=== PATIENT | male | born 1950 | race Caucasian/White ===

== ENCOUNTER 2022-04-20 10:52 | Emergency (ER) | payer MEDICARE, SELFPAY ==
[2022-04-20 11:10] VITALS: BP 113/70; PULSE 82; RESP 22; TEMP 36.2; O2SAT 95; BMI 43.3
--- NOTE | 2022-04-20 11:27 | ED_ITS ---
HPI - General Adult General Chief complaint: Difficulty Swallowing Stated complaint: unable to swallow water/food Time Seen by Provider: 04/20/22 11:09 History of Present Illness HPI narrative: This 71-year-old male comes in reporting inability to swallow. He states that he has been having some difficulty with swallowing certain things recently. He does have a remote history of a dilation of his esophagus. [facility] He states that he took his pills this morning without any difficulty. After that he had some eggs and other breakfast food that he feels is lodged in the lower esophagus now. He tried to swallow water with some force but was unable to do so. He does have some burping and spitting now as nothing seems to be going past his esophagus. Related Data Allergies Allergy/AdvReac Type Severity Reaction Status Date / Time lisinopril Allergy Verified 04/20/22 11:09 metformin Allergy Verified 04/20/22 11:09 Review of Systems Narrative: Constitutional: No fevers, no weight gain or loss. Eyes: No discharge. No vision changes. HENT: No congestion, no sore throat, no ear pain. Cardiovascular: No chest pain, no palpitations. Respiratory: No shortness of breath, no wheezes, no cough. Gastrointestinal: No abdominal pain, no diarrhea. Unable to swallow due to food bolus. Genitourinary: No dysuria, no hematuria. Musculoskeletal: Normal range of motion. Skin: No rashes, no pruritis. Neurological: No dizziness, weakness, sensory change, speech change. Endo/Heme/Allergies: No bruising or bleeding. No polydipsia. Pysch: no suicidality, no anxiety, no insomnia. All other systems reviewed and are negative. [facility] Social History Smoking Status: Former smoker What tobacco products do you use: cigarettes Do you use any of these nicotine containing products: None Second hand tobacco smoke exposure: No How often do you have a drink containing alcohol: never How often do you have six or more drinks on one occasion: Never AUDIT-C Alcohol total score: 0 Non-prescribed substance use: denies use service: Yes Exam Narrative: Exam Narrative: Constitutional: Well-developed, well-nourished. HEENT: Normocephalic, atraumatic. Neck: Normal range of motion. Nontender. Supple. Heart: Regular. No murmurs. Normal rate. Intact distal pulses. Lungs: Clear to auscultation. No chest discomfort. No wheezes, rhonchi, or rales. Abdomen: Normal bowel sounds. Nontender. No rebound tenderness. Genitalia: Deferred. Back: No midline tenderness. Normal range of motion. Extremities: Normal range of motion. No injury. Skin: Intact. No rash. Warm. No erythema or pallor. Neurologic: No altered sensation. No weakness. Alert and oriented. Psychiatric: No suicidality. No anxiety or depression. No insomnia. Nursing notes and vitals signs are reviewed. Const: Vital Signs, click to edit/add: Vital Signs - 24 hr 04/20/22 11:10 Temperature 97.2 F L Pulse Rate [Pulse Oximeter] 82 Respiratory Rate 22 Blood Pressure [Le ft Forearm] 113/70 Pulse Oximetry 95 Course Vital Signs Vital signs: Initial Vital Signs Temperature 97.2 F L 04/20/22 11:10 Temperature Source Temporal Artery Scan 04/20/22 11:10 Pulse Rate 82 04/20/22 11:10 Pulse Rhythm 04/20/22 11:10 Respiratory Rate 22 04/20/22 11:10 Blood Pressure 113/70 04/20/22 11:10 Blood Pressure Mean 84 04/20/22 11:10 Blood Pressure Position Supine 04/20/22 11:10 Pulse Oximetry 95 04/20/22 11:10 Oxygen Delivery Method 04/20/22 11:10 Vital Signs Temperature 97.2 F L 04/20/22 11:10 Pulse Rate 82 04/20/22 11:10 Respiratory Rate 22 04/20/22 11:10 Blood Pressure 113/70 04/20/22 11:10 Pulse Oximetry 95 04/20/22 11:10 Temperature 97.2 F L 04/20/22 11:10 Pulse Rate 82 04/20/22 11:10 Respiratory Rate 22 04/20/22 11:10 Blood Pressure 113/70 04/20/22 11:10 Pulse Oximetry 95 04/20/22 11:10 Medical Decision Making MDM Narrative Medical decision making narrative: This patient has a history of food bolus in the esophagus and comes in with similar symptoms today. An IV was established and he received a mg of glucagon. After allowing this to work he did give a value aunt effort to try to swallow water but was unsuccessful. I did speak with the surgeon on-call, Dr. Velarde, who stated that Dr. Ross would be able to do an endoscopy today. I spoke also with her and these arrangements will occur before long. Discharge Plan Discharge Clinical Impression: Esophagus, foreign body Patient Disposition: Xfer Other Discharge Location: [facility] Condition: Unchanged
[2022-04-20] MEDS: GLUCAGON,HUMAN RECOMBINANT 1 MG/ML VIAL IV (12:12)
--- NOTE | 2022-04-20 13:40 | ED.NURSE ---
Patient to surgery center to see Dr. Ross about endoscopy. Patient left ambulatory and stable.
--- NOTE | 2022-04-20 14:18 | W.ANESCHARGE ---
Anesthesia Charges Start Date/Time Anesthesia Start Date: 04/20/22 Anesthesia Start Time: 13:50 Stop Date/Time Anesthesia Stop Date: 04/20/22 Anesthesia Stop Time: 14:10 Summary Emergency: Yes Extremes of Age: Over 70-CPT 10241
--- NOTE | 2022-04-20 14:36 | W.ANESCHARGE ---
Anesthesia Charges Start Date/Time Anesthesia Start Date: 04/20/22 Anesthesia Start Time: 13:50 Stop Date/Time Anesthesia Stop Date: 04/20/22 Anesthesia Stop Time: 14:10 Summary Emergency: Yes Extremes of Age: Over 70-CPT 76698
[2022-04-20 14:46] LABS: Glucose, Point-of-Care* 190 mg/dl (60-115)
== END 2022-04-20 13:59 | disposition other institution (70) ==
LOC: ED 13:35 → SS 13:44 → ED 05-13 10:27
PROVIDERS: Surgery; Emergency Provider Emergency Medicine Emergency Medical Services; PCP Internal Medicine
DX: T18.128A Food in esophagus causing other injury, initial encounter (principal)
CPT/HCPCS: 43235; 731; 82947; 99100; 99140; 99283; 99284; J1610; J2704; J3490

== ENCOUNTER 2023-11-13 20:09 | Emergency (ER) | payer MEDICARE, OTHER, SELFPAY ==
[2023-11-13 20:21] VITALS: BP 151/92; PULSE 93; RESP 20; TEMP 36.6; O2SAT 96; BMI 38.0
--- NOTE | 2023-11-13 20:32 | ED.HEATRA ---
HPI - Head Injury General Chief complaint: Head Injury/Pain Stated complaint: Chasing a bat,fell, hit back of head Time Seen by Provider: 11/13/23 20:25 History of Present Illness HPI Narrative: This 72-year-old male comes in with a head injury. He was chasing a bat and eventually did catch and dispose of the bat. In this process he fell and hit the back of his head. He did not have loss of consciousness. He has a large hematoma in this area with an overlying abrasion. There is no fluctuance in the hematoma. The patient does not describe any headache. He does take a aspirin daily. He was able to get up and ambulate normally and has no other complaints. Related Data Allergies Allergy/AdvReac Type Severity Reaction Status Date / Time lisinopril Allergy Verified 04/20/22 11:09 metformin Allergy Verified 04/20/22 11:09 Review of Systems Status of ROS: Reports: 10 or more systems reviewed and unremarkable except as noted in History and below Narrative: Constitutional: No fevers, no weight gain or loss. Eyes: No discharge. No vision changes. HENT: No congestion, no sore throat, no ear pain. Cardiovascular: No chest pain, no palpitations. Respiratory: No shortness of breath, no wheezes, no cough. Gastrointestinal: No abdominal pain, no vomiting, no diarrhea. Genitourinary: No dysuria, no hematuria. Musculoskeletal: Normal range of motion. Skin: No rashes, no pruritis. Neurological: No dizziness, weakness, sensory change, speech change. Endo/Heme/Allergies: No bruising or bleeding. No polydipsia. Pysch: no suicidality, no anxiety, no insomnia. All other systems reviewed and are negative. PFSH PFSH Social History Smoking Status: Former smoker What tobacco products do you use: cigarettes Smoking quit date/years: >15 years ago Do you use any of these nicotine containing products: None Second hand tobacco smoke exposure: No How often do you have a drink containing alcohol: never How often do you have six or more drinks on one occasion: Never AUDIT-C Alcohol total score: 0 Non-prescribed substance use: denies use service: Yes Exam Narrative: Exam Narrative: Constitutional: Well-developed, well-nourished, no acute distress. HEENT: Hematoma on the right occipital region with overlying abrasion. The hematoma is approximately 6 cm in diameter. Neck: Normal range of motion. Nontender. Supple. Heart: Regular. No murmurs. Normal rate. Intact distal pulses. Lungs: Clear to auscultation. No chest discomfort. No wheezes, rhonchi, or rales. Abdomen: Normal bowel sounds. Nontender. No rebound tenderness. Genitalia: Deferred. Back: No midline tenderness. Normal range of motion. Extremities: Normal range of motion. No injury. Skin: Intact. No rash. Warm. No erythema or pallor. Neurologic: No altered sensation. No weakness. Alert and oriented. Psychiatric: No suicidality. No anxiety or depression. No insomnia. Nursing notes and vitals signs are reviewed. Const: Vital Signs, click to edit/add: Vital Signs - 24 hr 11/13/23 20:21 Temperature 97.9 F Pulse Rate [Pulse Oximeter] 93 Respiratory Rate 20 Blood Pressure [Ri ght Upper Arm] 151/92 H Pulse Oximetry 96 Oxygen Delivery Me thod Room Air Course Vital Signs Vital signs: Initial Vital Signs Temperature 97.9 F 11/13/23 20:21 Temperature Source Temporal Artery Scan 11/13/23 20:21 Pulse Rate 93 11/13/23 20:21 Respiratory Rate 20 11/13/23 20:21 Blood Pressure 151/92 H 11/13/23 20:21 Blood Pressure Mean 111 H 11/13/23 20:21 Blood Pressure Position Sitting 11/13/23 20:21 Pulse Oximetry 96 11/13/23 20:21 Oxygen Delivery Method Room Air 11/13/23 20:21 Vital Signs Temperature 97.9 F 11/13/23 20:21 Pulse Rate 93 11/13/23 20:21 Respiratory Rate 20 11/13/23 20:21 Blood Pressure 151/92 H 11/13/23 20:21 Pulse Oximetry 96 11/13/23 20:21 Oxygen Delivery Method Room Air 11/13/23 20:21 Temperature 97.9 F 11/13/23 20:21 Pulse Rate 93 11/13/23 20:21 Respiratory Rate 20 11/13/23 20:21 Blood Pressure 151/92 H 11/13/23 20:21 Pulse Oximetry 96 11/13/23 20:21 Oxygen Delivery Method Room Air 11/13/23 20:21 MDM - Head Injury MDM Narrative Medical decision making narrative: This patient has not had injury in the occipital portion of his head. He has a sizable hematoma without fluctuance or laceration. The patient does take an aspirin daily. He is not reporting headache and has no neurological deficits. CT imaging of his head is obtained and returns with no acute findings intracranially by my review. He does have a large hematoma. Radiology report is pending. This patient is okay to be discharged home. He is instructed use Tylenol as needed and directed. Discharge Plan Discharge Clinical Impression: Closed head injury Additional Instructions: Use [id number] medicines as needed and directed. Activity as tolerated. Follow up with MD return if worsening. Follow Up/Referrals: Suleman Castellano MD [Primary Care Provider] - Stand Alone Forms: [place] Info Instructions
--- NOTE | 2023-11-13 20:34 | CRLHL7_ITS ---
For Patients: As a result of the Cures Act, medical imaging exams and procedure reports are released immediately into your electronic medical record. You may view this report before your referring provider. If you have questions, please contact your health care provider. INDICATION: Head injury TECHNIQUE: CT head without contrast. COMPARISON: None. FINDINGS: Brain: No acute hemorrhage. No acute transcortical infarct. No significant mass effect or midline shift. Focal left frontal gliosis. Severe chronic microvascular ischemic disease. Mild global parenchymal volume loss. Ventricles: Unremarkable. Sinuses: Unremarkable. Mastoid air cells: Unremarkable. Orbits: Unremarkable. Calvarium and soft tissues: Right parietal scalp hematoma, no underlying fracture appreciated. IMPRESSION: Right parietal scalp hematoma, no other acute abnormality appreciated. Please note that all CT scans at this facility use dose modulation, iterative reconstruction, and/or weight-based dosing when appropriate to reduce radiation dose to as low as reasonably achievable. Dictated by Elie Lee MD @ 11/13/2023 9:40:12 PM (Electronically Signed)
--- OUTSIDE RECORDS SUMMARY | 2023-11-13 21:32 | XMS_ITS | Encounter Summary ---
Author Name [facility] Organization Department of [facility] Address [address] [place] [address] Support Name Relationship Address Phone NANCY FORRESTER Emergency Contact Unknown Insurance Providers: All historical and current Section Date Range: From patient's date of to the date document was created. This section includes the names of all active insurance providers for the patient. Insurance Provider Type of Coverage Plan Name Start of Policy Coverage End of Policy Coverage Group Number Member ID Insurance Provider's Telephone Number Policy Brantley's Name Patient's Relationship to Policy Brantley [employer] [place] [facility] MEDICARE ADVANTAGE [facility] (WNR) Oct 11, 2019 [id number] OLGA,FLYNN GARAY PATIENT [employer] [place] MEDICARE ADVANTAGE [facility] (WNR) Oct 11, 2016 RIVAAB [id number] OLGA,FLYNN GARAY PATIENT [employer] (WNR) MEDICARE ADVANTAGE [facility] (WNR) Oct 11, 2019 [id number] FLYNN GOULD PATIENT Selected Encounter This section includes the information on record at [place] for the Encounter. Date/Time Encounter Type Encounter Description Reason Provider Source Jan 13, 2023 03:30 PM OFFICE O/P EST MOD 30-39 MIN RENAL/NEPHROL(EXCE PT DIALYSIS) ICD-10-CM E11.22 Type 2 diabetes mellitus w diabetic chronic kidney disease MITCHELL GOMEZ Encounter Template Text not used by [place] Assessments - Encounter Diagnoses This section includes the primary and secondary diagnoses documented for the Encounter. Date/Time Primary/Secondary Diagnosis Diagnosis Name Provider Source Jan 14, 2023 11:31 AM PRIMARY Type 2 diabetes mellitus w diabetic chronic kidney disease MITCHELL GOMEZ [facility] Jan 14, 2023 11:31 AM SECONDARY Anemia in chronic kidney disease MITCHELL GOMEZ [facility] Jan 14, 2023 11:31 AM SECONDARY Chronic kidney disease, stage 4 (severe) MITCHELL GOMEZ [facility] Jan 14, 2023 11:31 AM SECONDARY Essential (primary) hypertension MITCHELL GOMEZ [facility] Jan 14, 2023 11:31 AM SECONDARY Gout, unspecified MITCHELL GOMEZ [facility] Jan 14, 2023 11:31 AM SECONDARY Hypertensive chronic kidney disease w stg 1-4/unsp chr kdny MITCHELL GOMEZ [facility] Jan 14, 2023 11:31 AM SECONDARY Secondary hyperparathyroidism of renal origin MITCHELL GOMEZ [facility] Jan 14, 2023 11:31 AM SECONDARY Type 2 diabetes mellitus with unspecified complications MITCHELL GOMEZ [facility] Plan of Treatment: Future Appointments (+ 6 months) and Future Tests (+/- 45 days) The Plan of Treatment section includes future care activities for the patient from all [place] treatmentcilities. This section includes future appointments and future orders which are active, pending or scheduled. Future Appointments This section includes appointments that were scheduled to occur 6 months from the date of the Encounter, up to a maximum of 20 appointments. The data comes from all [place] treatment facilities. Appointment Date/Time Appointment Type Appointme nt Facility Name Mar 18, 2023 09:30 AM AMBULATORY - MEDICINE [facility] Jun 29, 2023 09:00 AM AMBULATORY - NONE [facility] Jul 06, 2023 01:30 PM AMBULATORY - MEDICINE [facility] Jul 14, 2023 08:30 AM AMBULATORY - MEDICINE [facility]ID[facility] Encounter Notes: All associated encounter notes This section contains the clinical notes associated to the Encounter. Date/Time Encounter Note(s) Provider Source Jan 13, 2023 04:45 PM NEPHROLOGY ATTENDI WILL NOTE: LOCAL TITLE: RENAL CLINIC NOTE STANDARD TITLE: NEPHROLOGY ATTENDING NOTE DATE OF NOTE: JAN 13, 2023@16:45 ENTRY DATE: JAN 13, 2023@16:45:16 AUTHOR: MITCHELL GOMEZ EXP COSIGNER: URGENCY: STATUS: COMPLETED RENAL CLINIC NOTE Has ADDENDA Assessment/plan: Mr. Shaggy Gould is a 72 year old male seen in renal clinic for management of chronic kidney disease. 1. CKD 4, eGFR 23 with most recent labs Comment: Etiology of CKD is likely compound in nature with long-standing hypertension, long-standing DM (with + proteinuria/+ neuropathy), and renovascular disease (small vessel ischemic disease identified on head CT) contributing. Evaluation included renal US (normal kidney size, diffuse parenchymal thinning in both kidneys consistent with changes of chronic kidney disease), UA (no active sediment, + dipstick proteinuria), albumin/creatinine ratio 4748 mg/gcreat (on ARB for ~ 2 weeks), SPEP negative). No uremic symptoms. Acceptable electrolytes. Oral hydration is adequate. Controlling DM2/HTN to slow CKD progression was discussed. Interested in CKD education, inquires if this can be done from [facility]. Plan: Continue current management. 2. Hypertension Comment: Reports home readings are <130s systolic. Clinic reading is at goal. Plan: Continue current management. 3. DM2 Comment: Managed by PCP. Checking BG occasionally, denies hypoglycemia. On SGLT2i, on ARB. Plan: Continued management per PCP. 4. Bone/mineral/secondary hyperparathyroidism of renal origin Comment: Calcium & phos are acceptable, not on calcium supplements or phos binders. Pt has secondary hyperparathyroidism of renal origin not on calcitriol. Plan: Monitor. 5. Anemia Comment: ACKD per peripheral smear. Hgb is stable & at baseline not on JUNA. Iron replete, not on supplement. Plan: Monitor. JUAN is not indicated until hgb < 9 g/dL. 6. Gout Comment: Denies flare. Uric acid level at goal. Plan: Continue allopurinol. RTC 6 months [facility] with labs 1 week prior, sooner if needed --> co-signing MEERA Oneill & ABIMBOLA ePacock to please assist with scheduling CKD education {}{}{}{}{}{}{}{}{}{}{}{}{}{}{}{ }{}{}{}{}{}{}{}{}{}{}{}{}{}{}{} {}{}{}{}{}{}{} Nurse's Notes Reviewed. Chief Complaint: follow-up CKD HPI: Mr. Gould was seen by [facility] visit. He gives verbal permission for visit by video, identify confirmed with name/full date of . Pt states he's feeling well & he has no complaints. No new health problems, no hospitalizations since our last visit. CKD - appetite is good. No nausea, vomiting, metallic taste in the mouth. Energy level is good. Does not nap during the day. No pruritis. HTN - checking BP weekly, reports readings are consistently 130s systolic DM2 - checking BG occasionally, no hypoglycemia gout - no flare Past medical history/Active Problems: Active Problems: Active problems - Computerized Problem List is the source for the followin. Diabetes mellitus 2. Essential hypertension - dx late - says pharmacologic stress test ok in late 3. Hyperlipidemia 4. Gout 5. Obesity 6. Proteinuria - with prior testing per pt report 7. Peripheral sensory neuropathy due to type 2 diabetes mellitus 8. Acquired hallux rigidus 9. Flat foot 10. Edema 11. Deformity of toe 12. Chronic kidney disease stage 3 13. Ingrowing nail of toe of left foot 14. Anaemia in chronic kidney disease 15. Chronic kidney disease stage 3B 16. Secondary hyperparathyroidism of renal origin Review of Systems: Feels well, no weight loss, good appetite. No Chest Pain. No Shortness of breath. No abdominal pain, N/V, or change in bowel habits. No diarrhea or constipation. No urinary hesitancy or frequency. Active Outpatient Medications (excluding Supplies): Outpatient Medications Status 1) ALLOPURINOL 100MG TAB TAKE ONE TABLET BY MOUTH EVERY ACTIVE DAY FOR GOUT PREVENTION 2) AMLODIPINE BESYLATE 10MG TAB TAKE ONE-HALF TABLET BY ACTIVE (S) MOUTH EVERY DAY FOR BLOOD PRESSURE 3) EMPAGLIFLOZIN 25MG TAB TAKE ONE-HALF TABLET BY MOUTH ACTIVE EVERY DAY 4) GLIPIZIDE 5MG TAB TAKE ONE TABLET BY MOUTH EVERY DAY ACTIVE (S) 5) LOSARTAN 25MG TAB TAKE ONE TABLET BY MOUTH EVERY DAY ACTIVE FOR KIDNEY PROTECTION 6) METOPROLOL TARTRATE 50MG TAB TAKE ONE-HALF TABLET BY ACTIVE MOUTH TWICE A DAY FOR HEART RHYTHM 7) OMEPRAZOLE 20MG EC CAP TAKE ONE CAPSULE BY MOUTH ACTIVE TWICE A DAY ON AN EMPTY STOMACH, AT LEAST 30 MINUTES PRIOR TO A MEAL 8) SIMVASTATIN 20MG TAB TAKE ONE-HALF TABLET BY MOUTH AT ACTIVE BEDTIME FOR CHOLESTEROL Non-VA Medications Status 1) Non-VA ACETAMINOPHEN 500MG TAB 1000MG MOUTH DAILY ACTIVE 2) Non-VA ASPIRIN 325MG TAB 325MG MOUTH EVERY DAY ACTIVE 3) Non-VA CHOLECALCIFEROL TAB MOUTH ACTIVE 4) Non-VA MARINE LIPID (FISH OIL) CAP,ORAL MOUTH ACTIVE 5) Non-VA MULTIVITAMIN CAP/TAB 1 TABLET MOUTH EVERY DAY ACTIVE 13 Total Medications Meds reviewed with pt, no changes Physical Exam: VS: Temp: 98 F [36.7 C] (04/10/2022 08:14) BP: 124/85 (01/13/2023 15:26) Pulse:100 (01/13/2023 15:26) Resp: 16 (01/13/2023 15:26) Weight: 275.7 lb [125.06 kg] (01/13/2023 15:26) Pain: 0 (04/10/2022 08:14) O2 Sat: 97% (01/13/2023 15:26) BMI: 42.0 General NAD WDWN Patient Education of Treatment Plan: Patient indicates readiness to learn, verbalizes understanding, agreement and satisfaction with the treatment plan. Denies further questions. /gregorio/ MITCHELL GOMEZ Nurse Practitioner Signed: 01/14/2023 11:32 Receipt Acknowledged By: 01/14/2023 14:27 /jony WEBB MSA 01/14/2023 12:28 /gregorio/ CATRACHITO PEACOCK RN REGISTERED NURSE 01/14/2023 ADDENDUM STATUS: COMPLETED Healthcare Recruiter called patient and left generic VM regarding CKD Edu. Contact info left. Healthcare Recruiter will await call back or f/u in 1 week. /jony WEBB MSA Signed: 01/14/2023 14:29 01/25/2023 ADDENDUM STATUS: COMPLETED Healthcare Recruiter called patient to offer February 10 CKD Education Class. Patient is not able to attend. Healthcare Recruiter will [facility] back in February for following month. /gregorio/ NAKITA ONEILL ADVANCED MSA Signed: 01/25/2023 09:37 MITCHELL GOMEZ [facility]
--- OUTSIDE RECORDS SUMMARY | 2023-11-13 21:32 | XMS_ITS | Encounter Summary ---
Author Name Department of [facility] Organization Department of [facility] Address [address] [place] [address] Support Name Relationship Address Phone NANCY FORRESTER [...] [employer] MEDICARE ADVANTAGE [facility] (WNR) Oct 11, 2019 [id number] [phone] FLYNN ESPINOZA PATIENT [employer] [place] MEDICARE ADVANTAGE [facility] (WNR) Oct 11, 2016 [id number] [id number] [facility] [phone] FLYNN ESPINOZA PATIENT [employer] (WNR) MEDICARE ADVANTAGE [facility] (WNR) Oct 11, 2019 [id number] FLYNN ESPINOZA PATIENT Selected Encounter This section includes the information on record at [place] for the Encounter. Date/Time Encounter Type Encounter Description Reason Pro vider Source Feb 03, 2023 12:00 AM Outpatient Encounter EVENT (HISTORICAL) I[facility] Encounter Template Text not used by [place] Plan of Treatment: Future Appointments (+ 6 months) and Future Tests (+/- 45 days) The Plan of Treatment section includes future care activities for the patient from all [place] treatmentfacilities. This section includes future appointments and future orders which are active, pending or scheduled. Future Appointments This section includes appointments that were scheduled to occur 6 months from the date of the Encounter, up to a maximum of 20 appointments. The data comes from all [place] treatment facilities. Appointment Date/Time Appointment Type Appointme nt Facility Name Mar 18, 2023 09:30 AM AMBULATORY - MEDICINE [facility] Jun 29, 2023 09:00 AM AMBULATORY - NONE [facility] Jul 06, 2023 01:30 PM AMBULATORY - MEDICINE [facility] Jul 14, 2023 08:30 AM AMBULATORY - MEDICINE [facility]
--- OUTSIDE RECORDS SUMMARY | 2023-11-13 21:32 | XMS_ITS | Encounter Summary ---
Author Name Department of [facility] Organization Department of [facility] Address [address] [place] [address] Support Name Relationship Address Phone NANCY FORRESTER [...] [facility] [place] [facility] [place] ADVANTAGE [facility] (WNR) Oct 11, 2019 [id number] [phone] FLYNN ESPINOZA PATIENT [facility] [place] [facility] ([place]IC[place] ADVANTAGE [facility] (WNR) Oct 11, 2016 RIVAAB [id number] FLYNN ESPINOZA PATIENT [facility] (WNR) MEDICARE ADVANTAGE [facility] (WNR) Oct 11, 2019 [id number] [phone] FLYNN ESPINOZA PATIENT Selected Encounter This section includes the information on record at MD for the Encounter. Date/Time Encounter Type Encounter Description Reason Provider Source Mar 17, 2023 11:41 AM Outpatient Encounter GENERAL INTERNAL MEDICINE JAYRO BOLTON Encounter Template Text not used by MD Plan of Treatment: Future Appointments (+ 6 months) and Future Tests (+/- 45 days) The Plan of Treatment section includes future care activities for the patient from all MD treatmentfacilities. This section includes future appointments and future orders which are active, pending or scheduled. Future Appointments This section includes appointments that were scheduled to occur 6 months from the date of the Encounter, up to a maximum of 20 appointments. The data comes from all MD treatment facilities. Appointment Date/Time Appointment Type Appointme nt Facility Name Mar 18, 2023 09:30 AM [facility] Jun 29, 2023 09:00 AM [facility]ORY - NONE [facility] Jul 06, 2023 01:30 PM [facility] Jul 14, 2023 08:30 AM AMBULATORY - MEDICINE [facility] Lab Results: +/- 30 days of the encounter This section includes the Chemistry and Hematology Lab Results on record with MD for the patient. Radiology Reports and Pathology Reports are provided separately, in subsequent sections. Lab Results This section contains the Chemistry/Hematology Results that were resulted 30 days before or 30 daysafter the date of the Encounter. Date/Time Source Result Type Result - Unit Interpretation Reference Range Comment Mar 18, 2023 10:11 AM [facility] HEMOGLOBIN A1C Specimen Type: BLOOD Comment: Values obtained from A1C measurements can vary. For typical A1C assays, a reported value of 7.0 could actually be between 6.7 and 7.3 if measured by a reference method. A reported value of 9.0 could actually be between 8.7 and 9.3. Ref: http://www.ngs p.org/CAPdata. asp Ordering Provider: LANE GARCIA Report Released Date/Time: Mar 18, 2023 09:59 AM Reporting Lab: [facility] [id number] Performing Lab: [facility] [id number] HEMOGLOBIN A1C 5.3 4.0-6.0 Mar 18, 2023 10:11 AM [facility] TSH W/REFLEX TO FREE T4 Specimen Type: PLASMA No comment entered. Ordering Provider: LANE GARCIA Report Released Date/Time: Mar 18, 2023 09:59 AM Reporting Lab: [facility] [id number] Performing Lab: [facility] [id number] TSH 1.31 0.35-4.94 Mar 18, 2023 10:11 AM [facility] COMPREHENSIVE METABOLIC PANEL+MG Specimen Type: PLASMA Comment: Values obtained from A1C measurements can vary. For typical A1C assays, a reported value of 7.0 could actually be between 6.7 and 7.3 if measured by a reference method. A reported value of 9.0 could actually be between 8.7 and 9.3. Ref: http://www.ngs p.org/CAPdata. asp Ordering Provider: LANE GARCIA Report Released Date/Time: Mar 18, 2023 09:59 AM Reporting Lab: [facility] [id number] Performing Lab: [facility] [id number] CREATININE 2.4 H 0.7-1.2 UREA NITROGEN 34 H 8-26 GLUCOSE 160 H 70-100 SODIUM 140 136-145 POTASSIUM 4.3 3.5-5.1 CHLORIDE 105 98-107 CO2 26 22-29 CALCIUM 9.3 8.4-10.2 PROTEIN,TOTAL 6.9 6.0-8.3 ALBUMIN 4.0 3.5-5.2 BILIRUBIN, TOTAL 0.6 0.2-1.2 MAGNESIUM 1.8 1.6-2.6 ANION GAP 9 5-15 ALKALINE PHOSPHATASE 98 40-150 ALT/SGPT 11 See_Comment AST/SGOT 15 See_Comment .CREAT EGFR(CKD-EPI) 28 L See_Comment Mar 18, 2023 10:11 AM [facility] CBC & DIFF Specimen Type: BLOOD Comment: Automated Differential Performed Ordering Provider: LANE GARCIA Report Released Date/Time: Mar 18, 2023 09:59 AM Reporting Lab: [facility] [id number] Performing Lab: [facility] [id number] WBC 9.64 4.0-11.0 RBC 3.91 L 4.6-6.2 HGB 13.2 L 13.5-17.9 HCT 39.7 L 41-54 MCV 101.5 H 80-100 MCH 33.8 H 27-33 MCHC 33.2 32.0-37.5 PLT 314 150-400 MPV 9.5 7.4-10.4 NEUT 74.2 LYMPHS 14.9 MONO 7.0 EOSINO 2.8 BASO 0.6 RDW 12.8 11.5-14.5 ABS LYMPH 1.44 1.0-4.0 ABS MONO 0.67 0.1-1.0 ABS NEUT 7.15 2.0-7.7 ABS EOS 0.27 0-0.5 ABS BASO 0.06 0-0.2 IG(META,MYELO,P RO) 0.5 ABS IMMATURE GRAN 0.05 0-0.1 Encounter Notes: All associated encounter notes This section contains the clinical notes associated to the Encounter. Date/Time Encounter Note(s) Provider Source Mar 17, 2023 11:41 AM NURSING IMMUNIZATI ON NOTE: LOCAL TITLE: VAAES NSG COVID-19 VACCINE ADMINISTRATION STANDARD TITLE: NURSING IMMUNIZATION NOTE DATE OF NOTE: MAR 17, 2023@11:41 ENTRY DATE: MAR 17, 2023@11:42 AUTHOR: JAYRO BOLTON EXP COSIGNER: URGENCY: STATUS: COMPLETED Patient received a prior dose of the Pfizer Bivalent booster. Documented: COVID-19 ([place]), MRNA, LNP-S, BIVALENT, PF, 30 MCG/0.3 ML DOSE Historical Date Administered: Aug 05, 2022 Series: Series 5 Outside Location: [facility] [address] [place] [address] Information Source: FROM OTHER REGISTRY /es/ JAYRO BOLTON LPN Signed: 03/17/2023 11:42 JAYRO BOLTON [facility]
--- OUTSIDE RECORDS SUMMARY | 2023-11-13 21:32 | XMS_ITS | Encounter Summary ---
Author Name [facility] of [facility] Organization Department of [facility] Address [address] [place] [address] Support Name Relationship Address Phone NANCY FORRESTER [...] [facility] [place] [facility] (WNR) Oct 11, 2019 [id number] [phone] FLYNN ESPINOZA PATIENT [facility] [place] [facility] [place]IC[place] ADVANTAGE [facility] (WNR) Oct 11, 2016 RIVAAB [id number] FLYNN ESPINOZA PATIENT [facility] (WNR) MEDICARE ADVANTAGE [facility] (WNR) Oct 11, 2019 [id number] [phone] FLYNN ESPINOZA PATIENT Selected Encounter This section includes the information on record at [place] for the Encounter. Date/Time Encounter Type Encounter Description Reason Pro vider Source Jan 28, 2023 12:22 PM Outpatient Encounter RENAL/NEPHROL(EXCEPT DIALYSIS) IHE Encounter Template Text not used by [place] Plan of Treatment: Future Appointments (+ 6 months) and Future Tests (+/- 45 days) The Plan of Treatment section includes future care activities for the patient from all [place] treatmentfacilities. This section includes future appointments and future orders which are active, pending or scheduled. Future Appointments This section includes appointments that were scheduled to occur 6 months from the date of the Encounter, up to a maximum of 20 appointments. The data comes from all [place] treatment facilities. Appointment Date/Time Appointment Type Appointme nt Facility Name Mar 18, 2023 09:30 AM [facility]ORY - [facility]ICINE [facility] Jun 29, 2023 09:00 AM AMB[facility]ATORY - NONE [facility] Jul 06, 2023 01:30 PM AMBULATORY - MEDICINE [facility] Jul 14, 2023 08:30 AM [facility] Encounter Notes: All associated encounter notes This section contains the clinical notes associated to the Encounter. Date/Time Encounter Note(s) Provider Source Jan 28, 2023 12:22 PM REPORT OF CONTACT: LOCAL TITLE: APPOINTMENT SCHEDULING NOTE STANDARD TITLE: REPORT OF CONTACT DATE OF NOTE: JAN 28, 2023@12:22 ENTRY DATE: JAN 28, 2023@12:22:51 AUTHOR: DONNA GAGE EXP COSIGNER: URGENCY: STATUS: COMPLETED Attempted to schedule Return to clinic (RTC) Contact attempt made to 1st attempt Telephone 2nd attempt Letter Left message on voice mail to call back to this number [phone] If calls back, schedule appt for: Activity: 01/13/2023 15:54 New Order entered by MITCHELL GOMEZ (NURSE PRACTITIO) Order Text: Return to [facility]IEF [facility] on or around ( Jul 12, 2023 ) for a total of 1 appointment(s) Prerequisites: Labs (NON-FASTING) labs 1 week prior Nature of Order: ELECTRONICALLY ENTERED /es/ DONNA GAGE, RN REGISTERED NURSE Signed: 01/28/2023 12:23 DONNA GAGE [facility]
--- OUTSIDE RECORDS SUMMARY | 2023-11-13 21:32 | XMS_ITS | Encounter Summary ---
Author Name Department of [facility] Organization [facility] of [facility] Address [address] [place] [address] Support Name Relationship Address Phone NANCY FORRESTER Emergency Contact Unknown [phone] Insurance Providers: All historical and current Section [...] [facility] [place] ADVANTAGE [facility] (WNR) Oct 11, 2019 [id number] OLGA,FLYNN GARAY PATIENT [facility] [place] [facility] [place] MEDIC[place] ADVANTAGE [facility] (WNR) Oct 11, 2016 RIVAAB [id number] [phone] OLGA,FLYNN GARAY PATIENT [facility] (WNR) MEDICARE ADVANTAGE [facility] (WNR) Oct 11, 2019 [id number] [phone] FLYNN ESPINOZA PATIENT Selected Encounter This section includes the information on record at MD for the Encounter. Date/Time Encounter Type Encounter Description Reason Provider Source Jan 13, 2023 03:25 PM TELEHEALTH FACILITY FEE RENAL/NEPHROL(EXCE PT DIALYSIS) ICD-10-CM E11.22 Type 2 diabetes mellitus w diabetic chronic kidney disease MITCHELL GOMEZ Encounter Template Text not used by [facility] Assessments - Encounter Diagnoses This section includes the primary and secondary diagnoses documented for the Encounter. Date/Time Primary/Secondary Diagnosis Diagnosis Name Provider Source Jan 15, 2023 09:08 AM PRIMARY Type 2 diabetes mellitus w diabetic chronic kidney disease REMY STEPHENS [facility] Jan 15, 2023 09:08 AM SECONDARY Hypertensive chronic kidney disease w stg 1-4/unsp chr REMY Marte [facility] Jan 15, 2023 09:08 AM SECONDARY Type 2 diabetes mellitus with unspecified complications REM[facility] STEPHENS [facility] Plan of Treatment: Future Appointments (+ 6 [...] 09:30 AM AMBULATORY - MEDICINE [facility] Jun 29, 2023 09:00 AM AMBULATORY - NONE [facility] Jul 06, 2023 01:30 PM [facility] Jul 14, 2023 08:30 AM AM[facility]ULATORY - MEDICINE [facility] Vital Signs: All taken on the encounter date This section contains inpatient and outpatient Vital Signs collected on the date of the Encounter. Date/Time Temperature Pulse Blood Pressure Respiratory Rate SP02 Pain Height Weight Body Mass Index Source Jan 13, 2023 03:26 PM 100 /min 124/85 mm[Hg] 16 /min 97 % 275.7 lb [address] [facility] Social History: Smoking Status (Most current) and Tobacco Use (All prior to encounter date) This section includes the most current, and the historical, smoking and tobacco- related health factors from the MD facility where the Encounter took place. Current Smoking Status This section includes the most current smoking, or tobacco-related health factor, from the MD facility where the Encounter took place. Date/Time Current Smoking Status Comment Facil ity Mar 16, 2022 02:00 PM VA-TOBACCO FORMER USER [facility] Tobacco Use History This section includes a history of the smoking, or tobacco-related health factors, that were collected on or before the date of the Encounter. The data comes from the MD facility where the Encounter took place. Date/Time Smoking Status/Tobacco Use Comment F acility Mar 16, 2022 02:00 PM VA-TOBACCO QUIT 15 YRS OR MORE [facility] February 23, 2019 11:14 AM VA-TOBACCO FORMER USER [facility] February 23, 2019 11:14 AM VA-TOBACCO QUIT 15 YRS OR MORE [facility] February 24, 2018 11:40 AM VA-TOBACCO FORMER USER [facility] February 24, 2018 11:40 AM VA-TOBACCO QUIT 15 YRS OR MORE [facility] February 24, 2018 10:44 AM FORMER TOBACCO USER [facility]Y [facility] February 22, 2017 02:44 PM FORMER TOBACCO USER 7Y [facility] Jan 13, 2016 04:54 AM FORMER TOBACCO USER [facility] Mar 21, 2014 10:14 AM FORMER TOBACCO USER [facility]
--- OUTSIDE RECORDS SUMMARY | 2023-11-13 21:32 | XMS_ITS | Continuity of Care Document ---
Author Name [facility] Organization [facility] Care Team Providers Care Supervisor Molding Name Role Phone [facility] Unavailable Unavailable Problems Combined list of problems from Department of Defense and [facility] Affairs facilities. It does not include entries that were removed or entered in error. Problem Status Onset Date Problem Type Date of Resolution Comments Source Diabetes mellitus Active 983 Condition [facility] Acquired hallux rigidus Active Condition [facility] Anaemia in chronic kidney disease Active Condition [facility] Chronic kidney disease stage 4 Active Condition [facility] Deformity of toe Active Condition [facility] Edema Active Condition [facility] Essential hypertension Active Condition Mar 21, 2014 Entered By: JENELLE JAMES Comment: dx late 2013 Entered By: JENELLE JAMES Comment: says pharmacologic stress test ok in late [facility] Flat foot Active Condition [facility] Gout Active Condition [facility] Hyperlipidemia Active Condition [facility] Ingrowing nail of toe of left foot Active Condition [facility] Obesity Active Condition [facility] Peripheral sensory neuropathy due to type 2 diabetes mellitus Active Condition [facility] Proteinuria Active Condition Mar 21, 2014 Entered By: JENELLE JAMES Comment: with prior testing per pt report [facility] Secondary hyperparathyroidism of renal origin Active Condition [facility] Transient global amnesia Inactive Condition 03/21/2014 Mar 21, 2014 Entered By: JENELLE JAMES Comment: [facility] Diagnosis: ICD-10-CM F54 Psych & behavrl 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 Active Diagnosis [facility] Diagnosis: ICD-10-CM N18.4 Chronic kidney disease, stage 4 (severe) Active Diagnosis [facility] Diagnosis: ICD-10-CM 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 Medication Details Route Status Patient Instructions Prescription Expires Prescription Number Last Dispense Date Ordering Provider Order Date Source ACETAMINOPH EN 500MG TAB TAKE TWO TABLETS BY MOUTH DAILY ORALLY ACTIVE JACOB,TOBIAS I L 2013 [facility] ALLOPURINOL 100MG TAB TAKE ONE TABLET BY MOUTH EVERY DAY FOR GOUT PREVENTI ON ORALLY ACTIVE 03/18/2024 [id number] 4 MARTHA GARCIA 2022 [facility] ALLOPURINOL 100MG TAB TAKE ONE TABLET BY MOUTH EVERY DAY FOR GOUT PREVENTI ON ORALLY DISCONT INUED 03/17/2023 [id number] 3 MARTHA GARCIA 2021 [facility] AMLODIPINE BESYLATE 10MG TAB TAKE ONE-HALF TABLET BY MOUTH EVERY DAY FOR BLOOD PRESSURE ORALLY ACTIVE 03/18/2024 [id number] 3 MARTHA GARCIA 2022 [facility] AMLODIPINE BESYLATE 10MG TAB TAKE ONE-HALF TABLET BY MOUTH EVERY DAY FOR BLOOD PRESSURE ORALLY DISCONT INUED 03/17/2023 [id number] 3 MARTHA GARCIA 2021 [facility] ASPIRIN 325MG TAB TAKE ONE TABLET BY MOUTH EVERY DAY ORALLY ACTIVE JACOB,TOBIAS I L 2013 [facility] CHOLECALCIF ANTOINETTE TAB TAKE BY MOUTH ORALLY ACTIVE JACOB,TOBIAS I L 2013 [facility] CYANOCOBALA MIN 100MCG TAB TAKE TWO TABLETS BY MOUTH EVERY DAY ORALLY DISCONT INUED 12/30/2022 [id number] 3 MARTHA GARCIA 2022 [facility] CYANOCOBALA MIN 100MCG TAB TAKE TWO TABLETS BY MOUTH EVERY DAY ORALLY DISCONT INUED 10/19/2022 [id number] 2 MARTHA GARCIA 2021 [facility] CYANOCOBALA MIN 100MCG TAB TAKE TWO TABLETS BY MOUTH EVERY DAY ORALLY DISCONT INUED 10/14/2022 [id number] 2 MARTHA GARCIA 2021 [facility] CYANOCOBALA MIN 100MCG TAB TAKE TWO TABLETS BY MOUTH EVERY DAY ORALLY 06/16/2023 [id number] 3 MARTHA GARCIA 2022 [facility] EMPAGLIFLOZ IN 25MG TAB TAKE ONE-HALF TABLET BY MOUTH EVERY DAY ORALLY ACTIVE 02/23/2024 [id number] 3 PB GOMEZ 2022 [facility] EMPAGLIFLOZ IN 25MG TAB TAKE ONE-HALF TABLET BY MOUTH EVERY DAY ORALLY DISCONT INUED 03/19/2023 [id number] PB GOMEZ 2021 [facility] GLIPIZIDE 5MG TAB TAKE ONE-HALF TABLET BY MOUTH EVERY DAY FOR DIABETES 30 MINUTES BEFORE MEAL ORALLY ACTIVE 07/07/2024 [id number] 3 PB GOMEZ 2022 [facility] GLIPIZIDE 5MG TAB TAKE ONE TABLET BY MOUTH EVERY DAY ORALLY DISCONT INUED (EDIT) 11/12/2023 [id number] 3 MARTHA GARCIA 2022 [facility] LOSARTAN 25MG TAB TAKE ONE TABLET BY MOUTH EVERY DAY FOR KIDNEY PROTECTI ON ORALLY ACTIVE 03/18/2024 [id number] 3 MARTHA GARCIA 2022 [facility] LOSARTAN 25MG TAB TAKE ONE TABLET BY MOUTH EVERY DAY FOR KIDNEY PROTECTI ON ORALLY DISCONT INUED 12/28/2023 [id number] 3 PB GOMEZ 2022 [facility] LOSARTAN 25MG TAB TAKE ONE TABLET BY MOUTH EVERY DAY FOR KIDNEY PROTECTI ON ORALLY DISCONT INUED 09/18/2022 [id number] 2 PB GOMEZ 2020 [facility] MARINE LIPID (FISH OIL) CAP,ORAL TAKE BY MOUTH ORALLY ACTIVE JACOB,TOBIAS I L 2013 [facility] MELATONIN CAP/TAB TAKE BY MOUTH AT BEDTIME ORALLY ACTIVE WARREN GARCIAMIRA Carey 2022 [facility] METOPROLOL TARTRATE 50MG TAB TAKE ONE-HALF TABLET BY MOUTH TWICE A DAY FOR HEART RHYTHM ORALLY ACTIVE 03/18/2024 [id number] 3 WARREN GARCIAECCHARU Carey 2022 [facility] METOPROLOL TARTRATE 50MG TAB TAKE ONE-HALF TABLET BY MOUTH TWICE A DAY FOR HEART RHYTHM ORALLY DISCONT INUED 03/17/2023 [id number] 3 MARTHA GARCIA 2021 [facility] MULTIVITAMI NS CAP/TAB TAKE ONE TABLET BY MOUTH EVERY DAY ORALLY ACTIVE JACOB,TOBIAS I L 2013 [facility] OMEPRAZOLE 20MG CAP,EC TAKE ONE CAPSULE BY MOUTH TWICE A DAY ON AN EMPTY STOMACH, AT LEAST 30 MINUTES PRIOR TO A MEAL ORALLY ACTIVE 06/08/2024 [id number] 3 [place] H 2022 [facility] OMEPRAZOLE 20MG CAP,EC TAKE ONE CAPSULE BY MOUTH TWICE A DAY ON AN EMPTY STOMACH, AT LEAST 30 MINUTES PRIOR TO A MEAL ORALLY DISCONT INUED 04/11/2023 [id number] 3 [place]LEY DEL VALLEA H 2021 [facility] SIMVASTATIN 20MG TAB TAKE ONE-HALF TABLET BY MOUTH AT BEDTIME FOR CHOLESTE ROL ORALLY ACTIVE 03/18/2024 [id number] 3 MARTHA GARCIA 2022 [facility] SIMVASTATIN 20MG TAB TAKE ONE-HALF TABLET BY MOUTH AT BEDTIME FOR CHOLESTE ROL ORALLY DISCONT INUED 03/17/2023 [id number] 3 MARTHA GARCIA 2021 [facility] Allergies, Adverse Reactions, Alerts Combined list of allergies from Department of Defense and Veterans Affairs facilities. It does not include entries that were removed or entered in error. Substance Category Reaction Severity Reaction type Status Date Reported Comments Source LISINOPRIL Propensity to adverse reactions to drug (finding) Low blood pressure active 4 [facility] Immunizations Combined list of available immunizations from the Department of Defense and Veterans Affairs facilities. Immunization Series Date Given Administered By Site Reaction Lot Number CVX Code Drug Cable Lacer Status Comments Source INFLUENZA, HIGH-DOSE, QUADRIVALENT 2022 CODEY FRANK E RIGHT DELTO ID [id number] 197 complet ed [facility] INFLUENZA VACCINE, QUADRIVALENT, ADJUVANTED 2021 STARR DAS RIGHT DELTO ID [id number] 205 complet ed [facility] COVID-19 ([employer]soft), MRNA, LNP-S, BIVALENT, PF, 30 MCG/0.3 ML DOSE 5 2021 300 complet ed [facility] ZOSTER RECOMBINANT 2 2021 187 complet ed [facility] ZOSTER RECOMBINANT 1 2021 187 complet ed [facility] COVID-19 ([employer]), MRNA, LNP-S, PF, 30 MCG/0.3 ML DOSE, YEIMI-SUCROSE (AGES 12+ YEARS) 4 2021 217 complet ed PFR; [id number]; 2 [facility] COVID-19 (PFIZER), MRNA, LNP-S, PF, 30 MCG/0.3 ML DOSE 3 2020 208 complet ed PFR; [id number]; 2 [facility] INFLUENZA, INJECTABLE, QUADRIVALENT, PRESERVATIVE FREE 2020 150 complet ed [facility] COVID-19 (PFIZER), MRNA, LNP-S, PF, 30 MCG/0.3 ML DOSE 2 2020 208 complet ed [facility] COVID-19 (PFIZER), MRNA, LNP-S, PF, 30 MCG/0.3 ML DOSE 1 2020 208 complet ed [facility] INFLUENZA, INJECTABLE, QUADRIVALENT, PRESERVATIVE FREE 2019 150 complet ed [facility] INFLUENZA, SEASONAL, INJECTABLE, PRESERVATIVE FREE 2019 140 complet ed [facility] PNEUMOCOCCAL POLYSACCHARID E PPV23 2018 33 complet ed [employer] Lot # [id number], Exp Date [id number] [facility] INFLUENZA, INJECTABLE, QUADRIVALENT, PRESERVATIVE FREE 2017 150 complet ed Partner: [facility]. Administe red by: [facility] Clinician (NPI=Not Provided) . Partner 7 Lot#: [id number] Mfr: Elvira Sorto [facility] ZOSTER LIVE 2016 121 complet ed [facility] INFLUENZA, HIGH DOSE SEASONAL 2016 135 complet ed [facility] INFLUENZA, HIGH DOSE SEASONAL 2016 135 complet ed [facility] TDAP 2015 115 complet ed [facility] INFLUENZA, HIGH DOSE SEASONAL 2015 135 complet ed [facility] INFLUENZA, HIGH DOSE SEASONAL 2015 135 complet ed [facility] PNEUMOCOCCAL CONJUGATE PCV 13 2015 133 complet ed [employer] Lot#[id number] 4 Exp 02/24 [facility] INFLUENZA, HIGH DOSE SEASONAL 2014 135 complet ed [facility] PNEUMOCOCCAL POLYSACCHARID E PPV23 2013 33 complet ed 2-3 years ago [facility] PNEUMOCOCCAL, UNSPECIFIED FORMULATION 2013 109 complet ed [facility] INFLUENZA, UNSPECIFIED FORMULATION 2012 88 complet ed [facility] INFLUENZA, SEASONAL, INJECTABLE 2011 141 complet ed [facility] INFLUENZA, SEASONAL, INJECTABLE 2009 141 complet ed [facility] NOVEL INFLUENZA-H1N 1-09, ALL FORMULATIONS 2009 128 complet ed [facility] TDAP 2007 115 complet ed [facility] PNEUMOCOCCAL POLYSACCHARID E PPV23 2005 33 complet ed [facility] INFLUENZA, SEASONAL, INJECTABLE 2004 141 complet ed [facility] Results Combined list of recent chemistry, hematology and other laboratory results from Department of Defense and Veterans Affairs, ranging from 15 months to all on record, depending upon the facility. Order Name Results Value Reference Range Date Interpretation Specimen Comments Source ELECTROLY TYLER/ANION GAP SODIUM [MOLES/VOLU ME] IN SERUM OR PLASMA 140 136 - 145 06/29 Specimen Type: PLASMA No comment entered. Ordering Provider: MITCHELL GOMEZ Report Released Date/Time: Jan 13, 2023 03:55 PM Reporting Lab: [facility] [address] Performing Lab: [facility] [address] [place] [facility] ELECTROLY TYLER/ANION GAP POTASSIUM [MOLES/VOLU ME] IN SERUM OR PLASMA 4.8 3.5 - 5.1 06/29 Specimen Type: PLASMA No comment entered. Ordering Provider: MITCHELL GOMEZ Report Released Date/Time: Jan 13, 2023 03:55 PM Reporting Lab: [facility] [address] Performing Lab: [facility] [address] [place] [facility] ELECTROLY TYLER/ANION GAP CHLORIDE [MOLES/VOLU ME] IN SERUM OR PLASMA 108 98 - 107 06/29 H Specimen Type: PLASMA No comment entered. Ordering Provider: MITCHELL GOMEZ Report Released Date/Time: Jan 13, 2023 03:55 PM Reporting Lab: [facility] [address] Performing Lab: [facility] [address] [place] [facility] ELECTROLY TYLER/ANION GAP CARBON DIOXIDE, TOTAL [MOLES/VOLU ME] IN SERUM OR PLASMA 22 22 - 29 06/29 Specimen Type: PLASMA No comment entered. Ordering Provider: MITCHELL GOMEZ Report Released Date/Time: Jan 13, 2023 03:55 PM Reporting Lab: [facility] [address] Performing Lab: [facility] [address] [place] [facility] ELECTROLY TYLER/ANION GAP ANION GAP IN SERUM OR PLASMA 10 5 - 15 06/29 Specimen Type: PLASMA No comment entered. Ordering Provider: MITCHELL GOMEZ Report Released Date/Time: Jan 13, 2023 03:55 PM Reporting Lab: [facility] [address] Performing Lab: [facility] [address] [place] [facility] CALCIUM CALCIUM [MASS/VOLUM E] IN SERUM OR PLASMA 9.1 8.4 - 10.2 06/29 Specimen Type: PLASMA No comment entered. Ordering Provider: MITCHELL GOMEZ Report Released Date/Time: Jan 13, 2023 03:55 PM Reporting Lab: [facility] [address] Performing Lab: [facility] [address] [place] [facility] UREA NITROGEN UREA NITROGEN [MASS/VOLUM E] IN SERUM OR PLASMA 33 8 - 26 06/29 H Specimen Type: PLASMA No comment entered. Ordering Provider: MITCHELL GOMEZ Report Released Date/Time: Jan 13, 2023 03:55 PM Reporting Lab: [facility] [address] Performing Lab: [facility] [address] [place] [facility] CREATININ E(INCLUDE S EGFR) CREATININE [MASS/VOLUM E] IN SERUM OR PLASMA 2.5 0.7 - 1.2 06/29 H Specimen Type: PLASMA No comment entered. Ordering Provider: MITCHELL GOMEZ Report Released Date/Time: Jan 13, 2023 03:55 PM Reporting Lab: [facility] [address] Performing Lab: [facility] [address] [place] [facility] CREATININ E(INCLUDE S EGFR) GLOMERULAR FILTRATION RATE/1.73 SQ M.PREDICTED [VOLUME RATE/AREA] IN SERUM, PLASMA OR BLOOD BY CREATININE- BASED FORMULA (CKD-EPI 2020) 27 60 06/29 L Specimen Type: PLASMA No comment entered. Ordering Provider: MITCHELL GOMEZ Report Released Date/Time: Jan 13, 2023 03:55 PM Reporting Lab: [facility] [address] Performing Lab: [facility] [address] [place] [facility] ALBUMIN ALBUMIN [MASS/VOLUM E] IN SERUM OR PLASMA 3.8 3.5 - 5.2 06/29 Specimen Type: PLASMA No comment entered. Ordering Provider: MITCHELL GOMEZ Report Released Date/Time: Jan 13, 2023 03:55 PM Reporting Lab: [facility] [address] Performing Lab: [facility] [address] [place] [facility] PHOSPHORU S PHOSPHATE [MASS/VOLUM E] IN SERUM OR PLASMA 3.6 2.3 - 4.7 06/29 Specimen Type: PLASMA No comment entered. Ordering Provider: MITCHELL GOMEZ Report Released Date/Time: Jan 13, 2023 03:55 PM Reporting Lab: [facility] [address] Performing Lab: [facility] [address] [place] [facility] PTH-N-TAC T PARATHYRIN. INTACT [MASS/VOLUM E] IN SERUM OR PLASMA 89.2 8.7 - 77.1 06/29 H Specimen Type: PLASMA No comment entered. Ordering Provider: MITCHELL GOMEZ Report Released Date/Time: Jan 13, 2023 03:55 PM Reporting Lab: [facility] [address] Performing Lab: [facility] [address] [facility] GLUCOSE GLUCOSE [MASS/VOLUM E] IN SERUM OR PLASMA 95 70 - 100 06/29 Specimen Type: PLASMA No comment entered. Ordering Provider: MITCHELL GOMEZ Report Released Date/Time: Jan 13, 2023 03:55 PM Reporting Lab: [facility] [address] Performing Lab: [facility] [address] [facility] HEMOGLOBI N A1C HEMOGLOBIN A1C/HEMOGLO BIN.TOTAL IN BLOOD 5.3 4.0 - 6.0 06/29 Specimen Type: BLOOD Comment: Values obtained from A1C measurement s can vary. For typical A1C assays, a reported value of 7.0 could actually be between 6.7 and 7.3 if measured by a reference method. A reported value of 9.0 could actually be between 8.7 and 9.3. Ref: http://www. ngsp.org/[place] Pdata.asp Ordering Provider: MITCHELL GOMEZ Report Released Date/Time: Jan 13, 2023 03:55 PM Reporting Lab: [facility] [address] Performing Lab: [facility] [address] [facility] CBC LEUKOCYTES [#/VOLUME] IN BLOOD BY AUTOMATED COUNT 8.29 4.0 - 11.0 06/29 Specimen Type: BLOOD No comment entered. Ordering Provider: MITCHELL GOMEZ Report Released Date/Time: Jan 13, 2023 03:55 PM Reporting Lab: [facility] [address] Performing Lab: [facility] [address] [place] [facility] CBC ERYTHROCYTE S [#/VOLUME] IN BLOOD BY AUTOMATED COUNT 3.87 4.6 - 6.2 06/29 L Specimen Type: BLOOD No comment entered. Ordering Provider: MITCHELL GOMEZ Report Released Date/Time: Jan 13, 2023 03:55 PM Reporting Lab: [facility] [address] Performing Lab: [facility] [address] [place] [facility] CBC HEMOGLOBIN [MASS/VOLUM E] IN BLOOD 12.9 13.5 - 17.9 06/29 L Specimen Type: BLOOD No comment entered. Ordering Provider: MITCHELL GOMEZ Report Released Date/Time: Jan 13, 2023 03:55 PM Reporting Lab: [facility] [address] Performing Lab: [facility] [address] [place] [facility] CBC HEMATOCRIT [VOLUME FRACTION] OF BLOOD BY AUTOMATED COUNT 39.4 41 - 54 06/29 L Specimen Type: BLOOD No comment entered. Ordering Provider: MITCHELL GOMEZ Report Released Date/Time: Jan 13, 2023 03:55 PM Reporting Lab: [facility] [address] Performing Lab: [facility] [address] [place] [facility] CBC MCV [ENTITIC VOLUME] BY AUTOMATED COUNT 101.8 80 - 100 06/29 H Specimen Type: BLOOD No comment entered. Ordering Provider: MITCHELL GOMEZ Report Released Date/Time: Jan 13, 2023 03:55 PM Reporting Lab: [facility] [address] Performing Lab: [facility] [address] [place] [facility] CBC MCH [ENTITIC MASS] BY AUTOMATED COUNT 33.3 27 - 33 06/29 H Specimen Type: BLOOD No comment entered. Ordering Provider: MITCHELL GOMEZ Report Released Date/Time: Jan 13, 2023 03:55 PM Reporting Lab: [facility] [address] Performing Lab: [facility] [address] [facility] CBC MCHC [MASS/VOLUM E] BY AUTOMATED COUNT 32.7 32.0 - 37.5 06/29 Specimen Type: BLOOD No comment entered. Ordering Provider: MITCHELL GOMEZ Report Released Date/Time: Jan 13, 2023 03:55 PM Reporting Lab: [facility] [address] Performing Lab: [facility] [address] [facility] CBC PLATELETS [#/VOLUME] IN BLOOD BY AUTOMATED COUNT 302 150 - 400 06/29 Specimen Type: BLOOD No comment entered. Ordering Provider: MITCHELL GOMEZ Report Released Date/Time: Jan 13, 2023 03:55 PM Reporting Lab: [facility] [address] Performing Lab: [facility] [address] [facility] CBC PLATELET MEAN VOLUME [ENTITIC VOLUME] IN BLOOD BY AUTOMATED COUNT 9.6 7.4 - 10.4 06/29 Specimen Type: BLOOD No comment entered. Ordering Provider: MITCHELL GOMEZ Report Released Date/Time: Jan 13, 2023 03:55 PM Reporting Lab: [facility] [address] Performing Lab: [facility] [address] [facility] CBC ERYTHROCYTE DISTRIBUTIO N WIDTH [RATIO] BY AUTOMATED COUNT 12.8 11.5 - 14.5 06/29 Specimen Type: BLOOD No comment entered. Ordering Provider: MITCHELL GOMEZ Report Released Date/Time: Jan 13, 2023 03:55 PM Reporting Lab: [facility] [address] Performing Lab: [facility] [address] [facility] Vital Signs Combined list of inpatient and outpatient Vital Signs from Department of Defense and Veterans Affairs, ranging from 12 months to all on record, depending upon the facility. Vital Sign Value Date Comments Source SYSTOLIC BLOOD PRESSURE 120 07/06/2023 13:19:03 [facility] DIASTOLIC BLOOD PRESSURE 77 07/06/2023 13:19:03 [facility] PULSE OXIMETRY 98% 07/06/2023 13:19:03 [facility] TEMPERATURE 97 07/06/2023 13:19:03 [facility] PULSE 95 07/06/2023 13:19:03 [facility] RESPIRATION 18 07/06/2023 13:19:03 [facility] PULSE OXIMETRY 96% 03/18/2023 09:41:22 [facility] WEIGHT 272.4 03/18/2023 09:41:22 [facility] BMI 42kg/m2 03/18/2023 09:41:22 [facility] PAIN 0 03/18/2023 09:41:22 [facility] HEIGHT 68 03/18/2023 09:41:22 [facility] TEMPERATURE 97.3 03/18/2023 09:41:22 [facility] PULSE 83 03/18/2023 09:41:22 [facility] RESPIRATION 16 03/18/2023 09:41:22 [facility] SYSTOLIC BLOOD PRESSURE 124 01/13/2023 15:26:53 [facility] DIASTOLIC BLOOD PRESSURE 85 01/13/2023 15:26:53 [facility] PULSE OXIMETRY 97% 01/13/2023 15:26:53 [facility] WEIGHT 275.7 01/13/2023 15:26:53 [facility] BMI 42kg/m2 01/13/2023 15:26:53 [facility] PULSE 100 01/13/2023 15:26:53 [facility] RESPIRATION 16 01/13/2023 15:26:53 [facility] Encounters Combined list of: 1) Encounters from Department of Veterans Affairs facilities going back up to thelast 18 months. 2) Encounters from the Department of Defense facilities going back up to 280 months. Location Location Details Encounter Type Encounter Number Reason For Visit Attending Provider ADM Date DC Date Status Disposition Source [facility] [place] [id number] Diagnos is: ICD-10- CM Z23 Encount er for immuniz ation<b r/> GEBREKIRST OS,CODEY E 06/17 [facility] [place] [facility] Outpatient Encounter [id number] 06/18 [place] [facility] [place] [facility] Out[place] Encounter [id number] 06/22 [place] [facility] [place] [facility] Outpatient Encounter [id number] 07/16 [place] [facility] [place] [facility] Outpatient Encounter [id number] 08/05 [place] [facility] [place] [facility] Out[place] Encounter [id number] 09/14 [place] [facility] [place] [facility] Outpatient Encounter [id number] 09/17 [place] [facility] [place] [place] [id number] Diagnos is: ICD-10- CM Z23 Encount er for immuniz ation<b r/> POPLIN,BO INE D 09/30 [facility] [place] [facility] Outpatient Encounter [id number] 10/01 [place] [facility] [place] [facility] Outpatient Encounter [id number] 11/04 [place] [facility] F[facility] [id number] Diagnos is: ICD-10- CM E11.22 Type 2 diabete s mellitu s w diabeti c chronic kidney disease
MITCHELL GOMEZ 01/13 [facility] [place] [facility] OFFICE O/P EST MOD 30-39 MIN [id number] Diagnos is: ICD-10- CM E11.22 Type 2 diabete s mellitu s w diabeti c chronic kidney disease
MITCHELL GOMEZ 04/05 /2023 [place] [facility] [place] [facility] Out[place] Encounter [id number] 01/28 [place] [facility] [place] [facility] Outpatient Encounter [id number] 02/03 [place] [facility] [place] [facility] Outpatient Encounter [id number] JAYRO BOLTON 03/17 [facility] OFFICE O/P EST MOD 30-39 MIN [id number] Diagnos is: ICD-10- CM Z00.8 Encount er for other general examina tion
Esme GARCIA L 03/18 [facility] Outpatient Encounter [id number] 03/18 [facility] IMMUNIZATI [place] ADMIN [id number] Diagnos is: ICD-10- CM Z23 Encount er for immuniz ation<b r/> GEBREKIRST OS,CODEY E 06/29 [facility] OFFICE O/P EST MOD 30-39 MIN [id number] Diagnos is: ICD-10- CM E11.22 Type 2 diabete s mellitu s w diabeti c chronic kidney disease
MITCHELL GOMEZ 07/06 [facility] [id number] Diagnos is: ICD-10- CM N18.4 Chronic kidney disease , stage 4 (severe )
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 Social History Type Response Date Comment Sour e Tobacco smoking status MAIS NC-TOBACCO FORMER USER 03/18/2023 [facility] History of tobacco use NC-TOBACCO QUIT 1 5 YRS OR MORE 03/18/2023 [facility] History of tobacco use NC-TOBACCO FORMER USER 03/16/2022 [facility] History of tobacco use NC-TOBACCO QUIT 1 5 YRS OR MORE 02/23/2019 [facility] History of tobacco use NC-TOBACCO FORMER USER 02/24/2018 [facility] History of tobacco use FORMER TOBACCO US ER 7Y OR GREATER 02/24/2018 [facility] History of tobacco use FORMER TOBACCO US ER 7Y OR GREATER 02/22/2017 [facility] History of tobacco use FORMER TOBACCO US ER 7Y OR GREATER 01/13/2016 [facility] History of tobacco use FORMER TOBACCO US ER 7Y OR GREATER 03/21/2014 [facility] Plan of Care List of future care activities from Department of Veterans Affairs facilities. Additional future care activities may be listed in the Assessment and Plan section. Date/Time Care Activity Care Activity Detail Facili ty 12/23/2023 AMBULATORY - NONE [facility]ORY - NONE [facility]
--- OUTSIDE RECORDS SUMMARY | 2023-11-13 21:33 | XMS_ITS | Encounter Summary ---
Author Name Department of [facility] Organization Department of [facility] Address [address] [place] [address] Support Name Relationship Address Phone NANCY FORRESTER [...] [facility] [place] [facility] ([place]) [facility]VANTAGE [facility] (R) Oct 11, 2019 [id number] FLYNN ESPINOZA PATIENT [facility] [place] [facility] ([place] [facility]IC[facility]ANTAGE [facility] (WNR) Oct 11, 2016 [id number] [phone] FLYNN ESPINOZA PATIENT [facility] (WNR) MEDICARE ADVANTAGE [facility] (WNR) Oct 11, 2019 [id number] FLYNN ESPINOZA PATIENT Selected Encounter This section includes the [place] at [place] for the Encounter. Date/Time Encounter Type Encounter Description Reason Provider Source Jun 29, 2023 08:43 AM IMMUNIZATION ADMIN PRIMARY CARE/MEDICINE ICD-10-CM Z23 Encounter for immunization MONIKA, CODEY E IHE Encounter Template Text not used by [facility] Assessments - Encounter Diagnoses This section includes the primary and secondary diagnoses documented for the Encounter. Date/Time Primary/Secondary Diagnosis Diagnosis Name Provider Source Jun 29, 2023 08:44 AM PRIMARY Encounter for immunization [facility] Plan of Treatment: Future Appointments (+ 6 months) and Future Tests (+/- 45 days) The Plan of Treatment section includes future care activities for the [place] from all [place] treatmentfacilities. This section includes future appointments and future orders which are active, pending or scheduled. Future Appointments This section includes appointments that were scheduled to occur 6 months from the date of the Encounter, up to a maximum of 20 appointments. The data comes from all [place] treatment facilities. Appointment Date/Time Appointment Type Appointme nt Facility Name Jul 06, 2023 01:30 PM [facility]ORY - MEDICINE [facility] Jul 14, 2023 08:30 AM AMBULATORY - MEDICINE GIOVANIWindy CIERARIVKA [facility] Dec 23, 2023 09:30 AM AMBULATORY - NONE [facility] Lab Results: +/- 30 days of the encounter This section includes the Chemistry and Hematology Lab Results on record with [place] for the patient. Radiology Reports and Pathology Reports are provided separately, in subsequent sections. Lab Results This section contains the Chemistry/Hematology Results that were resulted 30 days before or 30 daysafter the date of the Encounter. Date/Time Source Result Type Result - Unit Interpretation Reference Range Comment Jun 29, 2023 08:24 AM [facility] ELECTROLYTES/ANION GAP Specimen Type: PLASMA No comment entered. Ordering Provider: MITCHELL GOMEZ Report Released Date/Time: Jan 13, 2023 03:55 PM Reporting Lab: [facility] [id number] Performing Lab: [facility] [phone] SODIUM 140 136-145 POTASSIUM 4.8 3.5-5.1 CHLORIDE 108 H 98-107 CO2 22 22-29 ANION GAP 10 5-15 Jun 29, 2023 08:24 AM [facility] UREA NITROGEN Specimen Type: PLASMA No comment entered. Ordering Provider: MITCHELL GOMEZ Report Released Date/Time: Jan 13, 2023 03:55 PM Reporting Lab: [facility] [address] Performing Lab: [facility] [address] UREA NITROGEN 33 H 8-26 Jun 29, 2023 08:24 AM [facility] CALCIUM Specimen Type: PLASMA No comment entered. Ordering Provider: MITCHELL GOMEZ Report Released Date/Time: Jan 13, 2023 03:55 PM Reporting Lab: [facility] [address] Performing Lab: [facility] [address] CALCIUM 9.1 8.4-10.2 Jun 29, 2023 08:24 AM [facility] CREATININE(INCLUDES EGFR) Specimen Type: PLASMA No comment entered. Ordering Provider: MITCHELL GOMEZ Report Released Date/Time: Jan 13, 2023 03:55 PM Reporting Lab: [facility] [address] Performing Lab: [facility] [address] CREATININE 2.5 H 0.7-1.2 .CREAT EGFR(CKD-EPI) 27 L >60 Jun 29, 2023 08:24 AM [facility] PHOSPHORUS Specimen Type: PLASMA No comment entered. Ordering Provider: MITCHELL GOMEZ Report Released Date/Time: Jan 13, 2023 03:55 PM Reporting Lab: [facility] [address] Performing Lab: [facility] [address] PHOSPHORUS 3.6 2.3-4.7 Jun 29, 2023 08:24 AM [facility] ALBUMIN Specimen Type: PLASMA No comment entered. Ordering Provider: MITCHELL GOMEZ Report Released Date/Time: Jan 13, 2023 03:55 PM Reporting Lab: [facility] [address] Performing Lab: [facility] [address] ALBUMIN 3.8 3.5-5.2 Jun 29, 2023 08:24 AM [facility] GLUCOSE Specimen Type: PLASMA No comment entered. Ordering Provider: MITCHELL GOMEZ Report Released Date/Time: Jan 13, 2023 03:55 PM Reporting Lab: [facility] [address] Performing Lab: [facility] [address] GLUCOSE 95 70-100 Jun 29, 2023 08:24 AM [facility] PTH-N-TACT Specimen Type: PLASMA No comment entered. Ordering Provider: MITCHELL GOMEZ Report Released Date/Time: Jan 13, 2023 03:55 PM Reporting Lab: [facility] [address] Performing Lab: [facility] [address] PTH-N-TACT 89.2 H 8.7-77.1 Jun 29, 2023 08:24 AM [facility] CBC Specimen Type: BLOOD No comment entered. Ordering Provider: MITCHELL GOMEZ Report Released Date/Time: Jan 13, 2023 03:55 PM Reporting Lab: [facility] [address] Performing Lab: [facility] [address] WBC 8.29 4.0-11.0 RBC 3.87 L 4.6-6.2 HGB 12.9 L 13.5-17.9 HCT 39.4 L 41-54 MCV 101.8 H 80-100 MCH 33.3 H 27-33 MCHC 32.7 32.0-37.5 PLT 302 150-400 MPV 9.6 7.4-10.4 RDW 12.8 11.5-14.5 Jun 29, 2023 08:24 AM [facility] HEMOGLOBIN A1C Specimen Type: BLOOD Comment: Values obtained from A1C measurements can vary. For typical A1C assays, a reported value of 7.0 could actually be between 6.7 and 7.3 if measured by a reference method. A reported value of 9.0 could actually be between 8.7 and 9.3. Ref: http://www.ngs p.org/CAPdata. asp Ordering Provider: MITCHELL GOMEZ Report Released Date/Time: Jan 13, 2023 03:55 PM Reporting Lab: [facility] [address] Performing Lab: [facility] [address] HEMOGLOBIN A1C 5.3 4.0-6.0 Jun 29, 2023 08:24 AM [facility] IRON GROUP Specimen Type: SERUM No comment entered. Ordering Provider: MITCHELL GOMEZ Report Released Date/Time: Jan 13, 2023 03:55 PM Reporting Lab: [facility] [address] Performing Lab: [facility] [address] IRON 90 65-175 TIBC,CALCULAT ED 300 250-425 FERRITIN 55.6 21.8-274.7 IRON SATURATION 30 20-50 TRANSFERRIN 240 163-382 Immunizations: All administered on the encounter date This section contains immunizations associated to the Encounter. Immunization Series Date Issued Reaction Comments INFLUENZA, HIGH-DOSE, QUADRIVALENT Jun 29, 2023 Social History: Smoking Status (Most current) and Tobacco Use (All prior to encounter date) This section includes the most current, and the historical, smoking and tobacco- related health factors from the [place] facility where the [place] took place. Current Smoking Status This section includes the most current smoking, or tobacco-related health factor, from the [place] facility where the Encounter took place. Date/Time Current Smoking Status Comment Facil ity Mar 18, 2023 09:30 AM VA-TOBACCO QUIT 15 YRS OR MORE [facility] Tobacco Use History This section includes a history of the smoking, or tobacco-related health factors, that were collected on or before the date of the Encounter. The data comes from the [place] facility where the Encounter took place. Date/Time Smoking Status/Tobacco Use Comment F acility Mar 18, 2023 09:30 AM VA-TOBACCO QUIT 15 YRS OR MORE [facility] Mar 16, 2022 02:00 PM VA-TOBACCO FORMER USER [facility] Mar 16, 2022 02:00 PM VA-TOBACCO QUIT 15 YRS OR MORE [facility] February 23, 2019 11:14 AM VA-TOBACCO FORMER USER [facility] February 23, 2019 11:14 AM VA-TOBACCO QUIT 15 YRS OR MORE [facility] February 24, 2018 11:40 AM VA-TOBACCO FORMER USER [facility] February 24, 2018 11:40 AM VA-TOBACCO QUIT 15 YRS OR MORE [facility] February 24, 2018 10:44 AM FORMER TOBACCO USER 7Y OR GREATE R [facility] February 22, 2017 02:44 PM FORMER TOBACCO USER 7Y OR GREATE R [facility] Jan 13, 2016 04:54 AM FORMER TOBACCO USER 7Y OR GREATE R [facility] Mar 21, 2014 10:14 AM FORMER TOBACCO USER 7Y OR GREATE R [facility] Encounter Notes: All associated encounter notes This section contains the clinical notes associated to the Encounter. Date/Time Encounter Note(s) Provider Source Jun 29, 2023 08:43 AM IMMUNIZATION NOTE: LOCAL TITLE: INFLUENZA VACCINATION STANDARD TITLE: IMMUNIZATION NOTE DATE OF NOTE: JUN 29, 2023@08:43 ENTRY DATE: JUN 29, 2023@08:43:42 AUTHOR: CODEY FRANK EXP COSIGNER: URGENCY: STATUS: COMPLETED The patient was given the influenza VIS which lists the benefits and side effects of the vaccine and which reviews the risks of not receiving the flu vaccine. The VIS was reviewed with the patient and they were given an opportunity to ask questions. The patient was provided education on how to decrease the risk of influenza infection including social distancing and use of good hand hygiene. The patient denied any prior severe reaction to the flu vaccine or its components. The patient gave verbal consent to receive the vaccine. 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
--- OUTSIDE RECORDS SUMMARY | 2023-11-13 21:33 | XMS_ITS | Encounter Summary ---
Author Name Department of [facility] Organization Department of [facility] Address [address] [place] [address] Support Name Relationship Address Phone NANCY FORRESTER [...] [facility] [place] [facility] ([place] MEDICARE ADVANTAGE [facility] (WNR) Oct 11, 2019 [id number] OLGA,FLYNN GARAY PATIENT [facility] [place] [facility] ([place] MEDIC[place] ADVANTAGE [facility] (WNR) Oct 11, 2016 [id number] [phone] OLGA,FLYNN GARAY PATIENT [facility] (WNR) MEDICARE ADVANTAGE [facility] (WNR) Oct 11, 2019 [id number] FLYNN ESPINOZA PATIENT Selected Encounter This section includes the information on record at [place] for the Encounter. Date/Time Encounter Type Encounter Description Reason Provider Source Jul 14, 2023 08:30 AM PT EDUCATION NOC GROUP RENAL/NEPHROL(EXCE PT DIALYSIS) ICD-10-CM N18.4 Chronic kidney disease, stage 4 (severe) CATRACHITO PEACOCK Encounter Template Text not used by [place] Assessments - Encounter Diagnoses This section includes the primary and secondary diagnoses documented for the Encounter. Date/Time Primary/Secondary Diagnosis Diagnosis Name Provider Source Jul 14, 2023 12:36 PM PRIMARY Chronic kidney disease, stage 4 (severe) CATRACHITO PEACOCK [facility] Plan of Treatment: Future Appointments (+ 6 months) and Future Tests (+/- 45 days) The Plan of Treatment section includes future care activities for the [facility] This section includes future appointments and future orders which are active, pending or scheduled. Future Appointments This section includes appointments that were scheduled to occur 6 months from the date of the Encounter, up to a maximum of 20 appointments. The data comes from all [place] treatment facilities. Appointment Date/Time Appointment Type Appointme nt Facility Name Dec 23, 2023 09:30 AM AMBULATORY - NONE [facility] Jan 06, 2024 03:00 PM AMBULATORY - MEDICINE [facility] Lab Results: +/- 30 days of the encounter This section includes the Chemistry and Hematology Lab Results on record with [place] for the patient. Radiology Reports and Pathology Reports are provided separately, in subsequent sections. Lab Results This section contains the Chemistry/Hematology Results that were resulted 30 days before or 30 daysafter the date of the Encounter. Date/Time Source Result Type Result - Unit Interpretation Reference Range Comment Jun 29, 2023 08:24 AM [facility] UREA NITROGEN Specimen Type: PLASMA No comment entered. Ordering Provider: MITCHELL GOMEZ Report Released Date/Time: Jan 13, 2023 03:55 PM Reporting Lab: [facility] [id number] Performing Lab: [facility] [id number] UREA NITROGEN 33 H 8-26 Jun 29, 2023 08:24 AM [facility] ELECTROLYTES/ANION GAP Specimen Type: PLASMA No comment entered. Ordering Provider: MITCHELL GOMEZ Report Released Date/Time: Jan 13, 2023 03:55 PM Reporting Lab: [facility] [id number] Performing Lab: [facility] [address] SODIUM 140 136-145 POTASSIUM 4.8 3.5-5.1 CHLORIDE 108 H 98-107 CO2 22 22-29 ANION GAP 10 5-15 Jun 29, 2023 08:24 AM [facility] CALCIUM Specimen Type: PLASMA No comment entered. Ordering Provider: MITCHELL GOMEZ Report Released Date/Time: Jan 13, 2023 03:55 PM Reporting Lab: [facility] [address] Performing Lab: [facility] [address] CALCIUM 9.1 8.4-10.2 Jun 29, 2023 08:24 AM [facility] CREATININE(INCLUDES EGFR) Specimen Type: PLASMA No comment entered. Ordering Provider: MITCHELL GOMEZ Report Released Date/Time: Jan 13, 2023 03:55 PM Reporting Lab: [facility] [id number] Performing Lab: [facility] [phone] CREATININE 2.5 H 0.7-1.2 .CREAT EGFR(CKD-EPI) 27 L >60 Jun 29, 2023 08:24 AM [facility] ALBUMIN Specimen Type: PLASMA No comment entered. Ordering Provider: MITCHELL GOMEZ Report Released Date/Time: Jan 13, 2023 03:55 PM Reporting Lab: [facility] [phone] Performing Lab: [facility] [address] ALBUMIN 3.8 3.5-5.2 Jun 29, 2023 08:24 AM [facility] PTH-N-TACT Specimen Type: PLASMA No comment entered. Ordering Provider: MITCHELL GOMEZ Report Released Date/Time: Jan 13, 2023 03:55 PM Reporting Lab: [facility] [id number] Performing Lab: [facility] [address] PTH-N-TACT 89.2 H 8.7-77.1 Jun 29, 2023 08:24 AM [facility] PHOSPHORUS Specimen Type: PLASMA No comment entered. Ordering Provider: MITCHELL GOMEZ Report Released Date/Time: Jan 13, 2023 03:55 PM Reporting Lab: [facility] [id number] Performing Lab: [facility] [address] PHOSPHORUS 3.6 2.3-4.7 Jun 29, 2023 08:24 AM [facility] GLUCOSE Specimen Type: PLASMA No comment entered. Ordering Provider: MITCHELL GOMEZ Report Released Date/Time: Jan 13, 2023 03:55 PM Reporting Lab: [facility] [phone] Performing Lab: [facility] [address] GLUCOSE 95 70-100 Jun 29, 2023 08:24 AM [facility] CBC Specimen Type: BLOOD No comment entered. Ordering Provider: MITCHELL GOMEZ Report Released Date/Time: Jan 13, 2023 03:55 PM Reporting Lab: [facility] [address] Performing Lab: [facility] [address] WBC 8.29 4.0-11.0 RBC 3.87 L 4.6-6.2 HGB 12.9 L 13.5-17.9 HCT 39.4 L 41-54 MCV 101.8 H 80-100 MCH 33.3 H 27-33 MCHC 32.7 32.0-37.5 PLT 302 150-400 MPV 9.6 7.4-10.4 RDW 12.8 11.5-14.5 Jun 29, 2023 08:24 AM [facility] HEMOGLOBIN A1C Specimen Type: BLOOD Comment: [...] Jan 13, 2023 03:55 PM Reporting Lab: [facility] [address] Performing Lab: [facility] [address] HEMOGLOBIN A1C 5.3 4.0-6.0 Jun 29, 2023 08:24 AM [facility] IRON GROUP Specimen Type: SERUM No comment entered. Ordering Provider: MITCHELL GOMEZ Report Released Date/Time: Jan 13, 2023 03:55 PM Reporting Lab: [facility] [address] Performing Lab: [facility] [address] IRON 90 65-175 TIBC,CALCULAT ED 300 250-425 FERRITIN 55.6 21.8-274.7 IRON SATURATION 30 20-50 TRANSFERRIN 240 163-382 Encounter Notes: All associated encounter notes This section contains the clinical notes associated to the Encounter. Date/Time Encounter Note(s) Provider Source Jul 14, 2023 02:47 PM REPORT OF CONTACT: LOCAL TITLE: PATIENT CONTACT NOTE STANDARD TITLE: REPORT OF CONTACT DATE OF NOTE: JUL 14, 2023@14:47 ENTRY DATE: JUL 14, 2023@14:47:26 AUTHOR: MELANIE SPAIN EXP COSIGNER: GEOFF ARCEO URGENCY: STATUS: COMPLETED PATIENT CONTACT NOTE Has ADDENDA Patient contact Name of [place]: KOTA ESPINOZA Name/Relationship of Contact if other than [place]: Date & Time of Contact: Jul@14:47 Type of Contact: Telephone Reason for Contact: Self-referral for health psychology services when at Chronic Kidney Disease Education class, per note from Catrachito Peacock RN dialysis home bioinformatics programmer called to discuss services. Left voicemail with name and office number and asked for call back. /jony Spain, PhD Staff Health Psychologist Signed: 07/14/2023 14:49 /jony ARCEO, Staff Neuropsychologist Cosigned: 07/14/2023 16:22 07/14/2023 ADDENDUM STATUS: COMPLETED This provider agrees with the above and was available for consultation. This providers also meets regularly with Dr. Spain for supervision. /jony ARCEO PhD Staff Neuropsychologist Signed: 07/14/2023 16:22 MELANIE SPAIN [facility] Jul 14, 2023 12:54 PM ADDENDUM: LOCAL TITLE: Addendum STANDARD TITLE: ADDENDUM DATE OF NOTE: JUL 14, 2023@12:54:57 ENTRY DATE: JUL 14, 2023@12:54:58 AUTHOR: CATRACHITO PEACOCK EXP COSIGNER: URGENCY: STATUS: COMPLETED Per CKD Self- Assessment completed prior to education class, he would like to connect with a mental health provider. scored a 2 on the ASHLEY-2 and 1 on the PHQ-2 questionnaire. Will notify Melanie Spain, PhD to contact . /jony PEACOCK RN REGISTERED NURSE Signed: 07/14/2023 12:56 Receipt Acknowledged By: 07/14/2023 14:45 /jony Spain PhD Staff Health Psychologist --- Original Document --- 07/14/23 DIALYSIS HOME PROGRAM: Renal Group Education Group Education: Class Information CLASS TIME/SIZE: On site class 2 hours of education time spent with participant(s) at this visit. 7 participants were seen at this group visit. ------ READINESS TO LEARN: Participants were attentive, indicated readiness to learn and attended Renal Group Education Class. IDENTIFIED LEARNING NEEDS: Self Management for Chronic Kidney Disease (CKD) TEACHING STRATEGY: Class/Group Written Materials: Resources for People who have Chronic Kidney Disease Living well with Chronic Kidney Disease Treatment Options for Kidney Failure Dialysis Treatment Options: Pros and Cons Brochure Basic Patient Requirements for Home Dialysis Support Plan of Your Choice Participant Evaluation [facility] Up a Kidney- Friendly Meal Grocery List Suggestions for CKD Eating Right for Kidney Health Nutrition Label Quick Guide Sodium Tips for People with CKD Protein Tips for People with CKD Potassium Tips for People with CKD Phosphorus Tips for People with CKD CLASS CONTENT/PATICIPANTS LEARNING OBJECTIVES: Participants will gain understanding of: a. Identify aspects of kidney disease progression and the implications of disease management b. Identify nutritional concerns; including diet, exercise, nutrients, and lipid management as it pertains to kidney disease c. Identify the options for renal replacement therapy d. Identify financial resources and options as it pertains to kidney disease e. Identify ways to cope with the stress and lifestyle changes related to kidney disease f. Develop personal strategies to address psychosocial issues and concerns g. Developing personal strategies to promote health and behavior changes, including Support Plan of Care Social Work addressed the following topics: - Adjustment to living with a chronic illness including behavioral and lifestyle changes while living with kidney disease - Role of renal SW including resources, Advance Directive, and coordination of dialysis - Discussed payer options for dialysis including [facility], Medicare, Medicaid/Medical Assistance, and private insurance - Maintaining [place] Primary Care Provider PATIENT/FAMILY RESPONSE Participants took part in: 1. Class discussion; participants response indicated comprehension of critical information about the topic of CKD self management 2. Goal Setting/Action Plan process 3. Developing a CKD Plan FOLLOW UP INSTRUCTIONS FOR PARTICIPANTS 1. Instructed to re-evaluate plan of care monthly 2. Encouraged to follow up and share plan with nephrology provider 3. Encouraged to participate in follow up appointment with Dietitian TIME ATTENDED FOR: Overview, Disease Management 45 minutes, Dietitian Education 30 minutes, Social Work Education 15 minutes, Junction Maker Education 15 minutes Class Instructors: Catrachito Peacock RN, Alycia Fields RD, ADDIE Shaw, Other: Melanie Spain, PhD Participant will be called within 2 weeks of attending CKD education class to review support plan of care and questions. Individual Patient Data BARRIERS/SPECIAL NEEDS: No learning needs identified PREFERRED STYLE OF LEARNING watch a recorded program, listen to an audio presentation, attend a small class EFFORT TO CONTROL THEIR CHRONIC KIDNEY DISEASE: Average effort PARTICIPANT(S) Patient PATIENT DATA Stage of Chronic Kidney Disease (CKD): Stage 4 Cause of CKD: DM and HTN Most recent weight: 272 lb [123.38 kg] (07/06/2023 13:19) Most recent blood pressure: 120/77 (07/06/2023 13:19) Most recent EGFR: Collection DT Specimen Test Name Result Units Ref Range 06/29/2023 08:24 PLASMA .CREAT EGFR(CKD-E 27 L Ref: >=60 Most recent creatinine: SLT - Lab Tests Selected Collection DT Specimen Test Name Result Units Ref Range 06/29/2023 08:24 PLASMA CREATININE 2.5 H mg/dL 0.7 - 1.2 Most recent Potassium: POTASSIUM 4.8 (06/29/23) Most current comprehensive metabolic panel were reviewed with the patient in class. Education assessment completed prior to class: Yes Pretest Score: 3/11 Pretest Knowledge Deficits: Chronic Kidney Disease (CKD), Nutrition, Medications Wellbeing Questionnaire Scores: ASHLEY-2 Score: 2 PHQ-2 Score: 1 [place] would like to be contacted by a behavioral Health Provider, will notify Kalina Patel MD. PATIENT/FAMILY RESPONSE (OUTCOME) Verbalizes critical information about the topic FOLLOW-UP RECOMMENDED: Refer back to nephrology provider and reinforce learning Schedule patient for follow up with renal dietitian per [place] request Comments: Home dialysis program will monitor veterans kidney function and will reach out if kidneys decline to discuss home peritoneal dialysis. Chronic Kidney Disease Management Goals/Plan The CKD Self Management Support Plan was developed following self- management education, by the and educator. Resource options identified: Make appointment with dietitian Make appointment with Home Dialysis Program: for PD evaluation Read through handouts in folder from CKD class /es/ CATRACHITO PEACOCK RN REGISTERED NURSE Signed: 07/14/2023 12:40 Receipt Acknowledged By: 07/14/2023 13:53 /gregorio/ JAYRO SALAZAR, BIODIESEL PROCESS CONTROL TECHNICIAN, [facility] PRIMARY CARE HOT STICK WORKER CATRACHITO PEACOCK [facility] Jul 14, 2023 12:35 PM DIALYSIS NOTE: LOCAL TITLE: DIALYSIS HOME PROGRAM STANDARD TITLE: DIALYSIS NOTE DATE OF NOTE: JUL 14, 2023@12:35 ENTRY DATE: JUL 14, 2023@12:35:29 AUTHOR: CATRACHITO PEACOCK EXP COSIGNER: URGENCY: STATUS: COMPLETED DIALYSIS HOME PROGRAM Has ADDENDA Renal Group Education Group Education: Class Information CLASS TIME/SIZE: On site class 2 hours of education time spent with participant(s) at this visit. 7 participants were seen at this group visit. ------ READINESS TO LEARN: Participants were attentive, indicated readiness to learn and attended Renal Group Education Class. IDENTIFIED LEARNING NEEDS: Self Management for Chronic Kidney Disease (CKD) TEACHING STRATEGY: Class/Group Written Materials: Resources for People who have Chronic Kidney Disease Living well with Chronic Kidney Disease Treatment Options for Kidney Failure Dialysis Treatment Options: Pros and Cons Brochure Basic Patient Requirements for Home Dialysis Support Plan of Your Choice Participant Evaluation [facility] Up a Kidney- Friendly Meal Grocery List Suggestions for CKD Eating Right for Kidney Health Nutrition Label Quick Guide Sodium Tips for People with CKD Protein Tips for People with CKD Potassium Tips for People with CKD Phosphorus Tips for People with CKD CLASS CONTENT/PATICIPANTS LEARNING OBJECTIVES: Participants will gain understanding of: a. Identify aspects of kidney disease progression and the implications of disease management b. Identify nutritional concerns; including diet, exercise, nutrients, and lipid management as it pertains to kidney disease c. Identify the options for renal replacement therapy d. Identify financial resources and options as it pertains to kidney disease e. Identify ways to cope with the stress and lifestyle changes related to kidney disease f. Develop personal strategies to address psychosocial issues and concerns g. Developing personal strategies to promote health and behavior changes, including Support Plan of Care Social Work addressed the following topics: - Adjustment to living with a chronic illness including behavioral and lifestyle changes while living with kidney disease - Role of renal SW including resources, Advance Directive, and coordination of dialysis - Discussed payer options for dialysis including [facility], Medicare, Medicaid/Medical Assistance, and private insurance - Maintaining [place] Primary Care Provider PATIENT/FAMILY RESPONSE Participants took part in: 1. Class discussion; participants response indicated comprehension of critical information about the topic of CKD self management 2. Goal Setting/Action Plan process 3. Developing a CKD Plan FOLLOW UP INSTRUCTIONS FOR PARTICIPANTS 1. Instructed to re-evaluate plan of care monthly 2. Encouraged to follow up and share plan with nephrology provider 3. Encouraged to participate in follow up appointment with Dietitian TIME ATTENDED FOR: Overview, Disease Management 45 minutes, Dietitian Education 30 minutes, Social Work Education 15 minutes, Junction Maker Education 15 minutes Class Instructors: Catrachito Peacock RN, Alycia Fields RD, ADDIE Shaw, Other: Melanie Spain, PhD Participant will be called within 2 weeks of attending CKD education class to review support plan of care and questions. Individual Patient Data BARRIERS/SPECIAL NEEDS: No learning needs identified PREFERRED STYLE OF LEARNING watch a recorded program, listen to an audio presentation, attend a small class EFFORT TO CONTROL THEIR CHRONIC KIDNEY DISEASE: Average effort PARTICIPANT(S) Patient PATIENT DATA Stage of Chronic Kidney Disease (CKD): Stage 4 Cause of CKD: DM and HTN Most recent weight: 272 lb [123.38 kg] (07/06/2023 13:19) Most recent blood pressure: 120/77 (07/06/2023 13:19) Most recent EGFR: Collection DT Specimen Test Name Result Units Ref Range 06/29/2023 08:24 PLASMA .CREAT EGFR(CKD-E 27 L Ref: >=60 Most recent creatinine: SLT - Lab Tests Selected Collection DT Specimen Test Name Result Units Ref Range 06/29/2023 08:24 PLASMA CREATININE 2.5 H mg/dL 0.7 - 1.2 Most recent Potassium: POTASSIUM 4.8 (06/29/23) Most current comprehensive metabolic panel were reviewed with the patient in class. Education assessment completed prior to class: Yes Pretest Score: 3/11 Pretest Knowledge Deficits: Chronic Kidney Disease (CKD), Nutrition, Medications Wellbeing Questionnaire Scores: ASHLEY-2 Score: 2 PHQ-2 Score: 1 [place] would like to be contacted by a behavioral Health Provider, will notify Kalina Patel MD. PATIENT/FAMILY RESPONSE (OUTCOME) Verbalizes critical information about the topic FOLLOW-UP RECOMMENDED: Refer back to nephrology provider and reinforce learning Schedule patient for follow up with renal dietitian per [place] request Comments: Home dialysis program will monitor veterans kidney function and will reach out if kidneys decline to discuss home peritoneal dialysis. Chronic Kidney Disease Management Goals/Plan The CKD Self Management Support Plan was developed following self- management education, by the and educator. Resource options identified: Make appointment with dietitian Make appointment with Home Dialysis Program: for PD evaluation Read through handouts in folder from CKD class /gregorio/ CATRACHITO PEACOCK RN REGISTERED NURSE Signed: 07/14/2023 12:40 Receipt Acknowledged By: 07/14/2023 13:53 /gregorio/ JUAN MERAZ, [facility] PRIMARY CARE HOT STICK WORKER 07/14/2023 ADDENDUM STATUS: COMPLETED Per CKD Self- Assessment completed prior to education class, he would like to connect with a mental health provider. [place] scored a 2 on the ASHLEY-2 and 1 on the PHQ-2 questionnaire. Will notify Melanie Spain, PhD to contact . /jony PEACOCK RN REGISTERED NURSE Signed: 07/14/2023 12:56 Receipt Acknowledged By: 07/14/2023 14:45 /gregorio/ Melanie Spain, PhD Staff Health Psychologist 08/03/2023 ADDENDUM STATUS: COMPLETED Dietary Service Aide called to discuss CKD Education class that was attended on 07/14, but no contact was made. Dietary Service Aide left HIPPA compliant message for with direct call back number. /jony PEACOCK RN REGISTERED NURSE Signed: 08/03/2023 13:37 CATRACHITO PEACOCK [facility] Jul 14, 2023 09:59 AM NUTRITION EDUCATIO N NOTE: LOCAL TITLE: EDUCATION NUTRITION STANDARD TITLE: NUTRITION EDUCATION NOTE DATE OF NOTE: JUL 14, 2023@09:59 ENTRY DATE: JUL 14, 2023@09:59:54 AUTHOR: POLYAKOV,ALYCIA G EXP COSIGNER: URGENCY: STATUS: COMPLETED Time spent: 45 min Initial class in person BARRIERS/SPECIAL NEEDS: No Barriers Identified EDUCATIONAL SCREENING BARRIERS/SPECIAL NEEDS: No Barriers Identified PREFERRED STYLE OF LEARNING: No preference stated. READINESS TO LEARN Unable to assess due to class IDENTIFIED LEARNING NEEDS/TOPIC: Disease/Condition (specify): CKD Medication Diet/Nutrition (Nutrition management with CKD) PARTICIPANTS: Patient TEACHING STRATEGY: Class/Group Audio/Visual Written/print materials (renal nutrition and diet) OBJECTIVES/CONTENT: 1. Identify nutritional concerns, including diet (Na, K, protein, calories, fats, fluids, Ca/phos), exercise, nutrients and lipid management as it pertains to kidney disease. 2. Discussed alternative therapy; healthy plate for CKD, meal planning 3. Food label reading, cooking, shopping 4. Fluids and renal failure PATIENT/FAMILY RESPONSE (OUTCOME): Unable to assess due to class size, had opportunities to ask questions FOLLOW-UP RECOMMENDED: follow up with [facility] in person, [facility] or over the phone /gregorio/ Alycia Fields RD,LD,MS,HAZARDOUS SUBSTANCES ENGINEER Registered/Licensed Dietitian,Renal nutr.spec Signed: 07/14/2023 10:00 ALYCIA FIELDS [facility]
--- OUTSIDE RECORDS SUMMARY | 2023-11-13 21:33 | XMS_ITS | Encounter Summary ---
Author Name Department of [facility] Organization Department of [facility] Address [address] [place] [address] Support Name Relationship Address Phone NANCY FORRESTER [...] [facility] [place] [facility] ([place]NR[place] MEDICARE ADVANTAGE [facility] (WNR) Oct 11, 2019 [id number] OLGA,FLYNN GARAY PATIENT [facility] [place] [facility] ([place]NR[place] MEDICARE ADVANTAGE [facility] (WNR) Oct 11, 2016 [id number] OLGA,FLYNN GARAY PATIENT [facility] (WNR) MEDICARE ADVANTAGE [facility] (WNR) Oct 11, 2019 [id number] FLYNN ESPINOZA PATIENT Selected Encounter This section includes the information on record at [place] for the Encounter. Date/Time Encounter Type Encounter Description Reason Provider Source Mar 18, 2023 09:30 AM OFFICE O/P EST MOD 30-39 MIN PRIMARY CARE/MEDICINE ICD-10-CM Z00.8 Encounter for other general examination [facility] Encounter Template Text not used by [place] Assessments - Encounter Diagnoses This section includes the primary and secondary diagnoses documented for the Encounter. Date/Time Primary/Secondary Diagnosis Diagnosis Name Provider Source Mar 18, 2023 10:08 AM PRIMARY Encounter for other general examination [facility] Mar 18, 2023 10:08 AM SECONDARY Chronic kidney disease, stage 3b [facility] [place] [facility] Mar 18, 2023 10:08 AM SECONDARY Essential (primary) hypertension [place] [place] [facility] Mar 18, 2023 10:08 AM SECONDARY Gout, unspecified [place] [place] [facility] Mar 18, 2023 10:08 AM SECONDARY Morbid (severe) obesity due to excess calories [place] [place] [facility] Mar 18, 2023 10:08 AM SECONDARY Pure hypercholesterolemi a, unspecified [place] [place] [facility] Mar 18, 2023 10:08 AM SECONDARY Type 2 diabetes mellitus with unspecified complications [facility] [place] [facility] Plan of Treatment: Future Appointments (+ 6 months) and Future Tests (+/- 45 days) The Plan of Treatment section includes future care activities for the patient from all [place] treatmentfacilities. This section includes future appointments and future orders which are active, pending or scheduled. Future Appointments This section includes appointments that were scheduled to occur 6 months from the date of the Encounter, up to a maximum of 20 appointments. The data comes from all [place] treatment facilities. Appointment Date/Time Appointment Type Appointme nt Facility Name Jun 29, 2023 09:00 AM AMBULATORY - NONE [place] [facility] Jul 06, 2023 01:30 PM AMBULATORY - MEDICINE [place] [facility] Jul 14, 2023 08:30 AM AMBULATORY - MEDICINE [facility] Lab Results: +/- 30 days of the encounter This section includes the Chemistry and Hematology Lab Results on record with [place] for the patient. Radiology Reports and Pathology Reports are provided separately, in subsequent sections. Lab Results This section contains the Chemistry/Hematology Results that were resulted 30 days before or 30 daysafter the date of the Encounter. Date/Time Source Result Type Result - Unit Interpretation Reference Range Comment Mar 18, 2023 10:11 AM [place] [facility] HEMOGLOBIN A1C Specimen Type: BLOOD Comment: [...] Mar 18, 2023 09:59 AM Reporting Lab: [facility] [id number] Performing Lab: [facility] [id number] HEMOGLOBIN A1C 5.3 4.0-6.0 Mar 18, 2023 10:11 AM [facility] TSH W/REFLEX TO FREE T4 Specimen Type: PLASMA No comment entered. Ordering Provider: LANE GARCIA Report Released Date/Time: Mar 18, 2023 09:59 AM Reporting Lab: [facility] [id number] Performing Lab: [facility] [id number] TSH 1.31 0.35-4.94 Mar 18, 2023 10:11 AM [place] [employer] COMPREHENSIVE METABOLIC PANEL+MG Specimen Type: PLASMA Comment: [...] Mar 18, 2023 09:59 AM Reporting Lab: [facility] [id number] Performing Lab: [facility] [id number] CREATININE 2.4 H 0.7-1.2 UREA NITROGEN 34 [...] L See_Comment Mar 18, 2023 10:11 AM [place] [facility] CBC & DIFF Specimen Type: BLOOD Comment: Automated Differential Performed Ordering Provider: LANE G[facility] Report Released Date/Time: Mar 18, 2023 09:59 AM Reporting Lab: [facility] [id number] Performing Lab: [facility] [id number] WBC 9.64 4.0-11.0 RBC 3.91 L 4.6-6.2 [...] RO) 0.5 ABS IMMATURE GRAN 0.05 0-0.1 Vital Signs: All taken on the encounter date This section contains inpatient and outpatient Vital Signs collected on the date of the Encounter. Date/Time Temperature Pulse Blood Pressure Respiratory Rate SP02 Pain Height Weight Body Mass Index Source Mar 18, 2023 09:42 AM 130/80 mm[Hg] [facility] Mar 18, 2023 09:41 AM 97.3 F 83 /min 16 /min 96 % 0 68 in 272.4 lb 42 [facility] Social History: Smoking Status (Most current) and Tobacco Use (All prior to encounter date) This section includes the most current, and the historical, smoking and tobacco- related health factors from the [place] facility where the Encounter took place. Current Smoking Status This section includes the most current smoking, or tobacco-related health factor, from the [place] facility where the Encounter took place. Date/Time Current Smoking Status Comment Betty orona Mar 18, 2023 09:30 AM VA-TOBACCO FORMER USER [facility] Tobacco Use History This section includes a history of the smoking, or tobacco-related health factors, that were collected on or before the date of the Encounter. The data comes from the [place] facility where the Encounter took place. Date/Time Smoking Status/Tobacco Use Comment F acility Mar 18, 2023 09:30 AM VA-TOBACCO QUIT 15 YRS OR MORE [facility] Mar 16, 2022 02:00 PM VA-TOBACCO FORMER USER [facility] Mar 16, 2022 02:00 PM VA-TOBACCO QUIT 15 YRS OR MORE [facility] February 23, 2019 11:14 AM VA-TOBACCO FORMER USER [facility] February 23, 2019 11:14 AM VA-TOBACCO QUIT 15 YRS OR MORE [facility] February 24, 2018 11:40 AM VA-TOBACCO FORMER USER [facility] February 24, 2018 11:40 AM VA-TOBACCO QUIT 15 YRS OR MORE [facility] February 24, 2018 10:44 AM FORMER TOBACCO USER 7Y OR GREATE R [facility] February 22, 2017 02:44 PM FORMER TOBACCO USER 7Y OR GREATE R [facility] Jan 13, 2016 04:54 AM FORMER TOBACCO USER 7Y OR GREATE R [facility] Mar 21, 2014 10:14 AM FORMER TOBACCO USER 7Y OR GREATE R [facility] Encounter Notes: All associated encounter notes This section contains the clinical notes associated to the Encounter. Date/Time Encounter Note(s) Provider Source Mar 19, 2023 09:13 AM LETTERS: LOCAL TITLE: FOLLOW UP RESULTS LETTER STANDARD TITLE: LETTERS DATE OF NOTE: MAR 19, 2023@09:13 ENTRY DATE: MAR 19, 2023@09:14:12 AUTHOR: MARTHA GARCIA COSIGNER: URGENCY: STATUS: COMPLETED [facility] [address] [place] [address] Mar KOTAJULIÁN ESPINOZA [address] [facility] [id number] Dear : I am writing to inform you of the results of testing that you had done recently at the [facility]. - Complete Blood Count (red/white blood cell counts and platelets) White count: WBC 9.64 (03/18/23) (normal is 4.0-11.0) Hemoglobin: HGB 13.2 L (03/18/23) (normal Male is 13.5-17.9; Female is 11.5-16) Hematocrit: HCT 39.7 L (03/18/23) (normal Male is 41-54; Female is 34.5-48) Platelets: PLT 314 (03/18/23) (normal is 150-400) - Electrolytes including sodium and potassium SODIUM 140 (03/18/23) (normal is 136-145) POTASSIUM 4.3 (03/18/23) (normal is 3.5-5.1) - Calcium CALCIUM 9.3 (03/18/23) (normal is 8.5-10.1) - Kidney function CREATININE 2.4 H (03/18/23)(normal Male = less than 1.2; normal Female = less than 1.0)) UREA NITROGEN 34 H (03/18/23) (normal Male is 8-26; normal Female is 10-20) - Blood Sugar GLUCOSE 160 H (03/18/23) (normal is 70 - 100 if fasting) - Liver function Tests AST/SGOT 15 (03/18/23) (normal 15-37) ALT/SGPT 11 (03/18/23) (normal 13-61) ALK PHOSPHATASE 98 (03/18/23) (normal 45-117) BILIRUBIN, TOTAL 0.6 (03/18/23) (normal 0.2-1.0) - Hemoglobin A1C (normal 4.0-6.0) Collection DT Spec HGBA1C POCA1C 03/18/2023 10:11 BLOOD 5.3 09/30/2022 09:33 BLOOD 5.5 03/16/2022 15:04 BLOOD 6.1 H - Thyroid Function: TSH 1.31 (03/18/23) (normal 0.3-5.0) Additional Comments: Your creatinine has come down but has a ways to go. Keep o drinking those fluids. Everything else looks ok. If you have any further questions or problems, please contact our nursing staff or provider at the following number: [phone]. Sincerely, MARTHA GARCIA PHYSICIAN MARTHA GARCIA [facility] Mar 18, 2023 10:08 AM MEDICATION MGT NOT E: LOCAL TITLE: MEDICATION RECONCILIATION NOTE STANDARD TITLE: MEDICATION MGT NOTE DATE OF NOTE: MAR 18, 2023@10:08 ENTRY DATE: MAR 18, 2023@10:09 AUTHOR: RADHA,MARTHA L EXP COSIGNER: URGENCY: STATUS: COMPLETED MEDICATION RECONCILIATION Active Outpatient Medications (excluding Supplies): Outpatient Medications Status 1) ALLOPURINOL 100MG TAB TAKE ONE TABLET BY MOUTH EVERY PENDING DAY FOR GOUT PREVENTION 2) AMLODIPINE BESYLATE 10MG TAB TAKE ONE-HALF TABLET BY PENDING MOUTH EVERY DAY FOR BLOOD PRESSURE 3) CYANOCOBALAMIN 100MCG TAB TAKE TWO TABLETS BY MOUTH PENDING EVERY DAY 4) EMPAGLIFLOZIN 25MG TAB TAKE ONE-HALF TABLET BY MOUTH ACTIVE (S) EVERY DAY 5) GLIPIZIDE 5MG TAB TAKE ONE TABLET BY MOUTH EVERY DAY ACTIVE (S) 6) LOSARTAN 25MG TAB TAKE ONE TABLET BY MOUTH EVERY DAY ACTIVE FOR KIDNEY PROTECTION 7) LOSARTAN 25MG TAB TAKE ONE TABLET BY MOUTH EVERY DAY PENDING FOR KIDNEY PROTECTION 8) METOPROLOL TARTRATE 50MG TAB TAKE ONE-HALF TABLET BY PENDING MOUTH TWICE A DAY FOR HEART RHYTHM 9) OMEPRAZOLE 20MG EC CAP TAKE ONE CAPSULE BY MOUTH ACTIVE TWICE A DAY ON AN EMPTY STOMACH, AT LEAST 30 MINUTES PRIOR TO A MEAL 10) SIMVASTATIN 20MG TAB TAKE ONE-HALF TABLET BY MOUTH AT PENDING BEDTIME FOR CHOLESTEROL Non-VA Medications Status 1) Non-VA ACETAMINOPHEN 500MG TAB 1000MG MOUTH DAILY ACTIVE 2) Non-VA ASPIRIN 325MG TAB 325MG MOUTH EVERY DAY ACTIVE 3) Non-VA CHOLECALCIFEROL TAB MOUTH ACTIVE 4) Non-VA MARINE LIPID (FISH OIL) CAP,ORAL MOUTH ACTIVE 5) Non-VA MELATONIN CAP/TAB MOUTH ACTIVE 6) Non-VA MULTIVITAMIN CAP/TAB 1 TABLET MOUTH EVERY DAY ACTIVE 16 Total Medications Medications listed above are accurate and should continue as ordered. /gregorio/ MARTHA GARCIA PHYSICIAN Signed: 03/18/2023 10:09 [facility] Mar 18, 2023 09:56 AM H & P NOTE: LOCAL TITLE: [facility] ANNUAL VISIT STANDARD TITLE: H & P NOTE DATE OF NOTE: MAR 18, 2023@09:56 ENTRY DATE: MAR 18, 2023@09:56:17 AUTHOR: MARTHA GARCIA EXP COSIGNER: URGENCY: STATUS: COMPLETED Annual visit Non [facility] Providers: none Chief complaint: Patient is here for a routine annual visit. HPI: Patietn si dogn well. No new cocnerns. Assessment/Plan: 1. routien lbas today 2. ophtho due given number to schedule 3. dentist sees rgularly 4. Auudio no issues 5. Medicaitosn reviewed , updated, renewed Labs and medications reviewed with patient. Discussed plan of care, patient verbalized understanding and agrees with plan. FU in 1 year for annual exam, sooner with any concerns. Clinical Reminders: Assess Statin Use - Lipids (CVD/DM): The patient is already on a statin. The patient is on a statin from a source outside this [place]. Medication list updated. Past Medical History: Computerized Problem List is the source for the followin. Diabetes mellitus ACTIVE 2. Essential hypertension ACTIVE dx late says pharmacologic stress test ok in late 3. Hyperlipidemia ACTIVE 4. Gout ACTIVE 5. Obesity ACTIVE 6. Proteinuria ACTIVE with prior testing per pt report 7. 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 Acquired hallux rigidus ACTIVE 9. Flat foot ACTIVE 10. Edema ACTIVE 11. Deformity of toe ACTIVE 12. Chronic kidney disease stage 3 ACTIVE 13. Ingrowing nail of toe of left foot ACTIVE 14. Anaemia in chronic kidney disease ACTIVE 15. Chronic kidney disease stage 3B ACTIVE 16. Secondary hyperparathyroidism of renal origin ACTIVE 17. Transient global amnesia INACTIVE PSH: SURGERIES - s/p bilat knee replacement, s/p catrac bilat Social History: Alcohol: none Tobacco: none Marital Status:NEVER , lives alone Occupation: retired Family History: mom 46 cancer dad 85 4 brothers 2 1 sister living BRANCH OF SERVICE: [employer] RATED DISABILITIES - NONE FOUND SERVICE CONNECTED % - NONE FOUND ROS: CONS: negative for fever HEENT: negative CV: neg for acute chest pain, palpitation, RESPIRATORY: neg for acute dyspnea, cough, wheeze GI: neg for n/v, diarrhea, constipation : neg for dysuria, hematuria, MSK:neg for new difficulty with joint discomfort, myalgias, weakness. NEURO: neg for new motor or sensory complains SKIN: neg for new rash, lesion Physical Exam: Vitals: Blood Pressure: 130/80 (03/18/2023 09:42) Pulse: 83 (03/18/2023 09:41) Pulse Oximetry: 96% (03/18/2023 09:41) Resp: 16 (03/18/2023 09:41) Temp: 97.3 F [36.3 C] (03/18/2023 09:41) Height: 68 in [172.7 cm] (03/18/2023 09:41) Weight: 272.4 lb [123.56 kg] (03/18/2023 09:41) BMI:41.5 GENERAL:well developed, well nourished pt in nad, obese. EYES:PERRLA,EOMI, conjuntiva clear, no discharge. EARS:canals clear, TMs intact NOSE:Nostrils patent, no discharge, THROAT:No enlarged tonsils, no inflammation, no exudate or ulcers. NECK: supple, no obvious thyromegaly HEART:Regular rate and rhythm , no obvious murmurs/rubs RESPIRATORY: Lungs clear to auscultation b/l, no rales or wheezes. ABDOMEN:soft, nontender, nondistended, no organomegaly, normal bs. MSK:normal gait, moves all extremities, no joints swelling, rom normal. NEURO:alert and oriented, cranial nerves II-XII intact, speech clear, strength equal b/l, normal gait and movement, PSYCH: normal affect, well groomed SKIN:warm adn dry, normal color, no rash or suspicious lesions EXT: no cyanosis, no edema lower ext b/l Allergies: LISINOPRIL (Mar 21, 2014) SLT - Lab Tests Selected No data available for: REGIONAL ALLERGY PROFILE Vaccinations: IM - Immunizations Immunization Series Date Facility Reaction Info COVID-19 ([place]), MRNA, LNP-S, B* 5 08/05/2022 [facility]* COVID-19 (PFIZ[place]), MRNA, LNP-S, P* 3 09/13/2021 [facility] <C> 2 01/07/2021 [facility]* 1 12/17/2020 [facility] COVID-19 ([place]), MRNA, LNP-S, P* 4 03/16/2022 [facility] <C> INFLUENZA VACCINE, QUADRIVALENT,* 09/30/2022 [facility] INFLUENZA, HIGH DOSE SEASONAL 07/18/2017 [facility]* 07/20/2016 [facility] Site [facility]UENZA, INJECTABLE, QUADRIVALE* 09/10/2021 [facility]* 09/03/2020 [facility] 08/02/2018 [facility] * <C> INFLUENZA, SEASONAL, INJECTABLE,* 02/21/2020 [place] [facility] INFLUENZA, UNSPECIFIED FORMULATIO* [facility] PNEUMOCOCCAL CONJUGATE PCV 13 01/13/2016 [place] [facility]* <C> PNEUMOCOCCAL POLYSACCHARIDE PPV23 02/23/2019 [place]* <C> No Site <C> PNEUMOCOCCAL, UNSPECIFIED FORMULA* No Site [facility] 08/19/2016 [facility]* ZOSTER RECOMBINANT 2 06/17/2022 [place] [facility]* 1 04/08/2022 [place] [facility] <C> See the Detailed Immunizations Health Summary Component[DIM] for Comments Labs: pending /gregorio/ MARTHA GARCIA PHYSICIAN Signed: 03/18/2023 10:08 MARTHA GARCIA [facility] Mar 18, 2023 09:43 AM PRIMARY CARE NURSI WILL NOTE: LOCAL TITLE: [facility] NURSING PROGRESS NOTE STANDARD TITLE: PRIMARY CARE NURSING NOTE DATE OF NOTE: MAR 18, 2023@09:43 ENTRY DATE: MAR 18, 2023@09:43:20 AUTHOR: DAGOBERTO LOVING EXP COSIGNER: URGENCY: STATUS: COMPLETED TYPE OF VISIT: Appointment Check In Type of appointment: In-person appointment REASON FOR VISIT: ALLERGIES: LISINOPRIL (Mar 21, 2014) VITAL SIGNS: Blood Pressure: 130/80 (03/18/2023 09:42) Pulse: 83 (03/18/2023 09:41) Respiration: 16 (03/18/2023 09:41) Temperature: 97.3 F [36.3 C] (03/18/2023 09:41) Weight: 272.4 lb [123.56 kg] (03/18/2023 09:41) Height: 68 in [172.7 cm] (03/18/2023 09:41) BMI: 41.5 O2 Sat: 96% (03/18/2023:41) Pain: 0 (03/18/2023:) PAIN SCREEN: Patient is not having significant pain that they wish to discuss with their provider today. MEDICATION Active Outpatient Medications (including Supplies): EMPAGLIFLOZIN 25MG TAB TAKE ONE-HALF TABLET BY MOUTH EVERY ACTIVE (S) DAY GLIPIZIDE 5MG TAB TAKE ONE TABLET BY MOUTH EVERY DAY ACTIVE (S) LOSARTAN 25MG TAB TAKE ONE TABLET BY MOUTH EVERY DAY FOR ACTIVE KIDNEY PROTECTION OMEPRAZOLE 20MG EC CAP TAKE ONE CAPSULE BY MOUTH TWICE A ACTIVE DAY ON AN EMPTY STOMACH, AT LEAST 30 MINUTES PRIOR TO A MEAL Non-VA ACETAMINOPHEN 500MG TAB 1000MG MOUTH DAILY ACTIVE Non-VA ASPIRIN 325MG TAB 325MG MOUTH EVERY DAY ACTIVE Non-VA CHOLECALCIFEROL TAB MOUTH ACTIVE Non-VA MARINE LIPID (FISH OIL) CAP,ORAL MOUTH ACTIVE Non-VA MULTIVITAMIN CAP/TAB 1 TABLET MOUTH EVERY DAY ACTIVE Over the Counter/Herbal Medications: The patient states that they take some outside medications and/or herbals. Toxic Exposure Screening: The [place]/caregiver was asked if they believe the [place] experienced any toxic exposure(s), such as Airborne Hazards and Open Burn [place], [place] War related exposures, Agent Sublette, Radiation, contaminated water at [place] or other such exposures, while serving in the Armed LMN-1. [place] has no concerns about toxic exposure(s) while serving in the Armed LMN-1. The [place]/caregiver was informed that we will continue to ask this screening question every 5 years. They can contact their provider/healthcare team if they have concerns about exposures and would like to be screened sooner. Printed information was offered and provided if desired. Depression Screening: Perform PHQ-2 A PHQ-2 screen was performed. The score was 0 which is a negative screen for depression. Over the past two weeks, how often have you been bothered by the following problems? 1. Little interest or pleasure in doing things Not at all 2. Feeling down, depressed, or hopeless Not at all Suicide Screen: C-SSRS Screening [place] Suicide Severity Rating Scale (C-SSRS) screener 1. Over the past month, have you wished you were or wished you could go to sleep and not wake up? No 2. Over the past month, have you had any actual thoughts of killing yourself? No 3. Over the past month, have you been thinking about how you might do this? Response not required due to responses to other questions. 4. Over the past month, have you had these thoughts and had some intention of acting on them? Response not required due to responses to other questions. 5. Over the past month, have you started to work out or worked out the details of how to kill yourself? Response not required due to responses to other questions. 6. If yes, at any time in the past month did you intend to carry out this plan? Response not required due to responses to other questions. 7. In your lifetime, have you ever done anything, started to do anything, or prepared to do anything to end your life (for example, collected pills, obtained a gun, gave away valuables, went to the roof but didn't jump)? No 8. If YES, was this within the past 3 months? Response not required due to responses to other questions. Alcohol Use Screen (AUDIT-C): Alcohol Screen: SCREEN FOR ALCOHOL (AUDIT-C) An alcohol screening test (AUDIT-C) was negative (score=0). 1. How often did you have a drink containing alcohol in the past year? Never 2. How many drinks containing alcohol did you have on a typical day when you were drinking in the past year? Response not required due to responses to other questions. 3. How often did you have six or more drinks on one occasion in the past year? Response not required due to responses to other questions. Tobacco Use Screening: The patient is a former tobacco user. The patient quit fifteen or more years ago. 37yrs ADV DIR Notification and Screening: ADVANCE DIRECTIVE NOTIFICATION: Patient was given written notification of the following rights: 1. Accept or refuse any medical treatment. 2. Complete a durable power of corporate associate attorney for health care. 3. Complete a living will. ADVANCE DIRECTIVE SCREENING: Does patient have an Advance Directive? The patient has an Advance Directive. Does the patient wish to make any changes or revoke their current Advance Directive? Yes, the patient has an Advance Directive, but it is not in the medical record. was asked to obtain a copy for their medical record. Diabetic Foot Exam - Complete: A complete foot exam was completed at this visit with the following findings: Visual Inspection: Normal scant edema to BLE, thickend G toe nail Pedal pulses: Dorsalis pedis and/or posterior tibial pulses abnormal/absent diminished to R foot -SENSORY EXAM: Normal/Intact to monofilament The following risk level was identified for this patient: RISK SCORE: --LEVEL 1 - (LOW RISK) No Level 3 red flag history Normal sensory exam Normal pedal pulse exam or normal vascular study Either foot deformity or minor foot infection present or both FOOT CARE EDUCATION: -Examine feet daily -Bathe feet daily -Use clean non-restrictive socks -Ulcers lead to gangrene and amputation -Do not walk barefoot and wear properly fitted shoes -Seek medical attention immediately for new foot injuries or ulcers Nursing Annual Screening: Fall History Screen During the past 12 months, have you had any falls? Patient does not report any falls in the past 12 months. MEDICATIONS: Patient is on one of the following medication classes: Antihypertensives, Antidepressants, Antipsychotics, Diuretics, or Controlled substance medication used for pain. FALL RISK ADVICE: Fall Risk Advice provided. Handout entitled Fall Prevention At Home reviewed and given to patient and/or significant other. Script Talk Screen Are you able to read your prescription bottles with your glasses, magnifiers or other aids? Yes or patient not taking any prescriptions. Skin Screen Patient reports any current pressure ulcers, a history of pressure ulcers, or a wound from a medical staff director or Patient is bed-confined or a wheelchair-user or Patient requires assistance to transfer/change position No, Skin Screen is Negative Home Abuse/Violence Screen Is your home free of abuse and violence? Yes MOVE! Program Screen Body Mass Index (BMI)= 41.5 [place]: Collection DT Specimen Test Name Result Units Ref Range 09/30/2022 09:33 BLOOD !! HEMOGLOBIN A1C 5.5 % 4.0 - 6.0 !! Indicates COMMENTS AVAILABLE...Refer to Interim Lab Report. [place] Hgb A1C: No data available [place] Hgb A1C: No data available Point of Care Hgb A1C: POC HGB A1C____ Outpatient Nutrition Screen Body Mass Index (BMI)= 41.5 [place]: Collection DT Specimen Test Name Result Units Ref Range 09/30/2022 09:33 BLOOD !! HEMOGLOBIN A1C 5.5 % 4.0 - 6.0 !! Indicates COMMENTS AVAILABLE...Refer to Interim Lab Report. [place] Hgb A1C: No data available [place] Hgb A1C: No data available Point of Care Hgb A1C: POC HGB A1C____ Is patient's BMI less than 18.5? No Does patient have swallowing, coughing, or chewing problems affecting oral intake? No Has patient experienced unplanned weight loss or gain greater than 10 pounds over the last 2 months? No Is patient's Hgb A1C (Glycosylated Hemoglobin) greater than 9.5? Information not available Is patient receiving Total Parenteral Nutrition (TPN) or Tube Feedings? No Patient Health Education Screen BARRIERS/SPECIAL NEEDS: Visual limitations PREFERRED STYLE OF LEARNING: Watching something Listening Reading Client Assistive Service (HEATHER) Screen Does the patient require assistance with outpatient visit? Kenna /gregorio/ SAMRE[facility] LPN [facility] Signed: 03/18/2023 09:56 DAGOBERTO LOVING [facility]
--- OUTSIDE RECORDS SUMMARY | 2023-11-13 21:33 | XMS_ITS | Encounter Summary ---
Author Name [facility] of [facility] Organization Department of [facility] Address [address] [place] [address] Support Name Relationship Address Phone NANCY FORRESTER [...] [facility] [place] [facility] ([place]NR[place] MEDICARE ADVANTAGE [facility] (WNR) Oct 11, 2019 [id number] [phone] FLYNN ESPINOZA PATIENT [facility] [place] [facility] ([place] MEDICARE ADVANTAGE [facility] (WNR) Oct 11, 2016 [id number] FLYNN ESPINOZA PATIENT [facility] (WNR) MEDICARE ADVANTAGE [facility] (WNR) Oct 11, 2019 [id number] [phone] FLYNN ESPINOZA PATIENT Selected Encounter This section includes the information on record at [place] for the Encounter. Date/Time Encounter Type Encounter Description Reason Pro vider Source Mar 18, 2023 09:50 AM Outpatient Encounter TELEPHONE PRIMARY CARE [facility] Encounter Template Text not used by [place] Plan of Treatment: Future Appointments (+ 6 months) and Future Tests (+/- 45 days) The Plan of Treatment section includes future care activities for the patient from all [place] treatmentfacilities. This section includes future appointments and future orders which are active, pending or scheduled. Future Appointments This section includes appointments that were scheduled to occur 6 months from the date of the Encounter, up to a maximum of 20 appointments. The data comes from all [place] treatment facilities. Appointment Date/Time Appointment Type Appointme nt Facility Name Jun 29, 2023 09:00 AM AMBULATORY - NONE [facility] Jul 06, 2023 01:30 PM AMBULATORY - MEDICINE [facility] Jul 14, 2023 08:30 AM [facility] MEDICINE [facility] Lab Results: +/- 30 days of the encounter This section includes the Chemistry and Hematology Lab Results on record with [facility] for the patient. Radiology Reports and Pathology Reports are provided separately, in subsequent sections. Lab Results This section contains the Chemistry/Hematology Results that were resulted 30 days before or 30 daysafter the date of the Encounter. Date/Time Source Result Type Result - Unit Interpretation Reference Range Comment Mar 18, 2023 10:11 AM [facility] HEMOGLOBIN A1C Specimen Type: BLOOD Comment: Values [...] Mar 18, 2023 09:59 AM Reporting Lab: [facility] [id number] Performing Lab: [facility] [id number] HEMOGLOBIN A1C 5.3 4.0-6.0 Mar 18, 2023 10:11 AM [facility] TSH W/REFLEX TO FREE T4 Specimen Type: PLASMA No comment entered. Ordering Provider: LANE GARCIA Report Released Date/Time: Mar 18, 2023 09:59 AM Reporting Lab: [facility] [id number] Performing Lab: [facility] [id number] TSH 1.31 0.35-4.94 Mar 18, 2023 10:11 AM [facility] COMPREHENSIVE METABOLIC PANEL+MG Specimen Type: PLASMA [...] Mar 18, 2023 09:59 AM Reporting Lab: [facility] [id number] Performing Lab: [facility] [id number] CREATININE 2.4 H 0.7-1.2 UREA NITROGEN 34 [...] Mar 18, 2023 09:59 AM Reporting Lab: [facility] [id number] Performing Lab: [facility] [id number] WBC 9.64 4.0-11.0 RBC 3.91 L 4.6-6.2 [...] Encounter. Date/Time Encounter Note(s) Provider Source Mar 18, 2023 09:50 AM SOCIAL WORK NOTE: LOCAL TITLE: SOCIAL WORK PROGRESS NOTE STANDARD TITLE: SOCIAL WORK NOTE DATE OF NOTE: MAR 18, 2023@09:50 ENTRY DATE: MAR 18, 2023@10:58:03 AUTHOR: GARRICK GUERRERO EXP COSIGNER: URGENCY: STATUS: COMPLETED CPRS/JLV reviewed due to Alanson's recent PCP appointment and CAN score. Mailed letter, AD form and return envelope. Also mailed form to request/update NOK. PCSW remains available. /gregorio/ LEXIS FINLEY Hand Bander Signed: 03/18/2023 11:07 GARRICK GUERRERO
--- OUTSIDE RECORDS SUMMARY | 2023-11-13 21:33 | XMS_ITS | Encounter Summary ---
Author Name Department of [facility] Organization Department of [facility] Address [address] [place] [address] Support Name Relationship Address Phone NANCY FORRESTER Emergency Contact Unknown [phone] Insurance Providers: All historical and current Section [...] [facility] [place] [facility] [place] MEDIC[place] ADVANTAGE [facility] (WNR) Oct 11, 2019 [id number] OLGA,FLYNN GARAY PATIENT [facility] [place] [facility] ([place] MEDICARE ADVANTAGE [facility] (WNR) Oct 11, 2016 [id number] OLGA,FLYNN GARAY PATIENT [facility] (WNR) MEDICARE ADVANTAGE [facility] (WNR) Oct 11, 2019 [id number] FLYNN GOULD PATIENT Selected Encounter This section includes the information on record at [place] for the Encounter. Date/Time Encounter Type Encounter Description Reason Provider Source Jul 06, 2023 01:30 PM OFFICE O/P EST MOD 30-39 MIN RENAL/NEPHROL(EXCE PT DIALYSIS) ICD-10-CM E11.22 Type 2 diabetes mellitus w diabetic chronic kidney disease ARIADNE GOMEZ Encounter Template Text not used by [facility] Assessments - Encounter Diagnoses This section includes the primary and secondary diagnoses documented for the Encounter. Date/Time Primary/Secondary Diagnosis Diagnosis Name Provider Source Jul 06, 2023 01:49 PM PRIMARY Type 2 diabetes mellitus w diabetic chronic kidney disease [facility] Jul 06, 2023 01:49 PM SECONDARY Anemia in chronic kidney disease ARIADNE GOMEZ [facility] Jul 06, 2023 01:49 PM SECONDARY Chronic kidney disease, stage 4 (severe) ARIADNE GOMEZ [facility] Jul 06, 2023 01:49 PM SECONDARY Essential (primary) hypertension ARIADNE GOMEZ [facility] Jul 06, 2023 01:49 PM SECONDARY Gout, unspecified ARIADNE GOMEZ [facility] Jul 06, 2023 01:49 PM SECONDARY Hypertensive chronic kidney disease w stg 1-4/unsp chr kdny ARIADNE GOMEZ [facility] Jul 06, 2023 01:49 PM SECONDARY Secondary hyperparathyroidism of renal origin [facility] Plan of Treatment: Future Appointments (+ 6 months) and Future Tests (+/- 45 days) The Plan of Treatment section includes future care activities for the patient from all [place] treatmentfacilities. This section includes future appointments and future orders which are active, pending or scheduled. Future Appointments This section includes appointments that were scheduled to occur 6 months from the date of the Encounter, up to a maximum of 20 appointments. The data comes from all [place] treatment facilities. Appointment Date/Time Appointment Type Appointme nt Facility Name Jul 14, 2023 08:30 AM AMBULATORY - MEDICINE [facility] Dec 23, 2023 09:30 AM AMBULATORY - NONE [facility] Lab Results: +/- 30 days of the encounter This section includes the Chemistry and Hematology Lab Results on record with [place] for the patient. Radiology Reports and Pathology Reports are provided separately, in subsequent sections. Lab Results This section contains the Chemistry/Hematology Results that were resulted 30 days before or 30 daysafter the date of the Encounter. Date/Time Source Result Type Result - Unit Interpretation Reference Range Comment Jun 29, 2023 08:24 AM [facility] UREA NITROGEN Specimen Type: PLASMA No comment entered. Ordering Provider: ARIADNE GOMEZ Report Released Date/Time: Jan 13, 2023 03:55 PM Reporting Lab: [facility] [id number] Performing Lab: [facility] [id number] UREA NITROGEN 33 H 8-26 Jun 29, 2023 08:24 AM [facility] ELECTROLYTES/ANION GAP Specimen Type: PLASMA No comment entered. Ordering Provider: ARIADNE GOMEZ Report Released Date/Time: Jan 13, 2023 03:55 PM Reporting Lab: [facility] [id number] Performing Lab: [facility] [address] SODIUM 140 136-145 POTASSIUM 4.8 3.5-5.1 CHLORIDE 108 H 98-107 CO2 22 22-29 ANION GAP 10 5-15 Jun 29, 2023 08:24 AM [facility] PHOSPHORUS Specimen Type: PLASMA No comment entered. Ordering Provider: ARIADNE GOMEZ Report Released Date/Time: Jan 13, 2023 03:55 PM Reporting Lab: [facility] [id number] Performing Lab: [place] [phone] PHOSPHORUS 3.6 2.3-4.7 Jun 29, 2023 08:24 AM [facility] CREATININE(INCLUDES EGFR) Specimen Type: PLASMA No comment entered. Ordering Provider: ARIADNE GOMEZ Report Released Date/Time: Jan 13, 2023 03:55 PM Reporting Lab: [facility] [phone] Performing Lab: [facility] [address] CREATININE 2.5 H 0.7-1.2 .CREAT EGFR(CKD-EPI) 27 L >60 Jun 29, 2023 08:24 AM [facility] ALBUMIN Specimen Type: PLASMA No comment entered. Ordering Provider: ARIADNE GOMEZ Report Released Date/Time: Jan 13, 2023 03:55 PM Reporting Lab: [facility] [id number] Performing Lab: [facility] [id number] ALBUMIN 3.8 3.5-5.2 Jun 29, 2023 08:24 AM [facility] CALCIUM Specimen Type: PLASMA No comment entered. Ordering Provider: ARIADNE GOMEZ Report Released Date/Time: Jan 13, 2023 03:55 PM Reporting Lab: [facility] [phone] Performing Lab: [facility] [address] CALCIUM 9.1 8.4-10.2 Jun 29, 2023 08:24 AM [facility] PTH-N-TACT Specimen Type: PLASMA No comment entered. Ordering Provider: ARIADNE GOMEZ Report Released Date/Time: Jan 13, 2023 03:55 PM Reporting Lab: [facility] [id number] Performing Lab: [facility] [address] PTH-N-TACT 89.2 H 8.7-77.1 Jun 29, 2023 08:24 AM [facility] GLUCOSE Specimen Type: PLASMA No comment entered. Ordering Provider: ARIADNE GOMEZ Report Released Date/Time: Jan 13, 2023 03:55 PM Reporting Lab: [facility] [phone] Performing Lab: [facility] [phone] GLUCOSE 95 70-100 Jun 29, 2023 08:24 AM [facility] CBC Specimen Type: BLOOD No comment entered. Ordering Provider: ARIADNE GOMEZ Report Released Date/Time: Jan 13, 2023 03:55 PM Reporting Lab: [facility] [phone] Performing Lab: [facility] [address] WBC 8.29 4.0-11.0 RBC 3.87 L 4.6-6.2 HGB 12.9 L 13.5-17.9 HCT 39.4 L 41-54 MCV 101.8 H 80-100 MCH 33.3 H 27-33 MCHC 32.7 32.0-37.5 PLT 302 150-400 MPV 9.6 7.4-10.4 RDW 12.8 11.5-14.5 Jun 29, 2023 08:24 AM [facility] HEMOGLOBIN A1C Specimen Type: BLOOD Comment: Values obtained from A1C measurements can vary. For typical A1C assays, a reported value of 7.0 could actually be between 6.7 and 7.3 if measured by a reference method. A reported value of 9.0 could actually be between 8.7 and 9.3. Ref: http://www.ngs p.org/CAPdata. asp Ordering Provider: ARIADNE GOMEZ Report Released Date/Time: Jan 13, 2023 03:55 PM Reporting Lab: [facility] [phone] Performing Lab: [facility] [phone] HEMOGLOBIN A1C 5.3 4.0-6.0 Jun 29, 2023 08:24 AM [facility] IRON GROUP Specimen Type: SERUM No comment entered. Ordering Provider: ARIADNE GOMEZ Report Released Date/Time: Jan 13, 2023 03:55 PM Reporting Lab: [facility] [phone] Performing Lab: [facility] [phone] IRON 90 65-175 TIBC,CALCULAT ED 300 250-425 FERRITIN 55.6 21.8-274.7 IRON SATURATION 30 20-50 TRANSFERRIN 240 163-382 Vital Signs: All taken on the encounter date This section contains inpatient and outpatient Vital Signs collected on the date of the Encounter. Date/Time Temperature Pulse Blood Pressure Respiratory Rate SP02 Pain Height Weight Body Mass Index Source Jul 06, 2023 01:19 PM 272 lb 41 [facility] Jul 06, 2023 01:19 PM 97 F 95 /min 120/77 mm[Hg] 18 /min 98 % [facility] Social History: Smoking Status (Most current) and Tobacco Use (All prior to encounter date) This section includes the most current, and the historical, smoking and tobacco- related health factors from the [place] facility where the Encounter took place. Current Smoking Status This section includes the most current smoking, or tobacco-related health factor, from the [place] facility where the Encounter took place. Date/Time Current Smoking Status Comment Facil ity Mar 18, 2023 09:30 AM VA-TOBACCO FORMER USER [facility] Tobacco Use History This section includes a history of the smoking, or tobacco-related health factors, that were collected on or before the date of the Encounter. The data comes from the [place] facility where the Encounter took place. Date/Time Smoking Status/Tobacco Use Comment F acility Mar 18, 2023 09:30 AM VA-TOBACCO QUIT 15 YRS OR MORE [facility] Mar 16, 2022 02:00 PM VA-TOBACCO FORMER USER [facility] Mar 16, 2022 02:00 PM VA-TOBACCO QUIT 15 YRS OR MORE [facility] February 23, 2019 11:14 AM VA-TOBACCO FORMER USER [facility] February 23, 2019 11:14 AM VA-TOBACCO QUIT 15 YRS OR MORE [facility] February 24, 2018 11:40 AM VA-TOBACCO FORMER USER [facility] February 24, 2018 11:40 AM VA-TOBACCO QUIT 15 YRS OR MORE [facility] February 24, 2018 10:44 AM FORMER TOBACCO USER 7Y OR GREATE R [facility] February 22, 2017 02:44 PM FORMER TOBACCO USER 7Y OR GREATE R [facility] Jan 13, 2016 04:54 AM FORMER TOBACCO USER 7Y OR GREATE R [facility] Mar 21, 2014 10:14 AM FORMER TOBACCO USER 7Y OR GREATE R [facility] Encounter Notes: All associated encounter notes This section contains the clinical notes associated to the Encounter. Date/Time Encounter Note(s) Provider Source Jul 07, 2023 08:43 AM ADDENDUM: LOCAL TITLE: Addendum STANDARD TITLE: ADDENDUM DATE OF NOTE: JUL 07, 2023@08:43:24 ENTRY DATE: JUL 07, 2023@08:43:25 AUTHOR: ARIADNE GOMEZ COSIGNER: URGENCY: STATUS: COMPLETED Dr. Rodriguez - yes we will inform pt of glipizide dose decrease. /gregorio/ ARIADNE GOMEZ Nurse Practitioner Signed: 07/07/2023 08:43 Receipt Acknowledged By: 07/07/2023 09:03 /es/ MRATHA RODRIGUEZ PHYSICIAN --- Original Document --- 07/06/23 RENAL CLINIC NOTE: Assessment/plan: Mr. Shaggy Gould is a 72 year old male seen in renal clinic for management of chronic kidney disease. 1. CKD 4, eGFR 27 with most recent labs Comment: Etiology of [...] ARB for ~ 2 weeks), SPEP negative). Renal function is stable & at baseline for pt. Uremic symptoms are absent. Electrolytes are acceptable. Oral hydration is maximized. We reviewed the importance of controlling HTN/DM2 to slow CKD progression. CKD education was discussed at last visit but he wasn't scheduled, agreeable to attending in [place]. Plan: Continue current management. CKD education. 2. Hypertension Comment: Checking home BP intermittently, reports home BP readings are similar to clinic BP reading. Plan: Continue current management. 3. DM2 Comment: Managed by PCP. No hypoglycemia. On SGLT2i, on ARB. Hgb A1C 5.3% with most recent labs. Plan: Continued management per PCP. Inquire with PCP re: reducing glipizide. 4. Bone/mineral/secondary hyperparathyroidism of renal origin Comment: Calcium & phos are acceptable, not on calcium supplements or phos binders. Pt has secondary hyperparathyroidism of renal origin not on calcitriol - PTH 89 pg/dL, at goal - this is not treated until it's > 450 pg/dL. Plan: Monitor. 5. Anemia Comment: ACKD per peripheral smear. Hgb is stable & at baseline, pt is not on JUAN. Iron replete, not on supplement. On B12 supplement, no recent level. Plan: Monitor. JUAN is not indicated until hgb < 9 g/dL. Check B12 with next visit. 6. Gout Comment: Denies flare. Uric acid level has been at goal. Plan: Continue allopurinol. Check uric acid level with next visit. RTC 6 months [facility] with labs 1-2 weeks prior, sooner if needed --> co-signing MEERA Oneill & ABIMBOLA Fox to please assist with scheduling CKD education {}{}{}{}{}{}{}{}{}{}{}{}{}{}{}{ }{}{}{}{}{}{}{}{}{}{}{}{}{}{}{} {}{}{}{}{}{}{} Nurse's Notes Reviewed. Chief Complaint: follow-up CKD HPI: Pt states he's feeling well & offers no complaints. No interval hospitalizations since our last visit, no new health concerns. CKD - appetite is stable. Denies nausea, vomiting, metallic taste in the mouth. Baseline energy level. No daytime somnolence. Denies excessive pruritis. Drinking at least 2 liters of water daily. We reviewed attending CKD education, he's agreeable & willing to go to [facility] for the class. DM2 - checks BG monthly, no hypoglycemia HTN - checks home BP intermittently, reports that readings are similar to clinic check-in reading gout - no flare Past medical history/Active [...] Chest Pain. No Shortness of breath. No orthopnea, PND, or peripheral edema. No abdominal pain, N/V, or change in bowel habits. No diarrhea or constipation. No urinary hesitancy or frequency. MEDS: Medications: Active Outpatient Medications (including Supplies): Active Outpatient Medications Status 1) ALLOPURINOL 100MG TAB TAKE ONE TABLET BY MOUTH EVERY ACTIVE DAY FOR GOUT PREVENTION 2) AMLODIPINE BESYLATE 10MG TAB TAKE ONE-HALF TABLET BY ACTIVE MOUTH EVERY DAY FOR BLOOD PRESSURE 3) EMPAGLIFLOZIN 25MG TAB TAKE ONE-HALF TABLET BY MOUTH ACTIVE EVERY DAY 4) GLIPIZIDE 5MG TAB TAKE ONE TABLET BY MOUTH EVERY DAY ACTIVE 5) LOSARTAN 25MG TAB TAKE ONE TABLET BY MOUTH EVERY DAY ACTIVE FOR KIDNEY PROTECTION 6) METOPROLOL TARTRATE 50MG TAB TAKE ONE-HALF TABLET BY ACTIVE MOUTH TWICE A DAY FOR HEART RHYTHM 7) OMEPRAZOLE 20MG EC CAP TAKE ONE CAPSULE BY MOUTH ACTIVE (S) TWICE A DAY ON AN EMPTY STOMACH, AT LEAST 30 MINUTES PRIOR TO A MEAL 8) SIMVASTATIN 20MG TAB TAKE ONE-HALF TABLET BY MOUTH AT ACTIVE BEDTIME FOR CHOLESTEROL Active Non-VA Medications Status 1) Non-VA ACETAMINOPHEN 500MG TAB 1000MG MOUTH DAILY ACTIVE 2) Non-VA ASPIRIN 325MG TAB 325MG MOUTH EVERY DAY ACTIVE 3) Non-VA CHOLECALCIFEROL TAB MOUTH ACTIVE 4) Non-VA MARINE LIPID (FISH OIL) CAP,ORAL MOUTH ACTIVE 5) Non-VA MELATONIN CAP/TAB MOUTH ACTIVE 6) Non-VA MULTIVITAMIN CAP/TAB 1 TABLET MOUTH EVERY DAY ACTIVE 14 Total Medications Meds were reviewed Physical Exam: VS: Temp: 97 F [36.1 C] (07/06/2023 13:19) BP: 120/77 (07/06/2023 13:19) Pulse:95 (07/06/2023 13:19) Resp: 18 (07/06/2023 13:19) Weight: 272 lb [123.38 kg] (07/06/2023 13:19) Pain: 0 (03/18/2023 09:41) O2 Sat: 98% (07/06/2023 13:19) BMI: 41.4 General NAD WDWN Cardiac: irreg irreg Chest/Lungs: Bilaterally clear Abdominal: Bowel Sounds Present Extremities: No edema. Lab Data: Report Released Date/Time: Jun 29, 2023@19:34 Provider: ARIADNE GOMEZ Specimen: BLOOD. [facility] [id number] Specimen Collection Date: Jun 29, 2023@08:24 Test name Result units Ref. range Site Code HEMOGLOBIN A1C 5.3 % 4.0 - 6.0 [618] Eval: Patients with abnormally high levels of HbF or other rare Hb variants Eval: could have inaccurate A1c results due to method specific analytical Eval: interference. Comment: Values obtained from A1C measurements can vary. For typical A1C assays, a reported value of 7.0 could actually be between 6.7 and 7.3 if measured by a reference method. A reported value of 9.0 could actually be between 8.7 and 9.3. Ref: http://www.[facility]. [facility]p.org/CAPdata.asp Reporting Lab: [facility] [CLIA# [id number]] [place] [address] Report Released Date/Time: Jun 29, 2023@19:47 Provider: ARIADNE GOMEZ Specimen: SERUM. [facility] [id number] Specimen Collection Date: Jun 29, 2023@08:24 Test name Result units Ref. range Site Code IRON 90 ug/dL 65 - 175 [618] TRANSFERRIN 240 mg/dL 163 - 382 [618] TIBC,CALCULATED 300 ug/dL 250 - 425 [618] IRON SATURATION 30 % 20 - 50 [618] FERRITIN 55.6 ng/mL 21.8 - 274.7 [618] Eval: Individual ferritin plasma concentration values may be approximately 10% Eval: higher than serum values. Reporting Lab: [facility] [CLIA# [id number]] [place] [address] Report Released Date/Time: Jun 29, 2023@19:43 Provider: ARIADNE GOMEZ Specimen: PLASMA. [facility] [id number] Specimen Collection Date: Jun 29, 2023@08:24 Test name Result units Ref. range Site Code PTH-N-TACT 89.2 H pg/mL 8.7 - 77.1 [618] Reporting Lab: [facility] [CLIA# [id number]] [place] [address] Report Released Date/Time: Jun 29, 2023@19:14 Provider: ARIADNE GOMEZ Specimen: BLOOD. [id number] Specimen Collection Date: Jun 29, 2023@08:24 Test name Result units Ref. range Site Code WBC 8.29 K/cmm 4.0 - 11.0 [618] RBC 3.87 L M/cmm 4.6 - 6.2 [618] HGB 12.9 L g/dL 13.5 - 17.9 [618] HCT 39.4 L % 41 - 54 [618] MCV 101.8 H fL 80 - 100 [618] MCH 33.3 H pg 27 - 33 [618] MCHC 32.7 g/dL 32.0 - 37.5 [618] RDW 12.8 % 11.5 - 14.5 [618] PLT 302 K/cmm 150 - 400 [618] MPV 9.6 fL 7.4 - 10.4 [618] Reporting Lab: [facility] [CLIA# [id number]] [place] [address] Report Released Date/Time: Jun 29, 2023@19:47 Provider: ARIADNE GOMEZ Specimen: PLASMA. [facility] [id number] Specimen Collection Date: Jun 29, 2023@08:24 Test name Result units Ref. range Site Code .CREAT EGFR(CKD-EPI) 27 L Ref: >=60 [618] Eval: The eGFR generally decreases with age and in the general population, an Eval: eGFR >60mL/min/1.73 m2 in the absence of increased urine albumin excretion Eval: or structural abnormalities does not represent CKD. Eval: Eval: CKD is diagnosed based on abnormalities of kidney structure or function, Eval: present for >3 months, with implications for health and disease. CKD is Eval: classified and staged based on cause, eGFR, and albuminuria (quantified as Eval: urine albumin to creatinine ratio). Eval: Eval: Below are the eGFR cut off values for CKD stages: Eval: Eval: eGFR (mL/min/1.73 1.73 m2) CKD stage Interpretation Eval: >=90 G1 Normal Eval: 60-89 G2 Mild decrease Eval: 45-59 G3A Mild to moderate decrease Eval: 30-44 G3B Moderate to severe decrease Eval: 15-29 G4 Severe decrease Eval: <15 G5 Kidney failure SODIUM 140 mmol/L 136 - 145 [618] POTASSIUM 4.8 mmol/L 3.5 - 5.1 [618] Eval: Serum potassium results are generally 5% higher than plasma. CHLORIDE 108 H mmol/L 98 - 107 [618] CO2 22 mmol/L 22 - 29 [618] Eval: To calculate Anion Gap use (Na)-[(Cl)+CO2] ANION GAP 10 mmol/L 5 - 15 [618] GLUCOSE 95 mg/dL 70 - 100 [618] Eval: Reference Range is based on fasting specimen. Eval: Patients taking Sulfasalazine may see a negative bias on Glucose Eval: levels. UREA NITROGEN 33 H mg/dL 8 - 26 [618] CREATININE 2.5 H mg/dL 0.7 - 1.2 [618] ALBUMIN 3.8 g/dL 3.5 - 5.2 [618] CALCIUM 9.1 mg/dL 8.4 - 10.2 [618] PHOSPHORUS 3.6 mg/dL 2.3 - 4.7 [618] Patient was informed of all the above labs during this visit. Patient Education of Treatment Plan: Patient indicates readiness to learn, verbalizes understanding, agreement and satisfaction with the treatment plan. Denies further questions. /gregorio/ ARIADNE GOMEZ Nurse Practitioner Signed: 07/06/2023 13:50 Receipt Acknowledged By: 07/06/2023 16:21 /es/ NAKITA ONEILL ADVANCED MSA 07/07/2023 06:24 /es/ CATRACHITO FOX, RN REGISTERED NURSE 07/07/2023 ADDENDUM STATUS: COMPLETED Dr. Rodriguez - pt's hgb A1C 5.3% with labs for renal clinic visit. Hgb A1C has been 5.3 to 5.5% over the past year. DM2 presently managed with glipzide 5mg daily & empagliflozin 12.5mg daily. Could we reduce glipizide to 2.5mg daily? /jony GOMEZ Nurse Practitioner Signed: 07/07/2023 07:52 Receipt Acknowledged By: 07/07/2023 08:40 /gregorio/ MARTHA RODRIGUEZ PHYSICIAN 07/07/2023 ADDENDUM STATUS: COMPLETED I think that is reasonable given his good a1c's. Will you convey mesage to patieint. /jony RODRIGUEZ PHYSICIAN Signed: 07/07/2023 08:41 Receipt Acknowledged By: 07/07/2023 08:43 /gregorio/ ARIADNE GOMEZ Nurse Practitioner 07/07/2023 ADDENDUM STATUS: COMPLETED ABIMBOLA Ross - please contact pt & instruct him to reduce glipizide to 2.5mg daily. /jony GOMEZ Nurse Practitioner Signed: 07/07/2023 08:42 Receipt Acknowledged By: * AWAITING SIGNATURE * FAHAD ROSS 07/07/2023 ADDENDUM STATUS: UNSIGNED You may not VIEW this UNSIGNED Addendum. ARIADNE GOMEZ [facility] Jul 07, 2023 08:42 AM ADDENDUM: LOCAL TITLE: Addendum STANDARD TITLE: ADDENDUM DATE OF NOTE: JUL 07, 2023@08:42:31 ENTRY DATE: JUL 07, 2023@08:42:32 AUTHOR: ARIADNE GOMEZ EXP COSIGNER: URGENCY: STATUS: COMPLETED RN Deondre - please contact pt & instruct him to reduce glipizide to 2.5mg daily. /es/ ARIADNE GOMEZ Nurse Practitioner Signed: 07/07/2023 08:42 Receipt Acknowledged By: 07/07/2023 09:18 /es/ RAFAEL PENA RN STAFF NURSE for FAHAD ROSS --- Original Document --- 07/06/23 RENAL CLINIC NOTE: Assessment/plan: Mr. Shaggy Gould is a 72 year old male seen in renal clinic for management of chronic kidney disease. 1. CKD 4, eGFR 27 with most recent labs Comment: Etiology of [...] ARB for ~ 2 weeks), SPEP negative). Renal function is stable & at baseline for pt. Uremic symptoms are absent. Electrolytes are acceptable. Oral hydration is maximized. We reviewed the importance of controlling HTN/DM2 to slow CKD progression. CKD education was discussed at last visit but he wasn't scheduled, agreeable to attending in [place]. Plan: Continue current management. CKD education. 2. Hypertension Comment: Checking home BP intermittently, reports home BP readings are similar to clinic BP reading. Plan: Continue current management. 3. DM2 Comment: Managed by PCP. No hypoglycemia. On SGLT2i, on ARB. Hgb A1C 5.3% with most recent labs. Plan: Continued management per PCP. Inquire with PCP re: reducing glipizide. 4. Bone/mineral/secondary hyperparathyroidism of renal origin Comment: Calcium & phos are acceptable, not on calcium supplements or phos binders. Pt has secondary hyperparathyroidism of renal origin not on calcitriol - PTH 89 pg/dL, at goal - this is not treated until it's > 450 pg/dL. Plan: Monitor. 5. Anemia Comment: ACKD per peripheral smear. Hgb is stable & at baseline, pt is not on JUAN. Iron replete, not on supplement. On B12 supplement, no recent level. Plan: Monitor. JUAN is not indicated until hgb < 9 g/dL. Check B12 with next visit. 6. Gout Comment: Denies flare. Uric acid level has been at goal. Plan: Continue allopurinol. Check uric acid level with next visit. RTC 6 months [facility] with labs 1-2 weeks prior, sooner if needed --> co-signing MEERA Oneill & ABIMBOLA Fox to please assist with scheduling CKD education {}{}{}{}{}{}{}{}{}{}{}{}{}{}{}{ }{}{}{}{}{}{}{}{}{}{}{}{}{}{}{} {}{}{}{}{}{}{} Nurse's Notes Reviewed. Chief Complaint: follow-up CKD HPI: Pt states he's feeling well & offers no complaints. No interval hospitalizations since our last visit, no new health concerns. CKD - appetite is stable. Denies nausea, vomiting, metallic taste in the mouth. Baseline energy level. No daytime somnolence. Denies excessive pruritis. Drinking at least 2 liters of water daily. We reviewed attending CKD education, he's agreeable & willing to go to [facility] for the class. DM2 - checks BG monthly, no hypoglycemia HTN - checks home BP intermittently, reports that readings are similar to clinic check-in reading gout - no flare Past medical history/Active [...] Chest Pain. No Shortness of breath. No orthopnea, PND, or peripheral edema. No abdominal pain, N/V, or change in bowel habits. No diarrhea or constipation. No urinary hesitancy or frequency. MEDS: Medications: Active Outpatient Medications (including Supplies): Active Outpatient Medications Status 1) ALLOPURINOL 100MG TAB TAKE ONE TABLET BY MOUTH EVERY ACTIVE DAY FOR GOUT PREVENTION 2) AMLODIPINE BESYLATE 10MG TAB TAKE ONE-HALF TABLET BY ACTIVE MOUTH EVERY DAY FOR BLOOD PRESSURE 3) EMPAGLIFLOZIN 25MG TAB TAKE ONE-HALF TABLET BY MOUTH ACTIVE EVERY DAY 4) GLIPIZIDE 5MG TAB TAKE ONE TABLET BY MOUTH EVERY DAY ACTIVE 5) LOSARTAN 25MG TAB TAKE ONE TABLET BY MOUTH EVERY DAY ACTIVE FOR KIDNEY PROTECTION 6) METOPROLOL TARTRATE 50MG TAB TAKE ONE-HALF TABLET BY ACTIVE MOUTH TWICE A DAY FOR HEART RHYTHM 7) OMEPRAZOLE 20MG EC CAP TAKE ONE CAPSULE BY MOUTH ACTIVE (S) TWICE A DAY ON AN EMPTY STOMACH, AT LEAST 30 MINUTES PRIOR TO A MEAL 8) SIMVASTATIN 20MG TAB TAKE ONE-HALF TABLET BY MOUTH AT ACTIVE BEDTIME FOR CHOLESTEROL Active Non-VA Medications Status 1) Non-VA ACETAMINOPHEN 500MG TAB 1000MG MOUTH DAILY ACTIVE 2) Non-VA ASPIRIN 325MG TAB 325MG MOUTH EVERY DAY ACTIVE 3) Non-VA CHOLECALCIFEROL TAB MOUTH ACTIVE 4) Non-VA MARINE LIPID (FISH OIL) CAP,ORAL MOUTH ACTIVE 5) Non-VA MELATONIN CAP/TAB MOUTH ACTIVE 6) Non-VA MULTIVITAMIN CAP/TAB 1 TABLET MOUTH EVERY DAY ACTIVE 14 Total Medications Meds were reviewed Physical Exam: VS: Temp: 97 F [36.1 C] (07/06/2023 13:19) BP: 120/77 (07/06/2023 13:19) Pulse:95 (07/06/2023 13:19) Resp: 18 (07/06/2023 13:19) Weight: 272 lb [123.38 kg] (07/06/2023 13:19) Pain: 0 (03/18/2023 09:41) O2 Sat: 98% (07/06/2023 13:19) BMI: 41.4 General NAD WDWN Cardiac: irreg irreg Chest/Lungs: Bilaterally clear Abdominal: Bowel Sounds Present Extremities: No edema. Lab Data: Report Released Date/Time: Jun 29, 2023@19:34 Provider: ARIADNE GOMEZ Specimen: BLOOD. [facility] [id number] Specimen Collection Date: Jun 29, 2023@08:24 Test name Result units Ref. range Site Code HEMOGLOBIN A1C 5.3 % 4.0 - 6.0 [618] Eval: Patients with abnormally high levels of HbF or other rare Hb variants Eval: could have inaccurate A1c results due to method specific analytical Eval: interference. Comment: Values obtained from A1C measurements can vary. For typical A1C assays, a reported value of 7.0 could actually be between 6.7 and 7.3 if measured by a reference method. A reported value of 9.0 could actually be between 8.7 and 9.3. Ref: http://www.ngsp.org/CAPdata.asp Reporting Lab: [facility] [CLIA# [id number]] [place] [address] Report Released Date/Time: Jun 29, 2023@19:47 Provider: ARIADNE GOMEZ Specimen: SERUM. [facility] [id number] Specimen Collection Date: Jun 29, 2023@08:24 Test name Result units Ref. range Site Code IRON 90 ug/dL 65 - 175 [618] TRANSFERRIN 240 mg/dL 163 - 382 [618] TIBC,CALCULATED 300 ug/dL 250 - 425 [618] IRON SATURATION 30 % 20 - 50 [618] FERRITIN 55.6 ng/mL 21.8 - 274.7 [618] Eval: Individual ferritin plasma concentration values may be approximately 10% Eval: higher than serum values. Reporting Lab: [facility] [CLIA# [id number]] [place] [id number] Report Released Date/Time: Jun 29, 2023@19:43 Provider: ARIADNE GOMEZ Specimen: PLASMA. [facility] [id number] Specimen Collection Date: Jun 29, 2023@08:24 Test name Result units Ref. range Site Code PTH-N-TACT 89.2 H pg/mL 8.7 - 77.1 [618] Reporting Lab: [facility] [CLIA# [id number]] [place] [address] Report Released Date/Time: Jun 29, 2023@19:14 Provider: ARIADNE GOMEZ Specimen: BLOOD. [id number] Specimen Collection Date: Jun 29, 2023@08:24 Test name Result units Ref. range Site Code WBC 8.29 K/cmm 4.0 - 11.0 [618] RBC 3.87 L M/cmm 4.6 - 6.2 [618] HGB 12.9 L g/dL 13.5 - 17.9 [618] HCT 39.4 L % 41 - 54 [618] MCV 101.8 H fL 80 - 100 [618] MCH 33.3 H pg 27 - 33 [618] MCHC 32.7 g/dL 32.0 - 37.5 [618] RDW 12.8 % 11.5 - 14.5 [618] PLT 302 K/cmm 150 - 400 [618] MPV 9.6 fL 7.4 - 10.4 [618] Reporting Lab: [facility] [CLIA# [id number]] [place] [address] Report Released Date/Time: Jun 29, 2023@19:47 Provider: ARIADNE GOMEZ Specimen: PLASMA. [facility] [id number] Specimen Collection Date: Jun 29, 2023@08:24 Test name Result units Ref. range Site Code .CREAT EGFR(CKD-EPI) 27 L Ref: >=60 [618] Eval: The eGFR generally decreases with age and in the general population, an Eval: eGFR >60mL/min/1.73 m2 in the absence of increased urine albumin excretion Eval: or structural abnormalities does not represent CKD. Eval: Eval: CKD is diagnosed based on abnormalities of kidney structure or function, Eval: present for >3 months, with implications for health and disease. CKD is Eval: classified and staged based on cause, eGFR, and albuminuria (quantified as Eval: urine albumin to creatinine ratio). Eval: Eval: Below are the eGFR cut off values for CKD stages: Eval: Eval: eGFR (mL/min/1.73 1.73 m2) CKD stage Interpretation Eval: >=90 G1 Normal Eval: 60-89 G2 Mild decrease Eval: 45-59 G3A Mild to moderate decrease Eval: 30-44 G3B Moderate to severe decrease Eval: 15-29 G4 Severe decrease Eval: <15 G5 Kidney failure SODIUM 140 mmol/L 136 - 145 [618] POTASSIUM 4.8 mmol/L 3.5 - 5.1 [618] Eval: Serum potassium results are generally 5% higher than plasma. CHLORIDE 108 H mmol/L 98 - 107 [618] CO2 22 mmol/L 22 - 29 [618] Eval: To calculate Anion Gap use (Na)-[(Cl)+CO2] ANION GAP 10 mmol/L 5 - 15 [618] GLUCOSE 95 mg/dL 70 - 100 [618] Eval: Reference Range is based on fasting specimen. Eval: Patients taking Sulfasalazine may see a negative bias on Glucose Eval: levels. UREA NITROGEN 33 H mg/dL 8 - 26 [618] CREATININE 2.5 H mg/dL 0.7 - 1.2 [618] ALBUMIN 3.8 g/dL 3.5 - 5.2 [618] CALCIUM 9.1 mg/dL 8.4 - 10.2 [618] PHOSPHORUS 3.6 mg/dL 2.3 - 4.7 [618] Patient was informed of all the above labs during this visit. Patient Education of Treatment Plan: Patient indicates readiness to learn, verbalizes understanding, agreement and satisfaction with the treatment plan. Denies further questions. /gregorio/ ARIADNE GOMEZ Nurse Practitioner Signed: 07/06/2023 13:50 Receipt Acknowledged By: 07/06/2023 16:21 /gregorio/ NAKITA ONEILL [facility] 07/07/2023 06:24 /gregorio/ CATRACHITO FOX, RN REGISTERED NURSE 07/07/2023 ADDENDUM STATUS: COMPLETED Dr. Rodriguez - pt's hgb A1C 5.3% with labs for renal clinic visit. Hgb A1C has been 5.3 to 5.5% over the past year. DM2 presently managed with glipzide 5mg daily & empagliflozin 12.5mg daily. Could we reduce glipizide to 2.5mg daily? /jony GOMEZ Nurse Practitioner Signed: 07/07/2023 07:52 Receipt Acknowledged By: 07/07/2023 08:40 /gregorio/ MARTHA RODRIGUEZ PHYSICIAN 07/07/2023 ADDENDUM STATUS: COMPLETED I think that is reasonable given his good a1c's. Will you convey mesage to patieint. /jony RODRIGUEZ PHYSICIAN Signed: 07/07/2023 08:41 Receipt Acknowledged By: 07/07/2023 08:43 /jony GOMEZ Nurse Practitioner 07/07/2023 ADDENDUM STATUS: COMPLETED Dr. Rodriguez - yes we will inform pt of glipizide dose decrease. /jony GOMEZ Nurse Practitioner Signed: 07/07/2023 08:43 Receipt Acknowledged By: 07/07/2023 09:03 /jony RODRIGUEZ PHYSICIAN 07/07/2023 ADDENDUM STATUS: COMPLETED Spoke to patient regarding CKD Class. Patient is agreeable to come to 07/14/2023. Insurance Associate will schedule and mail out letter. /gregorio/ NAKITA ONEILL [facility] Signed: 07/07/2023 09:08 07/07/2023 ADDENDUM STATUS: COMPLETED Called pt and instructed on recommendation from Renal provider Ariadne Gomez to decrease glipizide to 2.5mg daily. He has glipizide 5mg tablets and instructed to take 1/2 tablet daily. He voices understanding. He would like a new tablet splitter. Order placed and flagged to provider for signature. /gregorio/ RAFAEL PENA RN STAFF NURSE Signed: 07/07/2023 09:17 ARIADNE GOMEZ [facility] Jul 07, 2023 08:40 AM ADDENDUM: LOCAL TITLE: Addendum STANDARD TITLE: ADDENDUM DATE OF NOTE: JUL 07, 2023@08:40:50 ENTRY DATE: JUL 07, 2023@08:40:52 AUTHOR: MARTHA RODRIGUEZ EXP COSIGNER: URGENCY: STATUS: COMPLETED I think that is reasonable given his good a1c's. Will you convey mesage to patieint. /gregorio/ MARTHA RODRIGUEZ PHYSICIAN Signed: 07/07/2023 08:41 Receipt Acknowledged By: 07/07/2023 08:43 /es/ ARIADNE GOMEZ Nurse Practitioner --- Original Document --- 07/06/23 RENAL CLINIC NOTE: Assessment/plan: Mr. Shaggy Gould is a 72 year old male seen in renal clinic for management of chronic kidney disease. 1. CKD 4, eGFR 27 with most recent labs Comment: Etiology of [...] ARB for ~ 2 weeks), SPEP negative). Renal function is stable & at baseline for pt. Uremic symptoms are absent. Electrolytes are acceptable. Oral hydration is maximized. We reviewed the importance of controlling HTN/DM2 to slow CKD progression. CKD education was discussed at last visit but he wasn't scheduled, agreeable to attending in [place]. Plan: Continue current management. CKD education. 2. Hypertension Comment: Checking home BP intermittently, reports home BP readings are similar to clinic BP reading. Plan: Continue current management. 3. DM2 Comment: Managed by PCP. No hypoglycemia. On SGLT2i, on ARB. Hgb A1C 5.3% with most recent labs. Plan: Continued management per PCP. Inquire with PCP re: reducing glipizide. 4. Bone/mineral/secondary hyperparathyroidism of renal origin Comment: Calcium & phos are acceptable, not on calcium supplements or phos binders. Pt has secondary hyperparathyroidism of renal origin not on calcitriol - PTH 89 pg/dL, at goal - this is not treated until it's > 450 pg/dL. Plan: Monitor. 5. Anemia Comment: ACKD per peripheral smear. Hgb is stable & at baseline, pt is not on JUAN. Iron replete, not on supplement. On B12 supplement, no recent level. Plan: Monitor. JUAN is not indicated until hgb < 9 g/dL. Check B12 with next visit. 6. Gout Comment: Denies flare. Uric acid level has been at goal. Plan: Continue allopurinol. Check uric acid level with next visit. RTC 6 months [facility] with labs 1-2 weeks prior, sooner if needed --> co-signing MEEAR Oneill & ABIMBOLA Fox to please assist with scheduling CKD education {}{}{}{}{}{}{}{}{}{}{}{}{}{}{}{ }{}{}{}{}{}{}{}{}{}{}{}{}{}{}{} {}{}{}{}{}{}{} Nurse's Notes Reviewed. Chief Complaint: follow-up CKD HPI: Pt states he's feeling well & offers no complaints. No interval hospitalizations since our last visit, no new health concerns. CKD - appetite is stable. Denies nausea, vomiting, metallic taste in the mouth. Baseline energy level. No daytime somnolence. Denies excessive pruritis. Drinking at least 2 liters of water daily. We reviewed attending CKD education, he's agreeable & willing to go to [facility] for the class. DM2 - checks BG monthly, no hypoglycemia HTN - checks home BP intermittently, reports that readings are similar to clinic check-in reading gout - no flare Past medical history/Active [...] Chest Pain. No Shortness of breath. No orthopnea, PND, or peripheral edema. No abdominal pain, N/V, or change in bowel habits. No diarrhea or constipation. No urinary hesitancy or frequency. MEDS: Medications: Active Outpatient Medications (including Supplies): Active Outpatient Medications Status 1) ALLOPURINOL 100MG TAB TAKE ONE TABLET BY MOUTH EVERY ACTIVE DAY FOR GOUT PREVENTION 2) AMLODIPINE BESYLATE 10MG TAB TAKE ONE-HALF TABLET BY ACTIVE MOUTH EVERY DAY FOR BLOOD PRESSURE 3) EMPAGLIFLOZIN 25MG TAB TAKE ONE-HALF TABLET BY MOUTH ACTIVE EVERY DAY 4) GLIPIZIDE 5MG TAB TAKE ONE TABLET BY MOUTH EVERY DAY ACTIVE 5) LOSARTAN 25MG TAB TAKE ONE TABLET BY MOUTH EVERY DAY ACTIVE FOR KIDNEY PROTECTION 6) METOPROLOL TARTRATE 50MG TAB TAKE ONE-HALF TABLET BY ACTIVE MOUTH TWICE A DAY FOR HEART RHYTHM 7) OMEPRAZOLE 20MG EC CAP TAKE ONE CAPSULE BY MOUTH ACTIVE (S) TWICE A DAY ON AN EMPTY STOMACH, AT LEAST 30 MINUTES PRIOR TO A MEAL 8) SIMVASTATIN 20MG TAB TAKE ONE-HALF TABLET BY MOUTH AT ACTIVE BEDTIME FOR CHOLESTEROL Active Non-VA Medications Status 1) Non-VA ACETAMINOPHEN 500MG TAB 1000MG MOUTH DAILY ACTIVE 2) Non-VA ASPIRIN 325MG TAB 325MG MOUTH EVERY DAY ACTIVE 3) Non-VA CHOLECALCIFEROL TAB MOUTH ACTIVE 4) Non-VA MARINE LIPID (FISH OIL) CAP,ORAL MOUTH ACTIVE 5) Non-VA MELATONIN CAP/TAB MOUTH ACTIVE 6) Non-VA MULTIVITAMIN CAP/TAB 1 TABLET MOUTH EVERY DAY ACTIVE 14 Total Medications Meds were reviewed Physical Exam: VS: Temp: 97 F [36.1 C] (07/06/2023 13:19) BP: 120/77 (07/06/2023 13:19) Pulse:95 (07/06/2023 13:19) Resp: 18 (07/06/2023 13:19) Weight: 272 lb [123.38 kg] (07/06/2023 13:19) Pain: 0 (03/18/2023 09:41) O2 Sat: 98% (07/06/2023 13:19) BMI: 41.4 General NAD WDWN Cardiac: irreg irreg Chest/Lungs: Bilaterally clear Abdominal: Bowel Sounds Present Extremities: No edema. Lab Data: Report Released Date/Time: Jun 29, 2023@19:34 Provider: ARIADNE GOMEZ Specimen: BLOOD. [facility] [id number] Specimen Collection Date: Jun 29, 2023@08:24 Test name Result units Ref. range Site Code HEMOGLOBIN A1C 5.3 % 4.0 - 6.0 [618] Eval: Patients with abnormally high levels of HbF or other rare Hb variants Eval: could have inaccurate A1c results due to method specific analytical Eval: interference. Comment: Values obtained from A1C measurements can vary. For typical A1C assays, a reported value of 7.0 could actually be between 6.7 and 7.3 if measured by a reference method. A reported value of 9.0 could actually be between 8.7 and 9.3. Ref: http://www.ngsp.org/CAPdata.asp Reporting Lab: [facility] [CLIA# [id number]] [place] [address] Report Released Date/Time: Jun 29, 2023@19:47 Provider: ARIADNE GOMEZ Specimen: SERUM. [facility] [id number] Specimen Collection Date: Jun 29, 2023@08:24 Test name Result units Ref. range Site Code IRON 90 ug/dL 65 - 175 [618] TRANSFERRIN 240 mg/dL 163 - 382 [618] TIBC,CALCULATED 300 ug/dL 250 - 425 [618] IRON SATURATION 30 % 20 - 50 [618] FERRITIN 55.6 ng/mL 21.8 - 274.7 [618] Eval: Individual ferritin plasma concentration values may be approximately 10% Eval: higher than serum values. Reporting Lab: [facility] [CLIA# [id number]] [place] [address] Report Released Date/Time: Jun 29, 2023@19:43 Provider: ARIADNE GOMEZ Specimen: PLASMA. [facility] [id number] Specimen Collection Date: Jun 29, 2023@08:24 Test name Result units Ref. range Site Code PTH-N-TACT 89.2 H pg/mL 8.7 - 77.1 [618] Reporting Lab: [facility] [CLIA# [id number]] [place] [address] Report Released Date/Time: Jun 29, 2023@19:14 Provider: ARIADNE GOMEZ Specimen: BLOOD. [id number] Specimen Collection Date: Jun 29, 2023@08:24 Test name Result units Ref. range Site Code WBC 8.29 K/cmm 4.0 - 11.0 [618] RBC 3.87 L M/cmm 4.6 - 6.2 [618] HGB 12.9 L g/dL 13.5 - 17.9 [618] HCT 39.4 L % 41 - 54 [618] MCV 101.8 H fL 80 - 100 [618] MCH 33.3 H pg 27 - 33 [618] MCHC 32.7 g/dL 32.0 - 37.5 [618] RDW 12.8 % 11.5 - 14.5 [618] PLT 302 K/cmm 150 - 400 [618] MPV 9.6 fL 7.4 - 10.4 [618] Reporting Lab: [facility] [CLIA# [id number]] [place] [address] Report Released Date/Time: Jun 29, 2023@19:47 Provider: ARIADNE GOMEZ Specimen: PLASMA. [facility] [id number] Specimen Collection Date: Jun 29, 2023@08:24 Test name Result units Ref. range Site Code .CREAT EGFR(CKD-EPI) 27 L Ref: >=60 [618] Eval: The eGFR generally decreases with age and in the general population, an Eval: eGFR >60mL/min/1.73 m2 in the absence of increased urine albumin excretion Eval: or structural abnormalities does not represent CKD. Eval: Eval: CKD is diagnosed based on abnormalities of kidney structure or function, Eval: present for >3 months, with implications for health and disease. CKD is Eval: classified and staged based on cause, eGFR, and albuminuria (quantified as Eval: urine albumin to creatinine ratio). Eval: Eval: Below are the eGFR cut off values for CKD stages: Eval: Eval: eGFR (mL/min/1.73 1.73 m2) CKD stage Interpretation Eval: >=90 G1 Normal Eval: 60-89 G2 Mild decrease Eval: 45-59 G3A Mild to moderate decrease Eval: 30-44 G3B Moderate to severe decrease Eval: 15-29 G4 Severe decrease Eval: <15 G5 Kidney failure SODIUM 140 mmol/L 136 - 145 [618] POTASSIUM 4.8 mmol/L 3.5 - 5.1 [618] Eval: Serum potassium results are generally 5% higher than plasma. CHLORIDE 108 H mmol/L 98 - 107 [618] CO2 22 mmol/L 22 - 29 [618] Eval: To calculate Anion Gap use (Na)-[(Cl)+CO2] ANION GAP 10 mmol/L 5 - 15 [618] GLUCOSE 95 mg/dL 70 - 100 [618] Eval: Reference Range is based on fasting specimen. Eval: Patients taking Sulfasalazine may see a negative bias on Glucose Eval: levels. UREA NITROGEN 33 H mg/dL 8 - 26 [618] CREATININE 2.5 H mg/dL 0.7 - 1.2 [618] ALBUMIN 3.8 g/dL 3.5 - 5.2 [618] CALCIUM 9.1 mg/dL 8.4 - 10.2 [618] PHOSPHORUS 3.6 mg/dL 2.3 - 4.7 [618] Patient was informed of all the above labs during this visit. Patient Education of Treatment Plan: Patient indicates readiness to learn, verbalizes understanding, agreement and satisfaction with the treatment plan. Denies further questions. /gregorio/ ARIADNE GOMEZ Nurse Practitioner Signed: 07/06/2023 13:50 Receipt Acknowledged By: 07/06/2023 16:21 /gregorio/ NAKITA ONEILL [facility] 07/07/2023 06:24 /gregorio/ CATRACHITO FOX RN REGISTERED NURSE 07/07/2023 ADDENDUM STATUS: COMPLETED Dr. Rodriguez - se's hgb A1C 5.3% with labs for renal clinic visit. Hgb A1C has been 5.3 to 5.5% over the past year. DM2 presently managed with glipzide 5mg daily & empagliflozin 12.5mg daily. Could we reduce glipizide to 2.5mg daily? /jony GOMEZ Nurse Practitioner Signed: 07/07/2023 07:52 Receipt Acknowledged By: 07/07/2023 08:40 /gregorio/ MARTHA RODRIGUEZ PHYSICIAN 07/07/2023 ADDENDUM STATUS: COMPLETED ABIMBOLA Ross - please contact pt & instruct him to reduce glipizide to 2.5mg daily. /jony GOMEZ Nurse Practitioner Signed: 07/07/2023 08:42 Receipt Acknowledged By: * AWAITING SIGNATURE * FAHAD ROSS 07/07/2023 ADDENDUM STATUS: COMPLETED Dr. Rodriguez - yes we will inform pt of glipizide dose decrease. /jony GOMEZ Nurse Practitioner Signed: 07/07/2023 08:43 Receipt Acknowledged By: * AWAITING SIGNATURE * MARTHA RODRIGUEZ REBECCA L [place] [facility] Jul 07, 2023 07:50 AM ADDENDUM: LOCAL TITLE: Addendum STANDARD TITLE: ADDENDUM DATE OF NOTE: JUL 07, 2023@07:50:52 ENTRY DATE: JUL 07, 2023@07:50:53 AUTHOR: ARIADNE GOMEZ COSIGNER: URGENCY: STATUS: COMPLETED Dr. Michael Garcia pt's hgb A1C 5.3% with labs for renal clinic visit. Hgb A1C has been 5.3 to 5.5% over the past year. DM2 presently managed with glipzide 5mg daily & empagliflozin 12.5mg daily. Could we reduce glipizide to 2.5mg daily? /jony GOMEZ Nurse Practitioner Signed: 07/07/2023 07:52 Receipt Acknowledged By: 07/07/2023 08:40 /gregorio/ MARTHA RODRIGUEZ PHYSICIAN --- Original Document --- 07/06/23 RENAL CLINIC NOTE: Assessment/plan: Mr. Shaggy Gould is a 72 year old male seen in renal clinic for management of chronic kidney disease. 1. CKD 4, eGFR 27 with most recent labs Comment: Etiology of [...] ARB for ~ 2 weeks), SPEP negative). Renal function is stable & at baseline for pt. Uremic symptoms are absent. Electrolytes are acceptable. Oral hydration is maximized. We reviewed the importance of controlling HTN/DM2 to slow CKD progression. CKD education was discussed at last visit but he wasn't scheduled, agreeable to attending in [place]. Plan: Continue current management. CKD education. 2. Hypertension Comment: Checking home BP intermittently, reports home BP readings are similar to clinic BP reading. Plan: Continue current management. 3. DM2 Comment: Managed by PCP. No hypoglycemia. On SGLT2i, on ARB. Hgb A1C 5.3% with most recent labs. Plan: Continued management per PCP. Inquire with PCP re: reducing glipizide. 4. Bone/mineral/secondary hyperparathyroidism of renal origin Comment: Calcium & phos are acceptable, not on calcium supplements or phos binders. Pt has secondary hyperparathyroidism of renal origin not on calcitriol - PTH 89 pg/dL, at goal - this is not treated until it's > 450 pg/dL. Plan: Monitor. 5. Anemia Comment: ACKD per peripheral smear. Hgb is stable & at baseline, pt is not on JUAN. Iron replete, not on supplement. On B12 supplement, no recent level. Plan: Monitor. JUAN is not indicated until hgb < 9 g/dL. Check B12 with next visit. 6. Gout Comment: Denies flare. Uric acid level has been at goal. Plan: Continue allopurinol. Check uric acid level with next visit. RTC 6 months [facility] with labs 1-2 weeks prior, sooner if needed --> co-signing MEERA Oneill & ABIMBOLA Fox to please assist with scheduling CKD education {}{}{}{}{}{}{}{}{}{}{}{}{}{}{}{ }{}{}{}{}{}{}{}{}{}{}{}{}{}{}{} {}{}{}{}{}{}{} Nurse's Notes Reviewed. Chief Complaint: follow-up CKD HPI: Pt states he's feeling well & offers no complaints. No interval hospitalizations since our last visit, no new health concerns. CKD - appetite is stable. Denies nausea, vomiting, metallic taste in the mouth. Baseline energy level. No daytime somnolence. Denies excessive pruritis. Drinking at least 2 liters of water daily. We reviewed attending CKD education, he's agreeable & willing to go to [facility] for the class. DM2 - checks BG monthly, no hypoglycemia HTN - checks home BP intermittently, reports that readings are similar to clinic check-in reading gout - no flare Past medical history/Active [...] Chest Pain. No Shortness of breath. No orthopnea, PND, or peripheral edema. No abdominal pain, N/V, or change in bowel habits. No diarrhea or constipation. No urinary hesitancy or frequency. MEDS: Medications: Active Outpatient Medications (including Supplies): Active Outpatient Medications Status 1) ALLOPURINOL 100MG TAB TAKE ONE TABLET BY MOUTH EVERY ACTIVE DAY FOR GOUT PREVENTION 2) AMLODIPINE BESYLATE 10MG TAB TAKE ONE-HALF TABLET BY ACTIVE MOUTH EVERY DAY FOR BLOOD PRESSURE 3) EMPAGLIFLOZIN 25MG TAB TAKE ONE-HALF TABLET BY MOUTH ACTIVE EVERY DAY 4) GLIPIZIDE 5MG TAB TAKE ONE TABLET BY MOUTH EVERY DAY ACTIVE 5) LOSARTAN 25MG TAB TAKE ONE TABLET BY MOUTH EVERY DAY ACTIVE FOR KIDNEY PROTECTION 6) METOPROLOL TARTRATE 50MG TAB TAKE ONE-HALF TABLET BY ACTIVE MOUTH TWICE A DAY FOR HEART RHYTHM 7) OMEPRAZOLE 20MG EC CAP TAKE ONE CAPSULE BY MOUTH ACTIVE (S) TWICE A DAY ON AN EMPTY STOMACH, AT LEAST 30 MINUTES PRIOR TO A MEAL 8) SIMVASTATIN 20MG TAB TAKE ONE-HALF TABLET BY MOUTH AT ACTIVE BEDTIME FOR CHOLESTEROL Active Non-VA Medications Status 1) Non-VA ACETAMINOPHEN 500MG TAB 1000MG MOUTH DAILY ACTIVE 2) Non-VA ASPIRIN 325MG TAB 325MG MOUTH EVERY DAY ACTIVE 3) Non-VA CHOLECALCIFEROL TAB MOUTH ACTIVE 4) Non-VA MARINE LIPID (FISH OIL) CAP,ORAL MOUTH ACTIVE 5) Non-VA MELATONIN CAP/TAB MOUTH ACTIVE 6) Non-VA MULTIVITAMIN CAP/TAB 1 TABLET MOUTH EVERY DAY ACTIVE 14 Total Medications Meds were reviewed Physical Exam: VS: Temp: 97 F [36.1 C] (07/06/2023 13:19) BP: 120/77 (07/06/2023 13:19) Pulse:95 (07/06/2023 13:19) Resp: 18 (07/06/2023 13:19) Weight: 272 lb [123.38 kg] (07/06/2023 13:19) Pain: 0 (03/18/2023 09:41) O2 Sat: 98% (07/06/2023 13:19) BMI: 41.4 General NAD WDWN Cardiac: irreg irreg Chest/Lungs: Bilaterally clear Abdominal: Bowel Sounds Present Extremities: No edema. Lab Data: Report Released Date/Time: Jun 29, 2023@19:34 Provider: ARIADNE GOMEZ Specimen: BLOOD. [facility] [id number] Specimen Collection Date: Jun 29, 2023@08:24 Test name Result units Ref. range Site Code HEMOGLOBIN A1C 5.3 % 4.0 - 6.0 [618] Eval: Patients with abnormally high levels of HbF or other rare Hb variants Eval: could have inaccurate A1c results due to method specific analytical Eval: interference. Comment: Values obtained from A1C measurements can vary. For typical A1C assays, a reported value of 7.0 could actually be between 6.7 and 7.3 if measured by a reference method. A reported value of 9.0 could actually be between 8.7 and 9.3. Ref: http://www.ngsp.org/CAPdata.asp Reporting Lab: [facility] [CLIA# [id number]] [place] [address] Report Released Date/Time: Jun 29, 2023@19:47 Provider: ARIADNE GOMEZ Specimen: SERUM. [facility] [id number] Specimen Collection Date: Jun 29, 2023@08:24 Test name Result units Ref. range Site Code IRON 90 ug/dL 65 - 175 [618] TRANSFERRIN 240 mg/dL 163 - 382 [618] TIBC,CALCULATED 300 ug/dL 250 - 425 [618] IRON SATURATION 30 % 20 - 50 [618] FERRITIN 55.6 ng/mL 21.8 - 274.7 [618] Eval: Individual ferritin plasma concentration values may be approximately 10% Eval: higher than serum values. Reporting Lab: [facility] [CLIA# [id number]] [place] [address] Report Released Date/Time: Jun 29, 2023@19:43 Provider: ARIADNE GOMEZ Specimen: PLASMA. [facility] [id number] Specimen Collection Date: Jun 29, 2023@08:24 Test name Result units Ref. range Site Code PTH-N-TACT 89.2 H pg/mL 8.7 - 77.1 [618] Reporting Lab: [facility] [CLIA# [id number]] [place] [address] Report Released Date/Time: Jun 29, 2023@19:14 Provider: ARIADNE GOMEZ Specimen: BLOOD. [id number] Specimen Collection Date: Jun 29, 2023@08:24 Test name Result units Ref. range Site Code WBC 8.29 K/cmm 4.0 - 11.0 [618] RBC 3.87 L M/cmm 4.6 - 6.2 [618] HGB 12.9 L g/dL 13.5 - 17.9 [618] HCT 39.4 L % 41 - 54 [618] MCV 101.8 H fL 80 - 100 [618] MCH 33.3 H pg 27 - 33 [618] MCHC 32.7 g/dL 32.0 - 37.5 [618] RDW 12.8 % 11.5 - 14.5 [618] PLT 302 K/cmm 150 - 400 [618] MPV 9.6 fL 7.4 - 10.4 [618] Reporting Lab: [facility] [CLIA# [id number]] [place] [address] Report Released Date/Time: Jun 29, 2023@19:47 Provider: ARIADNE GOMEZ Specimen: PLASMA. [facility] [id number] Specimen Collection Date: Jun 29, 2023@08:24 Test name Result units Ref. range Site Code .CREAT EGFR(CKD-EPI) 27 L Ref: >=60 [618] Eval: The eGFR generally decreases with age and in the general population, an Eval: eGFR >60mL/min/1.73 m2 in the absence of increased urine albumin excretion Eval: or structural abnormalities does not represent CKD. Eval: Eval: CKD is diagnosed based on abnormalities of kidney structure or function, Eval: present for >3 months, with implications for health and disease. CKD is Eval: classified and staged based on cause, eGFR, and albuminuria (quantified as Eval: urine albumin to creatinine ratio). Eval: Eval: Below are the eGFR cut off values for CKD stages: Eval: Eval: eGFR (mL/min/1.73 1.73 m2) CKD stage Interpretation Eval: >=90 G1 Normal Eval: 60-89 G2 Mild decrease Eval: 45-59 G3A Mild to moderate decrease Eval: 30-44 G3B Moderate to severe decrease Eval: 15-29 G4 Severe decrease Eval: <15 G5 Kidney failure SODIUM 140 mmol/L 136 - 145 [618] POTASSIUM 4.8 mmol/L 3.5 - 5.1 [618] Eval: Serum potassium results are generally 5% higher than plasma. CHLORIDE 108 H mmol/L 98 - 107 [618] CO2 22 mmol/L 22 - 29 [618] Eval: To calculate Anion Gap use (Na)-[(Cl)+CO2] ANION GAP 10 mmol/L 5 - 15 [618] GLUCOSE 95 mg/dL 70 - 100 [618] Eval: Reference Range is based on fasting specimen. Eval: Patients taking Sulfasalazine may see a negative bias on Glucose Eval: levels. UREA NITROGEN 33 H mg/dL 8 - 26 [618] CREATININE 2.5 H mg/dL 0.7 - 1.2 [618] ALBUMIN 3.8 g/dL 3.5 - 5.2 [618] CALCIUM 9.1 mg/dL 8.4 - 10.2 [618] PHOSPHORUS 3.6 mg/dL 2.3 - 4.7 [618] Patient was informed of all the above labs during this visit. Patient Education of Treatment Plan: Patient indicates readiness to learn, verbalizes understanding, agreement and satisfaction with the treatment plan. Denies further questions. /es/ ARIADNE GOMEZ Nurse Practitioner Signed: 07/06/2023 13:50 Receipt Acknowledged By: 07/06/2023 16:21 /es/ NAKITA ONEILL ADVANCED MSA 07/07/2023 06:24 /es/ CATRACHITO FOX RN REGISTERED NURSE 07/07/2023 ADDENDUM STATUS: COMPLETED I think that is reasonable given his good a1c's. Will you convey mesage to patieint. /es/ MARTHA RODRIGUEZ PHYSICIAN Signed: 07/07/2023 08:41 ARIADNE GOMEZ [facility] Jul 06, 2023 01:37 PM NEPHROLOGY ATTENDI WILL NOTE: LOCAL TITLE: RENAL CLINIC NOTE STANDARD TITLE: NEPHROLOGY ATTENDING NOTE DATE OF NOTE: JUL 06, 2023@13:37 ENTRY DATE: JUL 06, 2023@13:37:42 AUTHOR: ARIADNE GOMEZ EXP COSIGNER: URGENCY: STATUS: COMPLETED RENAL CLINIC NOTE Has ADDENDA Assessment/plan: Mr. Shaggy Gould is a 72 year old male seen in renal clinic for management of chronic kidney disease. 1. CKD 4, eGFR 27 with most recent labs Comment: Etiology of [...] ARB for ~ 2 weeks), SPEP negative). Renal function is stable & at baseline for pt. Uremic symptoms are absent. Electrolytes are acceptable. Oral hydration is maximized. We reviewed the importance of controlling HTN/DM2 to slow CKD progression. CKD education was discussed at last visit but he wasn't scheduled, agreeable to attending in [place]. Plan: Continue current management. CKD education. 2. Hypertension Comment: Checking home BP intermittently, reports home BP readings are similar to clinic BP reading. Plan: Continue current management. 3. DM2 Comment: Managed by PCP. No hypoglycemia. On SGLT2i, on ARB. Hgb A1C 5.3% with most recent labs. Plan: Continued management per PCP. Inquire with PCP re: reducing glipizide. 4. Bone/mineral/secondary hyperparathyroidism of renal origin Comment: Calcium & phos are acceptable, not on calcium supplements or phos binders. Pt has secondary hyperparathyroidism of renal origin not on calcitriol - PTH 89 pg/dL, at goal - this is not treated until it's > 450 pg/dL. Plan: Monitor. 5. Anemia Comment: ACKD per peripheral smear. Hgb is stable & at baseline, pt is not on JUAN. Iron replete, not on supplement. On B12 supplement, no recent level. Plan: Monitor. JUAN is not indicated until hgb < 9 g/dL. Check B12 with next visit. 6. Gout Comment: Denies flare. Uric acid level has been at goal. Plan: Continue allopurinol. Check uric acid level with next visit. RTC 6 months Leonides PARKER with labs 1-2 weeks prior, sooner if needed --> co-signing MEERA Oneill & RN Siegle to please assist with scheduling CKD education {}{}{}{}{}{}{}{}{}{}{}{}{}{}{}{ }{}{}{}{}{}{}{}{}{}{}{}{}{}{}{} {}{}{}{}{}{}{} Nurse's Notes Reviewed. Chief Complaint: follow-up CKD HPI: Pt states he's feeling well & offers no complaints. No interval hospitalizations since our last visit, no new health concerns. CKD - appetite is stable. Denies nausea, vomiting, metallic taste in the mouth. Baseline energy level. No daytime somnolence. Denies excessive pruritis. Drinking at least 2 liters of water daily. We reviewed attending CKD education, he's agreeable & willing to go to [facility] for the class. DM2 - checks BG monthly, no hypoglycemia HTN - checks home BP intermittently, reports that readings are similar to clinic check-in reading gout - no flare Past medical history/Active [...] Chest Pain. No Shortness of breath. No orthopnea, PND, or peripheral edema. No abdominal pain, N/V, or change in bowel habits. No diarrhea or constipation. No urinary hesitancy or frequency. MEDS: Medications: Active Outpatient Medications (including Supplies): Active Outpatient Medications Status 1) ALLOPURINOL 100MG TAB TAKE ONE TABLET BY MOUTH EVERY ACTIVE DAY FOR GOUT PREVENTION 2) AMLODIPINE BESYLATE 10MG TAB TAKE ONE-HALF TABLET BY ACTIVE MOUTH EVERY DAY FOR BLOOD PRESSURE 3) EMPAGLIFLOZIN 25MG TAB TAKE ONE-HALF TABLET BY MOUTH ACTIVE EVERY DAY 4) GLIPIZIDE 5MG TAB TAKE ONE TABLET BY MOUTH EVERY DAY ACTIVE 5) LOSARTAN 25MG TAB TAKE ONE TABLET BY MOUTH EVERY DAY ACTIVE FOR KIDNEY PROTECTION 6) METOPROLOL TARTRATE 50MG TAB TAKE ONE-HALF TABLET BY ACTIVE MOUTH TWICE A DAY FOR HEART RHYTHM 7) OMEPRAZOLE 20MG EC CAP TAKE ONE CAPSULE BY MOUTH ACTIVE (S) TWICE A DAY ON AN EMPTY STOMACH, AT LEAST 30 MINUTES PRIOR TO A MEAL 8) SIMVASTATIN 20MG TAB TAKE ONE-HALF TABLET BY MOUTH AT ACTIVE BEDTIME FOR CHOLESTEROL Active Non-VA Medications Status 1) Non-VA ACETAMINOPHEN 500MG TAB 1000MG MOUTH DAILY ACTIVE 2) Non-VA ASPIRIN 325MG TAB 325MG MOUTH EVERY DAY ACTIVE 3) Non-VA CHOLECALCIFEROL TAB MOUTH ACTIVE 4) Non-VA MARINE LIPID (FISH OIL) CAP,ORAL MOUTH ACTIVE 5) Non-VA MELATONIN CAP/TAB MOUTH ACTIVE 6) Non-VA MULTIVITAMIN CAP/TAB 1 TABLET MOUTH EVERY DAY ACTIVE 14 Total Medications Meds were reviewed Physical Exam: VS: Temp: 97 F [36.1 C] (07/06/2023 13:19) BP: 120/77 (07/06/2023 13:19) Pulse:95 (07/06/2023 13:19) Resp: 18 (07/06/2023 13:19) Weight: 272 lb [123.38 kg] (07/06/2023 13:19) Pain: 0 (03/18/2023 09:41) O2 Sat: 98% (07/06/2023 13:19) BMI: 41.4 General NAD WDWN Cardiac: irreg irreg Chest/Lungs: Bilaterally clear Abdominal: Bowel Sounds Present Extremities: No edema. Lab Data: Report Released Date/Time: Jun 29, 2023@19:34 Provider: ARIADNE GOMEZ Specimen: BLOOD. [facility] [id number] Specimen Collection Date: Jun 29, 2023@08:24 Test name Result units Ref. range Site Code HEMOGLOBIN A1C 5.3 % 4.0 - 6.0 [618] Eval: Patients with abnormally high levels of HbF or other rare Hb variants Eval: could have inaccurate A1c results due to method specific analytical Eval: interference. Comment: Values obtained from A1C measurements can vary. For typical A1C assays, a reported value of 7.0 could actually be between 6.7 and 7.3 if measured by a reference method. A reported value of 9.0 could actually be between 8.7 and 9.3. Ref: http://www.ngsp.org/CAPdata.asp Reporting Lab: [facility] [CLIA# [id number]] [place] [address] Report Released Date/Time: Jun 29, 2023@19:47 Provider: ARIADNE GOMEZ Specimen: SERUM. [facility] [id number] Specimen Collection Date: Jun 29, 2023@08:24 Test name Result units Ref. range Site Code IRON 90 ug/dL 65 - 175 [618] TRANSFERRIN 240 mg/dL 163 - 382 [618] TIBC,CALCULATED 300 ug/dL 250 - 425 [618] IRON SATURATION 30 % 20 - 50 [618] FERRITIN 55.6 ng/mL 21.8 - 274.7 [618] Eval: Individual ferritin plasma concentration values may be approximately 10% Eval: higher than serum values. Reporting Lab: [facility] [CLIA# [id number]] [place] [address] Report Released Date/Time: Jun 29, 2023@19:43 Provider: ARIADNE GMOEZ Specimen: PLASMA. [facility] [id number] Specimen Collection Date: Jun 29, 2023@08:24 Test name Result units Ref. range Site Code PTH-N-TACT 89.2 H pg/mL 8.7 - 77.1 [618] Reporting Lab: [facility] [CLIA# [id number]] [place] [address] Report Released Date/Time: Jun 29, 2023@19:14 Provider: ARIADNE GOMEZ Specimen: BLOOD. [id number] Specimen Collection Date: Jun 29, 2023@08:24 Test name Result units Ref. range Site Code WBC 8.29 K/cmm 4.0 - 11.0 [618] RBC 3.87 L M/cmm 4.6 - 6.2 [618] HGB 12.9 L g/dL 13.5 - 17.9 [618] HCT 39.4 L % 41 - 54 [618] MCV 101.8 H fL 80 - 100 [618] MCH 33.3 H pg 27 - 33 [618] MCHC 32.7 g/dL 32.0 - 37.5 [618] RDW 12.8 % 11.5 - 14.5 [618] PLT 302 K/cmm 150 - 400 [618] MPV 9.6 fL 7.4 - 10.4 [618] Reporting Lab: [facility] [CLIA# [id number]] [place] [address] Report Released Date/Time: Jun 29, 2023@19:47 Provider: ARIADNE GOMEZ Specimen: PLASMA. [facility] [id number] Specimen Collection Date: Jun 29, 2023@08:24 Test name Result units Ref. range Site Code .CREAT EGFR(CKD-EPI) 27 L Ref: >=60 [618] Eval: The eGFR generally decreases with age and in the general population, an Eval: eGFR >60mL/min/1.73 m2 in the absence of increased urine albumin excretion Eval: or structural abnormalities does not represent CKD. Eval: Eval: CKD is diagnosed based on abnormalities of kidney structure or function, Eval: present for >3 months, with implications for health and disease. CKD is Eval: classified and staged based on cause, eGFR, and albuminuria (quantified as Eval: urine albumin to creatinine ratio). Eval: Eval: Below are the eGFR cut off values for CKD stages: Eval: Eval: eGFR (mL/min/1.73 1.73 m2) CKD stage Interpretation Eval: >=90 G1 Normal Eval: 60-89 G2 Mild decrease Eval: 45-59 G3A Mild to moderate decrease Eval: 30-44 G3B Moderate to severe decrease Eval: 15-29 G4 Severe decrease Eval: <15 G5 Kidney failure SODIUM 140 mmol/L 136 - 145 [618] POTASSIUM 4.8 mmol/L 3.5 - 5.1 [618] Eval: Serum potassium results are generally 5% higher than plasma. CHLORIDE 108 H mmol/L 98 - 107 [618] CO2 22 mmol/L 22 - 29 [618] Eval: To calculate Anion Gap use (Na)-[(Cl)+CO2] ANION GAP 10 mmol/L 5 - 15 [618] GLUCOSE 95 mg/dL 70 - 100 [618] Eval: Reference Range is based on fasting specimen. Eval: Patients taking Sulfasalazine may see a negative bias on Glucose Eval: levels. UREA NITROGEN 33 H mg/dL 8 - 26 [618] CREATININE 2.5 H mg/dL 0.7 - 1.2 [618] ALBUMIN 3.8 g/dL 3.5 - 5.2 [618] CALCIUM 9.1 mg/dL 8.4 - 10.2 [618] PHOSPHORUS 3.6 mg/dL 2.3 - 4.7 [618] Patient was informed of all the above labs during this visit. Patient Education of Treatment Plan: Patient indicates readiness to learn, verbalizes understanding, agreement and satisfaction with the treatment plan. Denies further questions. /gregorio/ ARIADNE GOMEZ Nurse Practitioner Signed: 07/06/2023 13:50 Receipt Acknowledged By: 07/06/2023 16:21 /es/ NAKITA ONEILL ADVANCED MSA 07/07/2023 06:24 /gregorio/ CATRACHITO FOX, RN REGISTERED NURSE 07/07/2023 ADDENDUM STATUS: COMPLETED Dr. Michael Garcia pt's hgb A1C 5.3% with labs for renal clinic visit. Hgb A1C has been 5.3 to 5.5% over the past year. DM2 presently managed with glipzide 5mg daily & empagliflozin 12.5mg daily. Could we reduce glipizide to 2.5mg daily? /jony GOMEZ Nurse Practitioner Signed: 07/07/2023 07:52 Receipt Acknowledged By: 07/07/2023 08:40 /ojny RODRIGUEZ PHYSICIAN 07/07/2023 ADDENDUM STATUS: COMPLETED I think that is reasonable given his good a1c's. Will you convey mesage to patieint. /jony RODRIGUEZ PHYSICIAN Signed: 07/07/2023 08:41 Receipt Acknowledged By: 07/07/2023 08:43 /gregorio/ ARIADNE GOMEZ Nurse Practitioner 07/07/2023 ADDENDUM STATUS: COMPLETED ABIMBOLA Ross - please contact pt & instruct him to reduce glipizide to 2.5mg daily. /gregorio/ ARIADNE GOMEZ Nurse Practitioner Signed: 07/07/2023 08:42 Receipt Acknowledged By: 07/07/2023 09:18 /gregorio/ RAFAEL PENAPATIENT CENTERED CARE SPECIALIST NURSE for FAHAD Maria ROSS 07/07/2023 ADDENDUM STATUS: COMPLETED Dr. Rodriguez - yes we will inform pt of glipizide dose decrease. /gregorio/ ARIADNE GOMEZ Nurse Practitioner Signed: 07/07/2023 08:43 Receipt Acknowledged By: 07/07/2023 09:03 /es/ MARTHA RODRIGUEZ PHYSICIAN 07/07/2023 ADDENDUM STATUS: COMPLETED Spoke to patient regarding CKD Class. Patient is agreeable to come to 07/14/2023. Insurance Associate will schedule and mail out letter. /gregorio/ NAKITA ONEILL ADVANCED MSA Signed: 07/07/2023 09:08 07/07/2023 ADDENDUM STATUS: COMPLETED Called pt and instructed on recommendation from Renal provider Ariadne Gomez to decrease glipizide to 2.5mg daily. He has glipizide 5mg tablets and instructed to take 1/2 tablet daily. He voices understanding. He would like a new tablet splitter. Order placed and flagged to provider for signature. /jony PENA,PATIENT CENTERED CARE SPECIALIST NURSE Signed: 07/07/2023 09:17 ARIADNE GOMEZ OC
--- OUTSIDE RECORDS SUMMARY | 2023-11-13 21:34 | XMS_ITS | Encounter Summary ---
Author Name Department of [facility] Organization Department of [facility] Address [address] [place] [address] Support Name Relationship Address Phone NANCY FORRESTER [...] [facility] [place] [facility] [place] MEDIC[place] ADVANTAGE [facility] (WNR) Oct 11, 2019 [id number] FLYNN ESPINOZA PATIENT [facility] [place] [facility] ([place] MEDICARE ADVANTAGE [facility] (WNR) Oct 11, 2016 [id number] [id number] FLYNN ESPINOZA PATIENT [facility] (WNR) MEDICARE ADVANTAGE [facility] (WNR) Oct 11, 2019 [id number] FLYNN ESPINOZA PATIENT Selected Encounter This section includes the information on record at [place] for the Encounter. Date/Time Encounter Type Encounter Description Reason Pro vider Source Oct 27, 2023 01:53 PM Outpatient Encounter RENAL/NEPHROL(EXCEPT DIALYSIS) IHE Encounter Template Text not used by [place] Plan of Treatment: Future Appointments (+ 6 months) and Future Tests (+/- 45 days) The Plan of Treatment section includes future care activities for the patient from all [place] treatmentfacilities. This section includes future appointments and future orders which are active, pending or scheduled. Future Appointments This section includes appointments that were scheduled to occur 6 months from the date of the Encounter, up to a maximum of 20 appointments. The data comes from all [place] treatment facilities. Appointment Date/Time Appointment Type Appointme nt Facility Name Dec 23, 2023 09:30 AM [facility] Jan 06, 2024 03:00 PM [facility]ATORY - MEDICINE [facility] Encounter Notes: All associated encounter notes This section contains the clinical notes associated to the Encounter. Date/Time Encounter Note(s) Provider Source Oct 27, 2023 01:53 PM REPORT OF CONTACT: LOCAL TITLE: APPOINTMENT SCHEDULING NOTE STANDARD TITLE: REPORT OF CONTACT DATE OF NOTE: OCT 27, 2023@13:53 ENTRY DATE: OCT 27, 2023@13:54:08 AUTHOR: HUMBERTO LEONARD EXP COSIGNER: URGENCY: STATUS: COMPLETED Attempted to schedule Return to clinic (RTC) Contact attempt made to [facility] 1st attempt Telephone 2nd attempt Letter - Sent letter by regular [place] mail to address on file: K[place] ESPINOZA [address] [place], [place] [address] Disposition order request after Oct Left message on voice mail to call back to this number If [facility] calls back, schedule appt for: 07/06/2023 13:32 New Order entered by MITCHELL GOMEZ (NURSE PRACTITIO) Order Text: Return to [facility] on or around ( Jan 02, 2024 ) for a total of 1 appointment(s) labs 1-2 weeks prior to visit NFL [id number] 1-2 weeks prior /gregorio/ HUMBERTO LEONARD AMSA Signed: 10/27/2023 13:55 HUMBERTO LEONARD [facility]
--- OUTSIDE RECORDS SUMMARY | 2023-11-13 21:34 | XMS_ITS | Encounter Summary ---
Author Name Department of [facility] Organization Department of [facility] Address [address] [place] [address] Support Name Relationship Address Phone NANCY FORRESTER Emergency Contact Unknown [phone] Insurance Providers: All historical and current Section [...] [place] ADVANTAGE [facility] (WNR) Oct 11, 2019 [id number] FLYNN ESPINOZA PATIENT [facility] [place] [facility] ([place] MEDICARE ADVANTAGE [facility] (WNR) Oct 11, 2016 [id number] [id number] FLYNN ESPINOZA PATIENT [facility] (WNR) MEDICARE ADVANTAGE [facility] (WNR) Oct 11, 2019 [id number] FLYNN ESPINOZA PATIENT Selected Encounter This section includes the information on record at [place] for the Encounter. Date/Time Encounter Type Encounter Description Reason Pro vider Source Jul 27, 2023 04:28 PM Outpatient Encounter TELEPHONE/ANCILLARY IHE Encounter Template Text not used by [place] Plan of Treatment: Future Appointments (+ 6 months) and Future Tests (+/- 45 days) The Plan of Treatment section includes future care activities for the patient from all [place] treatmentfacilities. This section includes future appointments and future orders which are active, pending or scheduled. Future Appointments This section includes appointments that were scheduled to occur 6 months from the date of the Encounter, up to a maximum of 20 appointments. The data comes from all [place] treatment facilities. Appointment Date/Time Appointment Type Appointme nt Facility Name Dec 23, 2023 09:30 AM [facility] Jan 06, 2024 03:00 PM [facility]ORY - [facility]ICINE [facility] Lab Results: +/- 30 days of the encounter This section includes the Chemistry and Hematology Lab Results on record with [place] for the patient. Radiology Reports and Pathology Reports are provided separately, in subsequent sections. Lab Results This section contains the Chemistry/Hematology Results that were resulted 30 days before or 30 daysafter the date of the Encounter. Date/Time Source Result Type Result - Unit Interpretation Reference Range Comment Jun 29, 2023 08:24 AM [facility] UREA NITROGEN Specimen Type: PLASMA No comment entered. Ordering Provider: MITCHELL GOMEZ Report Released Date/Time: Jan 13, 2023 03:55 PM Reporting Lab: [facility] [id number] Performing Lab: [facility] [address] UREA NITROGEN 33 H 8-26 Jun 29, 2023 08:24 AM [facility] ELECTROLYTES/ANION GAP Specimen Type: PLASMA No comment entered. Ordering Provider: MITCHELL GOMEZ Report Released Date/Time: Jan 13, 2023 03:55 PM Reporting Lab: [facility] [address] Performing Lab: [facility] [address] SODIUM 140 136-145 POTASSIUM 4.8 3.5-5.1 CHLORIDE 108 H 98-107 CO2 22 22-29 ANION GAP 10 5-15 Jun 29, 2023 08:24 AM [facility] PHOSPHORUS Specimen Type: PLASMA No comment entered. Ordering Provider: MITCHELL GOMEZ Report Released Date/Time: Jan 13, 2023 03:55 PM Reporting Lab: [facility] [address] Performing Lab: [facility] [address] PHOSPHORUS 3.6 2.3-4.7 Jun 29, 2023 08:24 AM [facility] CREATININE(INCLUDES EGFR) Specimen Type: PLASMA No comment entered. Ordering Provider: MITCHELL GOMEZ Report Released Date/Time: Jan 13, 2023 03:55 PM Reporting Lab: [facility] [address] Performing Lab: [facility] [address] CREATININE 2.5 H 0.7-1.2 .CREAT EGFR(CKD-EPI) 27 L >60 Jun 29, 2023 08:24 AM [facility] ALBUMIN Specimen Type: PLASMA No comment entered. Ordering Provider: MITCHELL GOMEZ Report Released Date/Time: Jan 13, 2023 03:55 PM Reporting Lab: [facility] [address] Performing Lab: [place] [phone] ALBUMIN 3.8 3.5-5.2 Jun 29, 2023 08:24 AM [facility] CALCIUM Specimen Type: PLASMA No comment entered. Ordering Provider: MITCHELL GOMEZ Report Released Date/Time: Jan 13, 2023 03:55 PM Reporting Lab: [facility] [address] Performing Lab: [place] [id number] CALCIUM 9.1 8.4-10.2 Jun 29, 2023 08:24 AM [facility] GLUCOSE Specimen Type: PLASMA No comment entered. Ordering Provider: MITCHELL GOMEZ Report Released Date/Time: Jan 13, 2023 03:55 PM Reporting Lab: [facility] [address] Performing Lab: [facility] [address] GLUCOSE 95 70-100 Jun 29, 2023 08:24 AM [facility] PTH-N-TACT Specimen Type: PLASMA No comment entered. Ordering Provider: MITCHELL GOMEZ Report Released Date/Time: Jan 13, 2023 03:55 PM Reporting Lab: [facility] [address] Performing Lab: [facility] [address] PTH-N-TACT 89.2 H 8.7-77.1 Jun 29, 2023 08:24 AM [facility] CBC Specimen Type: BLOOD No comment entered. Ordering Provider: MITCHELL GOMEZ Report Released Date/Time: Jan 13, 2023 03:55 PM Reporting Lab: [facility] [address] Performing Lab: [facility] [address] WBC 8.29 4.0-11.0 RBC 3.87 L 4.6-6.2 HGB 12.9 L 13.5-17.9 HCT 39.4 L 41-54 MCV 101.8 H 80-100 MCH 33.3 H 27-33 MCHC 32.7 32.0-37.5 PLT 302 150-400 MPV 9.6 7.4-10.4 RDW 12.8 11.5-14.5 Jun 29, 2023 08:24 AM [facility] HEMOGLOBIN A1C Specimen Type: BLOOD [...] 13, 2023 03:55 PM Reporting Lab: [facility] [address] Performing Lab: [facility] [address] HEMOGLOBIN A1C 5.3 4.0-6.0 Jun 29, 2023 08:24 AM [facility] IRON GROUP Specimen Type: SERUM No comment entered. Ordering Provider: MITCHELL GOMEZ Report Released Date/Time: Jan 13, 2023 03:55 PM Reporting Lab: [facility] [address] Performing Lab: [facility] [address] IRON 90 65-175 TIBC,CALCULAT ED 300 250-425 FERRITIN 55.6 21.8-274.7 IRON SATURATION 30 20-50 TRANSFERRIN 240 163-382 Encounter Notes: All associated encounter notes This section contains the clinical notes associated to the Encounter. Date/Time Encounter Note(s) Provider Source Jul 27, 2023 04:28 PM REPORT OF CONTACT: LOCAL TITLE: APPOINTMENT SCHEDULING NOTE STANDARD TITLE: REPORT OF CONTACT DATE OF NOTE: JUL 27, 2023@16:28 ENTRY DATE: JUL 27, 2023@16:29:18 AUTHOR: JADE GRANADO EXP COSIGNER: URGENCY: STATUS: COMPLETED SUBJECT: RTC order contact attempt C1-First call to [place] (unsuccessful scheduling): Left Voicemail L1-Unable to aircraft electrical systems specialist letter sent by mail to [place]. /gregorio/ JADE GRANADO OTC CLERK Signed: 07/27/2023 16:29 JADE GRANADO [facility]
--- OUTSIDE RECORDS SUMMARY | 2023-11-13 21:34 | XMS_ITS | Encounter Summary ---
Author Name [facility] Organization Department of [facility] Address [address] [place] [address] Support Name Relationship Address Phone NANCY FORRESTER Emergency Contact Unknown [phone] Insurance Providers: All historical and current Section [...] [place]VANTAGE [facility] (WNR) Oct 11, 2019 [id number] [phone] OLGA,FLYNN GARAY PATIENT [place] ([place] MEDIC[place] ADVANTAGE [facility] (WNR) Oct 11, 2016 [id number] [id number] OLGA,FLYNN GARAY PATIENT [facility] MCR (WNR) MEDICARE ADVANTAGE [facility] (WNR) Oct 11, 2019 [id number] FLYNN ESPINOZA PATIENT Selected Encounter This section includes the information on record at [place] for the Encounter. Date/Time Encounter Type Encounter Description Reason Provider Source Jul 14, 2023 03:36 PM [facility] BHV IVNTJ GRP PSYCHOLOGICAL TESTING ICD-10-CM F54 Psych & behavrl factors assoc w disord or dis classd MELANIE Millan Corey Encounter Template Text not used by [place] Assessments - Encounter Diagnoses This section includes the primary and secondary diagnoses documented for the Encounter. Date/Time Primary/Secondary Diagnosis Diagnosis Name Provider Source Jul 14, 2023 03:40 PM PRIMARY Psych & behavrl factors assoc w disord or dis classd MELANIE Millan [facility] Jul 14, 2023 03:40 PM SECONDARY Chronic kidney disease, stage 4 (severe) MELANIE SPAIN [facility] Plan of Treatment: Future Appointments (+ 6 months) and Future Tests (+/- 45 days) The Plan of Treatment section includes future care activities for the patient from all [place] treatmentfaregional medical center. This section includes future appointments and future orders which are active, pending or scheduled. Future Appointments This section includes appointments that were scheduled to occur 6 months from the date of the Encounter, up to a maximum of 20 appointments. The data comes from all [place] treatment facilities. Appointment Date/Time Appointment Type Appointme nt Facility Name Dec 23, 2023 09:30 AM AMBULATORY - NONE [facility] Jan 06, 2024 03:00 PM AMBULATORY - MEDICINE [facility] Lab Results: +/- 30 days of the encounter This section includes the Chemistry and Hematology Lab Results on record with [place] for the patient. Radiology Reports and Pathology Reports are provided separately, in subsequent sections. Lab Results This section contains the Chemistry/Hematology Results that were resulted 30 days before or 30 daysafter the date of the Encounter. Date/Time Source Result Type Result - Unit Interpretation Reference Range Comment Jun 29, 2023 08:24 AM [facility] UREA NITROGEN Specimen Type: PLASMA No comment entered. Ordering Provider: MITCHELL GOMEZ Report Released Date/Time: Jan 13, 2023 03:55 PM Reporting Lab: [facility] [address] Performing Lab: [facility] [address] UREA NITROGEN 33 H 8-26 Jun 29, 2023 08:24 AM [facility] CREATININE(INCLUDES EGFR) Specimen Type: PLASMA No comment entered. Ordering Provider: MITCHELL GOMEZ Report Released Date/Time: Jan 13, 2023 03:55 PM Reporting Lab: [facility] [address] Performing Lab: [facility] [address] CREATININE 2.5 H 0.7-1.2 .CREAT EGFR(CKD-EPI) 27 L >60 Jun 29, 2023 08:24 AM [facility] CALCIUM Specimen Type: PLASMA No comment entered. Ordering Provider: MITCHELL GOMEZ Report Released Date/Time: Jan 13, 2023 03:55 PM Reporting Lab: [facility] [address] Performing Lab: [facility] [address] CALCIUM 9.1 8.4-10.2 Jun 29, 2023 08:24 AM [facility] ELECTROLYTES/ANION GAP Specimen Type: PLASMA No comment entered. Ordering Provider: MITCHELL GOMEZ Report Released Date/Time: Jan 13, 2023 03:55 PM Reporting Lab: [facility] [address] Performing Lab: [facility] [address] SODIUM 140 136-145 POTASSIUM 4.8 3.5-5.1 CHLORIDE 108 H 98-107 CO2 22 22-29 ANION GAP 10 5-15 Jun 29, 2023 08:24 AM [facility] PHOSPHORUS Specimen Type: PLASMA No comment entered. Ordering Provider: MITCHELL GOMEZ Report Released Date/Time: Jan 13, 2023 03:55 PM Reporting Lab: [facility] [address] Performing Lab: [facility] [address] PHOSPHORUS 3.6 2.3-4.7 Jun 29, 2023 08:24 AM [facility] ALBUMIN Specimen Type: PLASMA No comment entered. Ordering Provider: MITCHELL GOMEZ Report Released Date/Time: Jan 13, 2023 03:55 PM Reporting Lab: [facility] [address] Performing Lab: [facility] [address] ALBUMIN 3.8 3.5-5.2 Jun 29, 2023 08:24 AM [facility] PTH-N-TACT Specimen Type: PLASMA No comment entered. Ordering Provider: MITCHELL GOMEZ Report Released Date/Time: Jan 13, 2023 03:55 PM Reporting Lab: [facility] [address] Performing Lab: [facility] [address] PTH-N-TACT 89.2 H 8.7-77.1 Jun 29, 2023 08:24 AM [facility] HEMOGLOBIN A1C Specimen Type: BLOOD Comment: [...] Jan 13, 2023 03:55 PM Reporting Lab: [facility] [address] Performing Lab: [facility] [address] HEMOGLOBIN A1C 5.3 4.0-6.0 Jun 29, 2023 08:24 AM [facility] GLUCOSE Specimen Type: PLASMA No comment entered. Ordering Provider: MITCHELL GOMEZ Report Released Date/Time: Jan 13, 2023 03:55 PM Reporting Lab: [facility] [address] Performing Lab: [facility] [address] GLUCOSE 95 70-100 Jun 29, 2023 08:24 AM [facility] CBC Specimen Type: BLOOD No comment entered. Ordering Provider: MITCHELL GOMEZ Report Released Date/Time: Jan 13, 2023 03:55 PM Reporting Lab: [facility] [address] Performing Lab: [facility] [address] WBC 8.29 4.0-11.0 RBC 3.87 L 4.6-6.2 HGB 12.9 L 13.5-17.9 HCT 39.4 L 41-54 MCV 101.8 H 80-100 MCH 33.3 H 27-33 MCHC 32.7 32.0-37.5 PLT 302 150-400 MPV 9.6 7.4-10.4 RDW 12.8 11.5-14.5 Jun 29, 2023 08:24 AM [facility] IRON GROUP Specimen Type: SERUM No comment entered. Ordering Provider: MITCHELL GOMEZ Report Released Date/Time: Jan 13, 2023 03:55 PM Reporting Lab: [facility] [address] Performing Lab: [facility] [address] IRON 90 65-175 TIBC,CALCULAT ED 300 250-425 FERRITIN 55.6 21.8-274.7 IRON SATURATION 30 20-50 TRANSFERRIN 240 163-382 Encounter Notes: All associated encounter notes This section contains the clinical notes associated to the Encounter. Date/Time Encounter Note(s) Provider Source Jul 20, 2023 01:09 PM ADDENDUM: LOCAL TITLE: Addendum STANDARD TITLE: ADDENDUM DATE OF NOTE: JUL 20, 2023@13:09 ENTRY DATE: JUL 20, 2023@13:09:20 AUTHOR: MELANIE SPAIN COSIGNER: JETT CYR URGENCY: STATUS: COMPLETED Date and time of initial request for mental health services: Jul@12:55 [place] clinician, Catrachito Peacock, made the request by co-signature, voice-mail, or other message regarding a non-urgent request. Initial MH clinical phone screening outreach by the end of the next calendar day. Phone outreach (Contact attempt #1): Jul@15:52 Voicemail with contact information left for Phone outreach (Contact attempt #1): Jul@11:30 Voicemail with contact information left for Letter mailed (Contact attempt #3): Jul 16, 2023 @11:45 Letter with contact information mailed to address on file Phone outreach (Contact attempt #4): Jul 20, 2023@13:09 Voicemail with contact information left for Minimum scheduling effort has been made. Referring provider tagged for their awareness. Thank you for this referral. Provider remains available to treatment team for consultation. Melanie Spain, PhD. [phone] /gregorio/ Melanie Spain, PhD Staff Health Psychologist Signed: 07/20/2023 13:11 /gregorio/ JETT CYR Psychologist Cosigned: 07/20/2023 14:40 Receipt Acknowledged By: 07/20/2023 15:11 /gregorio/ CATRACHITO PEACOCK RN REGISTERED NURSE --- Original Document --- 07/16/23 MH REQUEST FOR CARE: Date and time of initial request for mental health services: Jul@12:55 [place] clinician, Catrachito Peacock, made the request by co-signature, voice-mail, or other message regarding a non-urgent request. Initial MH clinical phone screening outreach by the end of the next calendar day. Phone outreach (Contact attempt #1): Jul@3:52 Voicemail with contact information left for Phone outreach (Contact attempt #1): Jul@11:30 Voicemail with contact information left for Letter mailed ((Contact attempt #3): Jul 16, 2023 @11:45 Letter with contact information mailed to address on file /gregorio/ Melanie Spain PhD Staff Health Psychologist Signed: 07/16/2023 11:36 /gregorio/ JETT CYR Psychologist Cosigned: 07/20/2023 12:53 Receipt Acknowledged By: * AWAITING SIGNATURE * GEOFF ARCEO MARISSA [facility] Jul 16, 2023 11:33 AM MENTAL HEALTH REFE RRAL NOTE: LOCAL TITLE: MH REQUEST FOR CARE STANDARD TITLE: MENTAL HEALTH REFERRAL NOTE DATE OF NOTE: JUL 16, 2023@11:33 ENTRY DATE: JUL 16, 2023@11:33:22 AUTHOR: MELANIE SPAIN COSIGNER: JETT CYR URGENCY: STATUS: COMPLETED MH REQUEST FOR CARE Has ADDENDA Date and time of initial request for mental health services: Jul@12:55 [place] clinician, Catrachito Peacock, made the request by co-signature, voice-mail, or other message regarding a non-urgent request. Initial MH clinical phone screening outreach by the end of the next calendar day. Phone outreach (Contact attempt #1): Jul@3:52 Voicemail with contact information left for Phone outreach (Contact attempt #1): Jul@11:30 Voicemail with contact information left for Letter mailed ((Contact attempt #3): Jul 16, 2023 @11:45 Letter with contact information mailed to address on file /gregorio/ Melanie Spain PhD Staff Health Psychologist Signed: 07/16/2023 11:36 /jony CYR Psychologist Cosigned: 07/20/2023 12:53 Receipt Acknowledged By: 07/21/2023 11:42 /gregorio/ GEOFF ARCEO PhD Staff Neuropsychologist 07/20/2023 ADDENDUM STATUS: COMPLETED Date and time of initial request for mental health services: Jul@12:55 [place] clinician, Catrachito Peacock, made the request by co-signature, voice-mail, or other message regarding a non-urgent request. Initial MH clinical phone screening outreach by the end of the next calendar day. Phone outreach (Contact attempt #1): Jul@15:52 Voicemail with contact information left for Phone outreach (Contact attempt #1): Jul@11:30 Voicemail with contact information left for Letter mailed (Contact attempt #3): Jul 16, 2023 @11:45 Letter with contact information mailed to address on file Phone outreach (Contact attempt #4): Jul 20, 2023@13:09 Voicemail with contact information left for Minimum scheduling effort has been made. Referring provider tagged for their awareness. Thank you for this referral. Provider remains available to treatment team for consultation. Melanie Spain, PhD. [phone] /gregorio/ Melanie Spain, PhD Staff Health Psychologist Signed: 07/20/2023 13:11 /gregorio/ JETT CYR Psychologist Cosigned: 07/20/2023 14:40 Receipt Acknowledged By: 07/20/2023 15:11 /gregorio/ CATRACHITO PEACOCK, RN REGISTERED NURSE MELANIE SPAIN [facility] Jul 14, 2023 03:36 PM MENTAL HEALTH E & M INTERDISCIPLINARY NOTE: LOCAL TITLE: PRIMARY CARE-MH INTEGRATION GROUP NOTE STANDARD TITLE: MENTAL HEALTH E & M INTERDISCIPLINARY NOTE DATE OF NOTE: JUL 14, 2023@15:36 ENTRY DATE: JUL 14, 2023@15:36:43 AUTHOR: MELANIE SPAIN COSIGNER: GEOFF ARCEO URGENCY: STATUS: COMPLETED PRIMARY CARE-MH INTEGRATION GROUP NOTE Has ADDENDA CKD EDUCATION CLASS - Health Psychology Service NAME: KOTA ESPINOZA Date of Visit: 07/14/23 15:36 Henderson attended CKD Education class on 07/14/23 15:36. The was one of 7 Veterans present. CKD education was presented by nursing, dietitian, social work, and psychology. Total length of class: 2 hours; Psychology portion of class 20 minutes. Informed consent: Informed consent was reviewed, including the nature and purpose of the class, use of obtained information, limits of confidentiality, and risks/benefits. Participants were informed sharing personal information is optional and to respect others privacy and not disclose others personal information discussed in class. Henderson was given an opportunity to ask questions, expressed understanding, and verbal consent was obtained. Objectives: 1. Learn about the relationship between CKD, depression, and anxiety. 2. Review ways to take care of mental health and support well-being 3. Recognize signs of depression, the cycle of depression, and how to apply behavioral activation. 4. Recognize signs of anxiety, the cycle of anxiety, and how to apply diaphragmatic breathing. 5. Learn how to access mental health support through the [facility]. Teaching tools: 1. Presentation in small class. 2. Handout on CKD and Mental Health 3. 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 Provided Henderson with Veterans Crisis Line for MH emergency and provider's number for non-emergent MH concerns. Treatment plan and clinically indicated plan of care: has completed CKD Education class. was educated that provider is available if they feel that anxiety or depression is interfering with their quality of life or CKD management. Henderson was made aware of how to contact provider, via phone ([phone]) or by speaking with member of CKD team. Provider remains available to CKD team for consultation. /jony Spain, PhD Staff Health Psychologist Signed: 07/14/2023 15:40 /gregorio/ GEOFF ARCEO, PhD Staff Neuropsychologist Cosigned: 07/14/2023 16:23 07/14/2023 ADDENDUM STATUS: COMPLETED This provider agrees with the above and was available for consultation. This providers also meets regularly with Dr. Spain for supervision. /gregorio/ GEOFF ARCEO, PhD Staff Neuropsychologist Signed: 07/14/2023 16:23 MELANIE SPAIN [facility]
--- OUTSIDE RECORDS SUMMARY | 2023-11-13 21:34 | XMS_ITS | Encounter Summary ---
Author Name [facility] of [facility] Organization [facility] of [facility] Address [address] [place] [address] Support Name Relationship Address Phone NANCY FORRESTER Emergency Contact Unknown [phone] Insurance Providers: All historical and current Section [...] [facility] (WNR) Oct 11, 2019 [id number] [phone] OLGA,FLYNN GARAY PATIENT [place]) MEDICARE ADVANTAGE [facility] (WNR) Oct 11, 2016 [id number] [id number] [phone] OLGA,FYLNN GARAY PATIENT [facility] MCR (WNR) MEDICARE ADVANTAGE [facility] (WNR) Oct 11, 2019 [id number] FLYNN ESPINOZA PATIENT Selected Encounter This section includes the information on record at [place] for the Encounter. Date/Time Encounter Type Encounter Description Reason Pro vider Source Jul 21, 2023 12:00 AM Outpatient Encounter ADMIN PAT ACTIVTIES (MASNONCT) E Encounter Template Text not used by [place] Plan of Treatment: Future Appointments (+ 6 months) and Future Tests (+/- 45 days) The Plan of Treatment section includes future care activities for the patient from all [place] treatmentfacilities. This section includes future appointments and future orders which are active, pending or scheduled. Future Appointments This section includes appointments that were scheduled to occur 6 months from the date of the Encounter, up to a maximum of 20 appointments. The data comes from all [place] treatment facilities. Appointment Date/Time Appointment Type Appointme nt Facility Name Dec 23, 2023 09:30 AM AMBULATORY - NONE [facility] Jan 06, 2024 03:00 PM AMBULATORY - MEDICINE [facility] Lab Results: +/- 30 days of the encounter This section includes the Chemistry and Hematology Lab Results on record with [place] for the patient. Radiology Reports and Pathology Reports are provided separately, in subsequent sections. Lab Results This section contains the Chemistry/Hematology Results that were resulted 30 days before or 30 daysafter the date of the Encounter. Date/Time Source Result Type Result - Unit Interpretation Reference Range Comment Jun 29, 2023 08:24 AM [facility] UREA NITROGEN Specimen Type: PLASMA No comment entered. Ordering Provider: MITCHELL GOMEZ Report Released Date/Time: Jan 13, 2023 03:55 PM Reporting Lab: [facility] [address] Performing Lab: [facility] [address] UREA NITROGEN 33 H 8-26 Jun 29, 2023 08:24 AM [facility] ELECTROLYTES/ANION GAP Specimen Type: PLASMA No comment entered. Ordering Provider: MITCHELL GOMEZ Report Released Date/Time: Jan 13, 2023 03:55 PM Reporting Lab: [facility] [address] Performing Lab: [facility] [address] SODIUM 140 136-145 POTASSIUM 4.8 3.5-5.1 CHLORIDE 108 H 98-107 CO2 22 22-29 ANION GAP 10 5-15 Jun 29, 2023 08:24 AM [facility] CALCIUM Specimen Type: PLASMA No comment entered. Ordering Provider: MITCHELL GOMEZ Report Released Date/Time: Jan 13, 2023 03:55 PM Reporting Lab: [facility] [address] Performing Lab: [facility] [address] CALCIUM 9.1 8.4-10.2 Jun 29, 2023 08:24 AM [facility] CREATININE(INCLUDES EGFR) Specimen Type: PLASMA No comment entered. Ordering Provider: MITCHELL GOMEZ Report Released Date/Time: Jan 13, 2023 03:55 PM Reporting Lab: [facility] [address] Performing Lab: [facility] [address] CREATININE 2.5 H 0.7-1.2 .CREAT EGFR(CKD-EPI) 27 L >60 Jun 29, 2023 08:24 AM [facility] ALBUMIN Specimen Type: PLASMA No comment entered. Ordering Provider: MITCHELL GOMEZ Report Released Date/Time: Jan 13, 2023 03:55 PM Reporting Lab: [facility] [address] Performing Lab: [facility] [address] ALBUMIN 3.8 3.5-5.2 Jun 29, 2023 08:24 AM [facility] PTH-N-TACT Specimen Type: PLASMA No comment entered. Ordering Provider: MITCHELL GOMEZ Report Released Date/Time: Jan 13, 2023 03:55 PM Reporting Lab: [facility] [address] Performing Lab: [facility] [address] PTH-N-TACT 89.2 H 8.7-77.1 Jun 29, 2023 08:24 AM [facility] PHOSPHORUS Specimen Type: PLASMA No comment entered. Ordering Provider: MITCHELL GOMEZ Report Released Date/Time: Jan 13, 2023 03:55 PM Reporting Lab: [facility] [address] Performing Lab: [facility] [address] PHOSPHORUS 3.6 2.3-4.7 Jun 29, 2023 08:24 AM [facility] GLUCOSE Specimen Type: PLASMA No comment entered. Ordering Provider: MITCHELL GOMEZ Report Released Date/Time: Jan 13, 2023 03:55 PM Reporting Lab: [facility] [address] Performing Lab: [facility] [address] GLUCOSE 95 70-100 Jun 29, 2023 08:24 AM [facility] CBC Specimen Type: BLOOD No comment entered. Ordering Provider: MITCHELL GOMEZ Report Released Date/Time: Jan 13, 2023 03:55 PM Reporting Lab: [facility] [address] Performing Lab: [facility] [address] WBC 8.29 4.0-11.0 RBC 3.87 L 4.6-6.2 HGB 12.9 L 13.5-17.9 HCT 39.4 L 41-54 MCV 101.8 H 80-100 MCH 33.3 H 27-33 MCHC 32.7 32.0-37.5 PLT 302 150-400 MPV 9.6 7.4-10.4 RDW 12.8 11.5-14.5 Jun 29, 2023 08:24 AM [facility] HEMOGLOBIN A1C Specimen Type: BLOOD [...] Jan 13, 2023 03:55 PM Reporting Lab: [facility] [address] Performing Lab: [facility] [address] HEMOGLOBIN A1C 5.3 4.0-6.0 Jun 29, 2023 08:24 AM [facility] IRON GROUP Specimen Type: SERUM No comment entered. Ordering Provider: MITCHELL GOMEZ Report Released Date/Time: Jan 13, 2023 03:55 PM Reporting Lab: [facility] [address] Performing Lab: [facility] [address] IRON 90 65-175 TIBC,CALCULAT ED 300 250-425 FERRITIN 55.6 21.8-274.7 IRON SATURATION 30 20-50 TRANSFERRIN 240 163-382 Encounter Notes: All associated encounter notes This section contains the clinical notes associated to the Encounter. Date/Time Encounter Note(s) Provider Source Jul 21, 2023 12:00 AM [facility] NOTE: LOCAL TITLE: OPHTHALMOLOGY [facility] NOTE STANDARD TITLE: [facility] NOTE DATE OF NOTE: JUL 21, 2023 ENTRY DATE: JUL 23, 2023@09:16:26 AUTHOR: FRED STONER EXP COSIGNER: URGENCY: STATUS: COMPLETED [facility] - Scanned Document This note contains attached OPTHALMOLOGY scanned document(s) received from an outside facility. Open [facility] Display to review the document(s). /gregorio/ FRED STONER Rehabilitation Program Manager - HIT Signed: 07/23/2023 09:16 [facility] STONER [facility]
== END 2023-11-13 22:24 | disposition home or self-care (01) ==
PROVIDERS: Emergency Provider Emergency Medicine Emergency Medical Services; PCP Internal Medicine
DX: S00.03XA Contusion of scalp, initial encounter (principal); W01.10XA Fall on same level from slipping, tripping and stumbling with subsequent striking against unspecified object, initial encounter
CPT/HCPCS: 70450; 99284

== ENCOUNTER 2024-07-19 10:03 | Outpatient (CLI) | payer MEDICARE, OTHER, SELFPAY ==
--- OUTSIDE RECORDS SUMMARY | 2024-07-27 01:01 | XMS_ITS | Continuity of Care Document ---
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 It does not include entries that were removed or entered in error. Problem Status Onset Date Problem Type Date of Resolution Comments Source Diabetes mellitus Active 983 Condition [facility] Acquired hallux rigidus Active Condition [facility] Anaemia in chronic kidney disease Active Condition [facility] Chronic kidney disease stage 4 Active Condition [facility] Deformity of toe Active Condition [facility] Edema Active Condition [facility] Essential hypertension Active Condition Mar 21, 2014 Entered By: JENELLE JAMES Comment: dx late 2013 Entered By: JENELLE JAMES Comment: says pharmacologic stress test ok in late [facility] Flat foot Active Condition [facility] Gout Active Condition [facility] Hyperlipidemia Active Condition [facility] Ingrowing nail of toe of left foot Active Condition [facility] Obesity Active Condition [facility] Peripheral sensory neuropathy due to type 2 diabetes mellitus Active Condition [facility] Proteinuria Active Condition Mar 21, 2014 Entered By: JENELLE JAMES Comment: with prior testing per pt report [facility] Secondary hyperparathyroidism of renal origin Active Condition [facility] Transient global amnesia Inactive Condition 03/21/2014 Mar 21, 2014 Entered By: JENELLE JAMES Comment: [facility] Diagnosis: ICD-10-CM E11.8 Type 2 diabetes mellitus with unspecified complications Active Diagnosis [facility] Diagnosis: ICD-10-CM E11.22 Type 2 diabetes mellitus w diabetic chronic kidney disease Active Diagnosis [facility] Diagnosis: ICD-10-CM Z00.8 Encounter for other general examination Active Diagnosis [facility] Diagnosis: ICD-10-CM F54 Psych & behavrl 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 Active Diagnosis [facility] Diagnosis: ICD-10-CM N18.4 Chronic kidney disease, stage 4 (severe) Active Diagnosis [facility] Diagnosis: ICD-10-CM Z23 Encounter for immunization Active Diagnosis [facility] Medications Combined list of outpatient medications [...] FOR GOUT PREVENTI ON ORAL ACTIVE 03/24/2025 [id number] 4 MARTHA GARCIA 2023 90 [facility] ALLOPURINOL 100MG TAB TAKE ONE TABLET BY MOUTH EVERY DAY FOR GOUT PREVENTI ON ORAL DISCONT INUED 03/18/2024 [id number] 4 MARTHA GARCIA 2022 90 [facility] AMLODIPINE BESYLATE 10MG TAB TAKE ONE-HALF TABLET BY MOUTH EVERY DAY FOR BLOOD PRESSURE ORAL ACTIVE 03/24/2025 [id number] 4 MARTHA GARCIA 2023 45 [facility] AMLODIPINE BESYLATE 10MG TAB TAKE ONE-HALF TABLET BY MOUTH EVERY DAY FOR BLOOD PRESSURE ORAL DISCONT INUED 03/18/2024 [id number] 4 MARTHA GARCIA 2022 45 [facility] ASPIRIN 325MG TAB TAKE ONE TABLET BY MOUTH EVERY DAY ORAL ACTIVE TOBIAS JAMES 2013 [facility] EMPAGLIFLOZ IN 25MG TAB TAKE ONE-HALF TABLET BY MOUTH EVERY DAY ORAL ACTIVE 03/24/2025 [id number] 4 MARTHA GARCIA 2023 45 [facility] EMPAGLIFLOZ IN 25MG TAB TAKE ONE-HALF TABLET BY MOUTH EVERY DAY ORAL DISCONT INUED 02/23/2024 [id number] 4 PB GOMEZ 2022 45 [facility] MENDO[facility] GLIPIZIDE 5MG TAB TAKE ONE-HALF TABLET BY MOUTH EVERY DAY FOR DIABETES 30 MINUTES BEFORE MEAL ORAL ACTIVE 03/24/2025 [id number] 4 MARTHA GARCIA 2023 45 [facility] GLIPIZIDE 5MG TAB TAKE ONE-HALF TABLET BY MOUTH EVERY DAY FOR DIABETES 30 MINUTES BEFORE MEAL ORAL DISCONT INUED 07/07/2024 [id number] PB GOMEZ 2022 45 [facility] GLIPIZIDE 5MG TAB TAKE ONE TABLET BY MOUTH EVERY DAY ORAL DISCONT INUED (EDIT) 11/12/2023 [id number] 3 MARTHA GARCIA 2022 90 [facility] LOSARTAN 25MG TAB TAKE ONE TABLET BY MOUTH EVERY DAY FOR KIDNEY PROTECTI ON ORAL ACTIVE 03/24/2025 [id number] 4 MARTHA GARCIA 2023 90 [facility] LOSARTAN 25MG TAB TAKE ONE TABLET BY MOUTH EVERY DAY FOR KIDNEY PROTECTI ON ORAL DISCONT INUED 03/18/2024 [id number] 4 MARTHA GARCIA 2022 90 [facility] MARINE LIPID (FISH OIL) CAP,ORAL TAKE BY MOUTH ORAL ACTIVE JACOB,TOBIAS I L 2013 [facility] MELATONIN CAP/TAB TAKE BY MOUTH AT BEDTIME ORAL ACTIVE MARTHA GARCIA 2022 [facility] METOPROLOL TARTRATE 50MG TAB TAKE ONE-HALF TABLET BY MOUTH TWICE A DAY FOR HEART RHYTHM ORAL ACTIVE 03/24/2025 [id number] 4 MARTHA GARCIA 2023 90 [facility] METOPROLOL TARTRATE 50MG TAB TAKE ONE-HALF TABLET BY MOUTH TWICE A DAY FOR HEART RHYTHM ORAL DISCONT INUED 03/18/2024 [id number] 4 MARTHA GARCIA 2022 90 [facility] MULTIVITAMI NS CAP/TAB TAKE ONE TABLET BY MOUTH EVERY DAY ORAL ACTIVE JACOB,TOBIAS I L 2013 [facility] OMEPRAZOLE 20MG CAP,EC TAKE ONE CAPSULE BY MOUTH TWICE A DAY ON AN EMPTY STOMACH, AT LEAST 30 MINUTES PRIOR TO A MEAL ORAL ACTIVE 03/24/2025 [id number] 4 MARTHA GARCIA L 2023 180 [facility] OMEPRAZOLE 20MG CAP,EC TAKE ONE CAPSULE BY MOUTH TWICE A DAY ON AN EMPTY STOMACH, AT LEAST 30 MINUTES PRIOR TO A MEAL ORAL DISCONT INUED 06/08/2024 [id number] 4 [place]LE 2022 180 [facility] SIMVASTATIN 20MG TAB TAKE ONE-HALF TABLET BY MOUTH AT BEDTIME FOR CHOLESTE ROL ORAL ACTIVE 03/24/2025 [id number] 4 MARTHA GARCIA 2023 45 [facility] SIMVASTATIN 20MG TAB TAKE ONE-HALF TABLET BY MOUTH AT BEDTIME FOR CHOLESTE ROL ORAL DISCONT INUED 03/18/2024 [id number] 4 MARTHA GARCIA 2022 45 [facility] Allergies, Adverse Reactions, Alerts Combined list of allergies from Department of Defense and Veterans Affairs facilities. It does not include entries that were removed or entered in error. Substance Category Reaction Severity Reaction type Status Date Reported Comments Source LISINOPRIL Propensity to adverse reactions to drug (finding) Low blood pressure active 4 [facility] Immunizations Combined list of available immunizations from the Department of Defense and Veterans Affairs facilities. Immunization Series Date Given Administered By Site Reaction Lot Number CVX Code Drug Sql Architect Status Comments Source COVID-19 (MODERNA), MRNA, LNP-S, PF, 50 MCG/0.5 ML (AGES 12+ YEARS) 2023 312 complet ed [facility] INFLUENZA, HIGH-DOSE, TRIVALENT, PF 2023 135 complet ed [facility] RSV, BIVALENT, PROTEIN SUBUNIT RSVPREF, DILUENT RECONSTITUTED , 0.5 ML, PF 2023 DAGOBERTO LOVING RIGHT DELTO ID [id number] 305 complet ed [facility] INFLUENZA, HIGH-DOSE, QUADRIVALENT 2022 CODEY FRANK E RIGHT DELTO ID [id number] A 197 complet ed [facility] INFLUENZA VACCINE, QUADRIVALENT, ADJUVANTED 2021 STARR DAS RIGHT DELTO ID [id number] 205 complet ed [facility] COVID-19 (ip.access), MRNA, LNP-S, BIVALENT, PF, 30 MCG/0.3 ML DOSE 5 2021 300 complet ed [facility] ZOSTER RECOMBINANT 2 2021 187 complet ed [facility] ZOSTER RECOMBINANT 1 2021 187 complet ed [facility] COVID-19 (ip.access), MRNA, LNP-S, PF, 30 MCG/0.3 ML DOSE, YEIMI-SUCROSE (AGES 12+ YEARS) 4 2021 217 complet ed PFR; [id number]; 2 [facility] COVID-19 (ip.access), MRNA, LNP-S, PF, 30 MCG/0.3 ML DOSE 3 2020 208 complet ed PFR; [id number]; 2 [facility] INFLUENZA, INJECTABLE, QUADRIVALENT, PRESERVATIVE FREE 2020 150 complet ed [facility] COVID-19 (ip.access), MRNA, LNP-S, PF, 30 MCG/0.3 ML DOSE 2 2020 208 complet ed [facility] COVID-19 (PFIZER), MRNA, LNP-S, PF, 30 MCG/0.3 ML DOSE 1 2020 208 complet ed [facility] INFLUENZA, INJECTABLE, QUADRIVALENT, PRESERVATIVE FREE 2019 150 complet ed [facility] INFLUENZA, SEASONAL, INJECTABLE, PRESERVATIVE FREE 2019 140 complet ed [facility] PNEUMOCOCCAL POLYSACCHARID E PPV23 2018 33 complet ed [employer] Lot # [id number], Exp Date 25Jan2020 [facility] INFLUENZA, INJECTABLE, QUADRIVALENT, PRESERVATIVE FREE 2017 150 complet ed Partner: [facility]. Administe red [facility] (NPI=Not Provided) . Partner 7 Lot#: [id number] Mfr: Elvira Sorto [facility] ZOSTER LIVE 2016 121 complet ed [facility] INFLUENZA, HIGH DOSE SEASONAL 2016 135 complet ed [facility] INFLUENZA, HIGH DOSE SEASONAL 2016 135 complet ed [facility] TDAP 2015 115 complet ed [facility] INFLUENZA, HIGH DOSE SEASONAL 2015 135 complet ed [facility] INFLUENZA, HIGH DOSE SEASONAL 2015 135 complet ed [facility] PNEUMOCOCCAL CONJUGATE PCV 13 2015 133 complet ed [employer] Lot#[id number] 4 Exp 02/24 [facility] INFLUENZA, HIGH DOSE SEASONAL 2014 135 complet ed [facility] PNEUMOCOCCAL POLYSACCHARID E PPV23 2013 33 complet ed 2-3 years ago [facility] PNEUMOCOCCAL, UNSPECIFIED FORMULATION 2013 109 complet ed [facility] INFLUENZA, UNSPECIFIED FORMULATION 2012 88 complet ed [facility] INFLUENZA, SEASONAL, INJECTABLE 2011 141 complet ed [facility] INFLUENZA, SEASONAL, INJECTABLE 2009 141 complet ed [facility] NOVEL INFLUENZA-H1N 1-09, ALL FORMULATIONS 2009 128 complet ed [facility] TDAP 2007 115 complet ed [facility] PNEUMOCOCCAL POLYSACCHARID E PPV23 2005 33 complet ed [facility] INFLUENZA, SEASONAL, INJECTABLE 2004 141 complet ed [facility] Results Combined list of recent chemistry, [...] Mar 23, 2024 09:08 AM Reporting Lab: [facility] [address] Performing Lab: [facility] [address] [facility] ALBUMIN/C REATININE RATIO URINE MICROALBUMI N/CREATININ E [MASS RATIO] IN URINE 643.3 mg/g{c reat} <29.9 - 29.9 07/06 H Specimen Type: URINE No comment entered. Ordering Provider: DILSHAD GARCIA Report Released Date/Time: Mar 23, 2024 09:08 AM Reporting Lab: [facility] [address] Performing Lab: [facility] [address] [facility] ALBUMIN/C REATININE RATIO URINE MICROALBUMI N [MASS/VOLUM E] IN URINE 754.6 mg/L <29.9 - 29.9 07/06 H Specimen Type: URINE No comment entered. Ordering Provider: DILSHAD GARCIA Report Released Date/Time: Mar 23, 2024 09:08 AM Reporting Lab: [facility] [address] Performing Lab: [facility] [address] [facility] HEMOGLOBI N A1C HEMOGLOBIN A1C/HEMOGLO BIN.TOTAL [...] Jan 06, 2024 03:11 PM Reporting Lab: [facility] [address] Performing Lab: [facility] [address] [facility] UREA NITROGEN UREA NITROGEN [MASS/VOLUM E] IN SERUM OR PLASMA 29 mg/dL 8 - 06/15 H Specimen Type: PLASMA No comment entered. Ordering Provider: MITCHELL GOMEZ Report Released Date/Time: Jan 06, 2024 03:11 PM Reporting Lab: [facility] [address] Performing Lab: [facility] [address] [facility] CREATININ E(INCLUDE S EGFR) CREATININE [MASS/VOLUM E] IN SERUM OR PLASMA 2.2 mg/dL 0.7 - 1.2 06/15 H Specimen Type: PLASMA No comment entered. Ordering Provider: MITCHELL GOMEZ Report Released Date/Time: Jan 06, 2024 03:11 PM Reporting Lab: [facility] [address] Performing Lab: [facility] [address] [facility] CREATININ E(INCLUDE S EGFR) GLOMERULAR FILTRATION RATE/1.73 SQ M.PREDICTED [VOLUME RATE/AREA] IN SERUM, PLASMA OR BLOOD BY CREATININE- BASED FORMULA (CKD-EPI 2020) 31 60 06/15 L Specimen Type: PLASMA No comment entered. Ordering Provider: MITCHELL GOMEZ Report Released Date/Time: Jan 06, 2024 03:11 PM Reporting Lab: [facility] [address] Performing Lab: [facility] [address] [facility] ELECTROLY TYLER/ANION GAP SODIUM [MOLES/VOLU ME] IN SERUM OR PLASMA 141 mmol/L 136 - 145 06/15 Specimen Type: PLASMA No comment entered. Ordering Provider: MITCHELL GOMEZ Report Released Date/Time: Jan 06, 2024 03:11 PM Reporting Lab: [facility] [address] Performing Lab: [facility] [address] [facility] ELECTROLY TYLER/ANION GAP POTASSIUM [MOLES/VOLU ME] IN SERUM OR PLASMA 4.5 mmol/L 3.5 - 5.1 06/15 Specimen Type: PLASMA No comment entered. Ordering Provider: MITCHELL GOMEZ Report Released Date/Time: Jan 06, 2024 03:11 PM Reporting Lab: [facility] [address] Performing Lab: [facility] [address] [facility] ELECTROLY TYLER/ANION GAP CHLORIDE [MOLES/VOLU ME] IN SERUM OR PLASMA 111 mmol/L 98 - 107 06/15 H Specimen Type: PLASMA No comment entered. Ordering Provider: MITCHELL GOMEZ Report Released Date/Time: Jan 06, 2024 03:11 PM Reporting Lab: [facility] [address] Performing Lab: [facility] [address] [facility] ELECTROLY TYLER/ANION GAP CARBON DIOXIDE, TOTAL [MOLES/VOLU ME] IN SERUM OR PLASMA 21 mmol/L 22 - 29 06/15 L Specimen Type: PLASMA No comment entered. Ordering Provider: MITCHELL GOMEZ Report Released Date/Time: Jan 06, 2024 03:11 PM Reporting Lab: [facility] [address] Performing Lab: [facility] [address] [facility] ELECTROLY TYLER/ANION GAP ANION GAP IN SERUM OR PLASMA 9 mmol/L 5 - 15 06/15 Specimen Type: PLASMA No comment entered. Ordering Provider: MITCHELL GOMEZ Report Released Date/Time: Jan 06, 2024 03:11 PM Reporting Lab: [facility] [address] Performing Lab: [facility] [address] [facility] PHOSPHORU S PHOSPHATE [MASS/VOLUM E] IN SERUM OR PLASMA 3.5 mg/dL 2.3 - 4.3 06/15 Specimen Type: PLASMA No comment entered. Ordering Provider: MITCHELL GOMEZ Report Released Date/Time: Jan 06, 2024 03:11 PM Reporting Lab: [facility] [address] Performing Lab: [facility] [address] [facility] CALCIUM CALCIUM [MASS/VOLUM E] IN SERUM OR PLASMA 8.9 mg/dL 8.4 - 10.2 06/15 Specimen Type: PLASMA No comment entered. Ordering Provider: MITCHELL GOMEZ Report Released Date/Time: Jan 06, 2024 03:11 PM Reporting Lab: [facility] [address] Performing Lab: [facility] [address] [facility] ALBUMIN ALBUMIN [MASS/VOLUM E] IN SERUM OR PLASMA 4.0 g/dL 3.5 - 5.2 06/15 Specimen Type: PLASMA No comment entered. Ordering Provider: MITCHELL GOMEZ Report Released Date/Time: Jan 06, 2024 03:11 PM Reporting Lab: [facility] [address] Performing Lab: [facility] [address] [facility] PTH-N-TAC T PARATHYRIN. INTACT [MASS/VOLUM E] IN SERUM OR PLASMA 86.6 pg/mL 8.7 - 77.1 06/15 H Specimen Type: PLASMA No comment entered. Ordering Provider: MITCHELL GOMEZ Report Released Date/Time: Jan 06, 2024 03:11 PM Reporting Lab: [facility] [address] Performing Lab: [facility] [address] [facility] GLUCOSE GLUCOSE [MASS/VOLUM E] IN SERUM OR PLASMA 96 mg/dL 70 - 100 06/15 Specimen Type: PLASMA No comment entered. Ordering Provider: MITCHELL GOMEZ Report Released Date/Time: Jan 06, 2024 03:11 PM Reporting Lab: [facility] [address] Performing Lab: [facility] [address] [facility] Vital Signs Combined list of inpatient and outpatient Vital Signs from Department of Defense and Veterans Affairs, ranging from 12 months to all on record, depending upon the facility. Vital Sign Value Date Comments Source SYSTOLIC BLOOD PRESSURE 130 07/06/2024 10:38:16 [facility] DIASTOLIC BLOOD PRESSURE 80 07/06/2024 10:38:16 [facility] PULSE OXIMETRY 94 07/06/2024 10:38:16 [facility] WEIGHT 275.6 07/06/2024 10:38:16 [facility] BMI 42kg/m2 07/06/2024 10:38:16 [facility] PAIN 0 07/06/2024 10:38:16 [facility] TEMPERATURE 96.9 07/06/2024 10:38:16 [facility] PULSE 89 07/06/2024 10:38:16 [facility] RESPIRATION 16 07/06/2024 10:38:16 [facility] SYSTOLIC BLOOD PRESSURE 129 03/23/2024 08:47:22 [facility] DIASTOLIC BLOOD PRESSURE 86 03/23/2024 08:47:22 [facility] PULSE OXIMETRY 97 03/23/2024 08:47:22 S [...] CBOC SYSTOLIC BLOOD PRESSURE 117 01/06/2024 14:52:08 [facility] DIASTOLIC BLOOD PRESSURE 74 01/06/2024 14:52:08 [facility] PULSE OXIMETRY 96 01/06/2024 14:52:08 S [...] DC Date Status Disposition Source [facility] Outpatient Encounter [id number] 01/28 [facility]ISENARENDR[facility] [place] [facility] Outpatient Encounter [id number] 02/03 [place] [facility] [place] [facility] Outpatient Encounter [id number] CHEKARTHIKJAKY LUNDY 03/17 [place] [facility] OFFICE O/P EST MOD 30-39 MIN [id number] Diagnos is: ICD-10- CM Z00.8 Encount er for other general examina tion
Esme GARCIA EBECCA L 03/18 [facility] [place] [facility] Outpatient Encounter [id number] 03/18 [place] [facility] [place] ADMIN [id number] Diagnos is: ICD-10- CM Z23 Encount er for immuniz ation<b r/> GEBREKIRST OS,CODEY E 06/29 [facility] OFFICE O/P EST MOD 30-39 MIN [id number] Diagnos is: ICD-10- CM E11.22 Type 2 diabete s mellitu s w diabeti c chronic kidney disease
MITCHELL GOMEZ 07/06 [facility] PT EDUCATION NOC GROUP [id number] Diagnos is: ICD-10- CM N18.4 Chronic kidney disease , stage 4 (severe )
HANY PEACOCK RA R 07/14 [place] [facility] [place] [facility] IVNTJ GRP 1ST 30 [id number] Diagnos is: ICD-10- CM F54 Psych & behavrl 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< br/> SP YIN 07/14 [place] [facility] [place] [facility] Outpatient Encounter [id number] 07/21 [place] [facility] [place] [facility] Outpatient Encounter [id number] 07/27 [place] [facility] [place] [facility] Outpatient Encounter [id number] 10/27 [place] [facility] [place] [facility] Outpatient Encounter [id number] Aurelio ROLDAN 11/15 [place] [facility] OFFICE O/P EST MOD 30 MIN [id number] Diagnos is: ICD-10- CM E11.22 Type 2 diabete s mellitu s w diabeti c chronic kidney disease
MITCHELL GOMEZ 01/05 [facility] OFFICE O/P EST MOD 30 MIN [id number] Diagnos is: ICD-10- CM Z00.8 Encount er for other general examina tion
Esme GARCIA 03/23 [facility] [place] [facility] Outpatient Encounter [id number] 06/29 [place] [facility] [place] [facility] Outpatient Encounter [id number] 07/04 [place] [facility] OFFICE O/P EST MOD 30 MIN [id number] Diagnos is: ICD-10- CM E11.22 Type 2 diabete s mellitu s w diabeti c chronic kidney disease
MITCHELL GOMEZ 07/06 [facility] OFF/OP EST MAY X REQ PHY/QHP [id number] Diagnos is: ICD-10- CM E11.8 Type 2 diabete s mellitu s with unspeci fied complic ations< br/> MT CARRILLO 07/06 [facility] [place] [facility] Outpatient Encounter [id number] Aurelio ROLDAN 07/20 [facility] [place] [facility] Outpatient Encounter [id number] 07/25 [facility] MENDO[facility] Social History Combined list of available smoking, tobacco, and other social history from Department of Defense and Veterans Affairs facilities. Social History Type Response Date Comment Sourc e Tobacco smoking status NHIS VA-[facility]BACCO FORMER USER 03/23/2024 [facility] History of tobacco use VA-TOBACCO QUIT 1 5 YRS OR MORE 03/23/2024 [facility] History of tobacco use VA-TOBACCO FORMER USER 03/18/2023 [facility] History of tobacco use VA-TOBACCO FORMER USER 03/16/2022 [facility] History of tobacco use VA-TOBACCO QUIT 1 5 YRS OR MORE 02/23/2019 [facility] History of tobacco use VA-TOBACCO QUIT 1 5 YRS OR MORE 02/24/2018 [facility] History of tobacco use FORMER TOBACCO US ER 7Y OR GREATER 02/24/2018 [facility] History of tobacco use FORMER TOBACCO US ER 7Y OR GREATER 02/22/2017 [facility] History of tobacco use FORMER TOBACCO US ER 7Y OR GREATER 01/13/2016 [facility] History of tobacco use FORMER TOBACCO US ER 7Y OR GREATER 03/21/2014 [facility] Plan of Care List of future care activities from Department of Veterans Affairs facilities. Additional future care activities may be listed in the Assessment and Plan section. Date/Time Care Activity Care Activity Detail Facili ty 07/27/2024 AMBULATORY - NONE [facility] - NONE [facility]
--- OUTSIDE RECORDS SUMMARY | 2024-07-27 01:01 | XMS_ITS | Encounter Summary ---
Author Name [facility] [place] Organization [facility] [place] Address [address] [place] [id number] Care Team Providers Care General Road Foreman Name Role Phone MARTHA GARCIA Primary Care [...] Relationship to Policy [place] [facility] [place] [facility] (WNR) MEDICARE ADVANTAGE [facility] (WNR) Oct 11, 2019 [id number] FLYNN ESPINOZA PATIENT [facility] [place] [facility] ([place]IC[place] ADVANTAGE [facility] (WNR) Oct 11, 2016 [id number] [phone] FLYNN ESPINOZA PATIENT [facility] (WNR) MEDICARE ADVANTAGE [facility] (WNR) Oct 11, 2019 [id number] FLYNN ESPINOZA PATIENT Selected Encounter This section includes the information on record at [place] for the Encounter. Date/Time Encounter Type Encounter Description Reason Provider Source Jul 20, 2024 06:14 PM Outpatient Encounter ADMIN PAT ACTIVTIES (MASNONCT) YUE ROLDAN Encounter Template Text not used by [place] Plan of Treatment: Future Appointments (+ 6 [...] 20 appointments. The data comes from all [place] treatment facilities. Appointment Date/Time Appointment Type Appointme nt Facility Name Jul 27, 2024 08:30 AM AMBULATORY - NONE [facility] Lab Results: +/- 30 days of the encounter This section includes the Chemistry and Hematology Lab Results on record with [facility] for the patient. Radiology Reports and Pathology Reports are provided separately, in subsequent sections. Lab Results This section contains the Chemistry/Hematology Results that were resulted 30 days before or 30 daysafter the date of the Encounter. Date/Time Source Result Type Result - Unit Interpretation Reference Range Comment Jul 06, 2024 09:59 AM [facility] ALBUMIN/CREATININE RATIO URINE Specimen Type: URINE No comment entered. Ordering Provider: BRINA GARCIA Report Released Date/Time: Mar 23, 2024 09:08 AM Reporting Lab: [facility] [id number] Performing Lab: [facility] [id number] CREATININE ,UR RANDOM 117.3 mg/dL 58.0-161.0 ALB/CREAT RATIO,UR 643.3 mg/g{creat} H <29.9 ALBUMIN,UR 754.6 mg/L H <29.9 Encounter Notes: All associated encounter notes This section contains the clinical notes associated to the Encounter. Date/Time Encounter Note(s) Provider Source Jul 25, 2024 08:36 AM ADDENDUM: LOCAL TITLE: Addendum STANDARD TITLE: ADDENDUM DATE OF NOTE: JUL 25, 2024@08:36:15 ENTRY DATE: JUL 25, 2024@08:36:16 AUTHOR: ELFEGO STRONG EXP COSIGNER: URGENCY: STATUS: COMPLETED ED Records uploaded. [place] was seen in a Community ED and transferred to [facility] for admission. Records uploaded to chart. Please review and follow up as appropriate. /gregorio/ MEERA MERCEDES ADVANCED FINANCIAL AUDITOR Signed: 07/25/2024 08:37 Receipt Acknowledged By: 07/25/2024 08:40 /es/ MARTHA GARCIA PHYSICIAN 07/25/2024 10:03 /es/ MARIELLA FRANCORN REGISTERED NURSE 07/25/2024 08:53 /es/ ABIMBOLA RandallN mental health counselor Wigs Salesperson --- Original Document --- 07/19/24 [facility] PRESENTING CARE COORD PLAN NOTE: Emergency Notification Intake Date Presenting to the Facility: Jul Method of Contact: Notified from [employer] worklist Notification ID: [id number] [facility] Referral #: [facility] Name: Hospital: [facility] Address: City: [place] State: [place] Zip Code: Phone : [facility] Facility Point of Contact: Name: Phone: Chief complaint: Fall with Knee injury, Hematoma of Right knee and Contusion of forehead Primary Diagnosis: Disposition Unknown at time of intake note entry /gregorio/ ABDULAZIZ CAMPBELL CAROUSEL OPERATOR Signed: 07/20/2024 18:16 Receipt Acknowledged By: 07/21/2024 07:55 /ABIMBOLA FungN mental health counselor Wigs Salesperson 07/21/2024 ADDENDUM STATUS: COMPLETED Notification acknowledged by RN. Medical and clinical information not reviewed. /ABIMBOLA FungN mental health counselor Wigs Salesperson Signed: 07/21/2024 07:55 07/21/2024 ADDENDUM STATUS: COMPLETED Records requested and will be uploaded via [employer] when received. /gregorio/ FAHAD LARSON .AshokAdvanced Tax Compliance Officer Signed: 07/21/2024 15:03 Receipt Acknowledged By: * AWAITING SIGNATURE * MARIELLA FRANCO DAWNE M [facility] Jul 19, 2024 06:14 PM NONVA NOTE: LOCAL TITLE: [facility] PRESENTING CARE COORD PLAN STANDARD TITLE: NONVA NOTE DATE OF NOTE: JUL 19, 2024@18:14 ENTRY DATE: JUL 20, 2024@18:14:27 AUTHOR: ABDULAZIZ CAMPBELL EXP COSIGNER: URGENCY: STATUS: COMPLETED [facility] PRESENTING CARE COORD PLAN NOTE Has ADDENDA Emergency Notification Intake Date Presenting to the Facility: Jul Method of Contact: Notified from ECR worklist Notification ID: [id number] [facility] Name: Hospital: [facility] Address: City: [place] State: [place] Zip Code: Phone : [facility] Facility Point of Contact: Name: Phone: Chief complaint: Fall with Knee injury, Hematoma of Right knee and Contusion of forehead Primary Diagnosis: Disposition Unknown at time of intake note entry /gregorio/ ABDULAZIZ CAMPBELL CAROUSEL OPERATOR Signed: 07/20/2024 18:16 Receipt Acknowledged By: 07/21/2024 07:55 /es/ Yue Roldan WOOL TAMPER mental health counselor Wigs Salesperson 07/21/2024 ADDENDUM STATUS: COMPLETED Notification acknowledged by RN. Medical and clinical information not reviewed. /gregorio/ Yue Roldan WOOL TAMPER mental health counselor Wigs Salesperson Signed: 07/21/2024 07:55 07/21/2024 ADDENDUM STATUS: COMPLETED Records requested and will be uploaded via [employer] when received. /es/ FAHAD DUARTEH .AshokAdvanced Tax Compliance Officer Signed: 07/21/2024 15:03 Receipt Acknowledged By: * AWAITING SIGNATURE * MARIELLA FRANCO 07/25/2024 ADDENDUM STATUS: COMPLETED ED Records uploaded. was seen in a Community ED and transferred to [facility] for admission. Records uploaded to chart. Please review and follow up as appropriate. /es/ MEERA MERCEDES ADVANCED FINANCIAL AUDITOR Signed: 07/25/2024 08:37 Receipt Acknowledged By: 07/25/2024 08:40 /es/ MARTHA GARCIA PHYSICIAN * AWAITING SIGNATURE * MARIELLA FRANCO * AWAITING SIGNATURE * YUE ROLDAN JESSE STEPHEN [facility]
--- OUTSIDE RECORDS SUMMARY | 2024-07-27 01:01 | XMS_ITS | Encounter Summary ---
Author Name [facility] [place] [place] Organization [facility] [place] [place] Address [address] [place] [address] Care Team Providers Care Cosmetic Consultant Name Role Phone MARTHA GARCIA Primary Care [...] Relationship to Policy [place] [facility] [place] [facility] (WNR) MEDICARE ADVANTAGE [facility] (WNR) Oct 11, 2019 [id number] FLYNN ESPINOZA PATIENT [facility] [place] [facility] (WNR) MEDICARE ADVANTAGE [facility] (WNR) Oct 11, 2016 [id number] [id number] FLYNN ESPINOZA PATIENT [facility] (WNR) MEDICARE ADVANTAGE [facility] (WNR) Oct 11, 2019 [id number] FLYNN ESPINOZA PATIENT Selected Encounter This section includes the information on record at [place] for the Encounter. Date/Time Encounter Type Encounter Description Reason Pro vider Source Jul 25, 2024 08:54 AM Outpatient Encounter [facility] Encounter Template Text not used by [facility] Plan of Treatment: Future Appointments (+ 6 [...] 20 appointments. The data comes from all [place] treatment facilities. Appointment Date/Time Appointment Type Appointme nt Facility Name Jul 27, 2024 08:30 AM AMBULATORY - NONE [facility] Lab Results: +/- 30 days of [...] Range Comment Jul 06, 2024 09:59 AM [facility] ALBUMIN/CREATININE RATIO URINE Specimen Type: URINE No comment entered. Ordering Provider: BRINA GARCIA Report Released Date/Time: Mar 23, 2024 09:08 AM Reporting Lab: [facility] [id number] Performing Lab: [facility] [id number] CREATININE ,UR RANDOM 117.3 mg/dL 58.0-161.0 ALB/CREAT RATIO,UR 643.3 mg/g{creat} H <29.9 ALBUMIN,UR 754.6 mg/L H <29.9 Encounter Notes: All associated encounter notes This section contains the clinical notes associated to the Encounter. Date/Time Encounter Note(s) Provider Source Jul 26, 2024 09:11 AM ADDENDUM: LOCAL TITLE: Addendum STANDARD TITLE: ADDENDUM DATE OF NOTE: JUL 26, 2024@09:11:02 ENTRY DATE: JUL 26, 2024@09:11:04 AUTHOR: YUE ROLDAN EXP COSIGNER: URGENCY: STATUS: COMPLETED Clinical Care Coordination Information Hospital Discharge note Hospital: [facility] Admit date: 07/19/2024 Discharge date: 07/20/2024 Discharge diagnosis: #Fall from standing height #Right knee hematoma Disposition: Home Follow up:Please review records for any needed follow up. Recommended to follow up with primary care in 2-4 weeks. Medical records have been uploaded to the patient's chart and are available for viewing in [employer]. /gregorio/ Yue Roldan SENIOR NETWORK SECURITY ENGINEER drafter cartographic Enrober Signed: 07/26/2024 09:13 Receipt Acknowledged By: 07/26/2024 10:02 /gregorio/ MARTHA GARCIA PHYSICIAN * AWAITING SIGNATURE * SALVADORMARIELLA R --- Original Document --- 07/19/24 [facility] PRESENTING CARE COORD PLAN NOTE: Emergency Notification Intake Date Presenting to the Facility: Jul Method of Contact: Fax Centralized Call Center Notified [facility] Hospital Name: Hospital: [facility] Address: [address] [place] [address] City: [place] State: [place] Zip Code: [address] Phone : [facility] Facility Point of Contact: Name: Phone: Chief complaint: FALL WITH KNEE PAIN Primary Diagnosis: Disposition Unknown at time of intake note entry /gregorio/ MEERA MERCEDES ADVANCED BARK SCALER Signed: 07/25/2024 08:56 Receipt Acknowledged By: 07/25/2024 15:57 /gregorio/ Yue Roldan SENIOR NETWORK SECURITY ENGINEER drafter cartographic Enrober 07/19/2024 ADDENDUM STATUS: COMPLETED [facility] Scanned Document - Addendum. ED HP DC 07-19-2024 to 07-20-2024 [facility] SCANNED DOCUMENT SIGNATURE NOT REQUIRED Electronically Filed: 07/25/2024 by: MEERA MERCEDES ADVANCED BARK SCALER 07/25/2024 ADDENDUM STATUS: COMPLETED Records including DC summary uploaded via [employer] for review. /gregorio/ MEERA MERCEDES ADVANCED BARK SCALER Signed: 07/25/2024 09:05 Receipt Acknowledged By: 07/25/2024 16:02 /gregorio/ Yue Roldan SENIOR NETWORK SECURITY ENGINEER drafter cartographic Enrober 07/25/2024 ADDENDUM STATUS: COMPLETED NOTIFICATION ID: [id number] STATUS: Closed - Submit for /gregroio/ URIEL CERDA Banking Services Clerk(AOD) Signed: 07/25/2024 10:15 YUE ROLDAN [facility] Jul 25, 2024 09:05 AM ADDENDUM: LOCAL TITLE: Addendum STANDARD TITLE: ADDENDUM DATE OF NOTE: JUL 25, 2024@09:05:29 ENTRY DATE: JUL 25, 2024@09:05:30 AUTHOR: ELFEGO STRONG COSIGNER: URGENCY: STATUS: COMPLETED Records including DC summary uploaded via [employer] for review. /gregorio/ MEERA MERCEDES ADVANCED BARK SCALER Signed: 07/25/2024 09:05 Receipt Acknowledged By: 07/25/2024 16:02 /gregorio/ Yue Roldan SENIOR NETWORK SECURITY ENGINEER drafter cartographic Enrober --- Original Document --- 07/19/24 [facility] SELF PRESENTING CARE COORD PLAN NOTE: Emergency Notification Intake Date Presenting to the Facility: Jul Method of Contact: Fax Centralized Call Center Notified [facility] Name: Hospital: [facility] Address: [address] [place] [address] City: [place] State: [place] Zip Code: [address] Phone : Community Facility Point of Contact: Name: Phone: Chief complaint: FALL WITH KNEE PAIN Primary Diagnosis: Disposition Unknown at time of intake note entry /gregorio/ MEERA MERCEDES ADVANCED BARK SCALER Signed: 07/25/2024 08:56 Receipt Acknowledged By: 07/25/2024 15:57 /jony Roldan SENIOR NETWORK SECURITY ENGINEER drafter cartographic Enrober 07/19/2024 ADDENDUM STATUS: COMPLETED Vist[facility] Imaging Scanned Document - Addendum. ED HP DC 07-19-2024 to 07-20-2024 [facility] SCANNED DOCUMENT SIGNATURE NOT REQUIRED Electronically Filed: 07/25/2024 by: MEERA MERCEDES ADVANCED BARK SCALER 07/25/2024 ADDENDUM STATUS: COMPLETED NOTIFICATION ID: [id number] STATUS: Closed - Submit for /jony CERDA Banking Services Clerk(AOD) Signed: 07/25/2024 10:15 ELFEGO STRONG [facility] Jul 19, 2024 06:00 AM NONVA NOTE: LOCAL TITLE: [facility]F PRESENTING CARE COORD PLAN STANDARD TITLE: NONVA NOTE DATE OF NOTE: JUL 19, 2024@06:00 ENTRY DATE: JUL 25, 2024@08:54:57 AUTHOR: ELFEGO STRONG EXP COSIGNER: URGENCY: STATUS: COMPLETED [facility] PRESENTING CARE COORD PLAN NOTE Has ADDENDA Emergency Notification Intake Date Presenting to the Facility: Jul Method of Contact: Fax Centralized Call Center Notified [facility] Hospital Name: Hospital: [facility] Address: [address] [place] [address] City: [place] State: [place] Zip Code: [address] Phone : Community Facility Point of Contact: Name: Phone: Chief complaint: FALL WITH KNEE PAIN Primary Diagnosis: Disposition Unknown at time of intake note entry /gregorio/ MEERA MERCEDES ADVANCED BARK SCALER Signed: 07/25/2024 08:56 Receipt Acknowledged By: 07/25/2024 15:57 /jony Roldan SENIOR NETWORK SECURITY ENGINEER drafter cartographic Enrober 07/19/2024 ADDENDUM STATUS: COMPLETED VistA Imaging Scanned Document - Addendum. ED HP DC 07-19-2024 to 07-20-2024 [facility] SCANNED DOCUMENT SIGNATURE NOT REQUIRED Electronically Filed: 07/25/2024 by: MEERA MERCEDES ADVANCED BARK SCALER 07/25/2024 ADDENDUM STATUS: COMPLETED Records including DC summary uploaded via [employer] for review. /MEERA Cook ADVANCED BARK SCALER Signed: 07/25/2024 09:05 Receipt Acknowledged By: 07/25/2024 16:02 /jony Roldan RN BSN drafter cartographic Enrober 07/25/2024 ADDENDUM STATUS: COMPLETED NOTIFICATION ID: [id number] STATUS: Closed - Submit for /jony CERDA Banking Services Clerk(AOD) Signed: 07/25/2024 10:15 07/26/2024 ADDENDUM STATUS: COMPLETED Clinical Care Coordination Information Hospital Discharge note Hospital: [facility] Admit date: 07/19/2024 Discharge date: 07/20/2024 Discharge diagnosis: #Fall from standing height #Right knee hematoma Disposition: Home Follow up:Please review records for any needed follow up. Recommended to follow up with primary care in 2-4 weeks. Medical records have been uploaded to the patient's chart and are available for viewing in [employer]. /gregorio/ Yue Roldan SENIOR NETWORK SECURITY ENGINEER drafter cartographic Enrober Signed: 07/26/2024 09:13 Receipt Acknowledged By: * AWAITING SIGNATURE * MARTHA GARCIA * AWAITING SIGNATURE * MARIELLA FRANCO DAWNE M [facility]
--- OUTSIDE RECORDS SUMMARY | 2024-07-27 01:02 | XMS_ITS | Clinical Summary ---
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 Last update 03/15/09.[employer] Allergies Active Allergy Reactions Criticality Noted Date Comments Glyburide-Metformin Unknown 07/19/2024 Lisinopril-Hydrochlorothiazide Confusion High 07/19 Medications * Be aware that medications may not be up to date as of this document. Always verify current medications with patient. Medication Sig Dispensed Refills Start Date End Date Status acetaminophen (TYLENOL) 500 mg oral capsule Take 2 capsules (1,000 mg) by mouth twice daily. Active allopurinol (ZYLOPRIM) 100 mg oral TABS Take 1 tablet (100 mg) by mouth daily. Active amLODIPine (NORVASC) 5 mg oral TABS Take 1 tablet (5 mg) by mouth daily. Active Aspirin 325 MG oral capsule Take 325 mg by mouth daily. Active CHOLEcalciferol (VITAMIN D3) 1000 UNIT oral TABS Take 1 tablet (1,000 UNITS) by mouth daily. Active empagliflozin (JARDIANCE) 25 mg oral TABS tablet Take 0.5 tablets (12.5 mg) by mouth daily. Active glipiZIDE 2.5 MG oral TABS Take 2.5 mg by mouth daily. Active losartan (COZAAR) 25 mg oral TABS Take 1 tablet (25 mg) by mouth daily. Active metoprolol tartrate (LOPRESSOR) 25 mg oral tablet Take 1 tablet (25 mg) by mouth twice daily. Active tab-a-maría oral tablet Take 1 tablet by mouth daily. Active omega 3 (MAXEPA) 1000 mg oral capsule Take 1 capsule (1,000 mg) by mouth daily. Active omeprazole (PRILOSEC) 20 mg oral capsule Take 1 capsule (20 mg) by mouth twice daily. Active simvastatin (ZOCOR) 10 mg oral TABS Take 1 tablet (10 mg) by mouth at bedtime. Active oxyCODONE (ROXICODONE) 5 mg oral tablet Take 1 tablet (5 mg) by mouth every 4 hours as needed for Pain. 5 tablet 07/20/2024 07/25/2024 Active Problems Problem Noted Date Diagnosed Date Fall, initial encounter 07/19/2024 Encounters Date Type Department Care Team Description 07/20/2024 Orders Only Unspecified Department [place] Unknown, Provider 07/19/2024 12:55 PM CDT - 07/20/2024 8:00 PM CDT Hospital Encounter [facility]/Trauma/Neur o 1 [facility] [address] [place] [address] Jay Patrick MD Lumbard, Chay Purcell MD Fall, initial encounter Discharge Disposition: Discharged to home or self care 07/19/2024 Travel 07/19/2024 Orders Only [facility] Film Room [facility] Radiology Department [facility] [address] [place] [address] Provider, Outside Referral of patient (Primary Dx) from Last 3 Months Social History Tobacco Use Types Packs/Day Years Used Date Smoking Tobacco: Never Smokeless Tobacco: Never Tobacco Cessation:Counseling Given: Not Answered Humiliation, Afraid, Rape, and Kick questionnair e Answer Date Recorded Within the last year, have y ou been afraid of your partner or ex-partner? No 07/19/2024 Within the last year, have y ou been humiliated or emotionally abused in other ways by your partner or ex-partner? No Within the last year, have y ou been kicked, hit, slapped, or otherwise physically hurt by your partner or ex-partner? No 07/19/2024 Within the last year, have y ou been raped or forced to have any kind of sexual activity by your partner or ex-partner? No 07/19/2024 Overall Financial Resource Strain (CARDIA) Answe r Date Recorded How hard is it for you to pa y for the very basics like food, housing, medical care, and heating? Not hard at all 07/19/2024 Hunger Vital Sign Answer Date Recorded Within the past 12 months, y ou worried that your food would run out before you got the money to buy more. Never true 07/19/20 24 Within the past 12 months, t he food you bought just didn't last and you didn't have money to get more. Never true 07/19/2024 PRAPARE - Transportation Answer Date Re corded In the past 12 months, has l ack of transportation kept you from medical appointments or from getting medications? No 06/2024 In the past 12 months, has l ack of transportation kept you from meetings, work, or from getting things needed for daily living? No 07/19/2024 Housing Stability Answer Date Recorded What is your housing situation today? 3 - I have housing 07/19/2024 Sex and Gender Information Value Date Recorded Sex Assigned at Not on file Gender Identity Not on file Sexual Orientation Not on file Last Filed Vital Signs Vital Sign Reading Time Taken Comments Blood Pressure 136/71 07/20/2024 12:00 PM CDT Pulse 78 07/20/2024 12:00 PM CDT Temperature 36 ??C (96.8 ??F) 07/20/2024 12:00 PM CDT Respiratory Rate 16 07/20/2024 12:00 PM CDT Oxygen Saturation 99% 07/20/2024 12:00 PM CDT Inhaled Oxygen Concentration - - Weight 126.1 kg (278 lb) 07/19/2024 8:38 PM CDT Height 172.7 cm (5' 8) 07/19/2024 8:38 PM CDT Body Mass Index 42.27 07/19/2024 8:38 PM CDT Plan of Treatment Health Maintenance Due Date Last Done Comments CT Colonography 1950 Colonoscopy 1950 Colorectal Cancer Screening 1950 Dental Oral Exam 1950 Dental Prophylaxis 1950 Dental X-Ray: Bitewings 1950 FIT/Cologuard 1950 Hepatitis C Screening 1950 Sigmoidoscopy 1950 iFOB/FIT 1950 Diabetes Education 1951 Diabetes Eye Exam 1951 Diabetes Foot Exam 1951 Diabetes HGB A1C Q 3 Months (Goal <7) 1951 Diabetes Microalbumin Screening 1951 Diabetic Education Protocol (CDE) 1951 Diabetic Lab Protocol 1951 Lipid Screening 1951 Periodontal Maintenance 1964 Medicare Annual Wellness 1968 HEALTH MAINTENANCE PROTOCOL 1969 PREVENTATIVE VISIT 04/19/2004 04/19/2003 Osteoporosis Screening (Dexa Scan) 2015 Imm: Pneumonia greater than 65 years (2 of 2 - PCV) 02/24/2020 02/23/2019, 10/11/2013, 11/06/2005 Imm: DTaP/Tdap (4 - Td or Tdap) 08/19/2026 08/19/2016, 10/11/2007, 11/06/2005 Imm: Zoster Completed 06/17/2022, 04/08/2022 Imm: COVID-19 Completed 06/29/2024, 07/12, 03/16/2022, Additional history exists Imm: Flu Completed 06/29/2024, 06/11, 09/10/2021, Additional history exists Imm: HPV Aged Out No longer eligi ble based on patient's age to complete this topic Imm: HepA Aged Out No longer eligi ble based on patient's age to complete this topic Imm: HepB Aged Out No longer eligi ble based on patient's age to complete this topic Imm: Hib Aged Out No longer eligi ble based on patient's age to complete this topic Imm: Meningitis Aged Out No longer el igible based on patient's age to complete this topic Procedures Procedure Name Priority Date/Time Associated Diagnosis Comments POC GLUCOSE Routine 07/20/2024 11:[address] HEAD NO IV CONTRAST STAT 10:40 AM CDT PANEL BASIC METABOLIC (BMP) Routine 07/20/2024 5:44 AM CDT TC LAB BLOOD DRAW BY VENIPUNCTURE Routine 07/20/2024 5:44 AM CDT TELEMETRY STRIPS 07/20/2024 2:15 AM CDT TC LAB ER STAT URINALYSIS STAT 07/19/2024 2:51 PM CDT PC TROPONIN QUANTITATIVE Timed 07/19/2024 2:[address] LOW EXTREMITY - ANGIO - W/IV CON STAT 07/19/2024 1:59 PM CDT ED EKG (12-LEAD) Routine 07/19/2024 1:17 PM CDT XR CHEST 1 VIEW AP OR PA* STAT 07/19/2024 1:13 PM CDT TC LAB BLOOD DRAW BY VENIPUNCTURE Routine 07/19/2024 1:02 PM CDT PC TROPONIN QUANTITATIVE STAT 07/19/2024 12:58 PM CDT ETHANOL (ETOH) LEVEL, BLOOD STAT 07/19/2024 12:58 PM CDT PC LAB PTT STAT 07/19/2024 12:58 PM CDT PROTHROMBIN (PT) & INR STAT 12:58 PM CDT PC LAB ED INR STAT 07/19/2024 12:58 PM CDT PRECAUTIONARY TUBE STAT 07/19/2024 12 :58 PM CDT PC LACTATE (LACTIC ACID) STAT 07/19/2024 12:58 PM CDT FIBRINOGEN STAT 07/19/2024 12:58 PM CDT PANEL HEPATIC FUNCTION STAT 12:58 PM CDT TC LAB ER STAT TOTAL HGB STAT 07/19/2024 12:58 PM CDT PC ELECTROLYTES PANEL STAT 07/19/2024 12:58 PM CDT PC LAB CBC W/DIFF & PLT STAT 07/19/2024 12:58 PM CDT PC GASES,BLOOD,ANY COMB OF PH,PCD2,PO2,CO2,HCO2 STAT 07/19/2024 12:58 PM CDT ED US CRITICAL CARE STAT 07/19/2024 1 2:55 PM CDT XR LOWER EXTREMITY OUTSIDE FILMS Routine 07/19/2024 11:03 AM CDT Referral of patient ULT VASCULAR OUTSIDE FILMS Routine 07/19/2024 10:44 AM CDT Referral of patient from Last 3 Months Results * (ABNORMAL) POC GLUCOSE (07/20/2024 11:30 AM CDT) POC Glucose 119(H) 70 - 100 mg/dL [facility] Blood 07/20/2024 11:3 0 AM CDT Jay Patrick MD LABORATORY [facility] [address] [place] [address], * CT HEAD NO IV CONTRAST (07/20/2024 10:40 AM CDT) Anatomical Region Laterality Modality Skull Computed Tomogra phy 07/20/2024 10:2 4 AM CDT Impressions 07/20/2024 11:02 AM CDT Impression: 1. No evidence of acute intracranial abnormality or injury. 2. Stigmata of presumptive advanced chronic small vessel ischemic disease versus hypertensive encephalopathy versus other cause. Rajat Traumatic Brain Injury Scale: Diffuse Injury 1 RAJAT DIAGNOSTIC CATEGORIES OF ABNORMALITIES VISUALIZED ON CT SCANNING FOR TRAUMATIC BRAIN INJURY: Diffuse Injury 1: No visible intracranial pathology seen on CT scan. Diffuse Injury 2: Cisterns are present with shift 0-5 mm and/or lesion densities present. No high or mixed density lesion >25ml. May include bone fragments and foreign bodies. Diffuse Injury 3 (swelling): Cisterns compressed or absent with shift 0-5mm. No high or mixed density lesion > 25ml. ? Diffuse Injury 4 (shift): Shift > 5mm. No high or mixed density lesion > 25ml. Evacuated mass lesion: Any surgically evacuated lesion. ?? Non evacuated mass lesion: High or mixed-density lesion > 25ml. Not surgically evacuated. I have personally reviewed the image(s) and initial interpretation, and I agree with the findings as documented by the resident/fellow. Reading Radiologist: Lavelle Ha Reading Resident: Charan Apple 07/20/2024 11:02 AM CDT Indication: Head trauma, minor (Age >= 65y) ??. Comparison: None available Technique: Axial thin section CT images through the brain were obtained from the base of the skull through the vertex without intravenous contrast and reviewed in brain, bone and subdural windows. Dose: Total DLP = 1233.3 mGy.cm. Findings: There is no evidence of intracranial hemorrhage, mass effect, midline shift or abnormal extraaxial fluid collection. Mild ex vacuo dilatation of the ventricular system due to symmetric volume loss. Fields-white differentiation is preserved.. Ectatic and tortuous basilar artery. Moderate to severe patchy nonspecific hypoattenuation scattered throughout the cerebral periventricular and subcortical white matter tracts. The bony calvarium and the bones of the skull base appear normal. Mild polypoid mucosal thickening of the dependent portion of the right maxillary sinus. The visualized portions of the remaining paranasal sinuses and the mastoid air cells are clear. No significant soft tissue swelling of the head or face is identified. Procedure Note Lavelle Ha MD - 07/20/2024 Indication: Head trauma, minor (Age >= 65y) . Comparison: None available Technique: Axial thin section CT images through the brain were obtainedfrom the base of the skull through the vertex without intravenous contrastand reviewed in brain, bone and subdural windows. Dose: Total DLP = 1233.3 mGy.cm. Findings: There is no evidence of intracranial hemorrhage, mass effect,midline shift or abnormal extraaxial fluid collection. Mild ex vacuodilatation of the ventricular system due to symmetric volume loss.Fields-white differentiation is preserved.. Ectatic and tortuous basilarartery. Moderate to severe patchy nonspecific hypoattenuation scatteredthroughout the cerebral periventricular and subcortical white mattertracts. The bony calvarium and the bones of the skull base appear normal. Mildpolypoid mucosal thickening of the dependent portion of the rightmaxillary sinus. The visualized portions of the remaining paranasalsinuses and the mastoid air cells are clear. No significant soft tissueswelling of the head or face is identified. IMPRESSION Impression: 1. No evidence of acute intracranial abnormality or injury. 2. Stigmata of presumptive advanced chronic small vessel ischemic diseaseversus hypertensive encephalopathy versus other cause. Rajat Traumatic Brain Injury Scale: Diffuse Injury 1 RAJAT DIAGNOSTIC CATEGORIES OF ABNORMALITIES VISUALIZED ON CT SCANNINGFOR TRAUMATIC BRAIN INJURY: Diffuse Injury 1: No visible intracranial pathology seen on CT scan. Diffuse Injury 2: Cisterns are present with shift 0-5 mm and/or lesiondensities present. No high or mixed density lesion >25ml. May include bonefragments and foreign bodies. Diffuse Injury 3 (swelling): Cisterns compressed or absent with shift0-5mm. No high or mixed density lesion > 25ml. Diffuse Injury 4 (shift): Shift > 5mm. No high or mixed density lesion >25ml. Evacuated mass lesion: Any surgically evacuated lesion. Non evacuated mass lesion: High or mixed-density lesion > 25ml. Notsurgically evacuated. I have personally reviewed the image(s) and initial interpretation, and Iagree with the findings as documented by the resident/fellow. Reading Radiologist: Lavelle Ha Reading Resident: Charan Apple Chay Estrada MD RAD CT NEURO * (ABNORMAL) PANEL BASIC METABOLIC (BMP) (07/20/2024 5:44 AM CDT) Sodium 140 135 - 148 mmol/L [facility] Potassium 4.7 3.5 - 5.3 mmol/L [facility] Chloride 107 92 - 108 mmol/L [facility] CO2 21(L) 22 - 30 mmol/L [facility] AnGap 12 8 - 16 mmol/L [facility] Glucose 159(H) 70 - 100 mg/dL [facility] BUN 27(H) 8 - 23 mg/dL [facility] Creatinine 2.56(H) 0.70 - 1.25 mg/dL [facility] Calcium 8.7(L) 8.8 - 10.2 mg/dL [facility] eGFR (2020 CKD-EPI) 26(L) >=60 ml/min/1.7 3m2 [facility] Comment: The estimated glomerular filtration rate (eGFR) was calculated using the CKD-EPI 2020 creatinine equation, which does not include race as a factor. This equation is validated in individuals 18 years of age and older, and eGFR is normalized to a body surface area of 1.73m^2. Blood 07/20/2024 5:44 AM CDT 07/20/2024 7:27 AM CDT Jay Patrick MD LABORATORY Performing Organization Address City/[facility]/ZIP Co de Phone Number [facility] [address] [address] * (ABNORMAL) CBC WITH PLATELET (07/20/2024 5:44 AM CDT) WBC 8.23 4.00 - 10.00 k/cmm [facility] RBC 3.28(L) 4.60 - 6.00 m/cmm [facility] Hgb 10.7(L) 13.1 - 17.5 g/dL [facility] Hematocrit 33.9(L) 40.0 - 51.0 % [facility] MCV 103.4(H) 80.0 - 100.0 fL [facility] MCH 32.6(H) 25.0 - 32.0 pg [facility] MCHC 31.6 31.0 - 36.0 g/dL [facility] RDW 13.5 11.5 - 14.5 % [facility] Plt 270 150 - 400 k/cmm [facility] MPV 9.3 6.5 - 12.5 fL [facility] Blood 07/20/2024 5:44 AM CDT 07/20/2024 7:15 AM CDT Jay Patrick MD LABORATORY Performing Organization Address City/[facility]/ZIP Co de Phone Number [facility] [address] [address] * TELEMETRY STRIPS (07/20/2024 2:15 AM CDT) Narrative 07/20/2024 2:15 AM CDT Ordered by an unspecified provider. Provider Unknown RAD ECHO * TROP 2H (07/19/2024 2:51 PM CDT) 2H Trop 4 <=35 ng/L [facility] 2H Delta Not Significant Not Significant [facility] Blood 07/19/2024 2:51 PM CDT 07/19/2024 3:13 PM CDT Jay Patrick MD LABORATORY Performing Organization Address [facility] Co de Phone Number [facility] [address] [address] * (ABNORMAL) URINALYSIS,TOTAL (07/19/2024 2:51 PM CDT) Color YELLOW YELLOW [facility] Appearance CLEAR CLEAR [facility] Urine Glucose >=1000(A) NEGATIVE mg/dL [facility] Bili UA NEGATIVE NEGATIVE [facility] Ketones NEGATIVE NEGATIVE [facility] Specific Edgar 1.018 1.003 - 1.030 [facility] Blood Ur NEGATIVE Neg-Trace [facility] PH Urine 5.5 5.0 - 7.0 [facility] Protein Ur 30(A) Neg-Trace [facility] Urobilinogen NORMAL NORMAL EU/dL [facility] Nitrite Ur NEGATIVE NEGATIVE [facility] Leuk Est NEGATIVE Neg-Trace [facility] WBC Ur 0-5 0 - 5 perHPF [facility] RBC Ur 0-3 0 - 3 perHPF [facility] Mucus 1+ perLPF [facility] Urinalysis Performed at: [facility] Urine 07/19/2024 2:51 PM CDT 07/19/2024 2:53 PM CDT Jay Patrick MD LABORATORY Performing Organization Address [facility] Co de Phone Number [facility] [address] [address] * CT LOW EXTREMITY - ANGIO - W/IV CON (07/19/2024 1:59 PM CDT) Anatomical Region Laterality Modality Upper Leg Computed Tomogra phy 07/19/2024 1:32 PM CDT Impressions 07/19/2024 1:45 PM CDT Impression: Right lower extremity hematoma with a tiny focus of active extravasation. Findings called to patient's provider in TCA at the time of this dictation. Reading Radiologist: Joce Padilla Narrative 07/19/2024 1:45 PM CDT Comparison: None. Indication: ??c/f vascular injury to RLE ??c/f R lower extremity vascular injury, transfer from OSH ? Technique: Volumetric helical acquisition of CT images from the top of iliac crest to toes with intravenous contrast. 3-D reconstructions were created by the electroencephalograph technologist on the CT scanner and reviewed by the radiologist. Images were archived in PACS. DOSE: ?Total DLP = 2628.5 mGy.cm. ?? Findings: Vasculature: No abdominal aortic aneurysm. Distal abdominal aorta and the bilateral iliac arteries are widely patent. Right common femoral, proximal profunda femoral, and the right superficial femoral arteries are patent. Visualized right popliteal artery is patent. CLIVE, ASSISTANT COMMUNITY MANAGER, tibioperoneal trunk, and peroneal arteries are patent to the level of ankle. Left common femoral, superficial femoral, visualized popliteal arteries are patent. Three-vessel runoff to the level of left ankle. Osseous Structures: Bilateral knee arthroplasty with associated streaky artifacts limiting evaluation at the level. Soft Tissues: Hematoma anteromedial to the right knee with a tiny focus of extravasation within the hematoma medial to the distal femur on image #[id number] of series 502. Hematoma is similar in size between the initial arterial phase and 5 minute delayed images. Procedure Note Joce Padilla MD - 07/19/2024 Comparison: None. Indication: c/f vascular injury to RLE c/f R lower extremity vascularinjury, transfer from OSH Technique: Volumetric helical acquisition of CT images from the top ofiliac crest to toes with intravenous contrast. 3-D reconstructions werecreated by the electroencephalograph technologist on the CT scanner and reviewed by theradiologist. Images were archived in PACS. DOSE: Total DLP = 2628.5 mGy.cm. Findings: Vasculature: No abdominal aortic aneurysm. Distal abdominal aorta and thebilateral iliac arteries are widely patent. Right common femoral, proximalprofunda femoral, and the right superficial femoral arteries are patent.Visualized right popliteal artery is patent. CLIVE, ASSISTANT COMMUNITY MANAGER, tibioperonealtrunk, and peroneal arteries are patent to the level of ankle. Left commonfemoral, superficial femoral, visualized popliteal arteries are patent.Three-vessel runoff to the level of left ankle. Osseous Structures: Bilateral knee arthroplasty with associated streakyartifacts limiting evaluation at the level. Soft Tissues: Hematoma anteromedial to the right knee with a tiny focus ofextravasation within the hematoma medial to the distal femur on image#[id number] of series 502. Hematoma is similar in size between the initialarterial phase and 5 minute delayed images. IMPRESSION Impression: Right lower extremity hematoma with a tiny focus of activeextravasation. Findings called to patient's provider in TCA at the time of thisdictation. Reading Radiologist: Joce Padilla Jay Patrick MD RAD CT BODY * ED EKG (12-LEAD) (07/19/2024 1:17 PM CDT) 07/19/2024 1:17 PM CDT Impressions [facility] CVIS EKG ORDERS - 07/19/2024 1:17 PM CDT SINUS RHYTHM WITH FIRST DEGREE AV BLOCK ABNORMAL ECG P-R Interval 229 ms QRS Interval 84 ms QT Interval 359 ms QTC Interval 393 ms [facility] 30 QRS [facility] -8 T Wave [facility] 29 Narrative Procedure Note Alfie Santos MD - 07/19/2024 IMPRESSION SINUS RHYTHM WITH FIRST DEGREE AV BLOCK ABNORMAL ECG P-R Interval 229 ms QRS Interval 84 ms QT Interval 359 ms QTC Interval 393 ms [facility] 30 QRS [facility] -8 T Wave [facility] 29 Jay Patrick MD EKG [facility] CVIS EKG ORDERS * XR CHEST 1 VIEW AP OR PA* (07/19/2024 1:13 PM CDT) Anatomical Region Laterality Modality Chest Computed Radiogr aphy 07/19/2024 1:14 PM CDT Impressions 07/19/2024 1:19 PM CDT Impression: Hazy opacities over the right hemidiaphragm favored atelectasis. Possible cardiomegaly, although that may be artifactual or at least exaggerated by technique. Reading Radiologist: Terry Grissom Narrative 07/19/2024 1:19 PM CDT Technique: XR CHEST 1 VIEW AP OR PA* Indication: STAB Patient ?? Comparison: None Findings: Single frontal view. Patient rotated. Lung volumes low. Cardiomediastinal silhouette is possibly mildly enlarged, but may be exacerbated by technique, low lung volumes, and patient rotation. Mild hazy opacities overlying the right hemidiaphragm. No pneumothorax. No definite effusion. Procedure Note Terry Grissom MD - 07/19/2024 Technique: XR CHEST 1 VIEW AP OR PA* Indication: STAB Patient Comparison: None Findings: Single frontal view. Patient rotated. Lung volumes low.Cardiomediastinal silhouette is possibly mildly enlarged, but may beexacerbated by technique, low lung volumes, and patient rotation. Mildhazy opacities overlying the right hemidiaphragm. No pneumothorax. Nodefinite effusion. IMPRESSION Impression: Hazy opacities over the right hemidiaphragm favored atelectasis. Possiblecardiomegaly, although that may be artifactual or at least exaggerated bytechnique. Reading Radiologist: Terry Grissom Jay Patrick MD RAD XRAY * EXTRA TUBE - SST (07/19/2024 1:02 PM CDT) SST TUBE Stored [facility] Comment:SST tubes (Serum Sep arator) are stored in the lab for 3 days from the collection date. Blood 07/19/2024 1:02 PM CDT 07/19/2024 1:54 PM CDT Jay Patrick MD LABORATORY [facility] [address] [address] * ED INR (07/19/2024 12:58 PM CDT) [facility] ED INR 1.1 0.8 - 1.1 [facility] Comment: Warfarin Therapeutic Range: Standard Intensity: 2.0 - 3.0 High Intensity: 2.5 - 3.5 This is a rapid INR screening test which uses whole blood; results may infrequently differ from plasma INR results. If medication adjustments/dosing are required a PT/INR test ([id number]) should be ordered and performed in the main laboratory. Blood 07/19/2024 12:5 8 PM CDT 07/19/2024 1:10 PM CDT Jay Patrick MD LABORATORY Performing Organization Address City/[facility]/ZIP Co de Phone Number [address] [address] * HS TROPONIN (07/19/2024 12:58 PM CDT) [facility] HS Troponin I 3 <=35 ng/L [facility] Blood 07/19/2024 12:5 8 PM CDT 07/19/2024 1:28 PM CDT Narrative [facility] - 07/19/2024 1:58 PM CDT First Occurrence of the Troponin order is to be drawn Stat by Nursing staff on the unit. Jay Patrick MD LABORATORY Performing Organization Address City/[facility]/ZIP Co de Phone Number [address] [address] * (ABNORMAL) ED CHEMISTRY LABS(NA,K,CL,CO2,GLU,CREAT,CA-IONIZED,ANION GAP) (07/19/2024 12:58 PM CDT) [facility] Sodium 142 135 - 148 mmol/L [facility] Potassium 4.6 3.5 - 5.3 mmol/L [facility] Chloride 108 92 - 108 mmol/L [facility] AnGap 13 8 - 16 mmol/L [facility] Glucose 127(H) 70 - 100 mg/dL [facility] ICA, Actual 4.64 4.40 - 5.20 mg/dL [facility] ICA, pH Corrected 4.58 4.40 - 5.20 mg/dL [facility] Creatinine 2.57(H) 0.70 - 1.25 mg/dL [facility] BICARB 21(L) 22 - 26 mEq/L [facility] eGFR (2020 CKD-EPI) 26(L) >=60 ml/min/1.7 3m2 [facility] Comment: The estimated glomerular filtration rate (eGFR) was calculated using the CKD-EPI 2020 creatinine equation, which does not include race as a factor. This equation is validated in individuals 18 years of age and older, and eGFR is normalized to a body surface area of 1.73m^2. Blood 07/19/2024 12:5 8 PM CDT 07/19/2024 1:12 PM CDT Jay Patrick MD LABORATORY [facility] [address] [address] * (ABNORMAL) CBC WITH PLTS/AUTO DIFF (07/19/2024 12:58 PM CDT) WBC 10.93(H) 4.00 - 10.00 k/cmm [facility] RBC 3.33(L) 4.60 - 6.00 m/cmm [facility] Hgb 11.2(L) 13.1 - 17.5 g/dL [facility] Hematocrit 33.6(L) 40.0 - 51.0 % [facility] MCV 100.9(H) 80.0 - 100.0 fL [facility] MCH 33.6(H) 25.0 - 32.0 pg [facility] MCHC 33.3 31.0 - 36.0 g/dL [facility] RDW 13.4 11.5 - 14.5 % [facility] Plt 252 150 - 400 k/cmm [facility] MPV 8.9 6.5 - 12.5 fL [facility] Automated Abs Neutrophil 8.55(H) 1.70 - 6.50 k/cmm [facility] Comment:Preliminary ANC, Fin al Result to Follow Abs Immature Granulocyte 0.07 0.00 - 0.09 k/cmm [facility] Comment:The Immature Granulo cyte Absolute count contains metamyelocytes and myelocytes. Abs Neutrophil 8.55(H) 1.70 - 6.50 k/cmm [facility] Abs Lymphocyte 1.35 0.80 - 4.00 k/cmm [facility] Abs Monocyte 0.72 0.20 - 1.00 k/cmm [facility] Abs Eosinophil 0.20 0.00 - 0.60 k/cmm [facility] Abs Basophil 0.04 0.00 - 0.20 k/cmm [facility] Blood 07/19/2024 12:5 8 PM CDT 07/19/2024 1:28 PM CDT Jay Patrick MD LABORATORY Performing Organization Address City/[facility]/[place] Co de Phone Number [facility] [address] [address] * (ABNORMAL) ED HEMOGLOBIN TOTAL (ED ONLY) (07/19/2024 12:58 PM CDT) Hgb 11.9(L) 13.1 - 17.5 g/dL [facility] Blood 07/19/2024 12:5 8 PM CDT 07/19/2024 1:12 PM CDT Jay Patrick MD LABORATORY Performing Organization Address [facility]/[place] Co de Phone Number [facility] [address] [address] * PROTHROMBIN (PT) & INR (07/19/2024 12:58 PM CDT) PT 10.6 9.0 - 12.5 sec [facility] INR 1.0 0.8 - 1.1 [facility] Comment: Warfarin Therapeutic Range: Standard Intensity: 2.0 - 3.0 High Intensity: 2.5 - 3.5 Blood 07/19/2024 12:5 8 PM CDT 07/19/2024 1:30 PM CDT Jay Patrick MD LABORATORY Performing Organization Address City/[facility]/ZIP Co de Phone Number [facility] [address] [address] * PRECAUTIONARY TUBE (07/19/2024 12:58 PM CDT) Prec Tube Precautionary Blood Bank Specimen Received. [facility] Blood 07/19/2024 12:5 8 PM CDT 07/19/2024 1:23 PM CDT Jay Patrick MD LAB TRANSFUSION SERV ICES Performing Organization Address [facility]/[place] Co de Phone Number [facility] [address] [address] * (ABNORMAL) PANEL HEPATIC FUNCTION (07/19/2024 12:58 PM CDT) Pathologist [facility] Total Protein 6.2(L) 6.4 - 8.3 g/dL [facility] Albumin 3.7(L) 3.8 - 5.1 g/dL [facility] Bili Total 0.3 <=1.2 mg/dL [facility] Bili Direct <0.2 <=0.3 mg/dL [facility] Alk Phos 113 40 - 129 IU/L [facility] Comment:No reference range e stablished for patients <18 years old. ALT (SGPT) 11 <=41 IU/L [facility] AST(SGOT) 16 5 - 40 IU/L [facility] Blood 07/19/2024 12:5 8 PM CDT 07/19/2024 1:28 PM CDT Jay Patrick MD LABORATORY Performing Organization Address City/[facility]/ZIP Co de Phone Number [facility] [address] [address] * LACTATE (LACTIC ACID) (07/19/2024 12:58 PM CDT) Pathologist [facility] Lactate 1.5 0.7 - 2.1 mmol/L [facility] Blood 07/19/2024 12:5 8 PM CDT 07/19/2024 1:12 PM CDT Narrative [facility] - 07/19/2024 1:15 PM CDT Send specimen on ice! Jay Patrick MD LABORATORY Performing Organization Address [facility] de Phone Number [address] [address] * (ABNORMAL) BLOOD GASES (07/19/2024 12:58 PM CDT) PH Andrew 7.38 7.32 - 7.42 [facility] PCO2 Andrew 37(L) 41 - 51 mmHG [facility] PO2 Andrew 37 25 - 40 mmHG [facility] Bicarb Andrew 21(L) 24 - 28 mEq/L [facility] O2 Sat Andrew 65 % [facility] Base Exc Andrew -3.8 -10.0 - 2.0 mmol/L [facility] Blood Venous 07/19/2024 12:5 8 PM CDT 07/19/2024 1:13 PM CDT Jay Patrick MD LABORATORY Performing Organization Address [facility] de Phone Number [address] [address] * FIBRINOGEN (07/19/2024 12:58 PM CDT) Fibrinogen 337 200 - 400 mg/dL [facility] Blood 07/19/2024 12:5 8 PM CDT 07/19/2024 1:30 PM CDT Jay Patrick MD LABORATORY Performing Organization Address [facility]/[place] Co de Phone Number [address] [address] * ETHANOL (ETOH) LEVEL, BLOOD (07/19/2024 12:58 PM CDT) Ethanol Negative Negative g/dL [facility] Blood 07/19/2024 12:5 8 PM CDT 07/19/2024 1:28 PM CDT Jay Patrick MD LABORATORY Performing Organization Address [facility]/[place] Co de Phone Number [address] [address] * PTT (APTT) (07/19/2024 12:58 PM CDT) APTT 31.2 25.0 - 37.0 sec [facility] Blood 07/19/2024 12:5 8 PM CDT 07/19/2024 1:30 PM CDT Jay Patrick MD LABORATORY [facility] [address] [address] * ED US CRITICAL CARE (07/19/2024 12:55 PM CDT) Anatomical Region Laterality Modality Ultrasound Narrative 07/19/2024 6:50 PM CDT ED Trauma eFAST Ultrasound Indications: Suspicion of Abdomen Fluid/Blood, Suspicion of Pneumothorax/Hemothorax, and Other general symptoms and signs Window: Cardiac Window, Heptorenal Window, Perisplenic Window, Pelvic Window, and Thoracic Window Findings: No Pericardial Effusion identified, No Free Intraperitoneal Fluid identified, No Pleural Effusion identified, and Lung Sliding Present Bilaterally Impression: No Pericardial Effusion identified, No Free Intraperitoneal Fluid identified, No Pleural Effusion identified, and No Pneumothorax Identified Jay Patrick MD, 07/19/2024 6:50 PM Jay Patrick MD RAD ED ULT * XR LOWER EXTREMITY OUTSIDE FILMS (07/19/2024 11:03 AM CDT) Kevin DonaldsonSilent-Scheduler - 07/19/2024 11:47 AM CDT Outside Film Only Outside Provider RAD OUTSIDE FILMS * ULT VASCULAR OUTSIDE FILMS (07/19/2024 10:44 AM CDT) Kevin DonaldsonSilent-Scheduler - 07/19/2024 11:47 AM CDT Outside Film Only Outside Provider RAD OUTSIDE FILMS from Last 3 Months Advance Directives For more information, please contact: [phone] * Full Code (Latest Code Status on File) Date Activated Date Inactivated Comments 07/19/2024 8:35 PM 07/21/2024 4:54 AM Question Answer Comments Does the Patient have prefer ences regarding life sustaining measures (these options only apply when the patient has a pulse): No Discussed Code Status With Whom? Not discussed Care Teams Upholstery Estimator Relationship Specialty Start Date End Date Dr Michael GIRALDO at [facility] 10/11/13
--- OUTSIDE RECORDS SUMMARY | 2024-07-27 01:02 | XMS_ITS | Encounter Summary ---
Author Organization [facility] Address [address] [place] [id number] Phone Care Team Providers Care Extruder Operator Multiple Name Role Phone Unavailable Primary Care Provider Unavailabl e Encounter Details Date Type Department Care Team (Late st Contact Info) Description 07/20/2024 Orders Only Unspecified Department [place] Unknown, Provider Social History Tobacco Use Types Packs/Day Years Used Date Smoking Tobacco: Never Smokeless Tobacco: Never Humiliation, Afraid, Rape, and Kick questionnair e [...] on file Sexual Orientation Not on file documented as of this encounter Plan of Treatment Not on file documented as of this encounter Procedures Procedure Name Priority Date/Time Associated Diagnosis Comments TELEMETRY STRIPS 07/20/2024 2:15 AM CDT documented in this encounter Results * TELEMETRY STRIPS (07/20/2024 2:15 AM CDT) Narrative 07/20/2024 2:15 AM CDT Ordered by an unspecified provider. Provider Unknown RAD ECHO documented in this encounter Visit Diagnoses Not on filedocumented in this encounter Care Teams Extruder Operator Multiple Relationship Specialty Start Date End Date Dr Michael GIRALDO at [facility] 10/11/13 documented as of this encounter
--- OUTSIDE RECORDS SUMMARY | 2024-07-27 01:02 | XMS_ITS | Encounter Summary ---
Author Organization [facility] Address [address] [place] [phone] Phone Care Team Providers Care Rabies Inspector Name Role Phone Unavailable Primary Care Provider Unavailabl e Encounter Details Date Type Department Care Team (Latest Contact Info) Description 07/19/2024 Travel Social History Tobacco Use Types Packs/Day Years [...] on file documented as of this encounter Visit Diagnoses Not on filedocumented in this encounter Care Teams Rabies Inspector Relationship Specialty Start Date End Date Dr Michael GIRALDO at [facility] 10/11/13 documented as of this encounter
--- OUTSIDE RECORDS SUMMARY | 2024-07-27 01:02 | XMS_ITS | Referral Summary ---
Author Organization [facility] Address [address] [place] [address] Phone Care Team Providers Care Appraiser Auditor Name Role Phone Unavailable Primary Care Provider Unavailabl e Source Comments [employer] is fully rolled out on [employer]. Last update 03/15/09.[facility] Encounters Date Type Department Care Team Description 07/20/2024 Orders Only Unspecified Department [place] Unknown, Provider 07/19/2024 12:55 PM CDT - 07/20/2024 8:00 PM CDT Hospital Encounter [facility] Surgery/Trauma/Neur o 1 [facility] [address] [place] [address] Jay Patrick MD Lumbard, Chay Purcell MD Fall, initial encounter Discharge Disposition: Discharged to home or self care 07/19/2024 Travel 07/19/2024 Orders Only [facility] Film Room [facility] Radiology Department [facility] [address] [place] [address] Provider, Outside Referral of patient (Primary Dx) from Last 3 Months Allergies Active Allergy Reactions Criticality Noted Date [...] Date Diagnosed Date Fall, initial encounter 07/19/2024 Social History Tobacco Use Types Packs/Day Years [...] 07/19/2024 8:38 PM CDT Plan of Treatment Not on file Procedures Procedure Name Priority Date/Time Associated Diagnosis [...] POC Glucose 119(H) 70 - 100 mg/dL [facility] Blood 07/20/2024 11:3 0 AM CDT Jay Patrick MD LABORATORY Performing Organization Address City/State/[facility] Co de Phone Number [facility] [address] [place] [address], * CT HEAD NO IV CONTRAST (07/20/2024 [...] as documented by the resident/fellow. Reading Radiologist: aLvelle Ha Reading Resident: Chaarn Apple 07/20/2024 11:02 AM CDT Indication: Head [...] CDT) Sodium 140 135 - 148 mmol/L [facility] Potassium 4.7 3.5 - 5.3 mmol/L [facility] Chloride 107 92 - 108 mmol/L [facility] CO2 21(L) 22 - 30 mmol/L [facility] AnGap 12 8 - 16 mmol/L [facility] Glucose 159(H) 70 - 100 mg/dL [facility] BUN 27(H) 8 - 23 mg/dL [facility] Creatinine 2.56(H) 0.70 - 1.25 mg/dL [facility] Calcium 8.7(L) 8.8 - 10.2 mg/dL [facility] eGFR (2020 CKD-EPI) 26(L) >=60 ml/min/1.7 3m2 [facility] Comment: The estimated glomerular filtration rate (eGFR) was calculated using the CKD-EPI 2020 creatinine equation, which does not include race as a factor. This equation is validated in individuals 18 years of age and older, and eGFR is normalized to a body surface area of 1.73m^2. Blood 07/20/2024 5:44 AM CDT 07/20/2024 7:27 AM CDT Jay Patrick MD LABORATORY [facility] [address] [address] * (ABNORMAL) CBC WITH PLATELET (07/20/2024 5:44 AM CDT) WBC 8.23 4.00 - 10.00 k/cmm [facility] RBC 3.28(L) 4.60 - 6.00 m/cmm [facility] Hgb 10.7(L) 13.1 - 17.5 g/dL [facility] Hematocrit 33.9(L) 40.0 - 51.0 % [facility] MCV 103.4(H) 80.0 - 100.0 fL [facility] MCH 32.6(H) 25.0 - 32.0 pg [facility] MCHC 31.6 31.0 - 36.0 g/dL [facility] RDW 13.5 11.5 - 14.5 % [facility] Plt 270 150 - 400 k/cmm [facility] MPV 9.3 6.5 - 12.5 fL [facility] Blood 07/20/2024 5:44 AM CDT 07/20/2024 7:15 AM CDT Jay Patrick MD LABORATORY Performing Organization Address [facility] de Phone Number [facility] [address] [address] * TELEMETRY STRIPS (07/20/2024 2:15 AM CDT) Narrative 07/20/2024 2:15 AM CDT Ordered by an unspecified provider. Provider Unknown RAD ECHO * TROP 2H (07/19/2024 2:51 PM CDT) Pathologist [facility] 2H Trop 4 <=35 ng/L [facility] 2H Delta Not Significant Not Significant [facility] Blood 07/19/2024 2:51 PM CDT 07/19/2024 3:13 PM CDT Jay Patrick MD LABORATORY Performing Organization Address [facility] de Phone Number [facility] [address] [address] * (ABNORMAL) URINALYSIS,TOTAL (07/19/2024 2:51 PM CDT) [facility] Color YELLOW YELLOW [facility] Appearance CLEAR CLEAR [facility] Urine Glucose >=1000(A) NEGATIVE mg/dL [facility] Bili UA NEGATIVE NEGATIVE [facility] Ketones NEGATIVE NEGATIVE [facility] Specific [place] 1.018 1.003 - 1.030 [facility] Blood Ur NEGATIVE Neg-Trace [facility] PH Urine 5.5 5.0 - 7.0 [facility] Protein Ur 30(A) Neg-Trace [facility] Urobilinogen NORMAL NORMAL EU/dL [facility] Nitrite Ur NEGATIVE NEGATIVE [facility] Leuk Est NEGATIVE Neg-Trace [facility] WBC Ur 0-5 0 - 5 perHPF [facility] RBC Ur 0-3 0 - 3 perHPF [facility] Mucus 1+ perLPF [facility] Urinalysis Performed at: [facility] Urine 07/19/2024 2:51 PM CDT 07/19/2024 2:53 PM CDT Jay Patrick MD LABORATORY Performing Organization Address [facility] Co de Phone Number [facility] [address] [address] * CT LOW EXTREMITY - ANGIO - [...] contrast. 3-D reconstructions were created by the chief ultrasound technologist on the CT scanner and reviewed by the radiologist. Images were archived in PACS. DOSE: ?Total DLP = 2628.5 mGy.cm. ?? Findings: Vasculature: No abdominal aortic aneurysm. Distal abdominal aorta and the bilateral iliac arteries are widely patent. Right common femoral, proximal profunda femoral, and the right superficial femoral arteries are patent. Visualized right popliteal artery is patent. CLIVE, LOAN ADMINISTRATOR, tibioperoneal trunk, and peroneal arteries are patent [...] intravenous contrast. 3-D reconstructions werecreated by the chief ultrasound technologist on the CT scanner and reviewed by theradiologist. Images were archived in PACS. DOSE: Total DLP = 2628.5 mGy.cm. Findings: Vasculature: No abdominal aortic aneurysm. Distal abdominal aorta and thebilateral iliac arteries are widely patent. Right common femoral, proximalprofunda femoral, and the right superficial femoral arteries are patent.Visualized right popliteal artery is patent. CLIVE, LOAN ADMINISTRATOR, tibioperonealtrunk, and peroneal arteries are patent to [...] PM CDT) 07/19/2024 1:17 PM CDT Impressions [facility] CVIS EKG ORDERS - 07/19/2024 1:17 PM CDT SINUS RHYTHM WITH FIRST DEGREE AV BLOCK ABNORMAL ECG P-R Interval 229 ms QRS Interval 84 ms QT Interval 359 ms QTC Interval 393 ms P [place] 30 QRS [place] -8 T Wave [place] 29 Narrative Procedure Note Alfie Santos MD - 07/19/2024 IMPRESSION SINUS RHYTHM WITH FIRST DEGREE AV BLOCK ABNORMAL ECG P-R Interval 229 ms QRS Interval 84 ms QT Interval 359 ms QTC Interval 393 ms P [place] 30 QRS [place] -8 T Wave [place] 29 Jay Patrick MD EKG [facility] CVIS EKG ORDERS * XR CHEST 1 [...] (07/19/2024 1:02 PM CDT) SST TUBE Stored [facility] Comment:SST tubes (Serum Sep arator) are stored in the lab for 3 days from the collection date. Blood 07/19/2024 1:02 PM CDT 07/19/2024 1:54 PM CDT Jay Patrick MD LABORATORY [facility] [address] [address] * ED INR (07/19/2024 12:58 PM CDT) [facility] ED INR 1.1 0.8 - 1.1 [facility] Comment: Warfarin Therapeutic Range: Standard Intensity: 2.0 - 3.0 High Intensity: 2.5 - 3.5 This is a rapid INR screening test which uses whole blood; results may infrequently differ from plasma INR results. If medication adjustments/dosing are required a PT/INR test ([id number]) should be ordered and performed in the main laboratory. Blood 07/19/2024 12:5 8 PM CDT 07/19/2024 1:10 PM CDT Jay Patrick MD LABORATORY Performing Organization Address City/[facility]/ZIP Co de Phone Number [facility] [address] [address] * HS TROPONIN (07/19/2024 12:58 PM CDT) [facility] HS Troponin I 3 <=35 ng/L [facility] Blood 07/19/2024 12:5 8 PM CDT 07/19/2024 1:28 PM CDT Narrative [facility] - 07/19/2024 1:58 PM CDT First Occurrence of the Troponin order is to be drawn Stat by Nursing staff on the unit. Jay Patrick MD LABORATORY Performing Organization Address City/[facility]/ZIP Co de Phone Number [address] [address] * (ABNORMAL) ED CHEMISTRY LABS(NA,K,CL,CO2,GLU,CREAT,CA-IONIZED,ANION GAP) (07/19/2024 12:58 PM CDT) [facility] Sodium 142 135 - 148 mmol/L [facility] Potassium 4.6 3.5 - 5.3 mmol/L [facility] Chloride 108 92 - 108 mmol/L [facility] AnGap 13 8 - 16 mmol/L [facility] Glucose 127(H) 70 - 100 mg/dL [facility] ICA, Actual 4.64 4.40 - 5.20 mg/dL [facility] ICA, pH Corrected 4.58 4.40 - 5.20 mg/dL [facility] Creatinine 2.57(H) 0.70 - 1.25 mg/dL [facility] BICARB 21(L) 22 - 26 mEq/L [facility] eGFR (2020 CKD-EPI) 26(L) >=60 ml/min/1.7 3m2 [facility] Comment: The estimated glomerular filtration rate (eGFR) was calculated using the CKD-EPI 2020 creatinine equation, which does not include race as a factor. This equation is validated in individuals 18 years of age and older, and eGFR is normalized to a body surface area of 1.73m^2. Blood 07/19/2024 12:5 8 PM CDT 07/19/2024 1:12 PM CDT Jay Patrick MD LABORATORY [facility] [address] [address] * (ABNORMAL) CBC WITH PLTS/AUTO DIFF (07/19/2024 12:58 PM CDT) WBC 10.93(H) 4.00 - 10.00 k/cmm [facility] RBC 3.33(L) 4.60 - 6.00 m/cmm [facility] Hgb 11.2(L) 13.1 - 17.5 g/dL [facility] Hematocrit 33.6(L) 40.0 - 51.0 % [facility] MCV 100.9(H) 80.0 - 100.0 fL [facility] MCH 33.6(H) 25.0 - 32.0 pg [facility] MCHC 33.3 31.0 - 36.0 g/dL [facility] RDW 13.4 11.5 - 14.5 % [facility] Plt 252 150 - 400 k/cmm [facility] MPV 8.9 6.5 - 12.5 fL [facility] Automated Abs Neutrophil 8.55(H) 1.70 - 6.50 k/cmm [facility] Comment:Preliminary ANC, Fin al Result to Follow Abs Immature Granulocyte 0.07 0.00 - 0.09 k/cmm [facility] Comment:The Immature Granulo cyte Absolute count contains metamyelocytes and myelocytes. Abs Neutrophil 8.55(H) 1.70 - 6.50 k/cmm [facility] Abs Lymphocyte 1.35 0.80 - 4.00 k/cmm [facility] Abs Monocyte 0.72 0.20 - 1.00 k/cmm [facility] Abs Eosinophil 0.20 0.00 - 0.60 k/cmm [facility] Abs Basophil 0.04 0.00 - 0.20 k/cmm [facility] Blood 07/19/2024 12:5 8 PM CDT 07/19/2024 1:28 PM CDT Jay Patrick MD LABORATORY Performing Organization Address City/[facility] Co de Phone Number [facility] [address] [address] * (ABNORMAL) ED HEMOGLOBIN TOTAL (ED ONLY) (07/19/2024 12:58 PM CDT) Hgb 11.9(L) 13.1 - 17.5 g/dL [facility] Blood 07/19/2024 12:5 8 PM CDT 07/19/2024 1:12 PM CDT Jay Patrick MD LABORATORY Performing Organization Address [facility] de Phone Number [facility] [address] [address] * PROTHROMBIN (PT) & INR (07/19/2024 12:58 PM CDT) PT 10.6 9.0 - 12.5 sec [facility] INR 1.0 0.8 - 1.1 [facility] Comment: Warfarin Therapeutic Range: Standard Intensity: 2.0 - 3.0 High Intensity: 2.5 - 3.5 Blood 07/19/2024 12:5 8 PM CDT 07/19/2024 1:30 PM CDT Jay Patrick MD LABORATORY Performing Organization Address City/[facility] Co de Phone Number [facility] [address] [place] [address] * PRECAUTIONARY TUBE (07/19/2024 12:58 PM CDT) Prec Tube Precautionary Blood Bank Specimen Received. [facility] Blood 07/19/2024 12:5 8 PM CDT 07/19/2024 1:23 PM CDT Jay Patrick MD LAB TRANSFUSION SERV ICES Performing Organization Address City/[facility] Co de Phone Number [facility] [address] [address] * (ABNORMAL) PANEL HEPATIC FUNCTION (07/19/2024 12:58 PM CDT) [facility] Total Protein 6.2(L) 6.4 - 8.3 g/dL [facility] Albumin 3.7(L) 3.8 - 5.1 g/dL [facility] Bili Total 0.3 <=1.2 mg/dL [facility] Bili Direct <0.2 <=0.3 mg/dL [facility] Alk Phos 113 40 - 129 IU/L [facility] Comment:No reference range e stablished for patients <18 years old. ALT (SGPT) 11 <=41 IU/L [facility] AST(SGOT) 16 5 - 40 IU/L [facility] Blood 07/19/2024 12:5 8 PM CDT 07/19/2024 1:28 PM CDT Jay Patrick MD LABORATORY [facility] [address] [address] * LACTATE (LACTIC ACID) (07/19/2024 12:58 PM CDT) Pathologist [facility] Lactate 1.5 0.7 - 2.1 mmol/L [facility] Blood 07/19/2024 12:5 8 PM CDT 07/19/2024 1:12 PM CDT Narrative [facility] - 07/19/2024 1:15 PM CDT Send specimen on ice! Jay Patrick MD LABORATORY Performing Organization Address [facility] de Phone Number [address] [address] * (ABNORMAL) BLOOD GASES (07/19/2024 12:58 PM CDT) PH Andrew 7.38 7.32 - 7.42 [facility] PCO2 Andrew 37(L) 41 - 51 mmHG [facility] PO2 Andrew 37 25 - 40 mmHG [facility] Bicarb Andrew 21(L) 24 - 28 mEq/L [facility] O2 Sat Andrew 65 % [facility] Base Exc Andrew -3.8 -10.0 - 2.0 mmol/L [facility] Blood Venous 07/19/2024 12:5 8 PM CDT 07/19/2024 1:13 PM CDT Jay Patrick MD LABORATORY Performing Organization Address [facility] Co de Phone Number [address] [address] * FIBRINOGEN (07/19/2024 12:58 PM CDT) Fibrinogen 337 200 - 400 mg/dL [facility] Blood 07/19/2024 12:5 8 PM CDT 07/19/2024 1:30 PM CDT Jay Patrick MD LABORATORY Performing Organization Address [facility] Co de Phone Number [address] [address] * ETHANOL (ETOH) LEVEL, BLOOD (07/19/2024 12:58 PM CDT) Ethanol Negative Negative g/dL [facility] Blood 07/19/2024 12:5 8 PM CDT 07/19/2024 1:28 PM CDT Jay Patrick MD LABORATORY Performing Organization Address City/[facility] Co de Phone Number [address] [place] [address] * PTT (APTT) (07/19/2024 12:58 PM CDT) APTT 31.2 25.0 - 37.0 sec [facility] Blood 07/19/2024 12:5 8 PM CDT 07/19/2024 1:30 PM CDT Jay Patrick MD LABORATORY [facility] [address] [address] * ED US CRITICAL CARE (07/19/2024 12:55 [...] Advance Directives For more information, please contact: [phone] * Full Code (Latest Code Status on File) Date Activated Date Inactivated Comments 07/19/2024 8:35 PM 07/21/2024 4:54 AM Question Answer Comments Does the Patient have prefer ences regarding life sustaining measures (these options only apply when the patient has a pulse): No Discussed Code Status With Whom? Not discussed Care Teams Appraiser Auditor Relationship Specialty Start Date End Date Dr Michael GIRALDO at [facility] 10/11/13
--- OUTSIDE RECORDS SUMMARY | 2024-07-27 01:02 | XMS_ITS | Encounter Summary ---
Author Organization [facility] Address [address] [place] [address] Phone Care Team Providers Care Company Manager Name Role Phone Unavailable Primary Care Provider Unavailabl e Reason for Visit * Reason Comments Fall * Auth/Cert (Routine) Specialty Diagnoses / Procedures Referred By Carlin mullen Referred To Contact SURGERY Diagnoses Fall, initial encounter Injury of right knee, initial encounter Jay Patrick MD [address] [facility] [address] [place] [address] [address] [employer] [address] [facility] [id number] [place] [address] Referral ID Status Reason Start Date Expiration Date Visits Re quested Visits Authorized [id number] 1 1 Encounter Details Date Type Department Care Team (Latest Contact Info) Description 07/19/2024 12:55 PM CDT - 07/20/2024 8:00 PM CDT Hospital Encounter [facility] Surgery/Trauma/Neur o 1 [employer] [address] [facility] [address] [place], [place] [id number] Jay Patrick MD [address] [facility] [address] [place] [address] Chay Estrada MD [address] [facility] [address] [place], [place] [id number] Fall, initial encounter Discharge Disposition: Discharged to home or self care Social History Tobacco Use Types Packs/Day Years [...] on file documented as of this encounter Last Filed Vital Signs Vital Sign Reading [...] Mass Index 42.27 07/19/2024 8:38 PM CDT documented in this encounter Discharge Summaries * Chay Estrada MD - 07/20/2024 2:24 PM CDT TRAUMA 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 Attending Staff: Chay Estrada MD Significant physician provider(s): Dr. Evan Yost (Vascular Surgery) Allergies Allergen Reactions Lisinopril-Hydrochlorothiazide Confusion Glyburide-Metformin Unknown ADMISSION DIAGNOSIS: #Fall from standing height #Right knee hematoma DISCHARGE DIAGNOSIS (include any new and/or incidental findings): #Fall from standing height #Right knee hematoma Incidental Findings: None Operations/Procedures: None HOSPITAL COURSE: 73 y.o. male with hx of HTN, diffuse TIA (2000), DM2 admitted 07/19 after fall at home while vacuuming. He landed on his right knee and head. Denies LOC. He has large right knee hematoma. Vascular surgery consulted for small area of extravasation in right knee. Three vessel run off to RLE, with dopplerable popliteal, DP and PT pulses, sensation and motor function intact, soft compartments. Of note elevated creatinine ~2.5 while hospitalized. Recent OSH creat from 06/2024 was 2.2. He will need close follow up with PCP regarding kidney function and comorbidity management. He remained vitally stable and neurologically intact. Cleared for discharge home by PT. At the timeof discharge pt's pain was well controlled on PO pain medications, ambulating independently w/out difficulty, tolerating PO intake w/o N/V, voiding w/out difficulty, and bowel function present. Consulting services discharge recommendations and follow up below. RECOMMENDATIONS AND FOLLOW UP: Trauma/General Surgery: PRN Primary Care Physician: Follow up within 2-4 weeks of hospital stay Referrals: None PATROL OFFICER DISCHARGE RECOMMENDATIONS AND FOLLOW UP: >>Vascular Surgery -No acute vascular surgery intervention -Compression with RU wrap with breaks for skin integrity -Up with assist OK from vascular perspective -No indication for clinic follow up PLANNED DISCHARGE ORDERS: Suture/Bridgette: None Wound Care Plan: Location: right knee; Dressing: ru wrap Drains Present: None Lines: None Activity Limitations: up ad jennifer, WBAT RLE Anticoagulation Plan: resume SURVEYOR INSTRUMENT ASSISTANT aspirin READMISSION PLANNED WITHIN 30 DAYS OF DISCHARGE? No PENDING TESTS RESULTS: None PHYSICAL EXAMINATION: BP 136/71 (Cuff Location: Right Arm) Pulse 78 Temp 36 ??C (96.8 ??F) (Tympanic) Resp 16 Ht 1.727 m (5' 8) Wt 126.1 kg (278 lb) SpO2 99% BMI 42.27 kg/m?? Estimated body mass index is 42.27 kg/m?? as calculated from the following: Height as of this encounter: 1.727 m (5' 8). Weight as of this encounter: 126.1 kg (278 lb). General: Alert, cooperative, no acute distress Neuro: Oriented x 3, moves all extremities, strength symmetrical, no sensory deficits, cranial nerves intact Cardiovascular: Rate as noted, regular rhythm Musculoskeletal: All joints with full active ROM; no deformity; stable pelvis. All long bones non-tender to palpation. Extremities: Warm, distal pulses intact. Skin: Warm and dry. Right knee ecchymosis and swelling. Tongue Stitcher Needed: no DISCHARGE ORDERS Why you were at the hospital: Order Notes You were in the hospital after a fall on your right knee resulting in a hematoma. When should I be concerned? Order Notes Go to the Emergency Department or call 911 IF: -- you have redness, swelling, or severe pain in one or both of your legs -- you have chest pain or shortness of breath Clinic hours (8AM - 4:30PM, M-F): Call the Surgery Clinic at [phone] After hours or on Holidays: Call the [facility] inverted block operator . Ask the inverted block operator to page the general surgery resident relations liaison. IF: -- you feel you are getting worse or having an increase in problems -- your temperature is higher than 101.5 F. (taken by mouth) and lasts more than 12 hours -- you have a lot of vomiting or diarrhea (loose watery stools) - especially if your are unable to keep your medicines down -- you have no stool in 3 days -- you do not urinate for 8-12 hours or the urine is very dark -- you have any other concerns It is normal to have: -- a small fever -- mild nausea Please contact your primary care provider as needed. Order Notes Please contact your primary care provider as needed. Up with assistance activity level. Order Notes -- Remember to have someone near by or with you when you are walking, showering or bathing. -- Slowly return to your usual level of activity. -- Rest is an important part of healing. Save your energy by spreading out activities that make youtired. Right Leg Weight Bearing Order Notes Weight bearing as tolerated: You are allowed to put as much weight on your leg/foot as you can tolerate. Wear ru wrap to help with hematoma and keep right leg elevated as much as possible. Fall safety: Order Notes - If prescribed, use your cane, walker, or crutches as directed. - Consider carrying a phone (cordless or cellular) with you at all times in case of an emergency - Reduce your chance of falling in your home by: -- removing throw rugs -- using a night light -- clearing the path from your bed to the bathroom. Regular diet Order Notes -- Eat a wide variety of foods, including fruits and vegetables, dairy, grains and meats. Take your medicine and plan ahead for refills Order Notes - It is important that you take the medicines on your list. Work with your health care provider or pharmacist if you have questions about your medicine. - Plan ahead and use the Refill Line so that you don't run out of your medicine. It may take time to review your chart and get the medicine ordered. Acetaminophen (Tylenol) Safety Order Notes -- Read all labels for prescription and Ojfq-wwv-bssniwr medicines. Ask the pharmacist if your prescription pain medicine contains acetaminophen. -- Do not take more than one medicine that contains acetaminophen at a time. -- Do not take more of an acetaminophen-containing medicine than directed by your provider. Adults should not take more than 2 tablets at a time and no more than 3000 mg in a 24 hour period. For children, see label or package information or ask a pharmacist, and do not give more than 5 doses in 24 hours. -- Do not drink alcohol when taking medicines that contain acetaminophen. -- Stop taking your medication and seek medical help immediately if you: ---- Think you have taken more acetaminophen than directed ---- Have an allergic reaction such as swelling of the face, mouth, and throat, difficulty breathing, itching, or rash Prescribed narcotic pain medicine Order Notes What You Should Know About Opioid (Narcotic) Medicine: -- Your healthcare provider ordered an opioid (narcotic) medicine to treat your pain. -- The goal of your opioid medicine is NOT complete removal of pain. -- The goal is to provide for you a safe and functional life. -- Since opioids do not take away all of your pain, we will tell you of other ways you can control your pain along with the opioid medicine. -- Important information when you are taking opioid medicine: -- It is illegal to drive when you are taking opioid medicine. Even if your doctor told you to takeopioids, you cannot drive. -- This medicine may affect your ability to focus and carry out important activities such as work or parenting. -- Do NOT operate mechanical equipment while taking pain medicines that impair your judgment. -- Do not drink alcohol while using any pain medicine. -- This medicine and all medicines should be kept in a safe place to avoid the risk of theft. -- Keep all medicines, especially opioids, out of the reach of children. -- Constipation is common when taking opioids. Your doctor may order medicine to help with constipation. -- Taking opioid medicine consistently over time may make your body dependent on it. -- If this happens, the medicine should be slowly decreased by your doctor and not stopped suddenly. -- If you stop taking your opioid medicine suddenly, you may feel a flu-like illness. Taper pain medicine Order Notes Suggestions for tapering your pain medicine: -- As your pain decreases, you can go for longer times between doses. Or, take one pill instead of two. -- Take the medicine at the time of the day when you most often feel pain. This may be: when you wake up in the morning, before you start certain activities, or when you are ready for bed. Medication List START taking these medications oxyCODONE 5 mg tablet Commonly known as: ROXICODONE Take 1 tablet (5 mg) by mouth every 4 hours as needed for Pain. CONTINUE taking these medications acetaminophen 500 mg capsule Commonly known as: TYLENOL allopurinol 100 mg Tabs Commonly known as: ZYLOPRIM amLODIPine 5 mg Tabs Commonly known as: NORVASC Aspirin 325 MG Capsule CHOLEcalciferol 1000 UNIT Tabs Commonly known as: VITAMIN D3 empagliflozin 25 mg Tabs tablet Commonly known as: JARDIANCE glipiZIDE 2.5 MG Tabs losartan 25 mg Tabs Commonly known as: COZAAR metoprolol tartrate 25 mg tablet Commonly known as: LOPRESSOR omega 3 1000 mg capsule Commonly known as: MAXEPA omeprazole 20 mg capsule Commonly known as: PriLOSEC simvastatin 10 mg Tabs Commonly known as: ZOCOR tab-a-maría tablet Where to Get Your Medications These medications were sent to [facility] Dis[facility] - [place] [id number] Hours: 03/05 oxyCODONE 5 mg tablet Discussed diagnosis and treatment plan with the patient. Patient verbalized understanding of condition and treatment plan. Patient seen by and discussed with Surgery Chief Resident and Staff Physician. Kimberly Perez APRN, LEDY, 07/20/2024 2:31 PM STATEMENT CLERKS SUPERVISOR- Trauma/General Surgery Pager: via telemediq I have spent 35 minutes with this patient today in which greater than 50% of this time was spent incounseling/coordination of care regarding in patient care, review of imaging/labs, chart review andconsultant recommendations. This was a shared visit with the DANDY, Kimberly Perez, on 07/20/24. I saw and evaluated the patient and discussed them; please see their note for the complete encounter. Ward elements of the visit include: I have spent 35 minutes with this patient today in which greaterthan 50% of this time was spent in counseling/coordination of care regarding diagnostic results, impressions and /or recommended diagnostic studies, prognosis, risks and benefits of management (treatment) options, instructions for management (treatment) and/or follow-up, importance of adherence to treatment, risk factor reduction, patient and family education, and Discharge planning. Chay Estrada MD, 07/21/2024 3:37 PM Surgery Service Attending Physician documented in this encounter Discharge Instructions * Discharge Instr - Physical Therapy* Jennifer Wagner Aurelio, PT - 07/20/2024 1:42 PM CDT Home safety/Falls prevention It is important to take steps to reduce your risk for falls when you get home. Falls can cause a wide variety of problems, most of which can be avoided by making your home and yard more safe. Please take some time to review these suggestions and get some help to make your home safe. General Safety Have someone check on you daily. Keep a list of emergency numbers near the phone. Always have a way to call for help. Keep a cell phone with you at all times. Sometimes the use of Sasets[employer]com monitoring service like ???Lifelink?? is recommended. Floors Put nonskid pads under area rugs or remove rug if necessary. Replace worn floor coverings. Keep floors and stairs free of clutter and cords. Arrange furniture so there are clear pathways. Clean up any spills right away. Bathrooms Install grab bars in the tub or shower. Apply nonskid strips or put a nonskid rubber mat in the tub or shower. If recommended, use a raised toilet seat, commode, shower chair or bath bench. Use bathroom rugs with nonskid backing. Add Safety Devices Add handrails to both sides of stairs where possible. Add grab bars near the toilet and in the shower. Use a ???boilermaker pipe fitter?? to help you reach things, and avoid climbing. Improve Lighting Add nightlights to halls, bedrooms, and bathrooms. Be sure each room and flight of stairs has proper lighting. Use shades or curtains to cut glare from windows. Put flashlights in each room. Take Other Precautions Put most-used items within easy reach. Save big jobs, such as moving furniture or other heavy objects, for family or friends. Get professional help installing grab bars. They can be unsafe if not installed the right way. Do not climb ladders or use step stools. Do not use power tools until your physician approves their usage. Fix Riskier Rooms First Don???t tackle everything at once. Focus on one room at a time. The bathroom is a common spot for falls, so you may start there. Or start with a room you spend lots of time in, such as your bedroom. Make only a few changes at once. This will give you time to adjust to them. Try to get some help when changing or moving things. Preventing Falls: Moving Safely Outside Moving safely outside your home can be a challenge. Take care when walking up and down stairs and curbs. Be sure to wear sturdy, comfortable shoes and pay attention to where you step. Here are more tips to keep you from falling. Outside Your Home You might arrange for these changes yourself, or you might need to talk to your buildings and grounds coordinator orhomeowners??? association about them. Have loose boards on porches or damaged stairs repaired. Have rough edges, holes, or large cracks in sidewalks or driveways marked and repaired. Have hazards that could trip you, such as hoses or brian, removed. Use high-wattage light bulbs (100 or greater) near outside doors and stairs. Get handrails added to outside stairs. Have them extend beyond the bottom step. Get help in winter weather with ice or snow removal. Using Curbs and Stairs Curbs, steps, or uneven pavement can trip you. Take care when near them. Check the height of a curb before stepping up or down. Be careful with uneven and cut-out sections of curbs. Don???t baez when crossing the street. Watch for changes in pavement height. On stairs, grasp the handrail and take one step at a time. If you ever feel dizzy on stairs, sit down until you feel better. Wearing Shoes That Keep You Safe When you shop for shoes, keep these things in mind: Choose shoes with rubber or nonskid soles. Athletic shoes are a good choice. Choose flats or shoes with low heels. Avoid high heels or platforms. All footwear should be sturdy and well-fitting. Don???t wear flip-flops or backless shoes or slippers. Don???t walk around in stocking feet. Shoes are your safest bet, even when indoors. If you like, keep one pair of shoes just for indoors. Moving Objects from Place to Place Carrying objects can be hard, especially if you use a cane or walker. These tips can make it easier: Use a rolling cart to carry things like groceries. Wear clothes with large pockets for carrying small objects. Divide large loads into smaller loads. That way, you can always keep one hand free for grasping railings. Don???t carry objects that block your view. That???s a sure way to trip. documented in this encounter Medications at Time of Discharge Medication Sig Dispensed Refills Start Date End Date acetaminophen (TYLENOL) 500 mg oral capsule Take 2 capsules (1,000 mg) by mouth twice daily. allopurinol (ZYLOPRIM) 100 mg oral TABS Take 1 tablet (100 mg) by mouth daily. amLODIPine (NORVASC) 5 mg oral TABS Take 1 tablet (5 mg) by mouth daily. Aspirin 325 MG oral capsule Take 325 mg by mouth daily. CHOLEcalciferol (VITAMIN D3) 1000 UNIT oral TABS Take 1 tablet (1,000 UNITS) by mouth daily. empagliflozin (JARDIANCE) 25 mg oral TABS tablet Take 0.5 tablets (12.5 mg) by mouth daily. glipiZIDE 2.5 MG oral TABS Take 2.5 mg by mouth daily. losartan (COZAAR) 25 mg oral TABS Take 1 tablet (25 mg) by mouth daily. metoprolol tartrate (LOPRESSOR) 25 mg oral tablet Take 1 tablet (25 mg) by mouth twice daily. tab-a-maría oral tablet Take 1 tablet by mouth daily. omega 3 (MAXEPA) 1000 mg oral capsule Take 1 capsule (1,000 mg) by mouth daily. omeprazole (PRILOSEC) 20 mg oral capsule Take 1 capsule (20 mg) by mouth twice daily. simvastatin (ZOCOR) 10 mg oral TABS Take 1 tablet (10 mg) by mouth at bedtime. oxyCODONE (ROXICODONE) 5 mg oral tablet Take 1 tablet (5 mg) by mouth every 4 hours as needed for Pain. 5 tablet 07/20/2024 07/25/2024 documented as of this encounter Progress Notes * Clif Dean - 07/20/2024 9:12 AM CDTSummary: Care Coordination Assessment Problem: Discharge Planning Goal: Discharge planning for a safe and timely discharge Outcome: In progress Goal: Patient/Family Goals for Discharge Outcome: In progress Care Coordination Assessment Expected DC Date: TBD Social Information Tongue Stitcher Used: None needed Decision Maker at Admission: Not known Living Situation: Home (Lives alone in a first- floor apartment. No stairs) Patient Identified Support System: Eliana and Dima Matthews, good friends who live nearby Services Receiving: DME (see comment) (4WW at home) Complex Medical Needs: Other (see comment) (TBD) Transportation Used for Discharge: Friends will mushroom picker Safety Concerns: None Behavioral Health Concerns: None Patient Family Goals Patient's Discharge Goal: Home Family's Discharge Goal: n/a Plan/Interventions Expected Discharge Disposition: Home or Self Care Was Patient Choice Provided?: Yes Who was Choice Provided to?: Patient Patient Information Verification Verified demographic information, including SSN, Next of Kin, and Guardianship: Yes Verified PCP: Yes If post-acute placement is needed, have vaccination status needs been addressed?: Yes Risks for Readmission: Access to f/u appointments 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 Is patient OK with Post Acute placement? YES, if needed. Choice(s) given to patient/family. Destinations updated. Preferred place(s) marked with a star. Patient/family aware we can't guarantee placement in their preferred place, this is up to facility, insurance coverage and bed availability. Patient says his/her PCP is: Dr Laboy from the [facility] in [place]. * Evan Yost MD - 07/20/2024 6:36 AM CDT VASCULAR SURGERY PROGRESS NOTE-PGY 1 24 Hour Events: SLADE since arrival, VSS, mentation unchanged SUBJECTIVE: S: Patient reports feeling much improved, with swelling decreasing significantly in the R knee. Pain well controlled. Denies n/v/f/chills. PHYSICAL EXAM: BP 115/73 (Cuff Location: Right Arm) Pulse 97 Temp 36.3 ??C (97.4 ??F) (Oral) Resp 16 Ht 1.727 m (5' 8) Wt 126.1 kg (278 lb) SpO2 98% BMI 42.27 kg/m?? Neuro: A&Ox3, no focal deficits Gen: comfortable, no acute distress Resp: nonlabored breathing Abd: soft, nontender, nondistended Ext: warm, well perfused. DP/PT Pulses intact to the RLE, swelling has decreased considerably with RU wrap, +1 edema to the RLE LABS: CMP Lab Results Component Value Date/Time NA 142 07/19/2024 1258 K 4.6 07/19/2024 1258 CHLORIDE 108 07/19/2024 1258 GLU 127 (H) 07/19/2024 1258 CR 2.57 (H) 07/19/2024 1258 ALBUMIN 3.7 (L) 07/19/2024 1258 TPRO 6.2 (L) 07/19/2024 1258 ALP 113 07/19/2024 1258 ALT 11 07/19/2024 1258 AST 16 07/19/2024 1258 TBILI 0.3 07/19/2024 1258 BMP Lab Results Component Value Date/Time NA 142 07/19/2024 1258 K 4.6 07/19/2024 1258 CHLORIDE 108 07/19/2024 1258 GLU 127 (H) 07/19/2024 1258 CR 2.57 (H) 07/19/2024 1258 CBC Lab Results Component Value Date/Time WBC 10.93 (H) 07/19/2024 1258 RBC 3.33 (L) 07/19/2024 1258 HGB 11.2 (L) 07/19/2024 1258 HGB 11.9 (L) 07/19/2024 1258 HCT 33.6 (L) 07/19/2024 1258 PLT 252 07/19/2024 1258 Coagulation Lab Results Component Value Date/Time PT 10.6 07/19/2024 1258 INR 1.0 07/19/2024 1258 APTT 31.2 07/19/2024 1258 RADIOLOGY: CT LOW EXTREMITY - ANGIO - W/IV CON (07/19/2024 13:59) Impression: Right lower extremity hematoma with a tiny focus of active extravasation. ASSESSMENT: 73 y.o. male with past medical history peripheral neuropathy frequent falls, hypertension, DM2 who presents for evaluation after a fall from standing while vacuuming. He struck his head and right knee, was found in outside hospital emergency department to have large right knee hematoma and ultrasound concerning for small area of active extravasation. Patient transferred here for vascular surgery consult, imaging here consistent with a tiny focus of active extravasation CT angiography. Patient has patent flow in the popliteal, three- vessel rise to the right lower extremity with dopplerable popliteal/DP/PT pulses, intact sensation and motor function, soft compartments. Swelling significantly improved today, extravasation from unnamed/geniculate vessel likely controlled. PLAN: -No acute vascular surgery intervention -Continue observation for hematoma which seems to be resolving, compression with RU wrap with breaks for skin integrity -Up with assist OK from vascular perspective -Vascular will sign off, no indication for clinic follow up Disposition: per primary Discussed with Dr. Yost. Jonathan Ford MD, 07/20/2024 6:36 AM PGY-1 TY Vascular Surgery FACULTY NOTE: VASCULAR SURGERY Date of Service: 07/20/2024 I saw and evaluated the patient today, 07/20/2024. I discussed with the resident and agree with thefindings and plan documented in their note. Stable bruising around right knee area. No evidence of expanding hematoma. Call if problems. Follow-up as needed Evan Yost MD, 07/20/2024 1:14 PM [facility] Vascular Surgery Staff Dictated with voice recognition software. Please excuse any food and drug inspector errors. * Jaja Chavez RN - 07/19/2024 10:51 PM CDT Upon admission, a Four Eyes Skin Inspection was completed with ABIMBOLA Gates (dry charge process attendant on duty). Skin injuries were present, and skin breakdown needing further assessment will be added to Avatar. Will implement interventions from Skin INJURY Bundle as appropriate. x1 hematoma/abrasion to RLE (knee) noted upon 4 eyes skin inspection. This injury has already been noted in chart for pt., but was NOT added to LDA, so this public relations writer added skin injury to LDA. No other skin injuries noted. Jaja Chavez RN, 07/19/2024 10:54 PM * Jaja Chavez RN - 07/19/2024 8:40 PM CDT NURSING ADMISSION NOTE Shaggy Gould : 1950 SEX: male D: Shaggy Gould was admitted to [facility] from [facility] ED at 2034 for Fall, initial encounter Injury of right knee, initial encounter . Patient: alert, oriented to person, place and time. Skin:will perform 4 eyes skin assessment to assess for further skin imjury. Pain: non-existent. BP 115/66 Pulse 119 Temp 36.2 ??C (97.2 ??F) (Oral) Resp 16 Ht 1.727 m (5' 8) Wt 126.1 kg (278 lb) SpO2 95% BMI 42.27 kg/m?? A: Pt oriented to unit, room, and use of call light. Routine admit screens completed. Telemetry placed, rhythm documented. R:PATIENT AND/OR FAMILY: patient was able to verbalize understanding of unit policy and plan of care. Questions answered. Learning considerations: Visually impaired (wears reading glasses, chronic floaters d/t glaucoma). P: Implement orders as received. Will continue to monitor, follow plan of care, and notify providerand/or team as needed. Jaja Chavez RN, 07/19/2024 8:41 PM Patient Belonging 07/19/2024 2017 Reason for Inventory: Admission Patient or family informed of Patient Valuables and Belongings Policy (#[id number]): Policy reviewed - patient/family/designee has indicated that he/she will assume responsibility of patient valuables * Burton Lacy MDIV - 07/19/2024 7:40 PM CDT SPIRITUAL CARE VISIT SUMMARY Shaggy Gould : 1950 Sex: male LOS: 0 days Reason for visit: Referral Assessment: Pt/family coping/relieved Intervention: Compassionate support;Facilitate communication Outcome: Gratitude expressed;Situation assessed Notes: I met with Shaggy at bedside during rounds. Shaggy shared that he was waiting to be moved to the floor and had no support needs at this time. Plan: Spiritual Care Team is available to support patient and family as needed via number [phone]. Burton Lacy MDIV, 07/19/2024 7:40 PM Number: [phone] * Violet Agustin MDIV - 07/19/2024 2:46 PM CDT Integration Technician Stabilization Room Note Shaggy Gould : 1950 Sex: male LOS: 0 days Initial Description: Shaggy Gould arrived in STAB 4, as a transfer from [place]. Concern of a fall from standing, with significant swelling (arterial bleeding suspected). Patient and Family Context: Shaggy is awake and able to express needs. He has his own cell phone, and appreciated knowing there are more supports if desired. Shaggy indicates that he lives alone. No one is aware of his arrival at [facility]. Plan: Spiritual Care Team is available to support patient and family as needed via number [phone]. Violet Agustin MDIV, 07/19/2024 2:46 PM Number: [phone] documented in this encounter H&P Notes * Chay Estrada MD - 07/19/2024 1:09 PM CDT TRAUMA SURGERY HISTORY AND PHYSICAL - MS3 Shaggy Gould : 1950 Sex: male Patient Arrival Date and Time: 07/19/2024 12:55 History of Present Injury Event: 73 year old male with pmhx of peripheral neuropathy, diffuse TIA (2000), HTN, and TIIDM who presented to OSH after fell forward while vacuuming. [facility]. He hit his knee and head on the wall when he fell. He did not hit any other part of his body when he fell. Patient endorses remembering the fall and did not lose consciousness. He was able to get up and bear weight on his knee after his fall, but called 911 himself when the swelling got worse. Head CT done at OSH with no significant findings. LOC: No INJURY CAUSE: Fall. From standing. Protective Devices: None Trauma Team Activated: Yes - Tier 2 Trauma Team Notified by: Tier Level page received at 13:05 Staff Surgeon: Chay Estrada Pediatric Patient < 15 years: No. Maur[facility]io Trauma Team Time Out Completed: Not applicable HISTORY Past Medical History: No past medical history on file. Endorses hx of DMII, HTN, and diffuse TIA [id number] Past Surgical History: Bilateral knee replacements, but no other surgical history Social History: - 13 year smoking history, but stopped 1985 - Denies use of alcohol or other drugs Family History: No family history on file. Medications: ASA, other medications not obtained at this time Allergies: Unable to obtain Patient accepts blood products: Not inquired of patient/family at this time REVIEW OF SYSTEMS General: negative HEENT: No changes in vision, double vision, or blurry vision Neurological: Denies headaches, some tingling in bilateral feet but at neurologic baseline Respiratory: No SOB Cardiac: No chest pain Gastrointestinal: No nausea or vomiting Musculoskeletal: R knee pain with movement PHYSICAL EXAM Vital Signs: BP: 104/48 (07/19/24 1318) Pulse: 82 (07/19/24 1321) Resp: 17 (07/19/24 1321) SpO2: 97 % (07/19/24 1321) Temp: 36.5 ??C (97.7 ??F) (07/19/24 1303) [place] Coma Scale: Motor 6=Obeys commands Verbal 5=Oriented Eye opening 4=Spontaneous TOTAL 15 Neurologic: alert and oriented, moves all extremities, strength symmetrical, and no sensory deficits HEENT Eyes: normal; pupils: PERRL Head: R frontal scalp hematoma Ears: normal externally; tympanic membranes: not examined Nose/sinus: normal Throat/Oropharynx: normal Face: normal Neck: normal Chest: normal, clear to auscultation bilaterally, non tender to palpation Pulmonary: Breath sounds clear, symmetrical. No increased WOB Cardiovascular Heart: Rhythm regular, rate normal Peripheral vascular: Palpable bilateral radial pulses, Dopperable bilateral DP and PT pulses Gastrointestinal Abdominal:soft, nontender, nondistended Rectal: not examined Genitourinary: not examined Musculoskeletal Back: No evidence of injury Extremities: No evidence of injury Upper: Both upper extremities have normal joint range of motion and intact strength. Lower: Bilateral knee replacement scars R: ecchymoses and edematous knee w/ mild tenderness to palpation and pain with passive movement L: no evidence of injury Pelvic Stability: Stable PROCEDURES None performed REVIEW OF LABORATORY DATA Lab Results BMP Lab Results Component Value Date/Time NA 142 07/19/2024 1258 K 4.6 07/19/2024 1258 CHLORIDE 108 07/19/2024 1258 GLU 127 (H) 07/19/2024 1258 CR 2.57 (H) 07/19/2024 1258 CBC Lab Results Component Value Date/Time WBC 10.93 (H) 07/19/2024 1258 RBC 3.33 (L) 07/19/2024 1258 HGB 11.2 (L) 07/19/2024 1258 HGB 11.9 (L) 07/19/2024 1258 HCT 33.6 (L) 07/19/2024 1258 PLT 252 07/19/2024 1258 IMAGING RESULTS (Include outside hospital results) CXR: Hazy opacities over the right hemidiaphragm favored atelectasis. Possible cardiomegaly, although that may be artifactual or at least exaggerated by technique. CT Lower Extremity with Angio Right lower extremity hematoma with a tiny focus of active extravasation. ASSESSMENT Current known injuries: - R lower extremity hematoma with tiny focus of active extravasation - R frontal scalp hematoma TREATMENT PLAN (Include future diagnostic studies, procedures and surgery) Admit to [facility] Trauma Surgery Service Vascular Surgery Consult paged out at unknown time. Vascular Surgery resident arrived at unknown time,prior to trauma team. Was IR Team activated for emergent hemorrhage control? No Incentive Spirometer NPO until final reads on radiography Consult EVALUATION ASSISTANT and keep strict NPO if EVALUATION ASSISTANT consult not indicated at this time Aspiration precautions PT/OT with Cog Screen when appropriate Order Delirium Order Set for Age > 65 DVT ppx: SCD's, chemoprophylaxis to be held at this time due to Bleeding Tertiary exam in AM Compression dressing for R knee hematoma Q4h doppler checks of R lower extremity Arterial ultrasound 07/20 Saida Alba, MS, 07/19/2024 1:36 PM RESIDENT WITH STUDENT: I saw the patient with the medical student today, 07/19/2024 and performed, or re-performed, the physical exam and medical decision-making in the provision of this service and have verified the accuracy of all the medical student documentation and edited as necessary. Sindi Al MD, 07/19/2024 3:48 PM Sindi Al MD, 07/19/2024 3:48 PM PGY1 TY Resident FACULTY NOTE I saw and evaluated the patient on the date of the resident's note. I discussed with the resident and agree with the resident???s findings and plan documented in the resident???s note from above. Anyrevisions by me are documented. I saw the patient within 4 hours of arrival. Patient has either an acute illness posing a threat to bodily function and/or one acute/chronic illness with severe exacerbation, progression, or side effects from treatment This case was discussed with physicians from the primary team I have reviewed the patient's allergies, family history, medical history, social history and surgical history as reported in EPIC and the available outside medical records. This case was discussed with: Radiologist This case involved a new problem for this patient I have visualized and independently reviewed: Labs and Imaging This patient requires IV opiates/benzos Chay Estrada MD, 07/19/2024 6:50 PM documented in this encounter Consult Notes * Sindi Freeman, PharmD - 07/20/2024 2:51 PM CDTAssociated Order(s): DISCHARGE MED REC FINAL REVIEW BY PHARMACY PHARMACY DISCHARGE NOTE Shaggy Gould : 1950 Sex: male Pharmacy service was consulted for review of patient's discharge medications. Assessment: Pertinent points to note: I have reviewed the patient's medications for discharge and have discussed the necessary changes with the provider. Changes have been made and medication list updated and complete. Please page with any questions. Sindi Freeman PharmD 07/20/2024 14:51 For questions regarding this note, please contact pharmacist on service at [facility] ([employer]) [phone]. If no response within needed timeframe, please contact central pharmacy via phone at [phone]. Planned discharge medications are: Medication List Medications Indications acetaminophen 500 mg capsule Commonly known as: TYLENOL Take 2 capsules (1,000 mg) by mouth twice daily. allopurinol 100 mg Tabs Commonly known as: ZYLOPRIM Take 1 tablet (100 mg) by mouth daily. amLODIPine 5 mg Tabs Commonly known as: NORVASC Take 1 tablet (5 mg) by mouth daily. Aspirin 325 MG Capsule Take 325 mg by mouth daily. CHOLEcalciferol 1000 UNIT Tabs Commonly known as: VITAMIN D3 Take 1 tablet (1,000 UNITS) by mouth daily. empagliflozin 25 mg Tabs tablet Commonly known as: JARDIANCE Take 0.5 tablets (12.5 mg) by mouth daily. glipiZIDE 2.5 MG Tabs Take 2.5 mg by mouth daily. losartan 25 mg Tabs Commonly known as: COZAAR Take 1 tablet (25 mg) by mouth daily. metoprolol tartrate 25 mg tablet Commonly known as: LOPRESSOR Take 1 tablet (25 mg) by mouth twice daily. omega 3 1000 mg capsule Commonly known as: MAXEPA Take 1 capsule (1,000 mg) by mouth daily. omeprazole 20 mg capsule Commonly known as: PriLOSEC Take 1 capsule (20 mg) by mouth twice daily. oxyCODONE 5 mg tablet Commonly known as: ROXICODONE Take 1 tablet (5 mg) by mouth every 4 hours as needed for Pain. New - #5 tablets prescribed. simvastatin 10 mg Tabs Commonly known as: ZOCOR Take 1 tablet (10 mg) by mouth at bedtime. tab-a-maría tablet Take 1 tablet by mouth daily. * Jennifer Wagner, PT - 07/20/2024 1:38 PM CDT PHYSICAL THERAPY GAIT EVALUATION Shaggy Gould was seen 07/20/2024 for a Physical Therapy Gait Evaluation. PT Discharge Recommendations Discharge Recommendations: Safe for discharge to home/community/prior residence Barriers to discharge to home/community: None - Patient is safe to DC from PT standpoint If discharging to home, would need: No physical assistance needed Post discharge follow-up: No PT follow-up needs after discharge Equipment Status: Patient will provide own equipment PT Equipment Recommended: Four wheeled walker DIAGNOSIS Patient Active Problem List Diagnosis Fall, initial encounter PT Treatment Diagnosis: Difficulty in Walking R 26.2 PRECAUTIONS Falls Tongue Stitcher Used: None needed ACTIVITY Up with Assist Physical Therapy Orders: Orders Placed This Encounter Procedures PT EVALUATION AND TREATMENT Standing Status: Standing Number of Occurrences: 1 Order Specific Question: Reasons for eval? Answer: As Per Dx Order Specific Question: OK for out of bed activity? (Update Activity Order) Answer: Yes HISTORY Pertinent History: See H&P Note Medical History No past medical history on file. SOCIAL HISTORY Information gathered from: Patient Home: Apartment Prior level of function: modified independent with 4WW Baseline Ambulation: Independent community ambulation Assist available at home: Yes, not 24 hour. Has friends that live nearby that can assist Stairs required at home: No Previous assistive device used: 4 -wheeled walker SUBJECTIVE Patient's stated goals: To go home Pain: 2/10 with activity located in R knee Mental Status: Oriented X 3, Alert, and Cooperative OBJECTIVE Initial patient presentation upon PT arrival: Pt supine on arrival with R knee ru wrapped Motor ROM/Strength: (Deficits only) A = Active P = Passive AA = Assisted Upper Ext Right ROM Right MMT Left ROM Left MMT WFL x x x x Shoulder Flexion Shoulder ABDuction Elbow Flexion Elbow Extension Lower Ext Right ROM Right MMT Left ROM Left MMT WFL x x x x Hip Flexion with Knee Flexion Knee Flexion Knee Extension Dorsiflexion Comments: Transfers & Bed Mobility: Supine to Sit: Complete [place] Sit to Supine: Complete [place] Sit to Stand: Modified [place] Stand to Sit: Modified [place] Gait Evaluation: Distance: 50 meters Assistive Device: Front - wheeled walker Assistance (Level): Modified [place]- Patient requires brace or prosthesis,special adaptive shoes, cane ,crutches,or walker to walk, or takes more than a reasonable amount of time to complete the activity, or there are safety considerations. Gait Deviations: None Stairs: Number of Stairs: NT as pt has no stairs at home Positioning: Pt returned to supine with call light in reach and bed alarm engaged. Interdisciplinary Communication: RN: ok to see Treatment rendered: Bed mobility training;Transfer training;Gait training Total treatment time: 20 minutes ASSESSMENT Pt is a 73 y/o male with PMH of DM2 and neuropathy admitted s/p fall while vacuuming and sustained a R knee hematoma. Pt presents with WFL ROM and strength and was able to perform all mobility modified independent with FWW. Pt has a 4WW at home. Pt is safe to discharge home. No further PT needs at this time. PLAN Patient does not require any further skilled IP PT intervention at this time. Participated in goal setting and treatment planning: Patient Agrees with goals and treatment plan: Patient - Yes. Jennifer Wagner PT License #[id number] 07/20/2024 Pager: [facility] PT Department * Evan Yost MD - 07/19/2024 2:01 PM CDT VASCULAR SURGERY NEW PATIENT CONSULT PGY-4 Shaggy Abundio Gould : 1950 Sex: male Date of Service: 07/19/2024 Indication for consultation: Concern for popliteal injury Requesting physician: Dr. Jay Patrick IMPRESSION: 73 y.o. male with PMHx of peripheral neuropathy with frequent falls, HTN, DM2 who presents after hefell while vacuuming. Patient reports he fell into a wall and hit his head and R knee. Large R kneehematoma with imaging concerning for small area of extravasation in the right knee. Patent flow in popliteal artery. Three vessel run off to RLE, with dopplerable popliteal, DP and PT pulses, sensation and motor function intact, soft compartments. RECOMMENDATIONS AND PLAN: 1. No acute vascular surgery intervention 2. Recommend observation for expanding hematoma, recommend compression with RU wrap 3. Qshift pulse checks of RLE 4. Vascular will continue to follow CHIEF COMPLAINT: Fall HISTORY OF PRESENT ILLNESS: 73 y.o. male who presents with after a fall today. Patient reports he fell while vacuuming into the wall. Reports hitting his head and R knee. Denies LOC, denies headaches, dizziness, nausea, vomiting, R knee mildly tender to palpation 3/10, large hematoma present. Denies weakness, numbness, tingling, coolness to RLE. Patient presented to [facility], showing large pre-patellar hematoma with adjacent artery. Unable to conclude arterial injury. PAST MEDICAL HISTORY: HTN, CVA, peripheral neuropathy, DM2 PAST SURGICAL HISTORY: Knee replacements bilateral PAST SOCIAL HISTORY: Denies alcohol, smoking or drug use MEDICATIONS: Current Outpatient Medications Medication Instructions acetaminophen (TYLENOL) 500 mg oral capsule 2 capsules, Oral, BID allopurinol (ZYLOPRIM) 100 mg, Oral, DAILY amLODIPine (NORVASC) 5 mg, Oral, DAILY Aspirin 325 mg, Oral, DAILY CHOLEcalciferol (VITAMIN D3) 1,000 UNITS, Oral, DAILY empagliflozin (JARDIANCE) 12.5 mg, Oral, DAILY glipiZIDE 2.5 mg, Oral, DAILY losartan (COZAAR) 25 mg, Oral, DAILY metoprolol tartrate (LOPRESSOR) 25 mg, Oral, DAILY omega 3 (MAXEPA) 1,000 mg, Oral, DAILY omeprazole (PRILOSEC) 20 mg, Oral, BID simvastatin (ZOCOR) 10 mg, Oral, BEDTIME tab-a-maría oral tablet 1 tablet, Oral, DAILY ALLERGIES: Allergies Allergen Reactions Lisinopril-Hydrochlorothiazide Confusion Glyburide-Metformin Unknown FAMILY HISTORY: Denies family hx of heart conditions, lung conditions, cancers REVIEW OF SYSTEMS: A complete 10 point review of systems was performed and is negative with exception of the HPI PHYSICAL EXAMINATION: BP 104/48 Pulse 82 Temp 36.5 ??C (97.7 ??F) Resp 17 Wt 124.7 kg (275 lb) SpO2 97% General appearance: alert, oriented, distress HEENT: Head is normocephalic and atraumatic. Moist mucus membranes Eyes: Pupils are equal round, and reactive to light. Extraocular muscles are intact. Cardiovascular: RRR, dopplerable R popliteal, DP, PT pulses Pulmonary: Regular respiratory effort on room air, no cough Musculoskeletal: Large R knee hematoma, overlying abrasion, R compartments soft Neurologic: Cranial nerves II-XII grossly intact, sensory and motor innervation intact and symmetric. Sensation intact in B/L, 5/5 strength in BLE Skin: Large right knee hematoma with ecchymosis and overlying abrasion, R scalp hematoma REVIEW OF LABORATORY, PATHOLOGY, RADIOLOGY DATA, and MEDICAL DECISION MAKING: Lab Results Component Value Date/Time NA 142 07/19/2024 1258 K 4.6 07/19/2024 1258 CHLORIDE 108 07/19/2024 1258 GLU 127 (H) 07/19/2024 1258 CR 2.57 (H) 07/19/2024 1258 Lab Results Component Value Date/Time WBC 10.93 (H) 07/19/2024 1258 RBC 3.33 (L) 07/19/2024 1258 HGB 11.2 (L) 07/19/2024 1258 HGB 11.9 (L) 07/19/2024 1258 HCT 33.6 (L) 07/19/2024 1258 PLT 252 07/19/[address] LOW EXTREMITY - ANGIO - W/IV CON (07/19/2024 13:59) IMPRESSION Impression: Right lower extremity hematoma with a tiny focus of active extravasation. Patient discussed with Dr. Yost. Keesha Patel MD General Surgery, PGY4 FACULTY NOTE: VASCULAR SURGERY Date of Service: 07/19/2024 I saw and evaluated the patient today, 07/19/2024. I discussed with the resident and agree with the findings and plan documented in their note. Patient seen and examined in the emergency department. Marked swelling of the left knee area. Palpable DP and PT pulse. Inspection of the CT angiogram with radiology showed a small area of extravasation just underneath the skin in the area of the distal thigh and knee. This is a small probable unnamed geniculate vessel. Not a major named vessel. Would recommend simple external compression of the area of the hematomaat this point. Evan Yost MD, 07/19/2024 5:41 PM [facility] Vascular Surgery Staff Dictated with voice recognition software. Please excuse any food and drug inspector errors. documented in this encounter ED Notes * Noni Sharp PA-C - 07/19/2024 1:27 PM CDT ED Provider Note Shaggy Abundio Luis Fernando : 1950 Sex: male Patient Arrival Date and Time: 07/19/2024 12:55 PM Noni Sharp PA-C, 07/19/2024 1:27 PM TRANSFER OF CARE NOTE HPI & ED Course: -73 y.o. male presents after a fall at home, while vacuuming, landed on R knee and head. - pt was initially seen at OSH - R Knee initially had a large amt of swelling, concern for arterialbleed. Pt has bilat knee replacements . - Neg head CT - Pt transferred to [facility] for eval of possible R arterial bleed in R knee - pt A&O on ED arrival here, neuro intact - both Ortho vasc surgery consulted - rad called to update, that knee CT appears to have an active extravasation - surgery update on above info XR CHEST 1 VIEW AP OR PA* See Chart Review for Final Result Impression: Hazy opacities over the right hemidiaphragm favored atelectasis. Possible cardiomegaly, although that may be artifactual or at least exaggerated by technique. Reading Radiologist: Terry Grissom ED US CRITICAL CARE (Results Pending) CT LOW EXTREMITY - ANGIO - W/IV CON (Results Pending) Plan: Orders Placed This Encounter XR CHEST 1 VIEW AP OR PA* CT LOW EXTREMITY - ANGIO - W/IV CON BLOOD GASES CBC WITH PLTS/AUTO DIFF ED CHEMISTRY LABS(NA,K,CL,CO2,GLU,CREAT,CA-IONIZED,ANION GAP) ED HEMOGLOBIN TOTAL (ED ONLY) PANEL HEPATIC FUNCTION FIBRINOGEN Initial Lactate PRECAUTIONARY TUBE ED INR PROTHROMBIN (PT) & INR PTT (APTT) ETHANOL (ETOH) LEVEL, BLOOD HS TROPONIN TROP 2H TROP 4H TROP 6H ED CARDIAC MONITORING OXIMETRY-CONT (ED/PACU/L&D/OR/IR) PERIPHERAL IV acetaminophen (TYLENOL) 500 mg oral capsule allopurinol (ZYLOPRIM) 100 mg oral TABS amLODIPine (NORVASC) 5 mg oral TABS Aspirin 325 MG oral capsule CHOLEcalciferol (VITAMIN D3) 1000 UNIT oral TABS empagliflozin (JARDIANCE) 25 mg oral TABS tablet glipiZIDE 2.5 MG oral TABS losartan (COZAAR) 25 mg oral TABS metoprolol tartrate (LOPRESSOR) 25 mg oral tablet tab-a-maría oral tablet omega 3 (MAXEPA) 1000 mg oral capsule omeprazole (PRILOSEC) 20 mg oral capsule simvastatin (ZOCOR) 10 mg oral TABS BLOOD CULTURES FOR SEPSIS BLOOD CULTURES FOR SEPSIS URINALYSIS,TOTAL Results: Results for orders placed or performed during the hospital encounter of 07/19/24 (from the past 24 hour(s)) BLOOD GASES Result Value Ref Range PH Andrew 7.38 7.32 - 7.42 PCO2 Andrew 37 (L) 41 - 51 mmHG PO2 Andrew 37 25 - 40 mmHG Bicarb Andrew 21 (L) 24 - 28 mEq/L O2 Sat Andrew 65 % Base Exc Andrew -3.8 -10.0 - 2.0 mmol/L ED CHEMISTRY LABS(NA,K,CL,CO2,GLU,CREAT,CA-IONIZED,ANION GAP) Result Value Ref Range Sodium 142 135 - 148 mmol/L Potassium 4.6 3.5 - 5.3 mmol/L Chloride 108 92 - 108 mmol/L AnGap 13 8 - 16 mmol/L Glucose 127 (H) 70 - 100 mg/dL ICA, Actual 4.64 4.40 - 5.20 mg/dL ICA, pH Corrected 4.58 4.40 - 5.20 mg/dL Creatinine 2.57 (H) 0.70 - 1.25 mg/dL BICARB 21 (L) 22 - 26 mEq/L eGFR (2020 CKD-EPI) 26 (L) >=60 ml/min/1.73m2 ED HEMOGLOBIN TOTAL (ED ONLY) Result Value Ref Range Hgb 11.9 (L) 13.1 - 17.5 g/dL LACTATE (LACTIC ACID) Result Value Ref Range Lactate 1.5 0.7 - 2.1 mmol/L Narrative Send specimen on ice! ED INR Result Value Ref Range ED INR 1.1 0.8 - 1.1 Workup Pending: - surgery recs Transfer of Care Plan: - above Final ED Course, Disposition, and Plan: - pt remained stable in ED, VSS - surgery recs for Compression dressing place on R knee, cont Obs admit but less concern about active arterial bleed, at this time, stated did not feel pt required q4 dopplers in ED. Pt verbalizes understanding and agreement with this plan. Questions answered at this time. Assessment and plan discussed with faculty physician. Final assessment: 1. R Knee injury - possible arterial bleed * Darrell Almonte RN - 07/19/2024 1:05 PM CDT Pt fell at home today while vacuuming, landing on his right knee and head. Pt's right knee has significant edema since fall, pt stats the edema has decreased since fall. No LOC, Outside head CT negative. In Stab room pt A/O X's 3, neuro intact, conversational, CMS intact in affected extremity. * Raegan Smyth RN - 07/19/2024 12:33 PM CDT Pt transferring from [place]. Per report, pt fell onto his knee and had noted large amt of swelling. After arrival to ED, pt had a noted active arterial blood. Has 18g IVs x2. No blood given. Hgb 11.4 BP lower in the 90s. Given NS 500 cc. ETA 1235. documented in this encounter Miscellaneous Notes * Nursing Assessment - Jose Euceda RN - 07/20/2024 3:50 PM CDT Nursing Assessment Head to Toe Head to Toe Assessment Shift Summary A&Ox4, VSS, LE Pulses in tact. Denies pain/nausea and vomiting and shortness of breath. No acute events this shift; plan is to DC to home this afternoon. Jose Euceda RN, 07/20/2024 3:51 PM Neurologic/Cognitive Within Defined Limits Frequent Neuro Assessments have been documented in the flowsheets HEENT Assessment Within Defined Limits except for: Comments: Wears glasses Cardiac Assessment Within Defined Limits except for: Water Supply Engineer - remote telemetry Comments: Sinus tachycardia Respiratory Within defined limits Neurovascular Assessment Within Defined Limits except for: Neurovascular LLE Sensation: Chronic, sensation decreased and tingling Neurovascular RLE Sensation: Chronic, sensation decreased and tingling Post Tibial Pulse: 2+ Pedal Pulse: 2+ Edema Present: Yes Right Lower Extremity: 2+ Left Lower Extremity: 2+ Gastrointestinal Within Defined Limits Stool (unmeasured): 1 (07/20/24 1400) Stool Amount: moderate (07/20/24 1400) Genitourinary Within Defined Limits Musculoskeletal Assessment Within Defined Limits except for: Musculoskeletal Assessment: General Mobility: Generalized weakness and mildly impaired Range of Motion: RLE - mildly impaired and brace/immobilizer/splint/sling/cast Integumentary Assessment Within Defined Limits except for: Skin Assessment Integrity - see Avatar LDA documentation Integrity Location - RLE (knee) Patient Lines/Drains/Airways Status Active LDAs Name Placement date Placement time Site Days Wound 07/19/24 Abrasion Knee Anterior;Right;Upper;Mid 07/19/24 2243 Knee less than 1 Psychosocial Within Defined Limits Jose Euceda RN, 07/20/2024 3:50 PM * Trauma Tertiary Exam - Chay Estrada MD - 07/20/2024 1:23 PM CDT TRAUMA TERTIARY EXAM - COREMAKER SUPERVISOR First Exam Shaggy Gould : 1950 Sex: male Subjective: He reports mild pain to right knee. Denies LOC. Denies H/A, dizziness/lightheadedness, change in vision, chest pain, difficulty breathing, N/V, abdominal pain. Reports chronic BLE neuropathy. Admit Date & Time: 07/19/2024 12:55 PM No past medical history on file. Mental Status Adequate for Exam: Yes Examiner: Kimberly Perez APRN, STATEMENT CLERKS SUPERVISOR, 07/20/2024 1:23 PM Primary Team: [facility] Date/Time Completed: 07/20/2024 14:08 Vital Signs: BP 136/71 (Cuff Location: Right Arm) Pulse 78 Temp 36 ??C (96.8 ??F) (Tympanic) Resp 16 Ht 1.727 m (5' 8) Wt 126.1 kg (278 lb) SpO2 99% BMI 42.27 kg/m?? Glascow Coma Scale: Motor 6=Obeys commands Verbal 5=Oriented Eye opening 4=Spontaneous TOTAL 15 General: Alert, cooperative, no acute distress Neuro: Oriented x 3, moves all extremities, strength symmetrical, no sensory deficits, cranial nerves intact Head: Normocephalic. Eyes: Sclera white, no discharge, EOM Intact, PERRL Ears: External ears normal. Bilateral Tympanic membranes Clear. Nose: External nares normal. Septum Midline and without Hematoma. Neck: Supple. No midline tenderness. Mouth: Oral mucosa pink and intact. Cardiovascular: Rate as noted, regular rhythm Chest Wall: No focal tenderness to palpation, equal rate and rise. Pulmonary: Breathing comfortably RA, breath sounds clear/equal bilaterally GI: Soft, non-distended, non-tender, BS Active x 4 : No lesions present, no injuries Back: Non-tender, spine without tenderness or step-offs Musculoskeletal: All joints with full active ROM; no deformity; stable pelvis. All long bones non-tender to palpation. Extremities: Warm, distal pulses intact. Skin: Warm and dry. Right knee ecchymosis and swelling. Ru wrap reapplied. Imaging Results CT Head: Impression: 1. No evidence of acute intracranial abnormality or injury. 2. Stigmata of presumptive advanced chronic small vessel ischemic disease versus hypertensive encephalopathy versus other cause. Chest XR: Impression: Hazy opacities over the right hemidiaphragm favored atelectasis. Possible cardiomegaly, although that may be artifactual or at least exaggerated by technique. CT lower extremity: Impression: Right lower extremity hematoma with a tiny focus of active extravasation. FAST Exam: Impression: No Pericardial Effusion identified, No Free Intraperitoneal Fluid identified, No Pleural Effusion identified, and No Pneumothorax Identified CT C-Spine: not done CT T-Spine: not done CT L-Spine: not done CT CAP: not done Pelvis XR: not done Alcohol Screening (for all patients > 11 years of age) Ethanol Date Value Ref Range Status 07/19/2024 Negative Negative g/dL Final CLOTILDE: negative Alcohol Use: No (screening complete) Next Step Patient experienced nondomestic assault/violence?: No. Abbreviated Clinical Frailty Score (Screen those age 65 and older) Does the patient engage in moderate to strenuous sports or recreational activities?: Yes - CFS <4, screening complete Does patient have any of the following life limiting illnesses?: Patient has no life limiting illness Interpreting the score: CFS < 4 = not frail CFS 4-6 = living with mild to moderate frailty CFS >7 = living with severe or very severe frailty or terminally ill When to order Palliative Care consult: If trauma patient age > 80 YO - consult Palliative Care for Goals of Care Discussion If trauma patient age 75-80 YO with a CFS >/= 4 or life limiting illness - consult Palliative Care for Goals of Care Discussion If trauma patient age 65-74 YO with a CFS >/= 4 and life limiting illness - consult Palliative Care for Goals of Care Discussion If trauma patient and CFS >/= 7, consult Palliative Care Consult EVALUATION ASSISTANT for: EVALUATION ASSISTANT consult not indicated at this time *If patient meets criteria for an EVALUATION ASSISTANT consult, please order aspiration precautions Mental Health Screening: Have you had any experience that was so frightening, horrible, or upsetting that, in the past month, you: Have had nightmares about it or thought about it when you did not want to? no Tried hard not to think about it or went out of your way to avoid situations that remind you of it?no Were constantly on guard, watchful, or easily startled? no Clune numb or detached from others, activities, or your surroundings? no Interventions Completed: Patient was offered and declines handout information Assessment : Shaggy Gould is a 73 y.o. male with hx of HTN, diffuse TIA (2000), DM2 admitted fter fall at home while vacuuming. He landed on his right knee and head. Denies LOC. He has large right knee hematoma. Vascular surgery consulted for small area of extravasation in right knee. Threevessel run off to RLE, with dopplerable popliteal, DP and PT pulses, sensation and motor function intact, soft compartments. Of note elevated creatinine ~2.5 while hospitalized. Recent OSH creat from 06/2024 was 2.2. He will need close follow up with PCP regarding kidney function and comorbidity management. Current known injuries: -Right scalp hematoma -Right knee hematoma New findings: None Incidental Findings: None Plan Imaging needed: None Labs needed: NA Wound care plans(s): Location: right knee; Dressing: ru wrap Suture/[place]: None Antibiotics: None Drains Present: None Bourgeois: Not present Lines: Peripheral DVT prophylaxis: Mechanical: SCDs Diet: regular Activity: Up ad jennifer C/T/L-Spine status: clear Weight-bearing status: WBAT Therapy: PT and OT for cognitive screen Consulting Teams(s) Plan and/or Follow-up Recommendations: >>Vascular surgery -No acute vascular surgery intervention -Continue observation for hematoma which seems to be resolving, compression with RU wrap with breaks for skin integrity -Up with assist OK from vascular perspective -Vascular will sign off, no indication for clinic follow up Follow-Up Tertiary Exam: Not required; patient responsive and able to participate in clinical exam. Discharge Plan: Pending therapist(s) recommendations. Patient seen by and discussed with Surgery Chief Resident and Staff Physician. Kimberly Perez APRN, LEDY, 07/20/2024 1:40 PM STATEMENT CLERKS SUPERVISOR- Trauma/General Surgery Pager: via telemediq I have spent 40 minutes with this patient today in which greater than 50% of this time was spent incounseling/coordination of care regarding in patient care, review of imaging/labs, chart review andconsultant recommendations. This was a shared visit with the DANDY, Kimberly Perez, on 07/20/24. I saw and evaluated the patient and discussed them; please see their note for the complete encounter. Ward elements of the visit include: I have spent 40 minutes with this patient today in which greaterthan 50% of this time was spent in counseling/coordination of care regarding diagnostic results, impressions and /or recommended diagnostic studies, prognosis, risks and benefits of management (treatment) options, instructions for management (treatment) and/or follow-up, importance of adherence to treatment, risk factor reduction, patient and family education, and Tertiary Exam. Chay Estrada MD, 07/23/2024 7:32 AM Surgery Service Attending Physician * Nursing Assessment - Jose Euceda, RN - 07/20/2024 11:00 AM CDT Nursing Assessment Head to Toe Head to Toe Assessment Shift Summary A&Ox4, VSS, LE Pulses in tact. Denies pain/nausea and vomiting and shortness of breath. No acute events this shift; plan is to DC to home this afternoon. Jose Eucdea RN, 07/20/2024 11:00 AM Neurologic/Cognitive Within Defined Limits Frequent Neuro Assessments have been documented in the flowsheets HEENT Assessment Within Defined Limits except for: Comments: Wears glasses Cardiac Assessment Within Defined Limits except for: Water Supply Engineer - remote telemetry Comments: Sinus tachycardia Respiratory Within defined limits Neurovascular Assessment Within Defined Limits except for: Neurovascular LLE Sensation: Chronic, sensation decreased and tingling Neurovascular RLE Sensation: Chronic, sensation decreased and tingling Post Tibial Pulse: 2+ Pedal Pulse: 2+ Edema Present: Yes Right Lower Extremity: 2+ Left Lower Extremity: 2+ Gastrointestinal Within Defined Limits Stool (unmeasured): 1 (07/20/24 1400) Stool Amount: moderate (07/20/24 1400) Genitourinary Within Defined Limits Musculoskeletal Assessment Within Defined Limits except for: Musculoskeletal Assessment: General Mobility: Generalized weakness and mildly impaired Range of Motion: RLE - mildly impaired and brace/immobilizer/splint/sling/cast Integumentary Assessment Within Defined Limits except for: Skin Assessment Integrity - see Avatar LDA documentation Integrity Location - RLE (knee) Patient Lines/Drains/Airways Status Active LDAs Name Placement date Placement time Site Days Wound 07/19/24 Abrasion Knee Anterior;Right;Upper;Mid 07/19/24 2243 Knee less than 1 Psychosocial Within Defined Limits Jose Euceda RN, 07/20/2024 3:52 PM * Nursing Assessment - Jaja Chavez RN - 07/20/2024 5:44 AM CDT Nursing Assessment Head to Toe Head to Toe Assessment Shift Summary Shift Summary Neurologic/Cognitive Within Defined Limits Frequent Neuro Assessments have been documented in the flowsheets HEENT Assessment Within Defined Limits except for: Comments: Wears glasses Cardiac Assessment Within Defined Limits except for: Water Supply Engineer - remote telemetry Comments: Sinus tachycardia Respiratory Within defined limits Neurovascular Assessment Within Defined Limits except for: Neurovascular LLE Sensation: Chronic, sensation decreased and tingling Neurovascular RLE Sensation: Chronic, sensation decreased and tingling Post Tibial Pulse: 2+ Pedal Pulse: 2+ Edema Present: Yes Right Lower Extremity: 2+ Left Lower Extremity: 2+ Comments: Pulse checks BLE q 4 hrs Gastrointestinal Within Defined Limits Genitourinary Within Defined Limits Musculoskeletal Assessment Within Defined Limits except for: Musculoskeletal Assessment: General Mobility: Generalized weakness and mildly impaired Range of Motion: RLE - mildly impaired and brace/immobilizer/splint/sling/cast Comments: Ru wrap, elevation, ice Integumentary Assessment Within Defined Limits except for: Skin Assessment Integrity - see Avatar LDA documentation Integrity Location - RLE (knee) Patient Lines/Drains/Airways Status Active LDAs Name Placement date Placement time Site Days Peripheral IV 07/19/24 18 gauge Left Antecubital 07/19/24 1256 -- less than 1 Peripheral IV 07/19/24 22 gauge Right Antecubital 07/19/24 1256 -- less than 1 Wound 07/19/24 Abrasion Knee Anterior;Right;Upper;Mid 07/19/24 2243 Knee less than 1 Psychosocial Within Defined Limits Jaja Chavez RN, 07/20/2024 5:44 AM * Interval Note Provider - Sindi Al MD - 07/20/2024 3:31 AM CDT SURGERY PROVIDER NOTE Shaggy Gould : 1950 Sex: male S: Evaluated patient at bedside for LE pulse checks. O: PHYSICAL EXAM: Vital Signs: BP 129/77 (Cuff Location: Right Arm) Pulse 114 Temp 36.4 ??C (97.6 ??F) (Oral) Resp 16 Ht 1.727 m (5' 8) Wt 126.1 kg (278 lb) SpO2 97% BMI 42.27 kg/m?? Gen: Alert and oriented, no distress Ext: DP and TP pulses present and symmetric bilaterally A/P: Surgery will continue with serial pulse checks. No emergent operative management at this time.Nursing order added at this time for nursing to continue q4h DP and TP pulse checks Sindi Al MD, 07/20/2024 3:31 AM PGY1 TY Resident * Interval Note Provider - Sindi Al MD - 07/20/2024 12:01 AM CDT SURGERY PROVIDER NOTE hSaggy Gould : 1950 Sex: male S: Evaluated patient at bedside for LE pulse checks. O: PHYSICAL EXAM: Vital Signs: BP 129/77 (Cuff Location: Right Arm) Pulse 114 Temp 36.4 ??C (97.6 ??F) (Oral) Resp 16 Ht 1.727 m (5' 8) Wt 126.1 kg (278 lb) SpO2 97% BMI 42.27 kg/m?? Gen: Alert and oriented, no distress Ext: DP and TP pulses present and symmetric bilaterally A/P: Surgery will continue with serial pulse checks. No emergent operative management at this time. Sindi Al MD, 07/20/2024 12:01 AM * Interval Note Provider - Sindi Al MD - 07/19/2024 9:26 PM CDT SURGERY PROVIDER NOTE Shaggy Gould : 1950 Sex: male S: Evaluated patient at bedside for LE pulse checks. O: PHYSICAL EXAM: Vital Signs: BP 115/66 Pulse 119 Temp 36.2 ??C (97.2 ??F) (Oral) Resp 16 Ht 1.727 m (5' 8) Wt 126.1 kg (278 lb) SpO2 95% BMI 42.27 kg/m?? Gen: Alert and oriented, no distress Ext: DP and TP pulses present and symmetric bilaterally A/P: Surgery will continue with serial pulse checks. No emergent operative management at this time. Sindi Al MD, 07/19/2024 9:27 PM PGY1 TY Resident * ED Faculty Note - Jay Patrick MD - 07/19/2024 7:45 PM CDT Images from the original note were not included. ED Faculty Attestation and Critical Care Note Shaggy Gould : 1950 Sex: male Patient Arrival Date and Time: 07/19/2024 12:55 PM FACULTY ATTESTATION I Jay Patrick MD, I have discussed the case with the Resident. I have personally performed a history, physical exam, and my own medical decision making. I have reviewed the note and agree with thefindings and plan. Upon my evaluation, this patient had a high probability of imminent life or limb-threatening deterioration due to trauma, which required my highest level of preparedness to intervene emergently, and I spent this critical care time directly and personally managing the patient. I have personally provided 45 minutes of critical care time exclusive of time spent on separately billable procedures, treating other patients, or teaching time. Time includes obtaining history, examining the patient, ordering and review of studies, pulse oximetry, review of laboratory data, interpretation of radiology studies, ECG interpretation, frequent reassessment, monitoring for potential decompensation, and discussion with consultants. This critical care time was performed to assess and manage the high probability of imminent deterioration that could result in loss of limb, shock, and Trauma Team: Tier 2 activation. PROCEDURES Not applicable Jay Patrick MD, 07/19/2024 7:45 PM * Interval Note Provider - Sindi Al MD - 07/19/2024 6:05 PM CDT SURGERY PROVIDER NOTE Shaggy Del Castillo Luis Fernando : 1950 Sex: male S: Evaluated patient at bedside for LE pulse checks. O: PHYSICAL EXAM: Vital Signs: BP 105/60 (Cuff Location: Right Arm, Patient Position: Lying Down) Pulse 58 Temp 36.5 ??C (97.7??F) Resp 16 Wt 124.7 kg (275 lb) SpO2 98% Gen: Alert and oriented, no distress Ext: DP and TP pulses symmetric bilaterally A/P: Surgery will continue with serial pulse checks. No emergent operative management at this time. Sindi Al MD, 07/19/2024 6:06 PM PGY1 TY Resident * Utilization Management - Destiny Hendricks RN - 07/19/2024 2:34 PM CDT INITIAL ADMIT ORDER RECOMMENDATIONS ONLY UM initial review recommends Observation status based on current clinical documentation and services. Fall on knee with extravasation needing Compression dressing, Q4h doppler checks of R lower extremity and arterial ultrasound 07/20. No matching criteria. Rec: Obs * ED Stabilization Note - Richar Bush MD - 07/19/2024 1:06 PM CDT Emergency Medicine Stabilization Room Note Shaggy Gould 1950 Sex: male Patient Arrival Date and Time: 07/19/2024 12:[address] Patrick EM Stabilization Resident Richar Bush MD, 07/23/2024 12:06 PM Consultants Trauma Pre-Hospital Events Shaggy Gould is a 73 y.o. male presents to the stabilization room via transfer from OSH out of concern for R knee arterial bleed. Patient recalls tripping and landing on his knee, causing pain and swelling. Swelling has reportedly worsened since injury. No LOC. No chest pain, shortness of breath. Additional history is limited based on the patient's critical illness. Initial Vitals/Primary and Secondary Survey/ROS and H Vital Signs ED Triage Vitals Enc Vitals Group BP 07/19/24 1258 150/86 Pulse 07/19/24 1258 84 Resp 07/19/24 1259 14 Temp 07/19/24 1303 36.5 ??C (97.7 ??F) Temp src 07/19/242027 Oral SpO2 07/19/24 1258 97 % Weight 07/19/24 1303 124.7 kg (275 lb) Height 07/19/242037 1.727 m (5' 8) Head Circumference -- Peak Flow -- Pain Score -- Pain Loc -- Pain Education -- Exclude from Growth Chart -- Primary Survey Airway: Patent, protecting Breathing: Non-labored, symmetric chest rise Circulation: Skin warm. Radial pulses palpable. Disability: 4 - Opens eyes spontaneously; 5 - Oriented, converses normally; 6 - Obeys commands) GCS 15 Exposure: Clothing removed. Secondary Survey Please seen flowsheet for additional vitals. General: Awake, Alert, Appropriate. Head: NC. No postauricular ecchymosis noted. Eyes: No conjunctival injection, Lids normal, no periorbital ecchymosis noted ENT: No drainage noted from external ears or nares. Midface stable. Neck: Supple.Trachea midline. Cardio: RRR, on cardiac telemetry. Pulm: No increased WOB or accessory muscle use noted. Equal rise and fall of the chest. GI: Soft, NT/ND. No rebound tenderness or guarding. : Normal external genitalia, normal rectal exam MSK: Freely moving all extremities, though limited in RLE given knee pain. R knee w/ pain with passive movement Neuro: PERRL. No grossly focal sensory or motor deficits noted. Normal speech. Skin: large hematoma w/ ecchymosis surrounding R knee Review of Systems/PMH/PSH Unable to obtain additional ROS, PMH, PSH from patient or family/other source due to acuity of condition. Imaging and labs results personally reviewed. Interpretations and resulting interventions, if any, can be found in MDM. I am unaware of any advanced directive wishes of this patient prior to treatment of this patient. Stabilization Room Events / Medical Decision Making / Disposition As the patient arrived to the stabilization room, report was taken from EMS. Patient transferred toSTAB cart. Primary survey completed while patient placed on oxygen, oximetry, cardiac monitoring, and cuff blood pressure monitoring. Intravenous access established and initial blood tests sent. Secondary survey completed. Trauma surgery paged *2. This patient presented for evaluation of knee trauma. All major organ systems are potentially involved, including central nervous system (intracranial hematomas, cerebral contusion, intracerebral hemorrhage, sheer injury, concussion, skull fracture), axial skeleton (spinal cord injury from fractures, dislocations, instability), cardiopulmonary (cardiac contusion, cardiac rupture, aortic and othermajor intrathoracic vessel injury, pneumothorax, hemothorax, pulmonary contusion), intraperitoneal injury (liver, spleen, bowel, stomach, pancreas), retroperitoneal (kidney), genitourinary, and extremity (fractures, dislocations, crush injury, compartment syndrome), among others. STAB Room Events --Distal RLE pulses intact and dopplerable --Vascular/Trauma surgery consulted *2 --I reviewed outside non-contrasted knee CT, though only written report. Large pre-patellar hematoma --Vitally stable, breathing comfortably on RA. CXR clear. EKG without obvious signs of ischemia, nochest pain. Lower concern for cardiac syncope at this time especially since patient has a reliable history of mechanical fall. --Did elect for CT angio to assess for vascular injury. This was a limited study given bilateral knee replacements with significant artifact. No active bleeding on limited initial read. Patient was transferred to [facility] given clinical stability and reassuring imaging. Appropriate consultationsmade. Later there was overread w/ concern for possible active arterial bleeding. Plan for further di scussion with Vascular and Trauma re: active bleed from R knee. --CT head from outside hospital written report without active bleed or intracranial pathology. No cervical spine TTP or limited ROM. Sepsis protocol: NA Procedures I performed the following procedures: Adult Trauma Resuscitation. Final STAB room vitals: BP 136/71 (Cuff Location: Right Arm) Pulse 78 Temp 36 ??C (96.8 ??F) (Tympanic) Resp 16 Ht 1.727 m (5' 8) Wt 126.1 kg (278 lb) SpO2 99% BMI 42.27 kg/m?? Clinical Impression 1. Fall, initial encounter 2. Injury of right knee, initial encounter Disposition Trauma admission Richar Bush MD, 07/23/2024 12:06 PM Emergency Medicine PGY-3 documented in this encounter Plan of Treatment Not on file documented as of this encounter Procedures Procedure Name Priority Date/Time Associated Diagnosis Comments POC GLUCOSE Routine 07/20/2024 11:[address] HEAD NO IV CONTRAST STAT 10:40 AM CDT PANEL BASIC METABOLIC (BMP) Routine 07/20/2024 5:44 AM CDT TC LAB BLOOD DRAW BY VENIPUNCTURE Routine 07/20/2024 5:44 AM CDT PC TROPONIN QUANTITATIVE Timed 07/19/2024 2:51 PM CDT TC LAB ER STAT URINALYSIS STAT 07/19/2024 2:[address] LOW EXTREMITY - ANGIO - W/IV CON STAT 07/19/2024 1:59 PM CDT ED EKG (12-LEAD) Routine 07/19/2024 1:17 PM CDT XR CHEST 1 VIEW AP OR PA* STAT 07/19/2024 1:13 PM CDT TC LAB BLOOD DRAW BY VENIPUNCTURE Routine 07/19/2024 1:02 PM CDT PC LAB ED INR STAT 07/19/2024 12:58 PM CDT PC TROPONIN QUANTITATIVE STAT 07/19/2024 12:58 PM CDT PC ELECTROLYTES PANEL STAT 07/19/2024 12:58 PM CDT PC LAB CBC W/DIFF & PLT STAT 07/19/2024 12:58 PM CDT TC LAB ER STAT TOTAL HGB STAT 07/19/2024 12:58 PM CDT PROTHROMBIN (PT) & INR STAT 12:58 PM CDT PRECAUTIONARY TUBE STAT 07/19/2024 12 :58 PM CDT PANEL HEPATIC FUNCTION STAT 12:58 PM CDT PC LACTATE (LACTIC ACID) STAT 07/19/2024 12:58 PM CDT PC GASES,BLOOD,ANY COMB OF PH,PCD2,PO2,CO2,HCO2 STAT 07/19/2024 12:58 PM CDT FIBRINOGEN STAT 07/19/2024 12:58 PM CDT ETHANOL (ETOH) LEVEL, BLOOD STAT 07/19/2024 12:58 PM CDT PC LAB PTT STAT 07/19/2024 12:58 PM CDT ED US CRITICAL CARE STAT 07/19/2024 1 2:55 PM CDT documented in this encounter Results * (ABNORMAL) POC GLUCOSE (07/20/2024 11:30 AM CDT) POC Glucose 119(H) 70 - 100 mg/dL [facility] Blood 07/20/2024 11:3 0 AM CDT Jay Patrick MD LABORATORY [facility]ARE [address] [place] [address], * CT HEAD NO IV CONTRAST (07/20/2024 [...] CDT) Sodium 140 135 - 148 mmol/L [facility] Potassium 4.7 3.5 - 5.3 mmol/L [facility] Chloride 107 92 - 108 mmol/L [facility] CO2 21(L) 22 - 30 mmol/L [facility] AnGap 12 8 - 16 mmol/L [facility] Glucose 159(H) 70 - 100 mg/dL [facility] BUN 27(H) 8 - 23 mg/dL [facility] Creatinine 2.56(H) 0.70 - 1.25 mg/dL [facility] Calcium 8.7(L) 8.8 - 10.2 mg/dL [facility] eGFR (2020 CKD-EPI) 26(L) >=60 ml/min/1.7 3m2 [facility] Comment: The estimated glomerular filtration rate (eGFR) was calculated using the CKD-EPI 2020 creatinine equation, which does not include race as a factor. This equation is validated in individuals 18 years of age and older, and eGFR is normalized to a body surface area of 1.73m^2. Blood 07/20/2024 5:44 AM CDT 07/20/2024 7:27 AM CDT Jay Patrick MD LABORATORY Performing Organization Address [facility] Co de Phone Number [facility] [address] [address] * (ABNORMAL) CBC WITH PLATELET (07/20/2024 5:44 AM CDT) WBC 8.23 4.00 - 10.00 k/cmm [facility] [facility] RBC 3.28(L) 4.60 - 6.00 m/cmm [facility] Hgb 10.7(L) 13.1 - 17.5 g/dL [facility] Hematocrit 33.9(L) 40.0 - 51.0 % [facility] MCV 103.4(H) 80.0 - 100.0 fL [facility] MCH 32.6(H) 25.0 - 32.0 pg [facility] MCHC 31.6 31.0 - 36.0 g/dL [facility] RDW 13.5 11.5 - 14.5 % [facility] Plt 270 150 - 400 k/cmm [facility] MPV 9.3 6.5 - 12.5 fL [facility] Blood 07/20/2024 5:44 AM CDT 07/20/2024 7:15 AM CDT Jay Patrick MD LABORATORY Performing Organization Address [facility] Co de Phone Number [facility] [address] [address] * TROP 2H (07/19/2024 2:51 PM CDT) 2H Trop 4 <=35 ng/L [facility] 2H Delta Not Significant Not Significant [facility] Blood 07/19/2024 2:51 PM CDT 07/19/2024 3:13 PM CDT Jay Patrick MD LABORATORY Performing Organization Address [facility]/ZIP Co de Phone Number [facility] [address] [address] * (ABNORMAL) URINALYSIS,TOTAL (07/19/2024 2:51 PM CDT) Color YELLOW YELLOW [facility] Appearance CLEAR CLEAR [facility] Urine Glucose >=1000(A) NEGATIVE mg/dL [facility] Bili UA NEGATIVE NEGATIVE [facility] Ketones NEGATIVE NEGATIVE [facility] Specific [place] 1.018 1.003 - 1.030 [facility] Blood Ur NEGATIVE Neg-Trace [facility] PH Urine 5.5 5.0 - 7.0 [facility] Protein Ur 30(A) Neg-Trace [facility] Urobilinogen NORMAL NORMAL EU/dL [facility] Nitrite Ur NEGATIVE NEGATIVE [facility] Leuk Est NEGATIVE Neg-Trace [facility] WBC Ur 0-5 0 - 5 perHPF [facility] RBC Ur 0-3 0 - 3 perHPF [facility] Mucus 1+ perLPF [facility] Urinalysis Performed at: [facility] Urine 07/19/2024 2:51 PM CDT 07/19/2024 2:53 PM CDT Jay Patrick MD LABORATORY Performing Organization Address [facility] Co de Phone Number [facility] [address] [address] * CT LOW EXTREMITY - ANGIO - [...] contrast. 3-D reconstructions were created by the blood bank laboratory technologist on the CT scanner and reviewed by the radiologist. Images were archived in PACS. DOSE: ?Total DLP = 2628.5 mGy.cm. ?? Findings: Vasculature: No abdominal aortic aneurysm. Distal abdominal aorta and the bilateral iliac arteries are widely patent. Right common femoral, proximal profunda femoral, and the right superficial femoral arteries are patent. Visualized right popliteal artery is patent. CLIVE, SURVEYOR INSTRUMENT ASSISTANT, tibioperoneal trunk, and peroneal arteries are patent [...] intravenous contrast. 3-D reconstructions werecreated by the blood bank laboratory technologist on the CT scanner and reviewed by theradiologist. Images were archived in PACS. DOSE: Total DLP = 2628.5 mGy.cm. Findings: Vasculature: No abdominal aortic aneurysm. Distal abdominal aorta and thebilateral iliac arteries are widely patent. Right common femoral, proximalprofunda femoral, and the right superficial femoral arteries are patent.Visualized right popliteal artery is patent. CLIVE, SURVEYOR INSTRUMENT ASSISTANT, tibioperonealtrunk, and peroneal arteries are patent to [...] PM CDT) 07/19/2024 1:17 PM CDT Impressions [facility] E[facility] ORDERS - 07/19/2024 1:17 PM CDT SINUS RHYTHM WITH FIRST DEGREE AV BLOCK ABNORMAL ECG P-R Interval 229 ms QRS Interval 84 ms QT Interval 359 ms QTC Interval 393 ms P [place] 30 QRS [place] -8 T Wave [place] 29 Narrative Procedure Note Alfie Santos MD - 07/19/2024 IMPRESSION SINUS RHYTHM WITH FIRST DEGREE AV BLOCK ABNORMAL ECG P-R Interval 229 ms QRS Interval 84 ms QT Interval 359 ms QTC Interval 393 ms P [place] 30 QRS [place] -8 T Wave [place] 29 Jay Patrick MD EKG [facility] E[facility] ORDERS * XR CHEST 1 [...] (07/19/2024 1:02 PM CDT) SST TUBE Stored [facility] Comment:SST tubes (Serum Sep arator) are stored in the lab for 3 days from the collection date. Blood 07/19/2024 1:02 PM CDT 07/19/2024 1:54 PM CDT Jay Patrick MD LABORATORY Performing Organization Address City/[facility]/ZIP Co de Phone Number [facility] [address] [address] * HS TROPONIN (07/19/2024 12:58 PM CDT) HS Troponin I 3 <=35 ng/L [facility] Blood 07/19/2024 12:5 8 PM CDT 07/19/2024 1:28 PM CDT Narrative [facility] - 07/19/2024 1:58 PM CDT First Occurrence of the Troponin order is to be drawn Stat by Nursing staff on the unit. Jay Patrick MD LABORATORY Performing Organization Address City/[facility]/ZIP Co de Phone Number [facility] [address] [address] * ETHANOL (ETOH) LEVEL, BLOOD (07/19/2024 12:58 PM CDT) Ethanol Negative Negative g/dL [facility] Blood 07/19/2024 12:5 8 PM CDT 07/19/2024 1:28 PM CDT Jay Patrick MD LABORATORY Performing Organization Address [facility] Co de Phone Number [facility] [address] [address] * PTT (APTT) (07/19/2024 12:58 PM CDT) Pathologist [facility] APTT 31.2 25.0 - 37.0 sec [facility] Blood 07/19/2024 12:5 8 PM CDT 07/19/2024 1:30 PM CDT Jay Patrick MD LABORATORY Performing Organization Address [facility] Co de Phone Number [facility] [address] [address] * PROTHROMBIN (PT) & INR (07/19/2024 12:58 PM CDT) [facility] PT 10.6 9.0 - 12.5 sec [facility] INR 1.0 0.8 - 1.1 [facility] Comment: Warfarin Therapeutic Range: Standard Intensity: 2.0 - 3.0 High Intensity: 2.5 - 3.5 Blood 07/19/2024 12:5 8 PM CDT 07/19/2024 1:30 PM CDT Jay Patrikc MD LABORATORY Performing Organization Address [facility] Co de Phone Number [facility] [address] [address] * ED INR (07/19/2024 12:58 PM CDT) Pathologist [facility] ED INR 1.1 0.8 - 1.1 [facility] Comment: Warfarin Therapeutic Range: Standard Intensity: 2.0 - 3.0 High Intensity: 2.5 - 3.5 This is a rapid INR screening test which uses whole blood; results may infrequently differ from plasma INR results. If medication adjustments/dosing are required a PT/INR test ([id number]) should be ordered and performed in the main laboratory. Blood 07/19/2024 12:5 8 PM CDT 07/19/2024 1:10 PM CDT Jay Patrick MD LABORATORY Performing Organization Address [facility] Co de Phone Number [facility] [address] [address] * PRECAUTIONARY TUBE (07/19/2024 12:58 PM CDT) Prec Tube Precautionary Blood Bank Specimen Received. [facility] Blood 07/19/2024 12:5 8 PM CDT 07/19/2024 1:23 PM CDT Jay Patrick MD LAB TRANSFUSION SERV ICES Performing Organization Address [facility] de Phone Number [address] [address] * LACTATE (LACTIC ACID) (07/19/2024 12:58 PM CDT) Lactate 1.5 0.7 - 2.1 mmol/L [facility] Blood 07/19/2024 12:5 8 PM CDT 07/19/2024 1:12 PM CDT Narrative [facility] - 07/19/2024 1:15 PM CDT Send specimen on ice! Jay Patrick MD LABORATORY Performing Organization Address City/[facility] Co de Phone Number [facility] [address] [address] * FIBRINOGEN (07/19/2024 12:58 PM CDT) Fibrinogen 337 200 - 400 mg/dL [facility] Blood 07/19/2024 12:5 8 PM CDT 07/19/2024 1:30 PM CDT Jay Patrick MD LABORATORY Performing Organization Address City/[facility] Co de Phone Number [facility] [address] [address] * (ABNORMAL) PANEL HEPATIC FUNCTION (07/19/2024 12:58 PM CDT) Pathologist [facility] Total Protein 6.2(L) 6.4 - 8.3 g/dL [facility] Albumin 3.7(L) 3.8 - 5.1 g/dL [facility] Bili Total 0.3 <=1.2 mg/dL [facility] Bili Direct <0.2 <=0.3 mg/dL [facility] Alk Phos 113 40 - 129 IU/L [facility] Comment:No reference range e stablished for patients <18 years old. ALT (SGPT) 11 <=41 IU/L [facility] AST(SGOT) 16 5 - 40 IU/L [facility] Blood 07/19/2024 12:5 8 PM CDT 07/19/2024 1:28 PM CDT Jay Patrick MD LABORATORY Performing Organization Address City/[facility] Co de Phone Number [facility] [address] [address] * (ABNORMAL) ED HEMOGLOBIN TOTAL (ED ONLY) (07/19/2024 12:58 PM CDT) [facility] Hgb 11.9(L) 13.1 - 17.5 g/dL [facility] Blood 07/19/2024 12:5 8 PM CDT 07/19/2024 1:12 PM CDT Jay Patrick MD LABORATORY [facility] [address] [address] * (ABNORMAL) ED CHEMISTRY LABS(NA,K,CL,CO2,GLU,CREAT,CA-IONIZED,ANION GAP) (07/19/2024 12:58 PM CDT) [facility] Sodium 142 135 - 148 mmol/L [facility] Potassium 4.6 3.5 - 5.3 mmol/L [facility] Chloride 108 92 - 108 mmol/L [facility] AnGap 13 8 - 16 mmol/L [facility] Glucose 127(H) 70 - 100 mg/dL [facility] ICA, Actual 4.64 4.40 - 5.20 mg/dL [facility] ICA, pH Corrected 4.58 4.40 - 5.20 mg/dL [facility] Creatinine 2.57(H) 0.70 - 1.25 mg/dL [facility] BICARB 21(L) 22 - 26 mEq/L [facility] eGFR (2020 CKD-EPI) 26(L) >=60 ml/min/1.7 3m2 [facility] Comment: The estimated glomerular filtration rate (eGFR) was calculated using the CKD-EPI 2020 creatinine equation, which does not include race as a factor. This equation is validated in individuals 18 years of age and older, and eGFR is normalized to a body surface area of 1.73m^2. Blood 07/19/2024 12:5 8 PM CDT 07/19/2024 1:12 PM CDT Jay Patrick MD LABORATORY [facility] [address] [address] * (ABNORMAL) CBC WITH PLTS/AUTO DIFF (07/19/2024 12:58 PM CDT) WBC 10.93(H) 4.00 - 10.00 k/cmm [facility] RBC 3.33(L) 4.60 - 6.00 m/cmm [facility] Hgb 11.2(L) 13.1 - 17.5 g/dL [facility] Hematocrit 33.6(L) 40.0 - 51.0 % [facility] MCV 100.9(H) 80.0 - 100.0 fL [facility] MCH 33.6(H) 25.0 - 32.0 pg [facility] MCHC 33.3 31.0 - 36.0 g/dL [facility] RDW 13.4 11.5 - 14.5 % [facility] Plt 252 150 - 400 k/cmm [facility] MPV 8.9 6.5 - 12.5 fL [facility] Automated Abs Neutrophil 8.55(H) 1.70 - 6.50 k/cmm [facility] Comment:Preliminary ANC, Fin al Result to Follow Abs Immature Granulocyte 0.07 0.00 - 0.09 k/cmm [facility] Comment:The Immature Granulo cyte Absolute count contains metamyelocytes and myelocytes. Abs Neutrophil 8.55(H) 1.70 - 6.50 k/cmm [facility] Abs Lymphocyte 1.35 0.80 - 4.00 k/cmm [facility] Abs Monocyte 0.72 0.20 - 1.00 k/cmm [facility] Abs Eosinophil 0.20 0.00 - 0.60 k/cmm [facility] Abs Basophil 0.04 0.00 - 0.20 k/cmm [facility] Blood 07/19/2024 12:5 8 PM CDT 07/19/2024 1:28 PM CDT Jay Patrick MD LABORATORY Performing Organization Address [facility] Co de Phone Number [facility] [address] [address] * (ABNORMAL) BLOOD GASES (07/19/2024 12:58 PM CDT) PH Andrew 7.38 7.32 - 7.42 [facility] PCO2 Andrew 37(L) 41 - 51 mmHG [facility] PO2 Andrew 37 25 - 40 mmHG [facility] Bicarb Andrew 21(L) 24 - 28 mEq/L [facility] O2 Sat Andrew 65 % [facility] Base Exc Andrew -3.8 -10.0 - 2.0 mmol/L [facility] Blood Venous 07/19/2024 12:5 8 PM CDT 07/19/2024 1:13 PM CDT Jay Patrick MD LABORATORY Performing Organization Address [facility] Co de Phone Number [facility] [address] [address] * ED US CRITICAL CARE (07/19/2024 12:55 [...] PM Jay Patrick MD RAD ED ULT documented in this encounter Visit Diagnoses Diagnosis Fall, initial encounter- Primary Fall, initial encounter Injury of right knee, initial encounter documented in this encounter Admitting Diagnoses Diagnosis Fall, initial encounter documented in this encounter Administered Medications Inactive Administered Medications - up to 3 most recent administrations Medication Order MAR Action Action Date Dose Rate Site acetaminophen (TYLENOL) tablet 650 mg 650 mg, Oral, Q4H PRN, Starting on Wed07/19/24 at 2033, Until Wed07/19/24 at 2324, Mild Pain (Use First), Moderate Pain (Use First) Given 07/19/2024 10:24 PM CDT 650 mg acetaminophen (TYLENOL) tablet 975 mg 975 mg, Oral, TID, First dose on Wed07/19/24 at 2034, Until Discontinued Given 07/20/2024 1:51 PM CDT 975 mg Given 07/20/2024 8:15 AM CDT 975 mg allopurinol (ZYLOPRIM) tablet 100 mg 100 mg, Oral, DAILY, First dose on Wed07/20/24 at 0800, Until Discontinued Given 07/20/2024 8:15 AM CDT 100 mg amLODIPine (NORVASC) tablet 5 mg 5 mg, Oral, DAILY, First dose on Wed07/20/24 at 0800, Until Discontinued Given 07/20/2024 8:15 AM CDT 5 mg CHOLEcalciferol (VITAMIN D3) tablet 1,000 UNITS 1,000 UNITS, Oral, DAILY, First dose on Wed07/20/24 at 0800, Until Discontinued Given 07/20/2024 8:15 AM CDT 1,000 UNITS [facility] REC REVIEW BY PHARMACY Discharge Date: 07/20/2024, Discharge Location: Home, Anticipated Discharge Time: After 2 pm, Discharge Medication Orders: DC Med Orders Final, Does not apply, PROTOCOL, Starting on Wed07/20/24 at 1420, Until Wed07/21/24 at 0454 insulin ASPART (NovoLOG) FlexPen Insulin Order Mode: Carb Based Dose, WITH Breakfast dose (Units/Carb Choice): 0, WITH Noon meal dose (Units/Carb Choice): 0, WITH Evening meal dose (Units/Carb Choice): 0, Glucose 130-150 (Units): 0, Glucose 151-200 (Units): 1, Glucose 201-250 (Units): 2, Glucose 251-300 (Units): 3, Glucose 301-350 (Units): 4, Glucose 351-400 (Units): 5, Glucose 401-500 (Units): 6, Glucose GREATER THAN 501 (Units): 7, Glucose GREATER THAN 501 instructions: Call Provider, Subcutaneous, TID AC, First dose on Wed07/20/24 at 1130, Until Discontinued insulin ASPART (NovoLOG) FlexPen Glucose 201-250 (Units): 0, Glucose 251-300 (Units): 0, Glucose 301-350 (Units): 0, Glucose 351-400 (Units): 3, Glucose 401-450 (Units): 4, Glucose 451-500 (Units): 5, Glucose GREATER THAN 501 (Units): 6, Glucose GREATER THAN 501 instructions: Call provider, Subcutaneous, BEDTIME MAY REPEAT ONCE, First dose on Wed07/20/24 at 2100, Until Discontinued iohexol (OMNIPAQUE) 350 mg/mL injection IV Push, RAD ONE TIME AUTO ACKNOWLEDGE, 1 dose, On Wed07/19/24 at 1400 Given 07/19/2024 1:59 PM CDT 120 mL Le ft Arm melatonin tablet 3 mg 3 mg, Oral, Q24H, First dose on Wed07/19/24 at 2035, Until Discontinued Given 07/19/2024 10:24 PM CDT 3 mg metoprolol tartrate (LOPRESSOR) tablet 25 mg 25 mg, Oral, DAILY, First dose on Wed07/20/24 at 0800, Until Discontinued Given 07/20/2024 8:15 AM CDT 25 mg metoprolol tartrate (LOPRESSOR) tablet 25 mg 25 mg, Oral, BID, First dose (after last modification) on Wed07/20/24 at 2000, Until Discontinued omega 3 (MAXEPA) capsule 1,000 mg 1,000 mg, Oral, DAILY, First dose on Wed07/20/24 at 0800, Until Discontinued Given 07/20/2024 8:15 AM CDT 1,000 mg oxyCODONE (ROXICODONE) tablet 5-10 mg 5-10 mg, Oral, Q4H PRN, Starting on Wed07/19/24 at 203, Until Wed07/21/24 at 0454, Moderate Pain (Use First) Given 07/20/2024 3:17 AM CDT 5 mg Given 07/20/2024 1:53 AM CDT 5 mg pantoprazole (PROTONIX) tablet 40 mg 40 mg, Oral, BID, First dose on Wed07/20/24 at 0800, Until Discontinued Given 07/20/2024 8:15 AM CDT 40 mg simvastatin (ZOCOR) tablet 10 mg 10 mg, Oral, BEDTIME, First dose on Wed07/19/24 at 2100, Until Discontinued Given 07/19/2024 10:23 PM CDT 10 mg VTE prophylaxis contraindicated Contraindication Reason: Bleeding Risk, Does not apply, PROTOCOL, Starting on Wed07/19/24 at 203, Until Wed07/21/24 at 0454 documented in this encounter Active and Recently Administered Medications Times are shown in CDT. Scheduled Medication Order 07/18/2024 07/19/2024 07/20/2024 acetaminophen (TYLENOL) tablet 975 mg(Linked Group 1) 975 mg, Oral, TID, First dose on Wed07/19/24 at 2035, Until Discontinued 2222 (Not Given (removes Due time) - Provider: Jaja Chavez RN - Reason: Discontinued per order) 0815 (Given - Provider: Jose Euceda RN)1351 (Given - Provider: Jose Euceda RN)1999 (Due) allopurinol (ZYLOPRIM) tablet 100 mg 100 mg, Oral, DAILY, First dose on Wed07/20/24 at 0800, Until Discontinued 0815 (Given - Provid er: Jose Euceda RN) amLODIPine (NORVASC) tablet 5 mg 5 mg, Oral, DAILY, First dose on Wed07/20/24 at 0800, Until Discontinued 0815 (Given - Provid er: Jose Euceda RN) CHOLEcalciferol (VITAMIN D3) tablet 1,000 UNITS 1,000 UNITS, Oral, DAILY, First dose on Wed07/20/24 at 0800, Until Discontinued 0815 (Given - Provid er: Jose Euceda RN) DC MED REC REVIEW BY PHARMACY(Linked Group 2) Discharge Date: 07/20/2024, Discharge Location: Home, Anticipated Discharge Time: After 2 pm, Discharge Medication Orders: DC Med Orders Final, Does not apply, PROTOCOL, Starting on Wed07/20/24 at 1420, Until Wed07/21/24 at 0454 insulin ASPART (NovoLOG) FlexPen Insulin Order Mode: Carb Based Dose, WITH Breakfast dose (Units/Carb Choice): 0, WITH Noon meal dose (Units/Carb Choice): 0, WITH Evening meal dose (Units/Carb Choice): 0, Glucose 130-150 (Units): 0, Glucose 151-200 (Units): 1, Glucose 201-250 (Units): 2, Glucose 251-300 (Units): 3, Glucose 301-350 (Units): 4, Glucose 351-400 (Units): 5, Glucose 401-500 (Units): 6, Glucose GREATER THAN 501 (Units): 7, Glucose GREATER THAN 501 instructions: Call Provider, Subcutaneous, TID AC, First dose on Wed07/20/24 at 1130, Until Discontinued 1140 (Not Given (removes Due time) - Provider: Jose Euceda RN - Reason: Held per order)1630 (Due) insulin ASPART (NovoLOG) FlexPen Glucose 201-250 (Units): 0, Glucose 251-300 (Units): 0, Glucose 301-350 (Units): 0, Glucose 351-400 (Units): 3, Glucose 401-450 (Units): 4, Glucose 451-500 (Units): 5, Glucose GREATER THAN 501 (Units): 6, Glucose GREATER THAN 501 instructions: Call provider, Subcutaneous, BEDTIME MAY REPEAT ONCE, First dose on Wed07/20/24 at 2100, Until Discontinued iohexol (OMNIPAQUE) 350 mg/mL injection (COMPLETED) IV Push, RAD ONE TIME AUTO ACKNOWLEDGE, 1 dose, On Wed07/19/24 at 1400 1359 (Given - Provider: Amber Piña, RT - Comment: [phone]) melatonin tablet 3 mg(Linked Group 3) 3 mg, Oral, Q24H, First dose on Wed07/19/24 at 2035, Until Discontinued 2223 (Given - Provider: Jaja Chavez RN) metoprolol tartrate (LOPRESSOR) tablet 25 mg (CANCELED) 25 mg, Oral, DAILY, First dose on Wed07/20/24 at 0800, Until Discontinued 814 (Given - Provid er: Jose Euceda RN) metoprolol tartrate (LOPRESSOR) tablet 25 mg 25 mg, Oral, BID, First dose (after last modification) on Wed07/20/24 at 1999, Until Discontinued 1999 (Due) omega 3 (MAXEPA) capsule 1,000 mg 1,000 mg, Oral, DAILY, First dose on Wed07/20/24 at 0800, Until Discontinued 814 (Given - Provid er: Jose Eucdea RN) pantoprazole (PROTONIX) tablet 40 mg 40 mg, Oral, BID, First dose on Wed07/20/24 at 0800, Until Discontinued 814 (Given - Provid er: Jose Euceda RN)1999 (Due) simvastatin (ZOCOR) tablet 10 mg 10 mg, Oral, BEDTIME, First dose on Wed07/19/24 at 2100, Until Discontinued 2222 (Given - Provider: Jaja Chavez RN) 1999 (Due) VTE Anti Xa Monitoring Does not apply, PROTOCOL, Starting on Wed07/19/24 at 2033, Until Wed07/21/24 at 0454 VTE prophylaxis contraindicated(Linked Group 4) Contraindication Reason: Bleeding Risk, Does not apply, PROTOCOL, Starting on Wed07/19/24 at 2033, Until Wed07/21/24 at 0454 PRN Medication Order 07/18/2024 07/19/2024 07/20/2024 acetaminophen (TYLENOL) tablet 650 mg (CANCELED) 650 mg, Oral, Q4H PRN, Starting on Wed07/19/24 at 2033, Until Wed07/19/24 at 2325, Mild Pain (Use First), Moderate Pain (Use First) 2223 (Given - Provider: Jaja Chavez, RN) alum & mag hydroxide-simeth (MAALOX PLUS) suspension 30 mL 30 mL, Oral, TID PRN, Starting on Wed07/19/24 at 2033, Until Wed07/21/24 at 0454, GI Upset ondansetron (ZOFRAN) tablet 4 mg 4 mg, Oral, Q6H PRN, Starting on Wed07/19/24 at 2033, Until Wed07/21/24 at 0454, Nausea/Vomiting (Use First), Use if patient able to tolerate oral tablet oxyCODONE (ROXICODONE) tablet 5-10 mg 5-10 mg, Oral, Q4H PRN, Starting on Wed07/19/24 at 2033, Until Wed07/21/24 at 0454, Moderate Pain (Use First) 0153 (Given - Provid er: Jaja Chavez RN)0317 (Given - Provider: Jaja Chavez RN) Linked Groups Order Group 1: acetaminophen (TYLENOL) tablet 975 mgJump to med 975 mg, Oral, TID, First dose on Wed07/19/24 at 2034, Until Discontinued Or acetaminophen (TYLENOL) 160 mg/ 5mL oral solution 975 mg (CANCELED) 975 mg, Feeding Tube, TID, First dose on Wed07/19/24 at 2034, Until Discontinued Group 2: DC MED REC REVIEW BY PHARMACYJump to med Discharge Date: 07/20/2024, Discharge Location: Home, Anticipated Discharge Time: After 2 pm, Discharge Medication Orders: DC Med Orders Final, Does not apply, PROTOCOL, Starting on [place] 07/20/24 at 1420, Until Wed07/21/24 at 0454 And Discharge Med Rec Final Review by Pharmacy (COMPLETED) Routine, Order to be placed by provider after medications have been entered for discharge and are ready for review by Pharmacist. This order can be placed multiple times if changes or additions have been made to medications for discharge. Choose the Preliminary DC Med Rec review when placing orders prior to the day of discharge. Choose Final DC Med Rec when all medication changes have been entered. If DC Med Rec needed now, please page the Pharmacist covering the patient to inform them., Discharge Date: 07/20/2024, Discharge Location: Home, Anticipated Discharge Time: After 2 pm Group 3: melatonin tablet 3 mgJump to med 3 mg, Oral, Q24H, First dose on Wed07/19/24 at 2034, Until Discontinued Or melatonin 1 mg/mL oral liquid 3 mg (CANCELED) 3 mg, Feeding Tube, Q24H, First dose on Wed07/19/24 at 2034, Until Discontinued Group 4: VTE prophylaxis contraindicatedJump to med Contraindication Reason: Bleeding Risk, Does not apply, PROTOCOL, Starting on Wed07/19/24 at 2033, Until Wed07/21/24 at 0454 And VTE - Prophylaxis Contraindication Communication (COMPLETED) Contraindication Reason: Bleeding Risk documented in this encounter Care Teams Company Manager Relationship Specialty Start Date End Date Dr Michael GIRALDO at [facility] 10/11/13 documented as of this encounter
--- OUTSIDE RECORDS SUMMARY | 2024-07-27 01:03 | XMS_ITS | Encounter Summary ---
Author Organization [facility] Address [address] [place] [address] Phone Care Team Providers Care Gasoline Plant Operator Name Role Phone Unavailable Primary Care Provider Unavailabl e Encounter Details Date Type Department Care Team (Late st Contact Info) Description 07/19/2024 Orders Only [facility] Radiology Department [facility] [address] [address] Provider, [place] [address] Referral of patient (Primary Dx) Social History Tobacco Use Types Packs/Day Years [...] on file documented as of this encounter Results * XR LOWER EXTREMITY OUTSIDE FILMS (07/19/2024 11:03 AM CDT) Narrative User, [id number] - 07/19/2024 11:47 AM CDT Outside Film Only Outside Provider RAD OUTSIDE FILMS * ULT VASCULAR OUTSIDE FILMS (07/19/2024 10:44 AM CDT) Narrative User [id number] - 07/19/2024 11:47 AM CDT Outside Film Only Outside Provider RAD OUTSIDE FILMS documented in this encounter Visit Diagnoses Diagnosis Referral of patient- Primary Referral of patient without examination or treatment documented in this encounter Care Teams Gasoline Plant Operator Relationship Specialty Start Date End Date Dr Michael GIRALDO at [facility] 10/11/13 documented as of this encounter
== END 2024-07-19 10:04 | disposition home or self-care (01) ==
LOC: AMB 07-27 00:58
PROVIDERS: PCP Internal Medicine; Visit Provider Family Medicine
DX: S89.91XA Unspecified injury of right lower leg, initial encounter (principal); W18.30XA Fall on same level, unspecified, initial encounter; Y93.E3 Activity, vacuuming; Y92.038 Other place in apartment as the place of occurrence of the external cause
CPT/HCPCS: A0425; A0427

== ENCOUNTER 2024-07-19 10:26 | Emergency (ER) | payer MEDICARE, OTHER, SELFPAY ==
[2024-07-19] VITALS (8 sets, daily range): BP systolic 90–149; BP diastolic 45–80; PULSE 90–99; RESP 20; TEMP 36.3; O2SAT 95–97; BMI 41.8
--- NOTE | 2024-07-19 10:35 | CRLHL7_ITS ---
For Patients: As a result of the Century Cures Act, medical imaging exams and procedure reports are released immediately into your electronic medical record. You may view this report before your referring provider. If you have questions, please contact your health care provider. Indication: FELL, LARGE RIGHT KNEE Hematoma, RULE OUT ACTIVE BLEEDING Technique: Grayscale, color Doppler and spectral Doppler evaluation of the right anterior knee soft tissues performed. Comparison: None Findings: Large complex fluid collection within the anterior right knee soft tissues is present measuring 16.2 x 4.3 x 14.9 cm. An arterial vessel is present within the posterior aspect of this fluid collection. There does appear to be movement on the grayscale images within the fluid adjacent to this artery. Impression: Large prepatellar hematoma on the right with suspicion of active bleeding. Dictated by Billy Bird MD @ 07/19/2024 11:09:21 AM (Electronically Signed)
--- NOTE | 2024-07-19 10:35 | CRLHL7_ITS ---
For Patients: As a result of the Cures Act, medical imaging exams and procedure reports are released immediately into your electronic medical record. You may view this report before your referring provider. If you have questions, please contact your health care provider. INDICATION: : Fall, injury TECHNIQUE: Two views right knee, portable COMPARISON: None. FINDINGS: Right knee arthroplasty. Components appear to be in normal position. No loosening or subsidence seen. No periprosthetic fracture or fracture otherwise. No knee dislocation. Alignment is not ideally assessed on portable views. There is a large amount of heterotopic ossification along the distal quadriceps tendon down to the upper portion of the patella. Small dystrophic ossicle along the patellar tendon course. There is a trace knee joint effusion without fat fluid level. There is severe anterior soft tissue swelling. No imbedded foreign body. Atherosclerotic vascular calcifications. IMPRESSION: Severe anterior soft tissue swelling in the right distal thigh and in front of the patella. No underlying fracture or acute arthroplasty complication seen. Dictated by Kaya Felipe MD @ 07/19/2024 11:30:14 AM (Electronically Signed)
--- NOTE | 2024-07-19 10:37 | ED_ITS ---
HPI - General Adult General Chief complaint: Extremity Pain/Injury, Lower Stated complaint: Fall with knee injury Time Seen by Provider: 07/19/24 10:31 History of Present Illness HPI narrative: Patient is a 73-year-old male has history of peripheral neuropathy in his feet, he has some frequent falls, he fell and hit his head a few months ago. He was vacuuming today and fell forward and hit a wall with his right side of his frontal area has a small hematoma there and a small abrasion. He we are checking on his tetanus status. He had no loss conscious no headache no neck pain. He is on aspirin daily. He also reports that he has got significant swelling on the inner and superior aspect of his knee. And this is on the right. He was able to bear weight, he was brought in by ambulance. He has noticed a significant amount of swelling almost immediately after his fall. He has no other specific issues. He denies pelvic pain headache neck pain chest pain breathing problem. He reports he simply lost balance. Related Data Home Medications ?Medication ?Instructions ?Recorded ?Confirmed acetaminophen 500 mg capsule 1,000 mg PO BID 07/19/24 07/19/24 allopurinol 100 mg tablet 100 mg PO DAILY 07/19/24 07/19/24 amlodipine 5 mg tablet 5 mg PO DAILY 07/19/24 07/19/24 aspirin 325 mg capsule 325 mg PO DAILY 07/19/24 07/19/24 cholecalciferol (vitamin D3) PO DAILY 07/19/24 empagliflozin 25 mg tablet 12.5 mg PO DAILY 07/19/24 07/19/24 glipizide 2.5 mg tablet 2.5 mg PO DAILY 07/19/24 07/19/24 losartan 25 mg tablet (Cozaar) 25 mg PO DAILY 07/19/24 07/19/24 metoprolol tartrate 25 mg tablet 25 mg PO DAILY 07/19/24 07/19/24 multivitamin 1 tab PO DAILY 07/19/24 07/19/24 omega-3 fatty acids PO DAILY 07/19/24 omeprazole 20 mg capsule,delayed 20 mg PO BID 07/19/24 07/19/24 release simvastatin 10 mg tablet 10 mg PO QHS 07/19/24 07/19/24 Allergies Allergy/AdvReac Type Severity Reaction Status Date / Time lisinopril Allergy Intermediate Confusion Verified 07/19/24 10:38 metformin Allergy Mild felt sick Verified 07/19/24 10:38 Review of Systems Status of ROS: Reports: 6 or more systems reviewed and unremarkable except as noted in History and below [facility] Social History Smoking Status: Former smoker What tobacco products do you use: cigarettes Smoking quit date/years: >15 years ago Do you use any of these nicotine containing products: None Second hand tobacco smoke exposure: No How often do you have a drink containing alcohol: never How often do you have six or more drinks on one occasion: Never AUDIT-C Alcohol total score: 0 Non-prescribed substance use: denies use service: Yes Exam Narrative: Exam Narrative: Objective: In general patient apparent distress he is very pleasant Alert orient x3 got a small frontal hematoma on the right side of his forehead got a small abrasion. This will be cleansed and covered will check on his tetanus status Rest of HEENT unremarkable neck is supple nontender there is no palpable step- offs in his scalp pulse regular occasional ectopic beat noted chest back abdomen pelvis unremarkable to palpation no tenderness no range of motion deficit right lower extremity shows good distal CMS but he has got a significant hematoma in his right medial knee he was able to bear weight He has had bilateral knee replacements he does have range of motion of his foot and ankle on the right. Good distal CMS. Const: Vital Signs, click to edit/add: Vital Signs - 24 hr 07/19/24 10:38 Temperature 97.3 F L Pulse Rate [Pulse Oximeter] 99 Respiratory Rate 20 Blood Pressure [Ri ght Upper Arm] 149/80 H Pulse Oximetry 97 Oxygen Delivery Me thod Room Air Course Vital Signs Vital signs: Initial Vital Signs Temperature 97.3 F L 07/19/24 10:38 Temperature Source Temporal Artery Scan 07/19/24 10:38 Pulse Rate 99 07/19/24 10:38 Respiratory Rate 20 07/19/24 10:38 Blood Pressure 149/80 H 07/19/24 10:38 Blood Pressure Mean 103 07/19/24 10:38 Blood Pressure Position Semi-Fowlers 07/19/24 10:38 Pulse Oximetry 97 07/19/24 10:38 Oxygen Delivery Method Room Air 07/19/24 10:38 Vital Signs Temperature 97.3 F L 07/19/24 10:38 Pulse Rate 99 07/19/24 10:38 Respiratory Rate 20 07/19/24 10:38 Blood Pressure 149/80 H 07/19/24 10:38 Pulse Oximetry 97 07/19/24 10:38 Oxygen Delivery Method Room Air 07/19/24 10:38 Temperature 97.3 F L 07/19/24 10:38 Pulse Rate 99 07/19/24 10:38 Respiratory Rate 20 07/19/24 10:38 Blood Pressure 149/80 H 07/19/24 10:38 Pulse Oximetry 97 07/19/24 10:38 Oxygen Delivery Method Room Air 07/19/24 10:38 Medical Decision Making MDM Narrative Medical decision making narrative: 73-year-old white male on aspirin with a right knee hematoma from a fall. He he also had a minor frontal injury to his forehead. At this point will check on his tetanus status cleanse as well abrasion on his forehead Will check an x-ray of his right knee and also an ultrasound to make sure that he is not having continued bleeding. Will likely get an ortho consult. At this point I am not sure the patient can go home and may need acute status in the hospital as with neuropathy in the significant injury to his leg might be difficult call to ambulate but will see how he progresses. Addendum 11:13 a.m.: The patient has a large fluid collection is knee on ultrasound appears to be possibly arterial bleeding will contact Trauma Center. Patient was in agreement. May possibly need arteriogram. Lab Data Labs: Lab Results 07/19/24 Range/Units 10:45 WBC 8.48 (4.50-11.00) K/uL RBC 3.46 L (4.30-5.90) m/uL Hgb 11.5 L (13.5-17.5) gm/dL Hct 35.3 L (37.0-53.0) % MCV 102 H (80-100) fL MCH 33 (26-34) pg MCHC 33 (32-36) gm/dL RDW Coeff of Miracle 13.2 (11.5-15.5) % Plt Count 255 (140-440) K/uL Neut % (Auto) 77.7 H (42.0-72.0) % Lymph % (Auto) 13.1 L (20-44) % [place] % (Auto) 5.9 (0.0-11.0) % Eos % (Auto) 2.4 (0.0-7.0) % Baso % (Auto) 0.5 (0.0-3.0) % Neut # (Auto) 6.60 (1.7-7.0) K/uL Lymph # (Auto) 1.10 (0.90-2.90) K/uL [place] # (Auto) 0.50 (0.00-0.90) K/UL Eos # (Auto) 0.20 (0.00-0.50) K/uL Baso # (Auto) 0.04 (0.00-0.30) K/uL Abs Immat Gran (auto) 0.03 (0.00-0.30) K/uL Imm/Tot Granulo (auto) 0.4 % INR 0.95 (0.91-1.10) APTT 26 (23-33) Seconds Sodium 136 (135-149) mmol/L Potassium 4.2 (3.6-5.1) mmol/L Chloride 106 (96-114) mmol/L Carbon Dioxide 21 (20-32) mmol/L Anion Gap 9 (7-15) mEq/L BUN 32 H (7-30) mg/dL Creatinine 2.4 H (0.5-1.5) mg/dL Estimated Creat Clear 26.52 Estimated GFR 28 ml/min Glucose 231 H (60-115) mg/dL Calcium 8.6 (8.4-10.6) mg/dL Discharge Plan Discharge Clinical Impression: Hematoma of right knee region, Fall, Contusion of forehead Patient Disposition: [facility] Discharge Location: [facility]
[2024-07-19 11:03] LABS: Basophils Absolute Auto 0.04 K/uL (0.00-0.30); Basophils Percent Auto 0.5 % (0.0-3.0); Eosinophils Percent Auto 2.4 % (0.0-7.0); Hematocrit 35.3 % (37.0-53.0); Hemoglobin* 11.5 gm/dL (13.5-17.5); Immature Granulocytes Abs Auto 0.03 K/uL (0.00-0.30); Immature Granulocytes Pct Auto 0.4 %; Lymphocytes Percent Auto 13.1 % (20-44); Mean Corpuscular HGB Conc 33 gm/dL (32-36); Mean Corpuscular Hemoglobin 33 pg (26-34); Mean Corpuscular Volume 102 fL (80-100); Monocytes Percent Auto 5.9 % (0.0-11.0); Neutrophils Percent Auto 77.7 % (42.0-72.0); Platelet Count* 255 K/uL (140-440); RDW Coefficient of Variation % 13.2 % (11.5-15.5); Red Blood Count 3.46 m/uL (4.30-5.90); White Blood Count* 8.48 K/uL (4.50-11.00)
--- OUTSIDE RECORDS SUMMARY | 2024-07-19 11:04 | XMS_ITS | Encounter Summary ---
Author Name [facility] [place] [facility] [place] Address [address] [place] [id number] Care Team Providers Care Block And Case Maker Name Role Phone MARTHA GARCIA Primary Care Provider Fatoumata motley Insurance Providers: All historical and current Section [...] Relationship to Policy Brantley [facility] [place] [facility] (WNR) MEDICARE ADVANTAGE [facility] ([facility]) Oct 11, 2019 [id number] FLYNN GOULD PATIENT [facility] (WNR) MEDICARE ADVANTAGE [facility] (WNR) Oct 11, 2016 [id number] FLYNN GOULD PATIENT [facility] (WNR) MEDICARE ADVANTAGE [facility] ([facility]) Oct 11, 2019 [id number] FLYNN GOULD PATIENT Selected Encounter This section includes the information on record at [place] for the Encounter. Date/Time Encounter Type Encounter Description Reason Provider Source Jan 06, 2024 03:00 PM OFFICE O/P EST MOD 30 MIN RENAL/NEPHROL(EXCE PT DIALYSIS) ICD-10-CM E11.22 Type 2 diabetes mellitus w diabetic chronic kidney disease MITCHELL GOMEZ Encounter Template Text not used by [facility] Assessments - Encounter Diagnoses This section includes the primary and secondary diagnoses documented for the Encounter. Date/Time Primary/Secondary Diagnosis Diagnosis Name Provider Source Jan 06, 2024 03:20 PM PRIMARY Type 2 diabetes mellitus w diabetic chronic kidney disease MITCHELL GOMEZ CB Jan 06, 2024 03:20 PM SECONDARY Anemia in chronic kidney disease MITCHELL GOMEZ CB Jan 06, 2024 03:20 PM SECONDARY Chronic kidney disease, stage 4 (severe) MITCHELL GOMEZ CB Jan 06, 2024 03:20 PM SECONDARY Essential (primary) hypertension MITCHELL GOMEZ CB Jan 06, 2024 03:20 PM SECONDARY Gout, unspecified MITCHELL GOMEZ CB Jan 06, 2024 03:20 PM SECONDARY Hypertensive chronic kidney disease w stg 1-4/unsp chr kdny MITCHELL GOMEZ CB Jan 06, 2024 03:20 PM SECONDARY Secondary hyperparathyroidism of renal origin MITCHELL GOMEZ CB Jan 06, 2024 03:20 PM SECONDARY Type 2 diabetes mellitus with unspecified complications MITCHELL GOMEZ Plan of Treatment: Future Appointments (+ 6 [...] Appointment Type Appointme nt Facility Name Mar 23, 2024 08:30 AM AMBULATORY - MEDICINE [facility] Apr 20, 2024 09:30 AM AMBULATORY - NONE [facility] Jun 15, 2024 09:45 AM AMBULATORY - NONE [facility] Jul 06, 2024 10:45 AM AMBULATORY - NONE [facility] Jul 06, 2024 11:00 AM [facility] - [facility] Jul 06, 2024 11:30 AM AMBULATORY - NONE [facility] Lab Results: +/- 30 days of the encounter This section includes the Chemistry and Hematology Lab Results on record with [place] for the patient. Radiology Reports and Pathology Reports are provided separately, in subsequent sections. Lab Results This section contains the Chemistry/Hematology Results that were resulted 30 days before or 30 daysafter the date of the Encounter. Date/Time Source Result Type Result - Unit Interpretation Reference Range Comment Dec 23, 2023 08:35 AM [facility] ELECTROLYTES/ANION GAP Specimen Type: PLASMA No comment entered. Ordering Provider: MITCHELL GOMEZ Report Released Date/Time: Jul 06, 2023 01:37 PM Reporting Lab: [facility] [address] Performing Lab: [facility] [address] SODIUM 138 mmol/L 136-145 POTASSIUM 4.5 mmol/L 3.5-5.1 CHLORIDE 104 mmol/L 98-107 CO2 22 mmol/L 22-29 ANION GAP 12 mmol/L 5-15 Dec 23, 2023 08:35 AM [facility] UREA NITROGEN Specimen Type: PLASMA No comment entered. Ordering Provider: MITCHELL GOMEZ Report Released Date/Time: Jul 06, 2023 01:37 PM Reporting Lab: [facility] [address] Performing Lab: [place] [address] UREA NITROGEN 27 mg/dL H 8-26 Dec 23, 2023 08:35 AM [facility] CREATININE(INCLUDES EGFR) Specimen Type: PLASMA No comment entered. Ordering Provider: MITCHELL GOMEZ Report Released Date/Time: Jul 06, 2023 01:37 PM Reporting Lab: [facility] [address] Performing Lab: [facility] [address] CREATININE 2.4 mg/dL H 0.7-1.2 .CREAT EGFR(CKD-EPI) 28 L >60 Dec 23, 2023 08:35 AM [facility] PHOSPHORUS Specimen Type: PLASMA No comment entered. Ordering Provider: MITCHELL GOMEZ Report Released Date/Time: Jul 06, 2023 01:37 PM Reporting Lab: [facility] [address] Performing Lab: [facility] [address] PHOSPHORUS 3.1 mg/dL 2.3-4.7 Dec 23, 2023 08:35 AM [facility] CALCIUM Specimen Type: PLASMA No comment entered. Ordering Provider: MITCHELL GOMEZ Report Released Date/Time: Jul 06, 2023 01:37 PM Reporting Lab: [facility] [address] Performing Lab: [facility] [address] CALCIUM 9.6 mg/dL 8.4-10.2 Dec 23, 2023 08:35 AM [facility] ALBUMIN Specimen Type: PLASMA No comment entered. Ordering Provider: MITCHELL GOMEZ Report Released Date/Time: Jul 06, 2023 01:37 PM Reporting Lab: [facility] [address] Performing Lab: [place] [address] ALBUMIN 3.9 g/dL 3.5-5.2 Dec 23, 2023 08:35 AM [facility] GLUCOSE Specimen Type: PLASMA No comment entered. Ordering Provider: MITCHELL GOMEZ Report Released Date/Time: Jul 06, 2023 01:37 PM Reporting Lab: [place] [phone] Performing Lab: [place] [address] GLUCOSE 117 mg/dL H 70-100 Dec 23, 2023 08:35 AM [facility] B 12 Specimen Type: SERUM No comment entered. Ordering Provider: MITCHELL GOMEZ Report Released Date/Time: Jul 06, 2023 01:37 PM Reporting Lab: [facility] [address] Performing Lab: [facility] [address] B 12 305 pg/mL 213-816 Dec 23, 2023 08:35 AM [facility] URIC ACID Specimen Type: PLASMA No comment entered. Ordering Provider: MITCHELL GOMEZ Report Released Date/Time: Jul 06, 2023 01:37 PM Reporting Lab: [facility] [address] Performing Lab: [facility] [address] URIC ACID 6.0 mg/dL 3.5-7.2 Dec 23, 2023 08:35 AM [facility] CBC Specimen Type: BLOOD No comment entered. Ordering Provider: MITCHELL GOMEZ Report Released Date/Time: Jul 06, 2023 01:37 PM Reporting Lab: [facility] [address] Performing Lab: [place] [phone] WBC 8.64 10*3/uL 4.0-11.0 RBC 3.92 10*6/uL L 4.6-6.2 HGB 13.4 g/dL L 13.5-17.9 HCT 40.3 L 41-54 MCV 102.8 fL H 80-100 MCH 34.2 pg H 27-33 MCHC 33.3 g/dL 32.0-37.5 PLT 312 10*3/uL 150-400 MPV 9.4 fL 7.4-10.4 RDW 13.1 11.5-14.5 Vital Signs: All taken on the encounter date This section contains inpatient and outpatient Vital Signs collected on the date of the Encounter. Date/Time Temperature Pulse Blood Pressure Respiratory Rate SP02 Pain Height Weight Body Mass Index Source Jan 06, 2024 02:52 PM 97.5 79 117/74 16 96 0 269.8 41 [facility] Social History: Smoking Status (Most current) and Tobacco Use (All prior to encounter date) This section includes the most current, and the historical, smoking and tobacco- related health factors from the [place] facility where the Encounter took place. Current Smoking Status This section includes the most current smoking, or tobacco-related health factor, from the [place] facility where the Encounter took place. Date/Time Current Smoking Status Comment Facil ity Mar 18, 2023 09:30 AM VA-TOBACCO QUIT 15 YRS OR MORE [facility] Tobacco Use History This section includes a history of the smoking, or tobacco-related health factors, that were collected on or before the date of the Encounter. The data comes from the [place] facility where the Encounter took place. Date/Time Smoking Status/Tobacco Use Comment F acility Mar 18, 2023 09:30 AM VA-TOBACCO QUIT 15 YRS OR MORE [facility] Mar 16, 2022 02:00 PM VA-TOBACCO FORMER USER [facility] Mar 16, 2022 02:00 PM VA-TOBACCO QUIT 15 YRS OR MORE [facility] February 23, 2019 11:14 AM VA-TOBACCO FORMER USER [facility] February 23, 2019 11:14 AM VA-TOBACCO QUIT 15 YRS OR MORE [facility] February 24, 2018 11:40 AM VA-TOBACCO FORMER USER [facility] February 24, 2018 11:40 AM VA-TOBACCO QUIT 15 YRS OR MORE [facility] February 24, 2018 10:44 AM FORMER TOBACCO USER 7Y [facility] February 22, 2017 02:44 PM FORMER TOBACCO USER 7Y [facility] Jan 13, 2016 04:54 AM FORMER TOBACCO USER 7Y [facility] Mar 21, 2014 10:14 AM FORMER TOBACCO USER 7Y OR [facility] Encounter Notes: All associated encounter notes This section contains the clinical notes associated to the Encounter. Date/Time Encounter Note(s) Provider Source Jan 06, 2024 03:12 PM NEPHROLOGY ATTENDI WILL NOTE: LOCAL TITLE: RENAL CLINIC NOTE STANDARD TITLE: NEPHROLOGY ATTENDING NOTE DATE OF NOTE: JAN 06, 2024@15:12 ENTRY DATE: JAN 06, 2024@15:12:10 AUTHOR: MITCHELL GOMEZ COSIGNER: URGENCY: STATUS: COMPLETED Assessment/plan: Mr. Kota Gould is a 73 year old male seen in renal clinic for management of chronic kidney disease. 1. CKD 4, eGFR 28 with most recent labs Comment: Etiology of [...] ARB for ~ 2 weeks), SPEP negative). Stable renal function, at baseline for pt. There are no uremic symptoms. Acceptable electrolytes. Oral hydration is at goal. Controlling DM2/HTN to slow CKD progression was discussed. Pt attended CKD education . - he is unsure what his thoughts are towards dialysis. Plan: Continue current management. Discussion of [employer] REPA[employer] modality preference on- going. 2. Hypertension Comment: Clinic reading is at goal, no home readings to review. Checks home BP intermittently. Plan: Continue current management. Pt will contact [facility] if home BP readings are > 150 systolic consistently. 3. DM2 Comment: Managed by PCP. Does not check BG. On SGLT2i, on ARB. Plan: Continued management per PCP. 4. Bone/mineral/secondary hyperparathyroidism of renal origin Comment: Calcium & phos are acceptable, not on calcium supplements or phos binders. Pt has secondary hyperparathyroidism of renal origin not on calcitriol. Plan: Monitor. 5. Anemia Comment: ACKD per peripheral smear. Hgb is stable & at baseline, pt is not on JUAN. Not on iron supplement. On B12 supplement - B12 level is acceptable with most recent labs. Plan: Continue B12 supplement. JUAN is not indicated until hgb is < 9 g/dL. 6. Gout Comment: On allopurinol, no flare. Uric acid level at goal. Plan: Continue allopurinol. RTC 6 months [facility] with labs 1-2 weeks prior, sooner if needed {}{}{}{}{}{}{}{}{}{}{}{}{}{}{}{}{}{ }{}{}{}{}{}{}{}{}{}{}{}{}{}{}{}{}{} {}{}{} Nurse's Notes Reviewed. Chief Complaint: follow-up CKD HPI: Pt states he's feeling well with no complaints. No interval hospitalization since last renal clinic visit, no new health concerns. CKD - good appetite. Denies nausea, vomiting, metallic taste in the mouth. Energy level is good. Does not nap during the day. No pruritis. Drinking a minimum of 64 ounces of water per day. Since our last visit, pt attended CKD education class - he reports the class had useful information but he isn't ready to think about dialysis yet. HTN - has a BP cuff at home, checking BP intermittently - readings similar to check-in reading DM2 - does not check BG at home (not provided glucose test strips) Past medical history/Active Problems: Active Problems: Active [...] 10. Edema 11. Deformity of toe 12. Ingrowing nail of toe of left foot 13. Anaemia in chronic kidney disease 14. Secondary hyperparathyroidism of renal origin 15. Chronic kidney disease stage 4 Review of Systems: Feels well, no weight loss, good appetite. No Chest Pain. No Shortness of breath. No orthopnea, PND, or peripheral edema. No abdominal pain, N/V, or change in bowel habits. No diarrhea or constipation. No urinary hesitancy or frequency. Physical Exam: VS: Temp: 97.5 F [36.4 C] (01/06/2024 14:52) BP: 117/74 (01/06/2024 14:52) Pulse:79 (01/06/2024 14:52) Resp: 16 (01/06/2024 14:52) Weight: 269.8 lb [122.38 kg] (01/06/2024 14:52) Pain: 0 (01/06/2024 14:52) O2 Sat: 96% (01/06/2024 14:52) BMI: 41.1 General NAD WDWN Cardiac: RRR with normal S1 and S2; without murmur, gallop, rub. Chest/Lungs: Bilaterally clear Abdominal: Bowel Sounds Present Extremities: No edema. Lab Data: Report Released Date/Time: Dec 23, 2023@20:01 Provider: MITCHELL GOMEZ Specimen: SERUM. [facility] 24 1012 Specimen Collection Date: Dec 23, 2023@08:35 Test name Result units Ref. range Site Code B 12 305 pg/mL 213 - 816 [618] Eval: The Vitamin B12 assay has poor diagnostic utility in the low normal Eval: range of the assay. Vitamin B12 results less than 300 pg/ml will Eval: automatically be reflexed for the measurement of methylmalonic acid Eval: to aid in the definitive diagnosis of Vitamin B12 deficiency. Eval: Increased concentrations of methylmalonic acid indicate low tissue Eval: stores of Vitamin B12. ========= Reporting Lab: [facility] [CLIA# [id number]] [place] [address] Report Released Date/Time: Dec 23, 2023@19:46 Provider: MITCHELL GOMEZ Specimen: BLOOD. [id number] Specimen Collection Date: Dec 23, 2023@08:35 Test name Result units Ref. range Site Code WBC 8.64 K/cmm 4.0 - 11.0 [618] RBC 3.92 L M/cmm 4.6 - 6.2 [618] HGB 13.4 L g/dL 13.5 - 17.9 [618] HCT 40.3 L % 41 - 54 [618] MCV 102.8 H fL 80 - 100 [618] MCH 34.2 H pg 27 - 33 [618] MCHC 33.3 g/dL 32.0 - 37.5 [618] RDW 13.1 % 11.5 - 14.5 [618] PLT 312 K/cmm 150 - 400 [618] MPV 9.4 fL 7.4 - 10.4 [618] ========= Reporting Lab: [facility] [CLIA# [id number]] [place] [address] Report Released Date/Time: Dec 23, 2023@19:55 Provider: MITCHELL GOMEZ Specimen: PLASMA. [facility] 24 [id number] Specimen Collection Date: Dec 23, 2023@08:35 Test name Result units Ref. range Site Code .CREAT EGFR(CKD-EPI) 28 L Ref: >=60 [618] Eval: The eGFR [...] decrease Eval: <15 G5 Kidney failure SODIUM 138 mmol/L 136 - 145 [618] POTASSIUM 4.5 mmol/L 3.5 - 5.1 [618] Eval: Serum potassium results are generally 5% higher than plasma. CHLORIDE 104 mmol/L 98 - 107 [618] CO2 22 mmol/L 22 - 29 [618] Eval: To calculate Anion Gap use (Na)-[(Cl)+CO2] ANION GAP 12 mmol/L 5 - 15 [618] GLUCOSE 117 H mg/dL 70 - 100 [618] Eval: Reference Range is based on fasting specimen. Eval: Patients taking Sulfasalazine may see a negative bias on Glucose Eval: levels. UREA NITROGEN 27 H mg/dL 8 - 26 [618] CREATININE 2.4 H mg/dL 0.7 - 1.2 [618] ALBUMIN 3.9 g/dL 3.5 - 5.2 [618] CALCIUM 9.6 mg/dL 8.4 - 10.2 [618] PHOSPHORUS 3.1 mg/dL 2.3 - 4.7 [618] URIC ACID 6.0 mg/dL 3.5 - 7.2 [618] ========= Patient was informed of all the above labs during this visit. Patient Education of Treatment Plan: Patient indicates readiness to learn, verbalizes understanding, agreement and satisfaction with the treatment plan. Denies further questions. /gregorio/ MITCHELL GOMEZ Nurse Practitioner Signed: 01/06/2024 15:21 MITCHELL GOMEZ [facility] Jan 06, 2024 02:55 PM PRIMARY CARE NURSI WILL NOTE: LOCAL TITLE: [facility] NURSING PROGRESS NOTE STANDARD TITLE: PRIMARY CARE NURSING NOTE DATE OF NOTE: JAN 06, 2024@14:55 ENTRY DATE: JAN 06, 2024@14:55:24 AUTHOR: REMY STEPHENS EXP COSIGNER: URGENCY: STATUS: COMPLETED TYPE OF VISIT: Appointment Check In Type of appointment: In-person appointment REASON FOR VISIT: Follow up ALLERGIES: LISINOPRIL (Mar 21, 2014) VITAL SIGNS: Blood Pressure: 117/74 (01/06/2024 14:52) Pulse: 79 (01/06/2024 14:52) Respiration: 16 (01/06/2024 14:52) Temperature: 97.5 F [36.4 C] (01/06/2024 14:52) Weight: 269.8 lb [122.38 kg] (01/06/2024 14:52) Height: 68 in [172.7 cm] (03/18/2023 09:41) BMI: 41.1 O2 Sat: 96% (01/06/2024 14:52) Pain: 0 (01/06/2024 14:52) PAIN SCREEN: Patient is not having significant pain that they wish to discuss with their provider today. /gregorio/ REMY STEPHENS MA, TCT TCT [facility] Signed: 01/06/2024 14:56 REMY STEPHENS [facility]
--- OUTSIDE RECORDS SUMMARY | 2024-07-19 11:04 | XMS_ITS | Encounter Summary ---
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 Date/Time Encounter Type Encounter Description Reason Pro vider Source Jun 29, 2024 12:00 AM Outpatient Encounter EVENT (HISTORICAL) [facility] Encounter Template Text not used by [facility] Plan of Treatment: Future Appointments (+ 6 months) and Future Tests (+/- 45 days) The Plan of Treatment section includes future care activities for the [facility]. This section includes future appointments and future orders which are active, pending or scheduled. Future Appointments This section includes appointments that were scheduled to occur 6 months from the date of the Encounter, up to a maximum of 20 appointments. The data comes from all [facility] treatment facilities. Appointment Date/Time Appointment Type Appointme nt Facility Name Jul 06, 2024 10:45 AM AMBULATORY - NONE [facility] Jul 06, 2024 11:00 AM [facility]ORY - MEDICINE [facility] Jul 06, 2024 11:30 AM AMBULATORY - NONE [facility] Jul 27, 2024 08:30 AM AMBULATORY - NONE [facility] Lab Results: +/- 30 days of the encounter This section includes the Chemistry and Hematology Lab Results on record with [facility] for the patient. Radiology Reports and Pathology Reports are provided separately, in subsequent sections. Lab Results This section contains the Chemistry/Hematology Results that were resulted 30 days before or 30 daysafter the date of the Encounter. Date/Time Source Result Type Result - Unit Interpretation Reference Range Comment Jul 06, 2024 09:59 AM [facility] ALBUMIN/CREATININE RATIO URINE Specimen Type: URINE No comment entered. Ordering Provider: LANE GARCIA Report Released Date/Time: Mar 23, 2024 09:08 AM Reporting Lab: [facility] [phone] Performing Lab: [facility] [phone] CREATININE,UR RANDOM 117.3 mg/dL 58.0-161.0 ALB/CREAT RATIO,UR 643.3 mg/g{creat} H <29.9 ALBUMIN,UR 754.6 mg/L H <29.9 Jun 15, 2024 08:38 AM [facility] HEMOGLOBIN A1C Specimen Type: BLOOD Comment: Values obtained from A1C measurements can vary. For typical A1C assays, a reported value of 7.0 could actually be between 6.7 and 7.3 if measured by a reference method. A reported value of 9.0 could actually be between 8.7 and 9.3. Ref: http://www.ngs p.org/CAPdata. asp Ordering Provider: MITCHELL GOMEZ Report Released Date/Time: Jan 06, 2024 03:11 PM Reporting Lab: [facility] [id number] Performing Lab: [facility] [id number] HEMOGLOBIN A1C 5.5 4.0-6.0 Jun 15, 2024 08:38 AM [facility] UREA NITROGEN Specimen Type: PLASMA No comment entered. Ordering Provider: MITCHELL GOMEZ Report Released Date/Time: Jan 06, 2024 03:11 PM Reporting Lab: [facility] [phone] Performing Lab: [facility] [phone] UREA NITROGEN 29 mg/dL H 8-26 Jun 15, 2024 08:38 AM [facility] CREATININE(INCLUDES EGFR) Specimen Type: PLASMA No comment entered. Ordering Provider: MITCHELL GOMEZ Report Released Date/Time: Jan 06, 2024 03:11 PM Reporting Lab: [facility] [phone] Performing Lab: [facility] [phone] CREATININE 2.2 mg/dL H 0.7-1.2 .CREAT EGFR(CKD-EPI) 31 L >60 Jun 15, 2024 08:38 AM [facility] ELECTROLYTES/ANION GAP Specimen Type: PLASMA No comment entered. Ordering Provider: MITCHELL GOMEZ Report Released Date/Time: Jan 06, 2024 03:11 PM Reporting Lab: [facility] [phone] Performing Lab: [facility] [phone] SODIUM 141 mmol/L 136-145 POTASSIUM 4.5 mmol/L 3.5-5.1 CHLORIDE 111 mmol/L H 98-107 CO2 21 mmol/L L 22-29 ANION GAP 9 mmol/L 5-15 Jun 15, 2024 08:38 AM [facility] CALCIUM Specimen Type: PLASMA No comment entered. Ordering Provider: MITCHELL GOMEZ Report Released Date/Time: Jan 06, 2024 03:11 PM Reporting Lab: [facility] [phone] Performing Lab: [facility] [phone] CALCIUM 8.9 mg/dL 8.4-10.2 Jun 15, 2024 08:38 AM [facility] PHOSPHORUS Specimen Type: PLASMA No comment entered. Ordering Provider: MITCHELL GOMEZ Report Released Date/Time: Jan 06, 2024 03:11 PM Reporting Lab: [facility] [phone] Performing Lab: [facility] [phone] PHOSPHORUS 3.5 mg/dL 2.3-4.3 Jun 15, 2024 08:38 AM [facility] ALBUMIN Specimen Type: PLASMA No comment entered. Ordering Provider: MITCHELL GOMEZ Report Released Date/Time: Jan 06, 2024 03:11 PM Reporting Lab: [facility] [phone] Performing Lab: [place] [phone] ALBUMIN 4.0 g/dL 3.5-5.2 Jun 15, 2024 08:38 AM [facility] PTH-N-TACT Specimen Type: PLASMA No comment entered. Ordering Provider: MITCHELL GOMEZ Report Released Date/Time: Jan 06, 2024 03:11 PM Reporting Lab: [facility] [id number] Performing Lab: [place] [phone] PTH-N-TACT 86.6 pg/mL H 8.7-77.1 Jun 15, 2024 08:38 AM [facility] GLUCOSE Specimen Type: PLASMA No comment entered. Ordering Provider: MITCHELL GOMEZ Report Released Date/Time: Jan 06, 2024 03:11 PM Reporting Lab: [facility] [phone] Performing Lab: [facility] [phone] GLUCOSE 96 mg/dL 70-100 Jun 15, 2024 08:38 AM [facility] CBC Specimen Type: BLOOD No comment entered. Ordering Provider: MITCHELL GOMEZ Report Released Date/Time: Jan 06, 2024 03:11 PM Reporting Lab: [facility] [phone] Performing Lab: [facility] [phone] WBC 7.6 4.0-11.0 RBC 3.83 L 4.60-6.20 HGB 12.4 g/dL L 13.5-17.9 HCT 38.8 L 41-54 MCV 101.3 fL H 80-100 MCH 32.4 pg 27-33 MCHC 32.0 g/dL 32.0-37.5 PLT 313 150-400 MPV 9.4 fL 9.1-13.0 RDW 12.4 11.5-14.5 Jun 15, 2024 08:38 AM [facility] IRON GROUP Specimen Type: SERUM No comment entered. Ordering Provider: MITCHELL GOMEZ Report Released Date/Time: Jan 06, 2024 03:11 PM Reporting Lab: [facility] [phone] Performing Lab: [facility] [phone] IRON 107 ug/dL 65-175 TIBC,CALCULATE D 330 ug/dL 250-425 FERRITIN 25.0 ng/mL 21.8-274.7 IRON SATURATION 32 20-50 TRANSFERRIN 264 mg/dL 163-382 Immunizations: All administered on the encounter date This section contains immunizations associated to the Encounter. Immunization Series Date Issued Reaction Comments COVID-19 (MODERNA), MRNA, LN P-S, PF, 50 MCG/0.5 ML (AGES 12+ YEARS) Jun 29, 2024 INFLUENZA, HIGH-DOSE, TRIVALENT, PF Jun 29
--- OUTSIDE RECORDS SUMMARY | 2024-07-19 11:04 | XMS_ITS | Continuity of Care Document ---
Author Name [facility] Organization [facility] Care Team Providers Care Student Teaching Coordinator Name Role Phone [facility] Unavailable Unavailable Problems Combined list of problems from Department of Defense and [facility] facilities. It does not include entries that were removed or entered in error. Problem Status Onset Date Problem Type Date of Resolution Comments Source Diabetes mellitus Active 983 Condition [facility] Acquired hallux rigidus Active Condition [facility] Anaemia in chronic kidney disease Active Condition [facility] Chronic kidney disease stage 4 Active Condition [facility] Deformity of toe Active Condition [facility] Edema Active Condition [facility] Essential hypertension Active Condition Mar 21, 2014 Entered By: JENELLE JAMES Comment: dx late 2013 Entered By: JENELLE JAMES Comment: says pharmacologic stress test ok in late [facility] Flat foot Active Condition [facility] Gout Active Condition [facility] Hyperlipidemia Active Condition [facility] Ingrowing nail of toe of left foot Active Condition [facility] Obesity Active Condition [facility] Peripheral sensory neuropathy due to type 2 diabetes mellitus Active Condition [facility] Proteinuria Active Condition Mar 21, 2014 Entered By: JENELLE JAMES Comment: with prior testing per pt report [facility] Secondary hyperparathyroidism of renal origin Active Condition [facility] Transient global amnesia Inactive Condition 03/21/2014 Mar 21, 2014 Entered By: JENELLE JAMES Comment: [facility] Diagnosis: ICD-10-CM E11.8 Type 2 diabetes mellitus with unspecified complications Active Diagnosis [facility] Diagnosis: ICD-10-CM E11.22 Type 2 diabetes mellitus w diabetic chronic kidney disease Active Diagnosis [facility] Diagnosis: ICD-10-CM Z00.8 Encounter for other general examination Active Diagnosis [facility] Diagnosis: ICD-10-CM F54 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 Medication Details Route Status Patient Instructions Prescription Expires Prescription Number Last Dispense Date Ordering Provider Order Date Order Qty Source ACETAMINOPH EN 500MG TAB TAKE TWO TABLETS BY MOUTH DAILY ORAL ACTIVE TOBIAS JAMES I L 2013 [facility] ALLOPURINOL 100MG TAB TAKE ONE TABLET BY MOUTH EVERY DAY FOR GOUT PREVENTI ON ORAL ACTIVE 03/24/2025 [id number] 4 MARTHA GARCIA 2023 90 [facility] ALLOPURINOL 100MG TAB TAKE ONE TABLET BY MOUTH EVERY DAY FOR GOUT PREVENTI ON ORAL DISCONT INUED 03/18/2024 [id number] 4 MARTHA GARICA 2022 90 [facility] AMLODIPINE BESYLATE 10MG TAB TAKE ONE-HALF TABLET BY MOUTH EVERY DAY FOR BLOOD PRESSURE ORAL ACTIVE 03/24/2025 [id number] 4 MARTHA GARCIA 2023 45 [facility] AMLODIPINE BESYLATE 10MG TAB TAKE ONE-HALF TABLET BY MOUTH EVERY DAY FOR BLOOD PRESSURE ORAL DISCONT INUED 03/18/2024 [id number] 4 MARTHA GARCIA 2022 45 [facility] ASPIRIN 325MG TAB TAKE ONE TABLET BY MOUTH EVERY DAY ORAL ACTIVE TOBIAS JAMES 2013 [facility] EMPAGLIFLOZ IN 25MG TAB TAKE ONE-HALF TABLET BY MOUTH EVERY DAY ORAL ACTIVE 03/24/2025 [id number] 4 MARTHA GARCIA 2023 45 [facility] EMPAGLIFLOZ IN 25MG TAB TAKE ONE-HALF TABLET BY MOUTH EVERY DAY ORAL DISCONT INUED 02/23/2024 [id number] 4 PB GOMEZ 2022 45 MEGAN MENDOZA [facility] GLIPIZIDE 5MG TAB TAKE ONE-HALF TABLET BY MOUTH EVERY DAY FOR DIABETES 30 MINUTES BEFORE MEAL ORAL ACTIVE 03/24/2025 [id number] 4 MARTHA GARCIA 2023 45 [facility] GLIPIZIDE 5MG TAB TAKE ONE-HALF TABLET BY MOUTH EVERY DAY FOR DIABETES 30 MINUTES BEFORE MEAL ORAL DISCONT INUED 07/07/2024 [id number] PB GOMEZ 2022 45 [facility] GLIPIZIDE 5MG TAB TAKE ONE TABLET BY MOUTH EVERY DAY ORAL DISCONT INUED (EDIT) 11/12/2023 [id number] 3 MARTHA GARCIA 2022 90 [facility] LOSARTAN 25MG TAB TAKE ONE TABLET BY MOUTH EVERY DAY FOR KIDNEY PROTECTI ON ORAL ACTIVE 03/24/2025 [id number] 4 MARTHA GARCIA 2023 90 [facility] LOS[place]AN 25MG TAB TAKE ONE TABLET BY MOUTH EVERY DAY FOR KIDNEY PROTECTI ON ORAL DISCONT INUED 03/18/2024 [id number] 4 MARTHA GARCIA 2022 90 [facility] MARINE LIPID (FISH OIL) CAP,ORAL TAKE BY MOUTH ORAL ACTIVE JACOB,TOBIAS I L 2013 [facility] MELATONIN CAP/TAB TAKE BY MOUTH AT BEDTIME ORAL ACTIVE MARTHA GARCIA 2022 [facility] METOPROLOL TARTRATE 50MG TAB TAKE ONE-HALF TABLET BY MOUTH TWICE A DAY FOR HEART RHYTHM ORAL ACTIVE 03/24/2025 [id number] 4 MARTHA GARCIA 2023 90 [facility] METOPROLOL TARTRATE 50MG TAB TAKE ONE-HALF TABLET BY MOUTH TWICE A DAY FOR HEART RHYTHM ORAL DISCONT INUED 03/18/2024 [id number] 4 MARTHA GARCIA 2022 90 [facility] MULTIVITAMI NS CAP/TAB TAKE ONE TABLET BY MOUTH EVERY DAY ORAL ACTIVE JACOB,TOBIAS I L 2013 [facility] OMEPRAZOLE 20MG CAP,EC TAKE ONE CAPSULE BY MOUTH TWICE A DAY ON AN EMPTY STOMACH, AT LEAST 30 MINUTES PRIOR TO A MEAL ORAL ACTIVE 03/24/2025 [id number] 4 MARTHA GARCIA L 2023 180 [facility] OMEPRAZOLE 20MG CAP,EC TAKE ONE CAPSULE BY MOUTH TWICE A DAY ON AN EMPTY STOMACH, AT LEAST 30 MINUTES PRIOR TO A MEAL ORAL DISCONT INUED 06/08/2024 [id number] 4 [place]LEY [place]LE 2022 180 [facility] SIMVASTATIN 20MG TAB TAKE ONE-HALF TABLET BY MOUTH AT BEDTIME FOR CHOLESTE ROL ORAL ACTIVE 03/24/2025 [id number] 4 MARTHA GARCIA 2023 45 [facility] SIMVASTATIN 20MG TAB TAKE ONE-HALF TABLET BY MOUTH AT BEDTIME FOR CHOLESTE ROL ORAL DISCONT INUED 03/18/2024 [id number] 4 MARTHA GARCIA 2022 45 [facility] Allergies, Adverse Reactions, Alerts Combined list of allergies from Department of Defense and Veterans Affairs facilities. It does not include entries that were removed or entered in error. Substance Category Reaction Severity Reaction type Status Date Reported Comments Source LISINOPRIL Propensity to adverse reactions to drug (finding) Low blood pressure active 4 [facility] Immunizations Combined list of available immunizations from the Department of Defense and Veterans Affairs facilities. Immunization Series Date Given Administered By Site Reaction Lot Number CVX Code Drug Pack Operator Status Comments Source COVID-19 (MODERNA), MRNA, LNP-S, PF, 50 MCG/0.5 ML (AGES 12+ YEARS) 2023 312 complet ed [facility] INFLUENZA, HIGH-DOSE, TRIVALENT, PF 2023 135 complet ed [facility] RSV, BIVALENT, PROTEIN SUBUNIT RSVPREF, DILUENT RECONSTITUTED , 0.5 ML, PF 2023 DAGOBERTO LOVING RIGHT DEL[place] ID [id number] 305 complet ed [facility] INFLUENZA, HIGH-DOSE, QUADRIVALENT 2022 CODEY FRANK E RIGHT DEL[place] ID [id number] A 197 complet ed [facility] INFLUENZA VACCINE, QUADRIVALENT, ADJUVANTED 2021 STARR DAS RIGHT DELTO ID [id number] 205 complet ed [facility] COVID-19 (Flirq), MRNA, LNP-S, BIVALENT, PF, 30 MCG/0.3 ML DOSE 5 2021 300 complet ed [facility] ZOSTER RECOMBINANT 2 2021 187 complet ed [facility] ZOSTER RECOMBINANT 1 2021 187 complet ed [facility] COVID-19 (Flirq), MRNA, LNP-S, PF, 30 MCG/0.3 ML DOSE, YEIMI-SUCROSE (AGES 12+ YEARS) 4 2021 217 complet ed PFR; [id number]; 2 [facility] COVID-19 (Flirq), MRNA, LNP-S, PF, 30 MCG/0.3 ML DOSE 3 2020 208 complet ed PFR; [id number]; 2 [facility] INFLUENZA, INJECTABLE, QUADRIVALENT, PRESERVATIVE FREE 2020 150 complet ed [facility] COVID-19 (Flirq), MRNA, LNP-S, PF, 30 MCG/0.3 ML DOSE 2 2020 208 complet ed [facility] COVID-19 (PFIZER), MRNA, LNP-S, PF, 30 MCG/0.3 ML DOSE 1 2020 208 complet ed [facility] INFLUENZA, INJECTABLE, QUADRIVALENT, PRESERVATIVE FREE 2019 150 complet ed [facility] INFLUENZA, SEASONAL, INJECTABLE, PRESERVATIVE FREE 2019 140 complet ed [facility] PNEUMOCOCCAL POLYSACCHARID E PPV23 2018 33 complet ed [employer] Lot # [id number], Exp Date 25Jan2020 [facility] INFLUENZA, INJECTABLE, QUADRIVALENT, PRESERVATIVE FREE 2017 150 complet ed Partner: [email or web address]. Administe red by: [facility] (NPI=Not Provided) . Partner 7 Lot#: [id number] Mfr: Elvira Sorto [facility] ZOSTER LIVE 2016 121 complet ed [facility] INFLUENZA, HIGH DOSE SEASONAL 2016 135 complet ed [facility] INFLUENZA, HIGH DOSE SEASONAL 2016 135 complet ed [facility] TDAP 2015 115 complet ed [facility] INFLUENZA, HIGH DOSE SEASONAL 2015 135 complet ed [facility] INFLUENZA, HIGH DOSE SEASONAL 2015 135 complet ed [facility] PNEUMOCOCCAL CONJUGATE PCV 13 2015 133 complet ed [employer] Lot#[id number] 4 Exp 02/24 [facility] INFLUENZA, HIGH DOSE SEASONAL 2014 135 complet ed [facility] PNEUMOCOCCAL POLYSACCHARID E PPV23 2013 33 complet ed 2-3 years ago [facility] PNEUMOCOCCAL, UNSPECIFIED FORMULATION 2013 109 complet ed [facility] INFLUENZA, UNSPECIFIED FORMULATION 2012 88 complet ed [facility] INFLUENZA, SEASONAL, INJECTABLE 2011 141 complet ed [facility] INFLUENZA, SEASONAL, INJECTABLE 2009 141 complet ed [facility] NOVEL INFLUENZA-H1N 1-09, ALL FORMULATIONS 2009 128 complet ed [facility] TDAP 2007 115 complet ed [facility] PNEUMOCOCCAL POLYSACCHARID E PPV23 2005 33 complet ed [facility] INFLUENZA, SEASONAL, INJECTABLE 2004 141 complet ed [facility] Results Combined list of recent chemistry, hematology and other laboratory results from Department of Defense and Veterans Affairs, ranging from 15 months to all on record, depending upon the facility. Order Name Results Value Reference Range Date Interpretation Specimen Comments Source ALBUMIN/C REATININE RATIO URINE CREATININE [MASS/VOLUM E] IN URINE 117.3 mg/dL 58.0 - 161.0 07/06 Specimen Type: URINE No comment entered. Ordering Provider: DILSHAD GARCIA Report Released Date/Time: Mar 23, 2024 09:08 AM Reporting Lab: [facility] [address] Performing Lab: [facility] [phone] [facility] ALBUMIN/C REATININE RATIO URINE MICROALBUMI N/CREATININ E [MASS RATIO] IN URINE 643.3 mg/g{c reat} <29.9 - 29.9 07/06 H Specimen Type: URINE No comment entered. Ordering Provider: DILSHAD GARCIA Report Released Date/Time: Mar 23, 2024 09:08 AM Reporting Lab: [facility] [address] Performing Lab: [facility] [address] [facility] ALBUMIN/C REATININE RATIO URINE MICROALBUMI N [MASS/VOLUM E] IN URINE 754.6 mg/L <29.9 - 29.9 07/06 H Specimen Type: URINE No comment entered. Ordering Provider: DILSHAD GARCIA Report Released Date/Time: Mar 23, 2024 09:08 AM Reporting Lab: [facility] [phone] Performing Lab: [facility] [address] [facility] HEMOGLOBI N A1C HEMOGLOBIN A1C/HEMOGLO BIN.TOTAL IN BLOOD 5.5 4.0 - 6.0 06/15 Specimen Type: BLOOD Comment: Values obtained from [...] Jan 06, 2024 03:11 PM Reporting Lab: [facility] [address] Performing Lab: [facility] [address] [facility] UREA NITROGEN UREA NITROGEN [MASS/VOLUM E] IN SERUM OR PLASMA 29 mg/dL 8 - 06/15 H Specimen Type: PLASMA No comment entered. Ordering Provider: MITCHELL GOMEZ Report Released Date/Time: Jan 06, 2024 03:11 PM Reporting Lab: [facility] [address] Performing Lab: [facility] [address] [facility] CREATININ E(INCLUDE S EGFR) CREATININE [MASS/VOLUM E] IN SERUM OR PLASMA 2.2 mg/dL 0.7 - 1.2 06/15 H Specimen Type: PLASMA No comment entered. Ordering Provider: MITCHELL GOMEZ Report Released Date/Time: Jan 06, 2024 03:11 PM Reporting Lab: [facility] [address] Performing Lab: [facility] [address] [facility] CREATININ E(INCLUDE S EGFR) GLOMERULAR FILTRATION RATE/1.73 SQ M.PREDICTED [VOLUME RATE/AREA] IN SERUM, PLASMA OR BLOOD BY CREATININE- BASED FORMULA (CKD-EPI 2020) 31 60 06/15 L Specimen Type: PLASMA No comment entered. Ordering Provider: MITCHELL GOMEZ Report Released Date/Time: Jan 06, 2024 03:11 PM Reporting Lab: [facility] [address] Performing Lab: [facility] [address] [facility] ELECTROLY TYLER/ANION GAP SODIUM [MOLES/VOLU ME] IN SERUM OR PLASMA 141 mmol/L 136 - 145 06/15 Specimen Type: PLASMA No comment entered. Ordering Provider: MITCHELL GOMEZ Report Released Date/Time: Jan 06, 2024 03:11 PM Reporting Lab: [facility] [address] Performing Lab: [facility] [address] [facility] ELECTROLY TYLER/ANION GAP POTASSIUM [MOLES/VOLU ME] IN SERUM OR PLASMA 4.5 mmol/L 3.5 - 5.1 06/15 Specimen Type: PLASMA No comment entered. Ordering Provider: MITCHELL GOMEZ Report Released Date/Time: Jan 06, 2024 03:11 PM Reporting Lab: [facility] [address] Performing Lab: [facility] [address] [facility] ELECTROLY TYLER/ANION GAP CHLORIDE [MOLES/VOLU ME] IN SERUM OR PLASMA 111 mmol/L 98 - 107 06/15 H Specimen Type: PLASMA No comment entered. Ordering Provider: MITCHELL GOMEZ Report Released Date/Time: Jan 06, 2024 03:11 PM Reporting Lab: [facility] [address] Performing Lab: [facility] [address] [facility] ELECTROLY TYLER/ANION GAP CARBON DIOXIDE, TOTAL [MOLES/VOLU ME] IN SERUM OR PLASMA 21 mmol/L 22 - 29 06/15 L Specimen Type: PLASMA No comment entered. Ordering Provider: MITCHELL GOMEZ Report Released Date/Time: Jan 06, 2024 03:11 PM Reporting Lab: [facility] [address] Performing Lab: [facility] [address] [facility] ELECTROLY TYLER/ANION GAP ANION GAP IN SERUM OR PLASMA 9 mmol/L 5 - 15 06/15 Specimen Type: PLASMA No comment entered. Ordering Provider: MITCHELL GOMEZ Report Released Date/Time: Jan 06, 2024 03:11 PM Reporting Lab: [facility] [address] Performing Lab: [facility] [address] [facility] CALCIUM CALCIUM [MASS/VOLUM E] IN SERUM OR PLASMA 8.9 mg/dL 8.4 - 10.2 06/15 Specimen Type: PLASMA No comment entered. Ordering Provider: MITCHELL GOMEZ Report Released Date/Time: Jan 06, 2024 03:11 PM Reporting Lab: [facility] [address] Performing Lab: [facility] [address] [facility] ALBUMIN ALBUMIN [MASS/VOLUM E] IN SERUM OR PLASMA 4.0 g/dL 3.5 - 5.2 06/15 Specimen Type: PLASMA No comment entered. Ordering Provider: MITCHELL GOMEZ Report Released Date/Time: Jan 06, 2024 03:11 PM Reporting Lab: [facility] [address] Performing Lab: [facility] [address] [facility] PHOSPHORU S PHOSPHATE [MASS/VOLUM E] IN SERUM OR PLASMA 3.5 mg/dL 2.3 - 4.3 06/15 Specimen Type: PLASMA No comment entered. Ordering Provider: MITCHELL GOMEZ Report Released Date/Time: Jan 06, 2024 03:11 PM Reporting Lab: [facility] [address] Performing Lab: [facility] [address] [facility] PTH-N-TAC T PARATHYRIN. INTACT [MASS/VOLUM E] IN SERUM OR PLASMA 86.6 pg/mL 8.7 - 77.1 06/15 H Specimen Type: PLASMA No comment entered. Ordering Provider: MITCHELL GOMEZ Report Released Date/Time: Jan 06, 2024 03:11 PM Reporting Lab: [facility] [address] Performing Lab: [facility] [address] [facility] GLUCOSE GLUCOSE [MASS/VOLUM E] IN SERUM OR PLASMA 96 mg/dL 70 - 100 06/15 Specimen Type: PLASMA No comment entered. Ordering Provider: MITCHELL GOMEZ Report Released Date/Time: Jan 06, 2024 03:11 PM Reporting Lab: [facility] [address] Performing Lab: [facility] [address] [facility] Vital Signs Combined list of inpatient and outpatient Vital Signs from Department of Defense and Veterans Affairs, ranging from 12 months to all on record, depending upon the facility. Vital Sign Value Date Comments Source SYSTOLIC BLOOD PRESSURE 130 07/06/2024 10:38:16 [facility] DIASTOLIC BLOOD PRESSURE 80 07/06/2024 10:38:16 [facility] PULSE OXIMETRY 94 07/06/2024 10:38:16 [facility] WEIGHT 275.6 07/06/2024 10:38:16 [facility] BMI 42kg/m2 07/06/2024 10:38:16 [facility] PAIN 0 07/06/2024 10:38:16 [facility] TEMPERATURE 96.9 07/06/2024 10:38:16 [facility] PULSE 89 07/06/2024 10:38:16 [facility] RESPIRATION 16 07/06/2024 10:38:16 [facility] SYSTOLIC BLOOD PRESSURE 129 03/23/2024 08:47:22 [facility] DIASTOLIC BLOOD PRESSURE 86 03/23/2024 08:47:22 [facility] PULSE OXIMETRY 97 03/23/2024 08:47:22 [facility] WEIGHT 272.6 03/23/2024 08:47:22 [facility] BMI 42kg/m2 03/23/2024 08:47:22 [facility] PAIN 1 03/23/2024 08:47:22 [facility] HEIGHT 68 03/23/2024 08:47:22 [facility] TEMPERATURE 96.9 03/23/2024 08:47:22 [facility] PULSE 71 03/23/2024 08:47:22 [facility] RESPIRATION 16 03/23/2024 08:47:22 [facility] SYSTOLIC BLOOD PRESSURE 117 01/06/2024 14:52:08 [facility] DIASTOLIC BLOOD PRESSURE 74 01/06/2024 14:52:08 [facility] PULSE OXIMETRY 96 01/06/2024 14:52:08 [facility] WEIGHT 269.8 01/06/2024 14:52:08 [facility] BMI 41kg/m2 01/06/2024 14:52:08 [facility] PAIN 0 01/06/2024 14:52:08 [facility] TEMPERATURE 97.5 01/06/2024 14:52:08 [facility] PULSE 79 01/06/2024 14:52:08 [facility] RESPIRATION 16 01/06/2024 14:52:08 [facility] Encounters Combined list of: 1) Encounters from Department of Veterans Affairs facilities going back up to thelast 18 months. 2) Encounters from the Department of Defense facilities going back up to 280 months. Location Location Details Encounter Type Encounter Number Reason For Visit Attending Provider ADM Date DC Date Status Disposition Source [facility] [facility] Outpatient Encounter [id number] 01/28 ME[facility] WISENARENDRA [facility] [place] [facility] Outpatient Encounter [id number] 02/03 [place] [facility] [place] [facility] Outpatient Encounter [id number] CHEKARTHIKJAKY LUNDY 03/17 [place] [facility] OFFICE O/P EST MOD 30-39 MIN [id number] Diagnos is: ICD-10- CM Z00.8 Encount er for other general examina tion
Esme GARCIA EBECCA L 03/18 [facility] [place] [facility] Outpatient Encounter [id number] 03[facility] [place] [facility] [place] [place] [id number] Diagnos is: ICD-10- CM Z23 Encount er for immuniz ation<b r/> GEBREKIRST OS,CODEY E 06/29 [facility] OFFICE O/P EST MOD 30-39 MIN [id number] Diagnos is: ICD-10- CM E11.22 Type 2 diabete s mellitu s w diabeti c chronic kidney disease
MITCHELL GOMEZ 07/06 [facility] PT EDUCATION NOC GROUP [id number] Diagnos is: ICD-10- CM N18.4 Chronic kidney disease , stage 4 (severe )
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< br/> SP YIN 07/14 [place] [facility] [place] [facility] Outpatient Encounter [id number] 07/21 [place] [facility] [place] [facility] Encounter [id number] 07/27 [place] [facility] [place] [facility] Outpatient Encounter [id number] 10/27 [place] [facility] [place] [facility] Out[place] Encounter [id number] Aurelio ROLDAN 11/15 [place] [facility] O/P EST MOD 30 MIN [id number] Diagnos is: ICD-10- CM E11.22 Type 2 diabete s mellitu s w diabeti c chronic kidney disease
MITCHELL GOMEZ 01/05 [facility] OFFICE O/P EST MOD 30 MIN [id number] Diagnos is: ICD-10- CM Z00.8 Encount er for other general examina tion
Esme GARCIA 03/23 [facility] [place] [facility] Outpatient Encounter [id number] 06/29 [place] [facility] [place] [facility] Out[place] Encounter [id number] 07/04 [place] [facility] O/P EST MOD 30 MIN [id number] Diagnos is: ICD-10- CM E11.22 Type 2 diabete s mellitu s w diabeti c chronic kidney disease
MITCHELL GOMEZ 07/06 [facility] OFF/OP EST MAY X REQ PHY/QHP [id number] Diagnos is: ICD-10- CM E11.8 Type 2 diabete s mellitu s with unspeci fied complic ations< br/> MT CARRILLO 07/06 [facility] Social History Combined list of available smoking, tobacco, and other social history from Department of Defense and Veterans Affairs facilities. Social History Type Response Date Comment Sourc e Tobacco smoking status NHIS [facility] FORMER USER 03/23/2024 [facility] History of tobacco use VA-TOBACCO QUIT 1 5 YRS OR MORE 03/23/2024 [facility] History of tobacco use VA-TOBACCO QUIT 1 5 YRS OR MORE 03/18/2023 [facility] History of tobacco use VA-TOBACCO FORMER USER 03/16/2022 [facility] History of tobacco use VA-TOBACCO QUIT 1 5 YRS OR MORE 02/23/2019 [facility] History of tobacco use [facility] FORMER USER 02/24/2018 [facility] History of tobacco use FORMER TOBACCO US ER 7Y OR GREATER 02/24/2018 [facility] History of tobacco use FORMER TOBACCO US ER 7Y OR GREATER 02/22/2017 [facility] History of tobacco use FORMER TOBACCO US ER 7Y OR GREATER 01/13/2016 [facility] History of tobacco use FORMER TOBACCO US ER 7Y OR GREATER 03/21/2014 [facility] Plan of Care List of future care activities from Department of Veterans Affairs facilities. Additional future care activities may be listed in the Assessment and Plan section. Date/Time Care Activity Care Activity Detail Facili ty 07/27/2024 AMBULATORY - NONE AMBULATORY - NONE [facility]
--- OUTSIDE RECORDS SUMMARY | 2024-07-19 11:04 | XMS_ITS | Encounter Summary ---
Author Name [facility] [facility] [place] Address [address] [place] [address] Care Team Providers Care Government Teacher Name Role Phone MARTHA GARCIA Primary Care [...] Relationship to Policy [place] [facility] (WNR) MEDICARE ADVANTAGE [facility] (WNR) Oct 11, 2019 [id number] FLYNN ESPINOZA PATIENT [facility] [place] [facility] [place] [facility]IC[facility] (WNR) Oct 11, 2016 [id number] FLYNN ESPINOZA PATIENT [facility] (WNR) MEDIC[facility]AGE [facility] (WNR) Oct 11, 2019 [id number] FLYNN ESPINOZA PATIENT Selected Encounter This section includes the information on record at [place] for the Encounter. Date/Time Encounter Type Encounter Description Reason Provider Source Jul 06, 2024 11:30 AM OFF/OP EST FEBRUARY X REQ PHY/QHP PRIMARY CARE/MEDICINE ICD-10-CM E11.8 Type 2 diabetes mellitus with unspecified complications ELIANA CARRILLO Encounter Template Text not used by [facility] Assessments - Encounter Diagnoses This section includes the primary and secondary diagnoses documented for the Encounter. Date/Time Primary/Secondary Diagnosis Diagnosis Name Provider Source Jul 06, 2024 03:16 PM PRIMARY Type 2 diabetes mellitus with unspecified complications ELIANA CARRILLO Plan of Treatment: Future Appointments (+ 6 [...] Appointment Type Appointme nt Facility Name Jul 27, 2024 08:30 AM AMBULATORY - NONE [facility] Results: +/- 30 days of [...] Range Comment Jul 06, 2024 09:59 AM [facility] ALBUMIN/CREATININE RATIO URINE Specimen Type: URINE No comment entered. Ordering Provider: LANE GARCIA Report Released Date/Time: Mar 23, 2024 09:08 AM Reporting Lab: [facility] [address] Performing Lab: [facility] [address] CREATININE,UR RANDOM 117.3 mg/dL 58.0-161.0 ALB/CREAT RATIO,UR 643.3 mg/g{creat} H <29.9 ALBUMIN,UR 754.6 mg/L H <29.9 Jun 15, 2024 08:38 AM [facility] HEMOGLOBIN A1C Specimen Type: BLOOD Comment: Values obtained from A1C measurements can vary. For typical A1C assays, a reported value of 7.0 could actually be between 6.7 and 7.3 if measured by a reference method. A reported value of 9.0 could actually be between 8.7 and 9.3. Ref: http://www.ngs p.org/CAPdata. asp Ordering Provider: MITCEHLL GOMEZ Report Released Date/Time: Jan 06, 2024 03:11 PM Reporting Lab: [facility] [phone] Performing Lab: [facility] [address] HEMOGLOBIN A1C 5.5 4.0-6.0 Jun 15, 2024 08:38 AM [facility] UREA NITROGEN Specimen Type: PLASMA No comment entered. Ordering Provider: MITCHELL GOMEZ Report Released Date/Time: Jan 06, 2024 03:11 PM Reporting Lab: [facility] [phone] Performing Lab: [facility] [address] UREA NITROGEN 29 mg/dL H 8-26 Jun 15, 2024 08:38 AM [facility] CREATININE(INCLUDES EGFR) Specimen Type: PLASMA No comment entered. Ordering Provider: MITCHELL GOMEZ Report Released Date/Time: Jan 06, 2024 03:11 PM Reporting Lab: [facility] [address] Performing Lab: [facility] [address] CREATININE 2.2 mg/dL H 0.7-1.2 .CREAT EGFR(CKD-EPI) 31 L >60 Jun 15, 2024 08:38 AM [facility] ELECTROLYTES/ANION GAP Specimen Type: PLASMA No comment entered. Ordering Provider: MITCHELL GOMEZ Report Released Date/Time: Jan 06, 2024 03:11 PM Reporting Lab: [facility] [address] Performing Lab: [facility] [address] SODIUM 141 mmol/L 136-145 POTASSIUM 4.5 mmol/L 3.5-5.1 CHLORIDE 111 mmol/L H 98-107 CO2 21 mmol/L L 22-29 ANION GAP 9 mmol/L 5-15 Jun 15, 2024 08:38 AM [facility] PHOSPHORUS Specimen Type: PLASMA No comment entered. Ordering Provider: MITCHELL GOMEZ Report Released Date/Time: Jan 06, 2024 03:11 PM Reporting Lab: [facility] [address] Performing Lab: [facility] [address] PHOSPHORUS 3.5 mg/dL 2.3-4.3 Jun 15, 2024 08:38 AM [facility] CALCIUM Specimen Type: PLASMA No comment entered. Ordering Provider: MITCHELL GOMEZ Report Released Date/Time: Jan 06, 2024 03:11 PM Reporting Lab: [facility] [phone] Performing Lab: [facility] [address] CALCIUM 8.9 mg/dL 8.4-10.2 Jun 15, 2024 08:38 AM [facility] ALBUMIN Specimen Type: PLASMA No comment entered. Ordering Provider: MITCHELL GOMEZ Report Released Date/Time: Jan 06, 2024 03:11 PM Reporting Lab: [facility] [address] Performing Lab: [facility] [address] ALBUMIN 4.0 g/dL 3.5-5.2 Jun 15, 2024 08:38 AM [facility] PTH-N-TACT Specimen Type: PLASMA No comment entered. Ordering Provider: MITCHELL GOMEZ Report Released Date/Time: Jan 06, 2024 03:11 PM Reporting Lab: [facility] [address] Performing Lab: [facility] [address] PTH-N-TACT 86.6 pg/mL H 8.7-77.1 Jun 15, 2024 08:38 AM [facility] GLUCOSE Specimen Type: PLASMA No comment entered. Ordering Provider: MITCHELL GOMEZ Report Released Date/Time: Jan 06, 2024 03:11 PM Reporting Lab: [facility] [address] Performing Lab: [facility] [address] GLUCOSE 96 mg/dL 70-100 Jun 15, 2024 08:38 AM [facility] CBC Specimen Type: BLOOD No comment entered. Ordering Provider: MITCHELL GOMEZ Report Released Date/Time: Jan 06, 2024 03:11 PM Reporting Lab: [facility] [address] Performing Lab: [facility] [address] WBC 7.6 4.0-11.0 RBC 3.83 L 4.60-6.20 HGB 12.4 g/dL L 13.5-17.9 HCT 38.8 L 41-54 MCV 101.3 fL H 80-100 MCH 32.4 pg 27-33 MCHC 32.0 g/dL 32.0-37.5 PLT 313 150-400 MPV 9.4 fL 9.1-13.0 RDW 12.4 11.5-14.5 Jun 15, 2024 08:38 AM [facility] IRON GROUP Specimen Type: SERUM No comment entered. Ordering Provider: MITCHELL GOMEZ Report Released Date/Time: Jan 06, 2024 03:11 PM Reporting Lab: [facility] [address] Performing Lab: [facility] [address] IRON 107 ug/dL 65-175 TIBC,CALCULATE D 330 ug/dL 250-425 FERRITIN 25.0 ng/mL 21.8-274.7 IRON SATURATION 32 20-50 TRANSFERRIN 264 mg/dL 163-382 Vital Signs: All taken on the encounter date This section contains inpatient and outpatient Vital Signs collected on the date of the Encounter. Date/Time Temperature Pulse Blood Pressure Respiratory Rate SP02 Pain Height Weight Body Mass Index Source Jul 06, 2024 10:38 AM 96.9 89 130/80 16 94 0 275.6 42 [facility] Social History: Smoking Status (Most current) and Tobacco Use (All prior to encounter date) This section includes the most current, and the historical, smoking and tobacco- related health factors from the [place] facility where the Encounter took place. Current Smoking Status This section includes the most current smoking, or tobacco-related health factor, from the [place] facility where the Encounter took place. Date/Time Current Smoking Status Comment Facil ity Mar 23, 2024 08:30 AM [facility] FORMER USER [facility] Tobacco Use History This section includes a history of the smoking, or tobacco-related health factors, that were collected on or before the date of the Encounter. The data comes from the [place] facility where the Encounter took place. Date/Time Smoking Status/Tobacco Use Comment F acility Mar 23, 2024 08:30 AM VA-TOBACCO QUIT 15 YRS OR MORE [facility] Mar 18, 2023 09:30 AM VA-TOBACCO FORMER USER [facility] Mar 18, 2023 09:30 AM VA-TOBACCO QUIT 15 YRS OR MORE [facility] Mar 16, 2022 02:00 PM VA-TOBACCO FORMER USER [facility] Mar 16, 2022 02:00 PM VA-TOBACCO QUIT 15 YRS OR MORE [facility] February 23, 2019 11:14 AM VA-TOBACCO FORMER USER [facility] February 23, 2019 11:14 AM VA-TOBACCO QUIT 15 YRS OR MORE [facility] February 24, 2018 11:40 AM VA-TOBACCO FORMER USER [facility] February 24, 2018 11:40 AM VA-TOBACCO QUIT 15 YRS OR MORE [facility] February 24, 2018 10:44 AM FORMER TOBACCO USER [facility] February 22, 2017 02:44 PM FORMER TOBACCO USER [facility] Jan 13, 2016 04:54 AM FORMER TOBACCO USER [facility] Mar 21, 2014 10:14 AM FORMER TOBACCO USER [facility]
--- OUTSIDE RECORDS SUMMARY | 2024-07-19 11:04 | XMS_ITS | Encounter Summary ---
Author Name [facility] [place] [facility] [place] Address [address] [place] [id number] Care Team Providers Care Sawdust Drier Name Role Phone MARTHA GARCIA Primary Care [...] Relationship to Policy [place] [facility] [place] [facility] (WNR) MEDICARE ADVANTAGE [facility] (WN) Oct 11, 2019 [id number] FLYNN GOULD PATIENT [facility] [place] [facility] ([place]NR[place] [facility]IC[facility] AD[facility]ANTAGE [facility] (WNR) Oct 11, 2016 [id number] FLYNN GOULD PATIENT [facility] (WNR) MEDICARE ADVANTAGE [facility] ([facility]) Oct 11, 2019 [id number] FLYNN GOULD PATIENT Selected Encounter This section includes the information on [place] at [place] for the Encounter. Date/Time Encounter Type Encounter Description Reason Provider Source Jul 06, 2024 11:00 AM OFFICE O/P EST MOD 30 MIN RENAL/NEPHROL(EXCE PT DIALYSIS) ICD-10-CM E11.22 Type 2 diabetes mellitus w diabetic chronic kidney disease MITCHELL GOMEZ Encounter Template Text not used by [facility] Assessments - Encounter Diagnoses This section includes the primary and secondary diagnoses documented for the Encounter. Date/Time Primary/Secondary Diagnosis Diagnosis Name Provider Source Jul 06, 2024 11:37 AM PRIMARY Type 2 diabetes mellitus w diabetic chronic kidney disease [facility] Jul 06, 2024 11:37 AM SECONDARY Anemia in chronic kidney disease [facility] Jul 06, 2024 11:37 AM SECONDARY Chronic kidney disease, stage 3b [facility] Jul 06, 2024 11:37 AM SECONDARY Essential (primary) hypertension [facility] Jul 06, 2024 11:37 AM SECONDARY Gout, unspecified [facility] Jul 06, 2024 11:37 AM SECONDARY Hypertensive chronic kidney disease w stg 1-4/unsp chr kdny [facility] Jul 06, 2024 11:37 AM SECONDARY Secondary hyperparathyroidism of renal origin MITCHELL GOMEZ [facility] Plan of Treatment: Future Appointments (+ 6 [...] 27, 2024 08:30 AM AMBULATORY - NONE [facility] Lab Results: +/- 30 days of [...] Range Comment Jul 06, 2024 09:59 AM [facility] ALBUMIN/CREATININE RATIO URINE Specimen Type: URINE No comment entered. Ordering Provider: LANE GARCIA Report Released Date/Time: Mar 23, 2024 09:08 AM Reporting Lab: [facility] [phone] Performing Lab: [facility] [address] CREATININE,UR RANDOM 117.3 mg/dL 58.0-161.0 ALB/CREAT RATIO,UR 643.3 mg/g{creat} H <29.9 ALBUMIN,UR 754.6 mg/L H <29.9 Jun 15, 2024 08:38 AM [facility] HEMOGLOBIN A1C Specimen Type: BLOOD Comment: [...] Jan 06, 2024 03:11 PM Reporting Lab: [facility] [phone] Performing Lab: [facility] [address] HEMOGLOBIN A1C 5.5 4.0-6.0 Jun 15, 2024 08:38 AM [facility] UREA NITROGEN Specimen Type: PLASMA No comment entered. Ordering Provider: MITCHELL GOMEZ Report Released Date/Time: Jan 06, 2024 03:11 PM Reporting Lab: [facility] [phone] Performing Lab: [facility] [phone] UREA NITROGEN 29 mg/dL H 8-Jun 15, 2024 08:38 AM [facility] CREATININE(INCLUDES EGFR) Specimen Type: PLASMA No comment entered. Ordering Provider: MITCHELL GOMEZ Report Released Date/Time: Jan 06, 2024 03:11 PM Reporting Lab: [facility] [phone] Performing Lab: [facility] [address] CREATININE 2.2 mg/dL H 0.7-1.2 .CREAT EGFR(CKD-EPI) 31 L >60 Jun 15, 2024 08:38 AM [facility] ELECTROLYTES/ANION GAP Specimen Type: PLASMA No comment entered. Ordering Provider: MITCHELL GOMEZ Report Released Date/Time: Jan 06, 2024 03:11 PM Reporting Lab: [facility] [phone] Performing Lab: [facility] [phone] SODIUM 141 mmol/L 136-145 POTASSIUM 4.5 mmol/L 3.5-5.1 CHLORIDE 111 mmol/L H 98-107 CO2 21 mmol/L L 22-29 ANION GAP 9 mmol/L 5-15 Jun 15, 2024 08:38 AM [facility] ALBUMIN Specimen Type: PLASMA No comment entered. Ordering Provider: MITCHELL GOMEZ Report Released Date/Time: Jan 06, 2024 03:11 PM Reporting Lab: [place] [phone] Performing Lab: [id number] ALBUMIN 4.0 g/dL 3.5-5.2 Jun 15, 2024 08:38 AM [facility] PHOSPHORUS Specimen Type: PLASMA No comment entered. Ordering Provider: MITCHELL GOMEZ Report Released Date/Time: Jan 06, 2024 03:11 PM Reporting Lab: [facility] [phone] Performing Lab: [place] [phone] PHOSPHORUS 3.5 mg/dL 2.3-4.3 Jun 15, 2024 08:38 AM [facility] CALCIUM Specimen Type: PLASMA No comment entered. Ordering Provider: MITCHELL GOMEZ Report Released Date/Time: Jan 06, 2024 03:11 PM Reporting Lab: [facility] [phone] Performing Lab: [facility] [address] CALCIUM 8.9 mg/dL 8.4-10.2 Jun 15, 2024 08:38 AM [facility] PTH-N-TACT Specimen Type: PLASMA No comment entered. Ordering Provider: MITCHELL GOMEZ Report Released Date/Time: Jan 06, 2024 03:11 PM Reporting Lab: [facility] [phone] Performing Lab: [facility] [address] PTH-N-TACT 86.6 pg/mL H 8.7-77.1 Jun 15, 2024 08:38 AM [facility] GLUCOSE Specimen Type: PLASMA No comment entered. Ordering Provider: MITCHELL GOMEZ Report Released Date/Time: Jan 06, 2024 03:11 PM Reporting Lab: [facility] [phone] Performing Lab: [facility] [address] GLUCOSE 96 mg/dL 70-100 Jun 15, 2024 08:38 AM [facility] CBC Specimen Type: BLOOD No comment entered. Ordering Provider: MITCHELL GOMEZ Report Released Date/Time: Jan 06, 2024 03:11 PM Reporting Lab: [facility] [phone] Performing Lab: [facility] [phone] WBC 7.6 4.0-11.0 RBC 3.83 L 4.60-6.20 HGB 12.4 g/dL L 13.5-17.9 HCT 38.8 L 41-54 MCV 101.3 fL H 80-100 MCH 32.4 pg 27-33 MCHC 32.0 g/dL 32.0-37.5 PLT 313 150-400 MPV 9.4 fL 9.1-13.0 RDW 12.4 11.5-14.5 Jun 15, 2024 08:38 AM [facility] IRON GROUP Specimen Type: SERUM No comment entered. Ordering Provider: MITCHELL GOMEZ Report Released Date/Time: Jan 06, 2024 03:11 PM Reporting Lab: [facility] [phone] Performing Lab: [facility] [phone] IRON 107 ug/dL 65-175 TIBC,CALCULATE D 330 [...] place. Date/Time Current Smoking Status Comment Facil yeyo Mar 23, 2024 08:30 AM VA-TOBACCO FORMER USER [facility] Tobacco Use History This section includes a history of the smoking, or tobacco-related health factors, that were collected on or before the date of the Encounter. The data comes from the [place] facility where the Encounter took place. Date/Time Smoking Status/Tobacco Use Comment F acility Mar 23, 2024 08:30 AM VA-TOBACCO QUIT 15 YRS OR MORE [facility] Mar 18, 2023 09:30 AM VA-TOBACCO FORMER USER [facility] Mar 18, 2023 09:30 AM VA-TOBACCO QUIT 15 YRS OR MORE [facility] Mar 16, 2022 02:00 PM VA-TOBACCO FORMER USER [facility] Mar 16, 2022 02:00 PM VA-TOBACCO QUIT 15 YRS OR MORE [facility] February 23, 2019 11:14 AM VA-TOBACCO FORMER USER [facility] February 23, 2019 11:14 AM VA-TOBACCO QUIT 15 YRS OR MORE [facility] February 24, 2018 11:40 AM VA-TOBACCO FORMER USER [facility] February 24, 2018 11:40 AM VA-TOBACCO QUIT 15 YRS OR MORE [facility] February 24, 2018 10:44 AM FORMER TOBACCO USER 7Y OR GREATE R [facility] February 22, 2017 02:44 PM FORMER TOBACCO USER 7Y OR GREATE R [facility] Jan 13, 2016 04:54 AM FORMER TOBACCO USER 7Y OR GREATE R [facility] Mar 21, 2014 10:14 AM FORMER TOBACCO USER 7Y OR GREATE R [facility] Encounter Notes: All associated encounter notes This section contains the clinical notes associated to the Encounter. Date/Time Encounter Note(s) Provider Source Jul 06, 2024 03:47 PM NEPHROLOGY ATTENDI NOTE: LOCAL TITLE: RENAL CLINIC NOTE STANDARD TITLE: NEPHROLOGY ATTENDING NOTE DATE OF NOTE: JUL 06, 2024@15:47 ENTRY DATE: JUL 06, 2024@15:47:56 AUTHOR: MITCHELL GOMEZ COSIGNER: URGENCY: STATUS: COMPLETED Assessment/plan: Mr. Kota Gould is a 73 year old male seen in renal clinic for management of chronic kidney disease. 1. CKD 3b, eGFR 31 with most recent labs Comment: Etiology of [...] 2 weeks), SPEP negative). Renal function is stable, slightly improved since our last visit. Uremic symptoms are absent. Electrolytes are acceptable. Oral hydration is at goal. Slowing CKD progression by controlling DM2/HTN was reviewed. Pt attended CKD education .. Plan: Continue current management. 2. Hypertension Comment: Check in reading is at goal. No home readings to review. Plan: Continue current management. 3. DM2 Comment: Managed by PCP. Does not check BG, needs a new glucometer. On SGLT2i, on ARB. Plan: Continued management per PCP. Pt was provided a new glucometer today. 4. Bone/mineral/secondary hyperparathyroidism of renal origin Comment: Calcium & phos are acceptable, not on calcium supplements or phos binders. Pt has secondary hyperparathyroidism of renal origin not on calcitriol. Plan: Monitor. 5. Anemia Comment: ACKD per peripheral smear. Hgb 12.4 g/dL, at baseline for pt, not on JUAN. Iron panel is at goal, not on iron supplement. Plan: Monitor.. JUAN is not indicated until hgb is < 9 g/dL. 6. Gout Comment: On allopurinol. Denies flare. Plan: Continue allopurinol. RTC 3 months [facility] with labs 1-2 weeks prior, sooner if needed {}{}{}{}{}{}{}{}{}{}{}{}{}{}{}{}{}{ }{}{}{}{}{}{}{}{}{}{}{}{}{}{}{}{}{} {}{}{} Nurse's Notes Reviewed. Chief Complaint: follow-up CKD HPI: Pt states he's feeling well & offers no complaints. No interval hospitalizations since our last visit. He reports he sustained a mechanical fall (missed the curb) & had an abrasion to his elbow which is nearly healed. CKD - appetite is great. No nausea, vomiting, or metallic taste in the mouth. Energy is baseline, continues to swim for exercise. No napping during the day. No excessive pruritis. Drinks nearly 64 ounces of fluid per day. HTN - not checking home BP DM2 - does not check BG, is in need of a glucometer Past medical history/Active Problems: Active Problems: Active [...] Medications (including Supplies): Active Outpatient Medications Status === 1) ACCU-CHEK GUIDE (GLUCOSE) TEST STRIP USE 1 STRIP ACTIVE (S) TWICE A WEEK TEST AT DIFFERENT TIMES OF THE DAY OR DIRECTED 2) ALLOPURINOL 100MG TAB TAKE ONE TABLET BY MOUTH EVERY ACTIVE DAY FOR GOUT PREVENTION 3) AMLODIPINE BESYLATE 10MG TAB TAKE ONE-HALF TABLET BY ACTIVE MOUTH EVERY DAY FOR BLOOD PRESSURE 4) EMPAGLIFLOZIN 25MG TAB TAKE ONE-HALF TABLET BY MOUTH ACTIVE EVERY DAY 5) GLIPIZIDE 5MG TAB TAKE ONE-HALF TABLET BY MOUTH EVERY ACTIVE DAY FOR DIABETES 30 MINUTES BEFORE MEAL 6) LANCET,SOFTCLIX USE 1 LANCET DIRECTED FOR BLOOD ACTIVE (S) SUGAR TESTING *DISPOSE OF IN A HARD-PLASTIC CONTAINER WITH A SCREW-ON LIDCONTACT GARBAGE HAULER FOR PROPER DISPOSAL 7) LOSARTAN 25MG TAB TAKE ONE TABLET BY MOUTH EVERY DAY ACTIVE FOR KIDNEY PROTECTION 8) METOPROLOL TARTRATE 50MG [...] BEDTIME FOR CHOLESTEROL Active Non-VA Medications Status === 1) Non-VA ACETAMINOPHEN 500MG TAB 1000MG MOUTH DAILY ACTIVE 2) Non-VA ASPIRIN 325MG TAB 325MG MOUTH EVERY DAY ACTIVE 3) Non-VA MARINE LIPID (FISH OIL) CAP,ORAL MOUTH ACTIVE 4) Non-VA MELATONIN CAP/TAB MOUTH ACTIVE 5) Non-VA MULTIVITAMIN CAP/TAB 1 TABLET MOUTH EVERY DAY ACTIVE 15 Total Medications Meds were reviewed. Physical Exam: VS: Temp: 96.9 F [36.1 C] (07/06/2024 10:38) BP: 130/80 (07/06/2024 10:38) Pulse:89 (07/06/2024 10:38) Resp: 16 (07/06/2024 10:38) Weight: 275.6 lb [125.01 kg] (07/06/2024 10:38) Pain: 0 (07/06/2024 10:38) O2 Sat: 94% (07/06/2024 10:38) BMI: 42.0 General NAD WDWN Cardiac: RRR with normal S1 and S2; without murmur, gallop, rub. Chest/Lungs: Bilaterally clear Abdominal: Bowel Sounds Present Extremities: No edema. Lab Data: Report Released Date/Time: Jun 15, 2024@19:56 Provider: MITCHELL GOMEZ Specimen: SERUM. [facility] [id number] Specimen Collection Date: Jun 15, 2024@08:38 Test name Result units Ref. range Site Code IRON 107 ug/dL 65 - 175 [618] TRANSFERRIN 264 mg/dL 163 - 382 [618] TIBC,CALCULATED 330 ug/dL 250 - 425 [618] IRON SATURATION 32 % 20 - 50 [618] FERRITIN 25.0 ng/mL 21.8 - 274.7 [618] Eval: Individual ferritin plasma concentration values may be approximately 10% Eval: higher than serum values. ========= Reporting Lab: [facility] [CLIA# [id number]] [place] [address] Report Released Date/Time: Jun 15, 2024@19:57 Provider: MITCHELL GOMEZ Specimen: PLASMA. [facility] 24 [id number] Specimen Collection Date: Jun 15, 2024@08:38 Test name Result units Ref. range Site Code PTH-N-TACT 86.6 H pg/mL 8.7 - 77.1 [618] ========= Reporting Lab: [facility] [CLIA# [id number]] [place] [address] Report Released Date/Time: Jun 15, 2024@19:34 Provider: MITCHELL GOMEZ Specimen: BLOOD. [id number] Specimen Collection Date: Jun 15, 2024@08:38 Test name Result units Ref. range Site Code WBC 7.6 10x3/uL 4.0 - 11.0 [618] RBC 3.83 L 10x6/uL 4.60 - 6.20 [618] HGB 12.4 L g/dL 13.5 - 17.9 [618] HCT 38.8 L % 41 - 54 [618] MCV 101.3 H fL 80 - 100 [618] MCH 32.4 pg 27 - 33 [618] MCHC 32.0 g/dL 32.0 - 37.5 [618] RDW 12.4 % 11.5 - 14.5 [618] PLT 313 10x3/uL 150 - 400 [618] MPV 9.4 fL 9.1 - 13.0 [618] ========= Reporting Lab: [facility] [CLIA# [id number]] [place] [address] Report Released Date/Time: Jun 15, 2024@19:46 Provider: MITCHELL GOMEZ Specimen: PLASMA. [facility] [id number] Specimen Collection Date: Jun 15, 2024@08:38 Test name Result units Ref. range Site Code .CREAT EGFR(CKD-EPI) 31 L Ref: >=60 [618] Eval: The eGFR [...] decrease Eval: <15 G5 Kidney failure SODIUM 141 mmol/L 136 - 145 [618] POTASSIUM 4.5 mmol/L 3.5 - 5.1 [618] Eval: Serum potassium results are generally 5% higher than plasma. CHLORIDE 111 H mmol/L 98 - 107 [618] CO2 21 L mmol/L 22 - 29 [618] Eval: To calculate Anion Gap use (Na)-[(Cl)+CO2] ANION GAP 9 mmol/L 5 - 15 [618] GLUCOSE 96 mg/dL 70 - 100 [618] Eval: Reference Range is based on fasting specimen. Eval: Patients taking Sulfasalazine may see a negative bias on Glucose Eval: levels. UREA NITROGEN 29 H mg/dL 8 - 26 [618] CREATININE 2.2 H mg/dL 0.7 - 1.2 [618] ALBUMIN 4.0 g/dL 3.5 - 5.2 [618] CALCIUM 8.9 mg/dL 8.4 - 10.2 [618] PHOSPHORUS 3.5 mg/dL 2.3 - 4.3 [618] ========= Reporting Lab: [facility] [CLIA# [id number]] [place] [address] Report Released Date/Time: Jun 15, 2024@19:28 Provider: MITCHELL GOMEZ Specimen: BLOOD. [facility] [id number] Specimen Collection Date: Jun 15, 2024@08:38 Test name Result units Ref. range Site Code HEMOGLOBIN A1C 5.5 % 4.0 - 6.0 [618] Eval: Patients [...] be between 8.7 and 9.3. Ref: http://www.ngsp.org/CAPdata.asp ========= Patient was informed of all the above labs during this visit. Patient Education of Treatment Plan: Patient indicates readiness to learn, verbalizes understanding, agreement and satisfaction with the treatment plan. Denies further questions. /gregorio/ MITCHELL GOMEZ Nurse Practitioner Signed: 07/06/2024 15:57 MITCHELL GOMEZ [facility] Jul 06, 2024 11:35 AM NURSING OUTPATIENT NOTE: LOCAL TITLE: [facility] NURSING RN NOTE STANDARD TITLE: NURSING OUTPATIENT NOTE DATE OF NOTE: JUL 06, 2024@11:35 ENTRY DATE: JUL 06, 2024@11:35:37 AUTHOR: ELIANA CARRILLO EXP COSIGNER: URGENCY: STATUS: COMPLETED TYPE OF VISIT: Nurse Clinic REASON FOR VISIT: Glucometer teaching EDUCATION: BARRIERS/SPECIAL NEEDS: No barriers identified PREFERRED STYLE OF LEARNING: No preference stated PARTICIPANT(s): Patient Diabetes Education Hypoglycemia Educated participant(s) on 15-15 rule: Check Fingerstick/Blood Glucose (FS/BG) Eat 15 grams carbohydrates Wait 15 minutes Recheck FS/BG Repeat as necessary to elevate FS/BG above 70 Equipment Glucose meter/lancet device: Medical Equipment/Supplies: Glucose meter / lancing device Devices provided to patient from [facility] supply. Written Materials: (included with meter kit): Display codes for glucose meter Glucose Meter User's Manual How to get a good drop of blood Lab tests for diabetes Hypoglycemia 15-15 rule day guide Instruction sheet for glucose meter Instruction sheet for lancing device Objectives/Content: Participant(s) will: State normal glucose range Demonstrate safe use of lancing device State appropriate method of lancet disposal State appropriate method of storage and use of strips Demonstrate correct meter technique, including battery change, coding, test memory, error codes, and cleaning State proper disposal of lancet State use of self-monitoring book Testing frequency: As prescribed by Provider FOLLOW-UP RECOMMENDED Comments/Other: scheduled for DM Class in [facility] on 07/27/24 /gregorio/ ELIANA CARRILLO RN REGISTERED NURSE Signed: 07/06/2024 11:37 [facility]IA[facility]O [facility]
--- OUTSIDE RECORDS SUMMARY | 2024-07-19 11:04 | XMS_ITS | Encounter Summary ---
Author Name [facility] Organization [facility] Address [address] [place] [id number] Care Team Providers Care Photography Instructor Name Role Phone MARTHA RODRIGUEZ Primary Care Provider Unavailrenee motley Insurance Providers: All historical and current [...] Relationship to Policy Brant[place] [facility] [place] [facility] ([place]NR) MEDICARE ADVANTAGE [facility] ([facility]) Oct 11, 2019 [id number] FLYNN ESPINOZA PATIENT [facility] [place] [facility] (WNR) MEDICARE ADVANTAGE [facility] (WNR) Oct 11, 2016 [id number] FLYNN ESPINOZA PATIENT [facility] (WNR) MEDICARE ADVANTAGE [facility] ([facility]) Oct 11, 2019 [id number] FLYNN ESPINOZA PATIENT Selected Encounter This section includes the information on record at ID for the Encounter. Date/Time Encounter Type Encounter Description Reason Provider Source Mar 23, 2024 08:30 AM OFFICE O/P EST MOD 30 MIN PRIMARY CARE/MEDICINE ICD-10-CM Z00.8 Encounter for other general examination LANE RODRIGUEZ Encounter Template Text not used by ID Assessments - Encounter Diagnoses This section includes the primary and secondary diagnoses documented for the Encounter. Date/Time Primary/Secondary Diagnosis Diagnosis Name Provider Source Mar 23, 2024 09:25 AM PRIMARY Encounter for other general examination [facility] Mar 23, 2024 09:25 AM SECONDARY Encounter for immunization DAGOBERTO LOVING [facility] Mar 23, 2024 09:25 AM SECONDARY Essential (primary) hypertension [facility] Mar 23, 2024 09:25 AM SECONDARY Gout, unspecified [facility] Mar 23, 2024 09:25 AM SECONDARY Morbid (severe) obesity due to excess calories [facility] Mar 23, 2024 09:25 AM SECONDARY Pure hypercholesterolemi a, unspecified RADHALANE Carey [facility] Mar 23, 2024 09:25 AM SECONDARY Type 2 diabetes mellitus with unspecified complications [facility] Plan of Treatment: Future Appointments (+ 6 months) and Future Tests (+/- 45 days) The Plan of Treatment section includes future care activities for the patient from all ID treatmentfacilities. This section includes future appointments and future orders which are active, pending or scheduled. Future Appointments This section includes appointments that were scheduled to occur 6 months from the date of the Encounter, up to a maximum of 20 appointments. The data comes from all ID treatment facilities. Appointment Date/Time Appointment Type Appointme nt Facility Name Apr 20, 2024 09:30 AM AMBULATORY - NONE [facility] Jun 15, 2024 09:45 AM AMB[facility]ATORY - NONE [facility] Jul 06, 2024 10:45 AM [facility]ATORY - NONE [facility] Jul 06, 2024 11:00 AM AMBULATORY - MEDICINE SELENE OPEE [facility] Jul 06, 2024 11:30 AM AMBULATORY - NONE [facility] Jul 27, 2024 08:30 AM AMBULATORY - NONE [facility] Lab Results: +/- 30 days of the encounter This section includes the Chemistry and Hematology Lab Results on record with ID for the patient. Radiology Reports and Pathology Reports are provided separately, in subsequent sections. Lab Results This section contains the Chemistry/Hematology Results that were resulted 30 days before or 30 daysafter the date of the Encounter. Date/Time Source Result Type Result - Unit Interpretation Reference Range Comment Apr 20, 2024 08:22 AM [facility] IRON GROUP Specimen Type: PLASMA No comment entered. Ordering Provider: LANE RODRIGUEZ Report Released Date/Time: Mar 24, 2024 09:21 AM Reporting Lab: [facility] [id number] Performing Lab: [facility] [id number] IRON 108 ug/dL 65-175 TIBC,CALCULATED 296 ug/dL 250-425 FERRITIN 40.4 ng/mL 21.8-274.7 IRON SATURATION 36 20-50 TRANSFERRIN 237 mg/dL 163-382 Apr 20, 2024 08:22 AM [facility] B 12 Specimen Type: SERUM No comment entered. Ordering Provider: LANE RODRIGUEZ Report Released Date/Time: Mar 24, 2024 09:21 AM Reporting Lab: [facility] [id number] Performing Lab: [place] [id number] B 12 468 pg/mL 213-816 Apr 20, 2024 08:22 AM [facility] FOLATE Specimen Type: SERUM No comment entered. Ordering Provider: LANE RODRIGUEZ Report Released Date/Time: Mar 24, 2024 09:21 AM Reporting Lab: [facility] [id number] Performing Lab: [facility] [phone] FOLATE 13.3 ng/mL >7.0 Apr 20, 2024 08:22 AM [facility] BASIC METABOLIC PANEL+MG Specimen Type: PLASMA No comment entered. Ordering Provider: LANE RODRIGUEZ Report Released Date/Time: Mar 24, 2024 09:21 AM Reporting Lab: [facility] [id number] Performing Lab: [facility] [id number] CREATININE 2.7 mg/dL H 0.7-1.2 UREA NITROGEN 33 mg/dL H 8-26 GLUCOSE 101 mg/dL H 70-100 SODIUM 141 mmol/L 136-145 POTASSIUM 4.3 mmol/L 3.5-5.1 CHLORIDE 108 mmol/L H 98-107 CO2 22 mmol/L 22-29 CALCIUM 8.9 mg/dL 8.4-10.2 MAGNESIUM 1.9 mg/dL 1.6-2.6 ANION GAP 11 mmol/L 5-15 .CREAT EGFR(CKD-EPI) 24 L >60 Apr 20, 2024 08:22 AM [facility] CBC & DIFF Specimen Type: BLOOD Comment: Automated Differential Performed Ordering Provider: LANE RODRIGUEZ Report Released Date/Time: Mar 24, 2024 09:21 AM Reporting Lab: [facility] [id number] Performing Lab: [facility] [phone] WBC 6.95 10*3/uL 4.0-11.0 RBC 3.55 10*6/uL L 4.6-6.2 HGB 12.1 g/dL L 13.5-17.9 HCT 35.8 L 41-54 MCV 100.8 fL H 80-100 MCH 34.1 pg H 27-33 MCHC 33.8 g/dL 32.0-37.5 PLT 268 10*3/uL 150-400 MPV 9.2 fL 7.4-10.4 NEUT 63.9 40.0-80.0 LYMPHS 22.2 15.0-45.0 MONO 9.4 2.0-12.0 EOSINO 3.3 0.0-6.0 BASO 0.6 0.0-2.0 RDW 12.6 11.5-14.5 ABS LYMPH 1.54 10*3/uL 1.0-4.0 ABS MONO 0.65 10*3/uL 0.1-1.0 ABS NEUT 4.45 10*3/uL 2.0-7.7 ABS EOS 0.23 10*3/uL 0-0.5 ABS BASO 0.04 10*3/uL 0-0.2 IG(META,MYELO,P RO) 0.6 ABS IMMATURE GRAN 0.04 10*3/uL 0-0.1 Mar 23, 2024 10:23 AM [facility] HEMOGLOBIN A1C Specimen Type: BLOOD Comment: Values obtained from A1C measurements can vary. For typical A1C assays, a reported value of 7.0 could actually be between 6.7 and 7.3 if measured by a reference method. A reported value of 9.0 could actually be between 8.7 and 9.3. Ref: http://www.ngs p.org/CAPdata. asp Ordering Provider: LANE RODRIGUEZ Report Released Date/Time: Mar 23, 2024 09:08 AM Reporting Lab: [facility] [phone] Performing Lab: [facility] [phone] HEMOGLOBIN A1C 5.3 4.0-6.0 Mar 23, 2024 10:23 AM [facility] COMPREHENSIVE METABOLIC PANEL+MG Specimen Type: PLASMA No comment entered. Ordering Provider: LANE RODRIGUEZ Report Released Date/Time: Mar 23, 2024 09:08 AM Reporting Lab: [facility] [id number] Performing Lab: [facility] [phone] CREATININE 2.6 mg/dL H 0.7-1.2 UREA NITROGEN 31 mg/dL H 8-26 GLUCOSE 104 mg/dL H 70-100 SODIUM 140 mmol/L 136-145 POTASSIUM 4.6 mmol/L 3.5-5.1 CHLORIDE 108 mmol/L H 98-107 CO2 22 mmol/L 22-29 CALCIUM 9.3 mg/dL 8.4-10.2 PROTEIN,TOTAL 6.8 g/dL 6.0-8.3 ALBUMIN 3.9 g/dL 3.5-5.2 BILIRUBIN, TOTAL 0.5 mg/dL 0.2-1.2 MAGNESIUM 2.0 mg/dL 1.6-2.6 ANION GAP 10 mmol/L 5-15 ALKALINE PHOSPHATASE 112 U/L 40-150 ALT/SGPT 12 U/L <55 AST/SGOT 14 U/L <34 .CREAT EGFR(CKD-EPI) 25 L >60 Mar 23, 2024 10:23 AM [facility] CBC & DIFF Specimen Type: BLOOD Comment: Automated Differential Performed Ordering Provider: LANE RODRIGUEZ Report Released Date/Time: Mar 23, 2024 09:08 AM Reporting Lab: [facility] [id number] Performing Lab: [facility] [phone] WBC 8.01 10*3/uL 4.0-11.0 RBC 3.59 10*6/uL L 4.6-6.2 HGB 12.3 g/dL L 13.5-17.9 HCT 36.8 L 41-54 MCV 102.5 fL H 80-100 MCH 34.3 pg H 27-33 MCHC 33.4 g/dL 32.0-37.5 PLT 289 10*3/uL 150-400 MPV 9.6 fL 7.4-10.4 NEUT 66.6 40.0-80.0 LYMPHS 23.2 15.0-45.0 MONO 7.0 2.0-12.0 EOSINO 2.1 0.0-6.0 BASO 0.7 0.0-2.0 RDW 12.8 11.5-14.5 ABS LYMPH 1.86 10*3/uL 1.0-4.0 ABS MONO 0.56 10*3/uL 0.1-1.0 ABS NEUT 5.33 10*3/uL 2.0-7.7 ABS EOS 0.17 10*3/uL 0-0.5 ABS BASO 0.06 10*3/uL 0-0.2 IG(META,MYELO,P RO) 0.4 ABS IMMATURE GRAN 0.03 10*3/uL 0-0.1 Vital Signs: All taken on the encounter date This section contains inpatient and outpatient Vital Signs collected on the date of the Encounter. Date/Time Temperature Pulse Blood Pressure Respiratory Rate SP02 Pain Height Weight Body Mass Index Source Mar 23, 2024 08:47 AM 96.9 71 129/86 16 97 1 68 272.6 42 [facility] Immunizations: All administered on the encounter date This section contains immunizations associated to the Encounter. Immunization Series Date Issued Reaction Comments RSV, BIVALENT, PROTEIN SUBUN IT RSVPREF, DILUENT RECONSTITUTED, 0.5 ML, PF Mar 23, 2024 Social History: Smoking Status (Most current) and Tobacco Use (All prior to encounter date) This section includes the most current, and the historical, smoking and tobacco- related health factors from the ID facility where the Encounter took place. Current Smoking Status This section includes the most current smoking, or tobacco-related health factor, from the ID facility where the Encounter took place. Date/Time Current Smoking Status Comment Betty ity Mar 23, 2024 08:30 AM VA-TOBACCO FORMER USER [facility] Tobacco Use History This section includes a history of the smoking, or tobacco-related health factors, that were collected on or before the date of the Encounter. The data comes from the ID facility where the Encounter took place. Date/Time Smoking Status/Tobacco Use Comment F acility Mar 23, 2024 08:30 AM VA-TOBACCO QUIT 15 YRS OR MORE [facility] Mar 18, 2023 09:30 AM VA-TOBACCO FORMER USER [facility] Mar 18, 2023 09:30 AM VA-TOBACCO QUIT 15 YRS OR MORE [facility] Mar 16, 2022 02:00 PM VA-TOBACCO FORMER USER [facility] Mar 16, 2022 02:00 PM VA-TOBACCO QUIT 15 YRS OR MORE [facility] February 23, 2019 11:14 AM VA-TOBACCO FORMER USER [facility] February 23, 2019 11:14 AM VA-TOBACCO QUIT 15 YRS OR MORE [facility] February 24, 2018 11:40 AM VA-TOBACCO FORMER USER [facility] February 24, 2018 11:40 AM VA-TOBACCO QUIT 15 YRS OR MORE [facility] February 24, 2018 10:44 AM FORMER TOBACCO USER 7Y OR GREATE R [facility] February 22, 2017 02:44 PM FORMER TOBACCO USER 7Y OR GREATE R [facility] Jan 13, 2016 04:54 AM FORMER TOBACCO USER 7Y OR GREATE R [facility] Mar 21, 2014 10:14 AM FORMER TOBACCO USER 7Y OR GREATE R [facility] Encounter Notes: All associated encounter notes This section contains the clinical notes associated to the Encounter. Date/Time Encounter Note(s) Provider Source Apr 21, 2024 08:46 AM LETTERS: LOCAL TITLE: FOLLOW UP RESULTS LETTER STANDARD TITLE: LETTERS DATE OF NOTE: APR 21, 2024@08:46 ENTRY DATE: APR 21, 2024@08:46:40 AUTHOR: MARTHA RODRIGUEZ EXP COSIGNER: URGENCY: STATUS: COMPLETED [facility] [address] [place] [address] Apr KOTA EDIN ESPINOZA [address] [facility] [address] [place]: I am writing to inform you of the results of testing that you had done recently at the [facility]. - Complete Blood Count (red/white blood cell counts and platelets) White count: WBC 6.95 (04/20/24) (normal is 4.0-11.0) Hemoglobin: HGB 12.1 L (04/20/24) (normal Male is 13.5-17.9; Female is 11.5-16) Hematocrit: HCT 35.8 L (04/20/24) (normal Male is 41-54; Female is 34.5-48) Platelets: PLT 268 (04/20/24) (normal is 150-400) - Electrolytes including sodium and potassium SODIUM 141 (04/20/24) (normal is 136-145) POTASSIUM 4.3 (04/20/24) (normal is 3.5-5.1) - Calcium CALCIUM 8.9 (04/20/24) (normal is 8.5-10.1) - Kidney function CREATININE 2.7 H (04/20/24)(normal Male = less than 1.2; normal Female = less than 1.0)) UREA NITROGEN 33 H (04/20/24) (normal Male is 8-26; normal Female is 10-20) - Blood Sugar GLUCOSE 101 H (04/20/24) (normal is 70 - 100 if fasting) - Liver function Tests AST/SGOT 14 (03/23/24) (normal 15-37) ALT/SGPT 12 (03/23/24) (normal 13-61) ALK PHOSPHATASE 112 (03/23/24) (normal 45-117) BILIRUBIN, TOTAL 0.5 (03/23/24) (normal 0.2-1.0) Additional Comments: Your hgb appears to have stabilized. Your folate nad vitain b12 levels are good. Your creatinie is slightly improved. Everything baron is ok. If you have any further questions or problems, please contact our nursing staff or provider at the following number: [phone]. Sincerely, MARHTA RODRIGUEZ PHYSICIAN MARTHA RODRIGUEZ [facility] Mar 24, 2024 09:18 AM LETTERS: LOCAL TITLE: FOLLOW UP RESULTS LETTER STANDARD TITLE: LETTERS DATE OF NOTE: MAR 24, 2024@09:18 ENTRY DATE: MAR 24, 2024@09:18:39 AUTHOR: MARTHA RODRIGUEZ EXP COSIGNER: URGENCY: STATUS: COMPLETED [facility] [address] [place] [address] Mar KOTA ESPINOZA [address] [facility] [id number] [place]: I am writing to inform you of the results of testing that you had done recently at the [facility]. - Complete Blood Count (red/white blood cell counts and platelets) White count: WBC 8.01 (03/23/24) (normal is 4.0-11.0) Hemoglobin: HGB 12.3 L (03/23/24) (normal Male is 13.5-17.9; Female is 11.5-16) Hematocrit: HCT 36.8 L (03/23/24) (normal Male is 41-54; Female is 34.5-48) Platelets: PLT 289 (03/23/24) (normal is 150-400) - Electrolytes including sodium and potassium SODIUM 140 (03/23/24) (normal is 136-145) POTASSIUM 4.6 (03/23/24) (normal is 3.5-5.1) - Calcium CALCIUM 9.3 (03/23/24) (normal is 8.5-10.1) - Kidney function CREATININE 2.6 H (03/23/24)(normal Male = less than 1.2; normal Female = less than 1.0)) UREA NITROGEN 31 H (03/23/24) (normal Male is 8-26; normal Female is 10-20) - Blood Sugar GLUCOSE 104 H (03/23/24) (normal is 70 - 100 if fasting) - Liver function Tests AST/SGOT 14 (03/23/24) (normal 15-37) ALT/SGPT 12 (03/23/24) (normal 13-61) ALK PHOSPHATASE 112 (03/23/24) (normal 45-117) BILIRUBIN, TOTAL 0.5 (03/23/24) (normal 0.2-1.0) - Hemoglobin A1C (normal 4.0-6.0) Collection DT Spec HGBA1C POCA1C 03/23/2024 10:23 BLOOD 5.3 06/29/2023 08:24 BLOOD 5.3 03/18/2023 10:11 BLOOD 5.3 Additional Comments: Your hgb is down a little nad our creatinien is up a little. so we will recheck both in a few weeks. Everything eise is ok. If you have any further questions or problems, please contact our nursing staff or provider at the following number: [phone]. Sincerely, MARTHA RODRIGUEZ PHYSICIAN MARTHA RODRIGUEZ [facility] Mar 23, 2024 09:25 AM MEDICATION MGT NOT E: LOCAL TITLE: MEDICATION RECONCILIATION NOTE STANDARD TITLE: MEDICATION MGT NOTE DATE OF NOTE: MAR 23, 2024@09:25 ENTRY DATE: MAR 23, 2024@09:25:46 AUTHOR: MARTHA RODRIGUEZ COSIGNER: URGENCY: STATUS: COMPLETED MEDICATION RECONCILIATION Active Outpatient Medications (excluding Supplies): Outpatient Medications Status 1) ALLOPURINOL 100MG TAB TAKE ONE TABLET BY MOUTH EVERY PENDING DAY FOR GOUT PREVENTION 2) AMLODIPINE BESYLATE 10MG TAB TAKE ONE-HALF TABLET BY PENDING MOUTH EVERY DAY FOR BLOOD PRESSURE 3) EMPAGLIFLOZIN 25MG TAB TAKE ONE-HALF TABLET BY MOUTH PENDING EVERY DAY 4) GLIPIZIDE 5MG TAB TAKE ONE-HALF TABLET BY MOUTH EVERY ACTIVE DAY FOR DIABETES 30 MINUTES BEFORE MEAL 5) GLIPIZIDE 5MG TAB TAKE ONE-HALF TABLET BY MOUTH EVERY PENDING DAY 30 MINUTES BEFORE MEAL 6) LOSARTAN 25MG TAB TAKE ONE TABLET BY MOUTH EVERY DAY PENDING FOR KIDNEY PROTECTION 7) METOPROLOL TARTRATE 50MG TAB TAKE ONE-HALF TABLET BY PENDING MOUTH TWICE A DAY FOR HEART RHYTHM 8) OMEPRAZOLE 20MG EC CAP TAKE ONE CAPSULE BY MOUTH ACTIVE TWICE A DAY ON AN EMPTY STOMACH, AT LEAST 30 MINUTES PRIOR TO A MEAL 9) OMEPRAZOLE 20MG EC CAP TAKE ONE CAPSULE BY MOUTH PENDING TWICE A DAY ON AN EMPTY STOMACH, [...] MOUTH EVERY DAY ACTIVE 15 Total Medications Medications listed above are accurate and should continue as ordered. /gregorio/ MARTHA RODRIGUEZ PHYSICIAN Signed: 03/23/2024 09:25 MARTHA RODRIGUEZ [facility] Mar 23, 2024 09:04 AM H & P NOTE: LOCAL TITLE: [facility] ANNUAL VISIT STANDARD TITLE: H & P NOTE DATE OF NOTE: MAR 23, 2024@09:04 ENTRY DATE: MAR 23, 2024@09:04:36 AUTHOR: MARTHA RODRIGUEZ EXP COSIGNER: URGENCY: STATUS: COMPLETED Annual visit Non [facility] Providers: [place] [facility] Chief complaint: Patient is here for a routine annual visit. HPI: Patient is doing well. He had a fall a while back chasing a bat out of the hallway. He went to the local ER and thre were no serious issues. No other conerns. Assessment/Plan: 1. routine labs today 2. ohtho ses regularly 3. dentist sees regularly 4. audio no issues 5. Meddications reviewed, renewed 6. new ortho shoes ordered 7. Patient would like RSV shot today Labs and medications reviewed with patient. Discussed plan of care, patient verbalized understanding and agrees with plan. FU in 1 year for annual exam, sooner with any concerns. Clinical Reminders: Diabetes: Kidney Health Evaluation: uACR (Urine Albumin-Creatinine Ratio) Quantitative urine creatinine and quantitative urine albumin lab tests were ordered. Past Medical History: Computerized Problem List is [...] ACTIVE 11. Deformity of toe ACTIVE 12. Ingrowing nail of toe of left foot ACTIVE 13. Anaemia in chronic kidney disease ACTIVE 14. Secondary hyperparathyroidism of renal origin ACTIVE 15. Chronic kidney disease stage 4 ACTIVE 16. Transient global amnesia INACTIVE PSH: SURGERIES - s/p bilat knee replacement, s/p catrac bilat Social History: Alcohol: none Tobacco: none Marital Status:NEVER , lives alone in [place] Occupation: retired Family History: mom 46 cancer dad 84 5 brother 2 1 sister living BRANCH OF SERVICE: [...] rash, lesion Physical Exam: Vitals: Blood Pressure: 129/86 (03/23/2024 08:47) Pulse: 71 (03/23/2024 08:47) Pulse Oximetry: 97% (03/23/2024 08:47) Resp: 16 (03/23/2024 08:47) Temp: 96.9 F [36.1 C] (03/23/2024 08:47) Height: 68 in [172.7 cm] (03/23/2024 08:47) Weight: 272.6 lb [123.65 kg] (03/23/2024 08:47) BMI:41.5 GENERAL:well developed, well nourished pt in [...] No data available for: REGIONAL ALLERGY PROFILE Assess Statin Use - Lipids (CVD/DM): The patient is already on a statin. The patients prescription for a statin was reviewed and updated Vaccinations: IM - Immunizations ADMINISTERED Immunization Series Date Facility Reaction Info COVID-19 (WebVet), MRNA, LNP-S, * 5 08/05/2022 [facility]* COVID-19 (PFIZER), MRNA, LNP-S, * 3 09/13/2021 [facility] * <C> COVID-19 (PFIZER), MRNA, LNP-S, * 2 01/07/2021 [facility]* COVID-19 (WebVet), MRNA, LNP-S, * 1 [facility] (PFIZER), MRNA, LNP-S, * 4 03/16/2022 [facility] * <C> INFLUENZA, ADJUVANTED, QUADRIVAL* 09/30/2022 [facility] * INFLUENZA, HIGH-DOSE, QUADRIVALE* 06/29/2023 [facility] * INFLUENZA, HIGH-DOSE, TRIVALENT,* 07/18/2017 [facility]* INFLUENZA, HIGH-DOSE, TRIVALENT,* 06/24/2017 [facility] [facility] INFLUENZA, HIGH-DOSE, TRIVALENT,* 07/20/2016 No Site INFLUENZA, HIGH-DOSE, TRIVALENT,* 07/18/2016 [facility] [facility] INFLUENZA, HIGH-DOSE, TRIVALENT,* [facility]UEN[facility], SPLIT VIRUS, QUADRIVA* 09/10/2021 [facility] * INFLUENZA, SPLIT VIRUS, QUADRIVA* 09/03/2020 [facility] * INFLUENZA, SPLIT VIRUS, QUADRIVA* 08/02/2018 [facility] <C> INFLUENZA, SPLIT VIRUS, TRIVALEN* 02/21/2020 [facility] * INFLUENZA, SPLIT VIRUS, TRIVALEN* 08/11/2012 [facility] [facility] INFLUENZA, SPLIT VIRUS, TRIVALEN* 09/08/2010 [facility] [facility] INFLUENZA, SPLIT VIRUS, TRIVALEN* 07/30/2005 [facility] [facility] INFLUENZA, UNSPECIFIED FORMULATI* [facility] NOVEL [id number], ALL FOR* 10/22/2009 [facility] [facility] PNEUMOCOCCAL CONJUGATE PCV 13 01/13/2016 [facility] * <C> PNEUMOCOCCAL POLYSACCHARIDE PPV23 02/23/2019 [facility] * <C> PNEUMOCOCCAL POLYSACCHARIDE PPV23 No Site <C> PNEUMOCOCCAL POLYSACCHARIDE PPV23 11/06/2005 [facility] [facility] PNEUMOCOCCAL, UNSPECIFIED FORMUL* No Site TDAP 08/19/2016 [facility]* TDAP [facility] ME* ZOSTER LIVE 08/11/2017 [facility] [facility] ZOSTER RECOMBINANT 2 06/17/2022 [facility] * ZOSTER RECOMBINANT 1 04/08/2022 [facility] * CONTRAINDICATED No data available REFUSED ======= No data available <C> See the Detailed Immunizations Health Summary Component[DIM] for Comments * Value is truncated; see the Detailed Immunizations Health Summary Component [DIM] for complete text Labs: pending . /gregorio/ MARTHA RODRIGUEZ PHYSICIAN Signed: 03/23/2024 09:25 MARTHA RODRIGUEZ [facility] Mar 23, 2024 08:48 AM PRIMARY CARE NURSI NG NOTE: LOCAL TITLE: OC NURSING PROGRESS NOTE STANDARD TITLE: PRIMARY CARE NURSING NOTE DATE OF NOTE: MAR 23, 2024@08:48 ENTRY DATE: MAR 23, 2024@08:48:25 AUTHOR: DAGOBERTO LOVING COSIGNER: URGENCY: STATUS: COMPLETED [facility] NURSING PROGRESS NOTE Has ADDENDA TYPE OF VISIT: Appointment Check In Type of appointment: In-person appointment REASON FOR VISIT: Annual ALLERGIES: LISINOPRIL (Mar 21, 2014) VITAL SIGNS: Blood Pressure: 129/86 (03/23/2024 08:47) Pulse: 71 (03/23/2024 08:47) Respiration: 16 (03/23/2024 08:47) Temperature: 96.9 F [36.1 C] (03/23/2024 08:47) Weight: 272.6 lb [123.65 kg] (03/23/2024 08:47) Height: 68 in [172.7 cm] (03/23/2024 08:47) BMI: 41.5 O2 Sat: 97% (03/23/2024 08:47) Pain: 1 (03/23/2024 08:47) PAIN SCREEN: Patient is having significant pain that they would like to talk to their provider about today. Old (Chronic) (began more than 6 months ago) Patient states their average pain this past week is 1 Patient states the average number on how the chronic pain affects their enjoyment of life the past week is 1 Patient states during the past week the average number on how the pain has interfered with their general activity is 1 MEDICATION Active Outpatient Medications (including Supplies): GLIPIZIDE 5MG TAB TAKE ONE-HALF TABLET BY MOUTH EVERY DAY ACTIVE FOR DIABETES 30 MINUTES BEFORE MEAL OMEPRAZOLE 20MG EC CAP TAKE ONE CAPSULE BY MOUTH TWICE A ACTIVE DAY ON AN EMPTY STOMACH, AT LEAST 30 MINUTES PRIOR TO A MEAL Non-VA ACETAMINOPHEN 500MG TAB 1000MG MOUTH DAILY ACTIVE Non-VA ASPIRIN 325MG TAB 325MG MOUTH EVERY DAY ACTIVE Non-VA MARINE LIPID (FISH OIL) CAP,ORAL MOUTH ACTIVE Non-VA MELATONIN CAP/TAB MOUTH ACTIVE Non-VA MULTIVITAMIN CAP/TAB 1 TABLET MOUTH EVERY DAY ACTIVE Over the Counter/Herbal Medications: The patient states that they take some outside medications and/or herbals. ADV DIR Notification and Screening: ADVANCE DIRECTIVE NOTIFICATION: Patient was given written notification of the following rights: 1. Accept or refuse any medical treatment. 2. Complete a durable power of district attorney for health care. 3. Complete a living will. ADVANCE DIRECTIVE SCREENING: Does patient have an Advance Directive? The patient has an Advance Directive. Does the patient wish to make any changes or revoke their current Advance Directive? Yes, the patient has an Advance Directive, but it is not in the medical record. was asked to obtain a copy for their medical record. Suicide Screen: C-SSRS Screening [place] Suicide Severity Rating Scale (C-SSRS) screener 1. [...] required due to responses to other questions. Depression Screening: Perform PHQ-2 A PHQ-2 screen was performed. The score was 0 which is a negative screen for depression. Over the past two weeks, how often have you been bothered by the following problems? 1. Little interest or pleasure in doing things Not at all 2. Feeling down, depressed, or hopeless Not at all PTSD Screening: PC-PTSD-5 A PTSD screening test (PC-PTSD-5) was negative (score=0). IN THE PAST MONTH, have you ever had any experience that was so frightening, horrible or traumatic. For example: A serious accident or fire a physical or sexual assault or abuse An earthquake or flood A war Seeing someone be killed or seriously injured Having a loved one through homicide or suicide 1. Have you ever experienced this kind of event? NO 2. Had nightmares about the event(s) or thought about the event(s) when you did not want to? Response not required due to responses to other questions. 3. Tried hard not to think about the event(s) or went out of your way to avoid situations that reminded you of the event(s)? Response not required due to responses to other questions. 4. Been constantly on guard, watchful, or easily startled? Response not required due to responses to other questions. 5. [place] numb or detached from people, activities, or your surroundings? Response not required due to responses to other questions. 6. [place] guilty or unable to stop blaming yourself or others for the event(s) or any problems the event(s) may have caused? Response not required due to responses to other questions. Diabetic Eye Screening: Patient declined eye exam at this encounter. [place] goes to [facility] [facility] for yearly exam. Last exam was done on 10/25/2023. Hs of Cataract surgery. No other concerns. PAVE Foot Check: A complete foot check was completed at this encounter. VISUAL INSPECTION: Includes inspection for skin breaks, deformity, erythema, trauma, pallor on elevation, dependent rubor, nail deformities, extensive callus and pitting edema. Visual exam results: Abnormal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
--- OUTSIDE RECORDS SUMMARY | 2024-07-19 11:04 | XMS_ITS | Encounter Summary ---
Author Name [facility] [facility] Address [address] [place] [address] Care Team Providers Care Laceworker Name Role Phone MARTHA GARCIA Primary Care [...] Relationship to Policy [place] [facility] (WNR) [facility]ICARE [facility]VANT[facility] (WNR) Oct 11, 2019 [id number] [phone] FLYNN ESPINOZA PATIENT [facility] ([place] [facility]IC[facility] (WNR) Oct 11, 2016 [id number] FLYNN ESPINOZA PATIENT [facility] (WNR) MEDICARE ADV[facility] (WNR) Oct 11, 2019 [id number] FLYNN ESPINOZA PATIENT Selected Encounter This section includes the information on record at [place] for the Encounter. Date/Time Encounter Type Encounter Description Reason Pro vider Source Jul 04, 2024 11:52 AM Outpatient Encounter RENAL/NEPHROL(EXCEPT DIALYSIS) [facility] Encounter Template Text not used by [place] [...] 06, 2024 10:45 AM AMBULATORY - NONE [facility] Jul 06, 2024 11:00 AM AMBULATORY - MEDICINE [facility] Jul 06, 2024 11:30 AM AMBULATORY - NONE [facility] Jul 27, 2024 08:30 AM AMBULATORY - NONE [facility] Lab Results: +/- 30 days of [...] Range Comment Jul 06, 2024 09:59 AM [facility] ALBUMIN/CREATININE RATIO URINE Specimen Type: URINE No comment entered. Ordering Provider: LANE GARCIA Report Released Date/Time: Mar 23, 2024 09:08 AM Reporting Lab: [facility] [id number] Performing Lab: [facility] [phone] CREATININE,UR RANDOM 117.3 mg/dL 58.0-161.0 ALB/CREAT RATIO,UR 643.3 mg/g{creat} H <29.9 ALBUMIN,UR 754.6 mg/L H <29.9 Jun 15, 2024 08:38 AM [facility] HEMOGLOBIN A1C Specimen Type: BLOOD Comment: [...] Jan 06, 2024 03:11 PM Reporting Lab: [facility] [phone] Performing Lab: [facility] [phone] HEMOGLOBIN A1C 5.5 4.0-6.0 Jun 15, 2024 08:38 AM [facility] UREA NITROGEN Specimen Type: PLASMA No comment entered. Ordering Provider: MITCHELL GOMEZ Report Released Date/Time: Jan 06, 2024 03:11 PM Reporting Lab: [facility] [phone] Performing Lab: [facility] [address] UREA NITROGEN 29 mg/dL H 8-26 Jun 15, 2024 08:38 AM [facility] CREATININE(INCLUDES EGFR) Specimen Type: PLASMA No comment entered. Ordering Provider: MITCHELL GOMEZ Report Released Date/Time: Jan 06, 2024 03:11 PM Reporting Lab: [facility] [address] Performing Lab: [facility] [address] CREATININE 2.2 mg/dL H 0.7-1.2 .CREAT EGFR(CKD-EPI) 31 L >60 Jun 15, 2024 08:38 AM [facility] ELECTROLYTES/ANION GAP Specimen Type: PLASMA No comment entered. Ordering Provider: MITCHELL GOMEZ Report Released Date/Time: Jan 06, 2024 03:11 PM Reporting Lab: [facility] [phone] Performing Lab: [facility] [address] SODIUM 141 mmol/L 136-145 POTASSIUM 4.5 mmol/L 3.5-5.1 CHLORIDE 111 mmol/L H 98-107 CO2 21 mmol/L L 22-29 ANION GAP 9 mmol/L 5-15 Jun 15, 2024 08:38 AM [facility] PHOSPHORUS Specimen Type: PLASMA No comment entered. Ordering Provider: MITCHELL GOMEZ Report Released Date/Time: Jan 06, 2024 03:11 PM Reporting Lab: [facility] [address] Performing Lab: [facility] [address] PHOSPHORUS 3.5 mg/dL 2.3-4.3 Jun 15, 2024 08:38 AM [facility] CALCIUM Specimen Type: PLASMA No comment entered. Ordering Provider: MITCHELL GOMEZ Report Released Date/Time: Jan 06, 2024 03:11 PM Reporting Lab: [facility] [address] Performing Lab: [facility] [address] CALCIUM 8.9 mg/dL 8.4-10.2 Jun 15, 2024 08:38 AM [facility] ALBUMIN Specimen Type: PLASMA No comment entered. Ordering Provider: MITCHELL GOMEZ Report Released Date/Time: Jan 06, 2024 03:11 PM Reporting Lab: [facility] [address] Performing Lab: [facility] [address] ALBUMIN 4.0 g/dL 3.5-5.2 Jun 15, 2024 08:38 AM [facility] PTH-N-TACT Specimen Type: PLASMA No comment entered. Ordering Provider: MITCHELL GOMEZ Report Released Date/Time: Jan 06, 2024 03:11 PM Reporting Lab: [facility] [address] Performing Lab: [place] [phone] PTH-N-TACT 86.6 pg/mL H 8.7-77.1 Jun 15, 2024 08:38 AM [facility] GLUCOSE Specimen Type: PLASMA No comment entered. Ordering Provider: MITCHELL GOMEZ Report Released Date/Time: Jan 06, 2024 03:11 PM Reporting Lab: [facility] [address] Performing Lab: [facility] [address] GLUCOSE 96 mg/dL 70-100 Jun 15, 2024 08:38 AM [facility] CBC Specimen Type: BLOOD No comment entered. Ordering Provider: MITCHELL GOMEZ Report Released Date/Time: Jan 06, 2024 03:11 PM Reporting Lab: [facility] [address] Performing Lab: [facility] [address] WBC 7.6 4.0-11.0 RBC 3.83 L 4.60-6.20 HGB 12.4 g/dL L 13.5-17.9 HCT 38.8 L 41-54 MCV 101.3 fL H 80-100 MCH 32.4 pg 27-33 MCHC 32.0 g/dL 32.0-37.5 PLT 313 150-400 MPV 9.4 fL 9.1-13.0 RDW 12.4 11.5-14.5 Jun 15, 2024 08:38 AM [facility] Specimen Type: SERUM No comment entered. Ordering Provider: MITHCELL GOMEZ Report Released Date/Time: Jan 06, 2024 03:11 PM Reporting Lab: [facility] [address] Performing Lab: [facility] [address] IRON 107 ug/dL 65-175 TIBC,CALCULATE D 330 ug/dL 250-425 FERRITIN 25.0 ng/mL 21.8-274.7 IRON SATURATION 32 20-50 TRANSFERRIN 264 mg/dL 163-382 Encounter Notes: All associated encounter notes This section contains the clinical notes associated to the Encounter. Date/Time Encounter Note(s) Provider Source Jul 04, 2024 11:52 AM REPORT OF CONTACT: LOCAL TITLE: APPOINTMENT SCHEDULING NOTE STANDARD TITLE: REPORT OF CONTACT DATE OF NOTE: JUL 04, 2024@11:52 ENTRY DATE: JUL 04, 2024@11:52:57 AUTHOR: DENISA GRAJEDA I EXP COSIGNER: URGENCY: STATUS: COMPLETED APPOINTMENT SCHEDULING NOTE Has ADDENDA Attempted to schedule Cancellation Clinic cancellation Contact attempt made to 1st attempt Telephone Left message on voice mail to call back to this number [phone] Other: If/when returns call, please reschedule for morning appointment at [facility] on 07/06/24 due to clinic needs or transfer call to Denisa Grajeda for scheduling. labs done If [place] calls back, schedule appt for: Activity:01/06/2024 15:10 New Order entered by MITCHELL GOMEZ (NURSE PRACTITIO) Order Text: Return to [facility] on or around ( Jul 04, 2024 ) for a total of 1 appointment(s) Prerequisites: Labs (NON-FASTING) labs 1-2 weeks prior /jony GRAJEDA Outpt [facility] [address] [place] Signed: 07/04/2024 11:55 07/04/2024 ADDENDUM STATUS: COMPLETED Attempted to reach for rescheduling - left another voicemail to call me directly at [phone]. /jony GRAJEDA Outpt [facility] [address] Signed: 07/04/2024 14:26 DENISA GRAJEDA [facility]
[2024-07-19 11:07] LABS: Slide Review Reflex No
[2024-07-19 11:14] LABS: Chloride* 106 mmol/L (96-114); Potassium* 4.2 mmol/L (3.6-5.1); Sodium* 136 mmol/L (135-149)
[2024-07-19 11:17] LABS: Anion Gap 9 mEq/L (7-15); Blood Urea Nitrogen* 32 mg/dL (7-30); Carbon Dioxide* 21 mmol/L (20-32); Creatinine* 2.4 mg/dL (0.5-1.5); Est. Creatinine Clearance* 26.52; Estimated Glomerular Filt Rate 28 ml/min; Glucose* 231 mg/dL (60-115); INR 0.95 (0.91-1.10); Prothrombin Time 13.2 Seconds
[2024-07-19 11:18] LABS: Calcium* 8.6 mg/dL (8.4-10.6); Partial Thromboplastin Time* 26 Seconds (23-33)
[2024-07-19] MEDS: 0.9 % SODIUM CHLORIDE 500 ML 500 ML IV (11:41)
== END 2024-07-19 11:58 | disposition short-term general hospital (02) ==
PROVIDERS: Emergency Provider Family Medicine; PCP Internal Medicine
DX: S00.83XA Contusion of other part of head, initial encounter (principal); S80.01XA Contusion of right knee, initial encounter; W19.XXXA Unspecified fall, initial encounter
CPT/HCPCS: 36415; 73560; 76882; 80048; 85025; 85610; 85730; 99284; 99285; J7030

== ENCOUNTER 2024-07-19 11:36 | Outpatient (CLI) | payer MEDICARE, OTHER, SELFPAY ==
--- OUTSIDE RECORDS SUMMARY | 2024-08-03 11:51 | XMS_ITS | Continuity of Care Document ---
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 It does not include entries that were removed or entered in error. Problem Status Onset Date Problem Type Date of Resolution Comments Source Diabetes mellitus Active 983 Condition [facility] Acquired hallux rigidus Active Condition [facility] Anaemia in chronic kidney disease Active Condition [facility] Chronic kidney disease stage 4 Active Condition [facility] Deformity of toe Active Condition [facility] Edema Active Condition [facility] Essential hypertension Active Condition Mar 21, 2014 Entered By: JENELLE JAMES Comment: dx late 2013 Entered By: JENELLE JAMES Comment: says pharmacologic stress test ok in late [facility] Flat foot Active Condition [facility] Gout Active Condition [facility] Hyperlipidemia Active Condition [facility] Ingrowing nail of toe of left foot Active Condition [facility] Obesity Active Condition [facility] Peripheral sensory neuropathy due to type 2 diabetes mellitus Active Condition [facility] Proteinuria Active Condition Mar 21, 2014 Entered By: JENELLE JAMES Comment: with prior testing per pt report [facility] Secondary hyperparathyroidism of renal origin Active Condition [facility] Transient global amnesia Inactive Condition 03/21/2014 Mar 21, 2014 Entered By: JENELLE JAMES Comment: [facility] Diagnosis: ICD-10-CM E11.8 Type 2 diabetes mellitus with unspecified complications Active Diagnosis [facility] Diagnosis: ICD-10-CM E11.9 Type 2 diabetes mellitus without complications Active Diagnosis [facility] Diagnosis: ICD-10-CM E11.22 Type 2 diabetes mellitus w diabetic chronic kidney disease Active Diagnosis [facility] Diagnosis: ICD-10-CM Z00.8 Encounter for other general examination Active Diagnosis [facility] Diagnosis: ICD-10-CM F54 Psych & behavrl 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 Active Diagnosis [facility] Diagnosis: ICD-10-CM N18.4 Chronic kidney disease, stage 4 (severe) Active Diagnosis [facility] Diagnosis: ICD-10-CM Z23 Encounter for immunization Active Diagnosis [facility] Medications Combined list of outpatient medications from Department of Defense and Veterans Affairs facilities.Medications provided include 1) outpatient medications from the last 15 months, and 2) patient-reported medications. Medication Details Route Status Patient Instructions Prescription Expires Prescription Number Last Dispense Date Ordering Provider Order Date Order Qty Source ACETAMINOPH EN 500MG TAB TAKE TWO TABLETS BY MOUTH DAILY ORAL ACTIVE JACOBTOBIAS I L 2013 [facility] ALLOPURINOL 100MG TAB TAKE ONE TABLET BY MOUTH EVERY DAY FOR GOUT PREVENTI ON ORAL ACTIVE 03/24/2025 [id number] 4 MARTHA GARCIA 2023 90 [facility] ALLOPURINOL 100MG TAB TAKE ONE TABLET BY MOUTH EVERY DAY FOR GOUT PREVENTI ON [facility] 03/[facility]20[facility] [id number] 4 MARTHA GARCIA 2022 90 [facility] AMLODIPINE BESYLATE 10MG TAB TAKE ONE-HALF TABLET BY MOUTH EVERY DAY FOR BLOOD PRESSURE ORAL ACTIVE 03/24/2025 [id number] 4 MARTHA GARCIA 2023 45 [facility] AMLODIPINE BESYLATE 10MG TAB TAKE ONE-HALF TABLET BY MOUTH EVERY DAY FOR BLOOD PRESSURE [facility] 03/18/2024 [id number] 4 MARTHA GARCIA 2022 45 [facility] ASPIRIN 325MG TAB TAKE ONE TABLET BY MOUTH EVERY DAY ORAL ACTIVE JACOBTOBIAS I L 2013 [facility] EMPAGLIFLOZ IN 25MG TAB TAKE ONE-HALF TABLET BY MOUTH EVERY DAY ORAL ACTIVE 03/24/2025 [id number] 4 MARTHA GARCIA 2023 45 [facility] EMPAGLIFLOZ IN 25MG TAB TAKE ONE-HALF TABLET BY MOUTH EVERY DAY ORAL DISCONT INUED 02/23/2024 [id number] 4 PB GOMEZ A 2022 45 [facility] GLIPIZIDE 5MG TAB TAKE ONE-HALF TABLET BY MOUTH EVERY DAY FOR DIABETES 30 MINUTES BEFORE MEAL ORAL ACTIVE 03/24/2025 [id number] 4 MARTHA GARCIA 2023 45 [facility] GLIPIZIDE 5MG TAB TAKE ONE-HALF TABLET BY MOUTH EVERY DAY FOR DIABETES 30 MINUTES BEFORE MEAL ORAL DISCONT INUED 07/07/2024 [id number] PB GOMEZ 2022 45 [facility] LOSARTAN 25MG TAB TAKE ONE TABLET BY MOUTH EVERY DAY FOR KIDNEY PROTECTI ON ORAL ACTIVE 03/24/2025 [id number] 4 MARTHA GARCIA 2023 90 [facility] LOSARTAN 25MG TAB TAKE ONE TABLET BY MOUTH EVERY DAY FOR KIDNEY PROTECTI ON ORAL DISCONT INUED 03/18/2024 [id number] 4 MARTHA GARCIA 2022 90 [facility] MARINE LIPID (FISH OIL) CAP,ORAL TAKE BY MOUTH ORAL ACTIVE JACOB,TOBIAS I L 2013 [facility] MELATONIN CAP/TAB TAKE BY MOUTH AT BEDTIME ORAL ACTIVE MARTHA GARCIA 2022 [facility] METOPROLOL TARTRATE 50MG TAB TAKE ONE-HALF TABLET BY MOUTH TWICE A DAY FOR HEART RHYTHM OR[facility] ACTIVE 03/24/2025 [id number] 4 MARTHA GARCIA 2023 90 [facility] METOPROLOL TARTRATE 50MG TAB TAKE ONE-HALF TABLET BY MOUTH TWICE A DAY FOR HEART RHYTHM ORAL DISCONT INUED 03/18/2024 [id number] 4 MARTHA GARCIA 2022 90 [facility] MULTIVITAMI NS CAP/TAB TAKE ONE TABLET BY MOUTH EVERY DAY ORAL ACTIVE JACOB,TOBIAS I L 2013 [facility] OMEPRAZOLE 20MG CAP,EC TAKE ONE CAPSULE BY MOUTH TWICE A DAY ON AN EMPTY STOMACH, AT LEAST 30 MINUTES PRIOR TO A MEAL ORAL ACTIVE 03/24/2025 [id number] 4 MARTHA GARCIA 2023 180 [facility] OMEPRAZOLE 20MG CAP,EC TAKE ONE CAPSULE BY MOUTH TWICE A DAY ON AN EMPTY STOMACH, AT LEAST 30 MINUTES PRIOR TO A MEAL ORAL DISCONT INUED 06/08/2024 [id number] 4 [place] 2022 180 [facility] SIMVASTATIN 20MG TAB TAKE ONE-HALF TABLET BY MOUTH AT BEDTIME FOR CHOLESTE ROL ORAL ACTIVE 03/24/[id number] GAR[place] Aurelio 2023 45 [facility] SIMVASTATIN 20MG TAB TAKE ONE-HALF TABLET BY MOUTH AT BEDTIME FOR CHOLESTE ROL ORAL DISCONT INUED 03/18/2024 [id number] 4 MARTHA GARCIA Aurelio 2022 45 [facility] Allergies, Adverse Reactions, Alerts Combined list of allergies from Department of Defense and Veterans Affairs facilities. It does not include entries that were removed or entered in error. Substance Category Reaction Severity Reaction type Status Date Reported Comments Source LISINOPRIL Propensity to adverse reactions to drug (finding) Low blood pressure active 4 [facility] Immunizations Combined list of available immunizations from the Department of Defense and Veterans Affairs facilities. Immunization Series Date Given Administered By Site Reaction Lot Number CVX Code Drug Proofer Prepress Status Comments Source COVID-19 (MODERNA), MRNA, LNP-S, PF, 50 MCG/0.5 ML (AGES 12+ YEARS) 2023 312 complet ed [facility] INFLUENZA, HIGH-DOSE, TRIVALENT, PF 2023 135 complet ed [facility] RSV, BIVALENT, PROTEIN SUBUNIT RSVPREF, DILUENT RECONSTITUTED , 0.5 ML, PF 2023 DAGOBERTO LOVING RIGHT DELTO ID [id number] 305 complet ed [facility] INFLUENZA, HIGH-DOSE, QUADRIVALENT 2022 CODEY FRANK E RIGHT DELTO ID [id number] A 197 complet ed [facility] INFLUENZA VACCINE, QUADRIVALENT, ADJUVANTED 2021 STARR DAS RIGHT DELTO ID [id number] 205 complet ed [facility] COVID-19 (Deltagen), MRNA, LNP-S, BIVALENT, PF, 30 MCG/0.3 ML DOSE 5 2021 300 complet ed [facility] ZOSTER RECOMBINANT 2 2021 187 complet ed [facility] ZOSTER RECOMBINANT 1 2021 187 complet ed [facility] COVID-19 ([facility]), MRNA, LNP-S, PF, 30 MCG/0.3 ML DOSE, YEIMI-SUCROSE (AGES 12+ YEARS) 4 2021 217 complet ed PFR; [id number]; 2 [facility] COVID-19 (Deltagen), MRNA, LNP-S, PF, 30 MCG/0.3 ML DOSE 3 2020 208 complet ed PFR; [id number]; 2 [facility] INFLUENZA, INJECTABLE, QUADRIVALENT, PRESERVATIVE FREE 2020 150 complet ed [facility] COVID-19 (Deltagen), MRNA, LNP-S, PF, 30 MCG/0.3 ML DOSE 2 2020 208 complet ed [facility] COVID-19 (Deltagen), MRNA, LNP-S, PF, 30 MCG/0.3 ML DOSE 1 2020 208 complet ed [facility] INFLUENZA, INJECTABLE, QUADRIVALENT, PRESERVATIVE FREE 2019 150 complet ed [facility] INFLUENZA, SEASONAL, INJECTABLE, PRESERVATIVE FREE 2019 140 complet ed [facility] PNEUMOCOCCAL POLYSACCHARID E PPV23 2018 33 complet ed [employer] Lot # [id number], Exp Date 25Jan2020 [facility] INFLUENZA, INJECTABLE, QUADRIVALENT, PRESERVATIVE FREE 2017 150 complet ed [facility] Administ[facility] red by: [facility] Clinician (NPI=Not Provided) . Partner 7 Lot#: [id number] Mfr: Sanofi Macario [facility] ZOSTER LIVE 2016 121 complet ed [facility] INFLUENZA, HIGH DOSE SEASONAL 2016 135 complet ed [facility] INFLUENZA, HIGH DOSE SEASONAL 2016 135 complet ed [facility] TDAP 2015 115 complet ed [facility] INFLUENZA, HIGH DOSE SEASONAL 2015 135 complet ed [facility] INFLUENZA, HIGH DOSE SEASONAL 2015 135 complet ed [facility] PNEUMOCOCCAL CONJUGATE PCV 13 2015 133 complet ed [employer] Lot#[id number] 4 Exp 02/24 [facility] INFLUENZA, HIGH DOSE SEASONAL 2014 135 complet ed [facility] PNEUMOCOCCAL POLYSACCHARID E PPV23 2013 33 complet ed 2-3 years ago [facility] PNEUMOCOCCAL, UNSPECIFIED FORMULATION 2013 109 complet ed [facility] INFLUENZA, UNSPECIFIED FORMULATION 2012 88 complet ed [facility] INFLUENZA, SEASONAL, INJECTABLE 2011 141 complet ed [facility] INFLUENZA, SEASONAL, INJECTABLE 2009 141 complet ed [facility] NOVEL INFLUENZA-H1N 1-09, ALL FORMULATIONS 2009 128 complet ed [facility] TDAP 2007 115 complet ed [facility] PNEUMOCOCCAL POLYSACCHARID E PPV23 2005 33 complet ed [facility] INFLUENZA, SEASONAL, INJECTABLE 2004 141 complet ed [facility] Results Combined list of recent chemistry, [...] Mar 23, 2024 09:08 AM Reporting Lab: [facility] [address] Performing Lab: [facility] [address] [facility] ALBUMIN/C REATININE RATIO URINE MICROALBUMI N/CREATININ E [MASS RATIO] IN URINE 643.3 mg/g{c reat} <29.9 - 29.9 07/06 H Specimen Type: URINE No comment entered. Ordering Provider: DILSHAD GARCIA Report Released Date/Time: Mar 23, 2024 09:08 AM Reporting Lab: [facility] [address] Performing Lab: [facility] [address] [facility] ALBUMIN/C REATININE RATIO URINE MICROALBUMI N [MASS/VOLUM E] IN URINE 754.6 mg/L <29.9 - 29.9 07/06 H Specimen Type: URINE No comment entered. Ordering Provider: DILSHAD GARCIA Report Released Date/Time: Mar 23, 2024 09:08 AM Reporting Lab: [facility] [address] Performing Lab: [facility] [address] [facility] HEMOGLOBI N A1C HEMOGLOBIN A1C/HEMOGLO BIN.TOTAL IN [...] Jan 06, 2024 03:11 PM Reporting Lab: [facility] [address] Performing Lab: [facility] [address] [facility] UREA NITROGEN UREA NITROGEN [MASS/VOLUM E] IN SERUM OR PLASMA 29 mg/dL - 06/15 H Specimen Type: PLASMA No comment entered. Ordering Provider: MITCHELL GOMEZ Report Released Date/Time: Jan 06, 2024 03:11 PM Reporting Lab: [facility] [address] Performing Lab: [facility] [address] [facility] CREATININ E(INCLUDE S EGFR) CREATININE [MASS/VOLUM E] IN SERUM OR PLASMA 2.2 mg/dL 0.7 - 1.2 06/15 H Specimen Type: PLASMA No comment entered. Ordering Provider: MITCHELL GOMEZ Report Released Date/Time: Jan 06, 2024 03:11 PM Reporting Lab: [facility] [address] Performing Lab: [facility] [address] [facility] CREATININ E(INCLUDE S EGFR) GLOMERULAR FILTRATION RATE/1.73 SQ M.PREDICTED [VOLUME RATE/AREA] IN SERUM, PLASMA OR BLOOD BY CREATININE- BASED FORMULA (CKD-EPI 2020) 31 60 06/15 L Specimen Type: PLASMA No comment entered. Ordering Provider: MITCHELL GOMEZ Report Released Date/Time: Jan 06, 2024 03:11 PM Reporting Lab: [facility] [address] Performing Lab: [facility] [address] [facility] ELECTROLY TYLER/ANION GAP SODIUM [MOLES/VOLU ME] IN SERUM OR PLASMA 141 mmol/L 136 - 145 06/15 Specimen Type: PLASMA No comment entered. Ordering Provider: MITCHELL GOMEZ Report Released Date/Time: Jan 06, 2024 03:11 PM Reporting Lab: [facility] [address] Performing Lab: [facility] [address] [facility] ELECTROLY TYLER/ANION GAP POTASSIUM [MOLES/VOLU ME] IN SERUM OR PLASMA 4.5 mmol/L 3.5 - 5.1 06/15 Specimen Type: PLASMA No comment entered. Ordering Provider: MITCHELL GOMEZ Report Released Date/Time: Jan 06, 2024 03:11 PM Reporting Lab: [facility] [address] Performing Lab: [facility] [address] [facility] ELECTROLY TYLER/ANION GAP CHLORIDE [MOLES/VOLU ME] IN SERUM OR PLASMA 111 mmol/L 98 - 107 06/15 H Specimen Type: PLASMA No comment entered. Ordering Provider: MITCHELL GOMEZ Report Released Date/Time: Jan 06, 2024 03:11 PM Reporting Lab: [facility] [address] Performing Lab: [facility] [address] [facility] ELECTROLY TYLER/ANION GAP CARBON DIOXIDE, TOTAL [MOLES/VOLU ME] IN SERUM OR PLASMA 21 mmol/L 22 - 29 06/15 L Specimen Type: PLASMA No comment entered. Ordering Provider: MITCHELL GOMEZ Report Released Date/Time: Jan 06, 2024 03:11 PM Reporting Lab: [facility] [address] Performing Lab: [facility] [address] [facility] ELECTROLY TYLER/ANION GAP ANION GAP IN SERUM OR PLASMA 9 mmol/L 5 - 15 06/15 Specimen Type: PLASMA No comment entered. Ordering Provider: MITCHELL GOMEZ Report Released Date/Time: Jan 06, 2024 03:11 PM Reporting Lab: [facility] [address] Performing Lab: [facility] [address] [facility] ALBUMIN ALBUMIN [MASS/VOLUM E] IN SERUM OR PLASMA 4.0 g/dL 3.5 - 5.2 06/15 Specimen Type: PLASMA No comment entered. Ordering Provider: MITCHELL GOMEZ Report Released Date/Time: Jan 06, 2024 03:11 PM Reporting Lab: [facility] [address] Performing Lab: [facility] [address] [facility] PHOSPHORU S PHOSPHATE [MASS/VOLUM E] IN SERUM OR PLASMA 3.5 mg/dL 2.3 - 4.3 06/15 Specimen Type: PLASMA No comment entered. Ordering Provider: MITCHELL GOMEZ Report Released Date/Time: Jan 06, 2024 03:11 PM Reporting Lab: [facility] [address] Performing Lab: [facility] [address] [facility] CALCIUM CALCIUM [MASS/VOLUM E] IN SERUM OR PLASMA 8.9 mg/dL 8.4 - 10.2 06/15 Specimen Type: PLASMA No comment entered. Ordering Provider: MITCHELL GOMEZ Report Released Date/Time: Jan 06, 2024 03:11 PM Reporting Lab: [facility] [address] Performing Lab: [facility] [address] [facility] PTH-N-TAC T PARATHYRIN. INTACT [MASS/VOLUM E] IN SERUM OR PLASMA 86.6 pg/mL 8.7 - 77.1 06/15 H Specimen Type: PLASMA No comment entered. Ordering Provider: MITCHELL GOMEZ Report Released Date/Time: Jan 06, 2024 03:11 PM Reporting Lab: [facility] [address] Performing Lab: [facility] [address] [facility] GLUCOSE GLUCOSE [MASS/VOLUM E] IN SERUM OR PLASMA 96 mg/dL 70 - 100 06/15 Specimen Type: PLASMA No comment entered. Ordering Provider: MITCHELL GOMEZ Report Released Date/Time: Jan 06, 2024 03:11 PM Reporting Lab: [facility] [address] Performing Lab: [facility] [address] [facility] Vital Signs Combined list of inpatient and outpatient Vital Signs from Department of Defense and Veterans Affairs, ranging from 12 months to all on record, depending upon the facility. Vital Sign Value Date Comments Source SYSTOLIC BLOOD PRESSURE 130 07/06/2024 10:38:16 [facility] DIASTOLIC BLOOD PRESSURE 80 07/06/2024 10:38:16 [facility] PULSE OXIMETRY 94 07/06/2024 10:38:16 [facility] WEIGHT 275.6 07/06/2024 10:38:16 [facility] BMI 42kg/m2 07/06/2024 10:38:16 [facility] PAIN 0 07/06/2024 10:38:16 [facility] TEMPERATURE 96.9 07/06/2024 10:38:16 [facility] PULSE 89 07/06/2024 10:38:16 [facility] RESPIRATION 16 07/06/2024 10:38:16 [facility] SYSTOLIC BLOOD PRESSURE 129 03/23/2024 08:47:22 [facility] DIASTOLIC BLOOD PRESSURE 86 03/23/2024 08:47:22 [facility] PULSE OXIMETRY 97 03/23/2024 08:47:22 S [...] CBOC SYSTOLIC BLOOD PRESSURE 117 01/06/2024 14:52:08 [facility] DIASTOLIC BLOOD PRESSURE 74 01/06/2024 14:52:08 [facility] PULSE OXIMETRY 96 01/06/2024 14:52:08 S [...] ADM Date DC Date Status Disposition Source [place] [facility] Outpatient Encounter [id number] [facility] [place] [facility] Outpatient Encounter [id number] JAYRO BOLTON 06/07 /2023 [place] [facility] OFFICE O/P EST MOD 30-39 MIN [id number] Diagnos is: ICD-10- CM Z00.8 Encount er for other general examina tion
Esme GARCIA EBECCA L 03/18 [facility] [place] [facility] Outpatient Encounter [id number] 03/18 [place] [facility] [place]AT[place] ADMIN [id number] Diagnos is: ICD-10- CM Z23 Encount er for immuniz ation<b r/> GEBREKIRST OS,CODEY E 06/29 [facility] OFFICE O/P EST MOD 30-39 MIN [id number] Diagnos is: ICD-10- CM E11.22 Type 2 diabete s mellitu s w diabeti c chronic kidney disease
MITCHELL GOMEZ 07/06 [facility] [place] [facility] PT EDUCATION NOC GROUP [id number] Diagnos is: ICD-10- CM N18.4 Chronic kidney disease , stage 4 (severe )
HANY PEACOCK RA R 07/14 [place] [facility] [place] [facility] BHV IVNTJ GRP 30 [id number] Diagnos is: ICD-10- CM F54 Psych & behavrl 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< br/> SP YIN SSA 07/14 [place] [facility] [place] [facility] Outpatient Encounter [id number] 07/21 [place] [facility] [place] [facility] Outpatient Encounter [id number] 07/27 [place] [facility] [place] [facility] Outpatient Encounter [id number] 10/27 [place] [facility] [place] [facility] Outpatient Encounter [id number] A[facility]OLDAN [facility] [place] [facility] OFFICE O/P EST MOD 30 MIN [id number] Diagnos is: ICD-10- CM E11.22 Type 2 diabete s mellitu s w diabeti c chronic kidney disease
MITCHELL GOMEZ A 01/05 [facility] OFFICE O/P EST MOD 30 MIN [id number] Diagnos is: ICD-10- CM Z00.8 Encount er for other general examina tion
Esme GARCIA 03/23 [facility] [place] [facility] Outpatient Encounter [id number] 06/29 [place] [facility] [place] [facility] Outpatient Encounter [id number] 07/04 [place] [facility] OFFICE O/P EST MOD 30 MIN [id number] Diagnos is: ICD-10- CM E11.22 Type 2 diabete s mellitu s w diabeti c chronic kidney disease
GOMEZMITCHELL A 07/06 [facility] OFF/OP EST MAY X REQ PHY/QHP [id number] Diagnos is: ICD-10- CM E11.8 Type 2 diabete s mellitu s with unspeci fied complic ations< br/> MT CARRILLO 07/06 [facility] [place] [facility] Outpatient Encounter [id number] Aurelio ROLDAN 07/20 [place] [facility] [place] [facility] Outpatient Encounter [id number] 07/25 [place] [facility] SELF-MGMT EDUC/TRAIN 2-4 [place] [id number] Diagnos is: ICD-10- CM E11.9 Type 2 diabete s mellitu s without complic ations< br/> ACOSTA CENTENO M 07/27 [facility] HC PRO PHONE CALL 5-10 MIN [id number] Diagnos is: ICD-10- CM E11.8 Type 2 diabete s mellitu s with unspeci fied complic ations< br/> WHITE,TERR A R 07/28 [facility] Social History Combined list of available smoking, tobacco, and other social history from Department of Defense and Veterans Affairs facilities. Social History Type Response Date Comment Sourc e Tobacco smoking status NEIS VA-TOBACCO QUIT 15 YRS OR MORE 03/23/2024 [facility] History of tobacco use VA-TOBACCO FORMER USER 03/23/2024 [facility] History of tobacco use VA-TOBACCO FORMER USER 03/18/2023 [facility] History of tobacco use VA-TOBACCO FORMER USER 03/16/2022 [facility] History of tobacco use VA-TOBACCO QUIT 1 5 YRS OR MORE 02/23/2019 [facility] History of tobacco use VA-TOBACCO QUIT 1 5 YRS OR MORE 02/24/2018 [facility] History of tobacco use FORMER TOBACCO US ER 7Y OR GREATER 02/24/2018 [facility] History of tobacco use FORMER TOBACCO US ER 7Y OR GREATER 02/22/2017 [facility] History of tobacco use FORMER TOBACCO US ER 7Y OR GREATER 01/13/2016 [facility] History of tobacco use FORMER TOBACCO US ER 7Y OR GREATER 03/21/2014 [facility]
--- OUTSIDE RECORDS SUMMARY | 2024-08-03 11:52 | XMS_ITS | Encounter Summary ---
Author Name [facility] Organization [facility] Address [address] [place] [address] Care Team Providers Care Managing Director Name Role Phone MARTHA GARCIA Primary Care [...] Relationship to Policy Br[place] [facility] [place] [facility] (WNR) MEDICARE ADVANTAGE [facility] (WNR) Oct 11, 2019 [id number] [phone] FLYNN ESPINOZA PATIENT [facility] [place] [facility] (WNR) MEDICARE ADVANTAGE [facility] (WNR) Oct 11, 2016 [id number] [phone] FLYNN ESPINOZA PATIENT [facility] (WNR) MEDICARE ADVANTAGE [facility] (WNR) Oct 11, 2019 [id number] [phone] FLYNN ESPINOZA PATIENT Selected Encounter This section includes the information on record at NH for the Encounter. Date/Time Encounter Type Encounter [...] 20 appointments. The data comes from all [place] treatment facilities. Appointment Date/Time Appointment Type Appointme nt Facility Name Jul 27, 2024 08:30 AM AMBULATORY - NONE [facility] Jul 28, 2024 10:45 AM AMBULATORY - MEDICINE [facility] Lab Results: +/- 30 days of the encounter This section includes the Chemistry and Hematology Lab Results on record with NH for the patient. Radiology Reports and Pathology Reports are provided separately, in subsequent sections. Lab Results This section contains the Chemistry/Hematology Results that were resulted 30 days before or 30 daysafter the date of the Encounter. Date/Time Source Result Type Result - Unit Interpretation Reference Range Comment Jul 06, 2024 09:59 AM [facility] ALBUMIN/CREATININE RATIO URINE Specimen Type: URINE No comment entered. Ordering Provider: BRINA GARCIA Report Released Date/Time: Mar 23, 2024 09:08 AM Reporting Lab: [facility] [id number] Performing Lab: [facility] [id number] CREATININE ,UR RANDOM 117.3 mg/dL 58.0-161.0 ALB/CREAT [...] Care Coordination Information Hospital Discharge note Hospital: [facility] Admit date: 07/19/2024 Discharge date: 07/20/2024 Discharge diagnosis: #Fall from standing height #Right knee hematoma Disposition: Home Follow up:Please review records for any needed follow up. Recommended to follow up with primary care in 2-4 weeks. Medical records have been uploaded to the patient's chart and are available for viewing in [employer]. /gregorio/ Yue Roldan HL7 DEVELOPER worm farmer Fuller Brush Man Signed: 07/26/2024 09:13 Receipt Acknowledged By: 07/26/2024 10:02 /gregorio/ MARTHA GARCIA PHYSICIAN 07/27/2024 15:15 /es/ MARIELLA FRANCO RN REGISTERED NURSE --- Original Document --- 07/19/24 [facility] PRESENTING CARE COORD PLAN NOTE: Emergency Notification Intake Date Presenting to the Facility: Jul Method of Contact: Fax Centralized Call Center Notified [facility] Hospital Name: Hospital: [facility] Address: [address] [place] [address] City: [place] State: [place] Zip Code: [address] Phone : [facility] Facility Point of Contact: Name: Phone: Chief complaint: FALL WITH KNEE PAIN Primary Diagnosis: Disposition Unknown at time of intake note entry /gregorio/ MEERA MERCEDES ADVANCED CLAIM ADMINISTRATOR Signed: 07/25/2024 08:56 Receipt Acknowledged By: 07/25/2024 15:57 /gregorio/ Yue Roldan HL7 DEVELOPER worm farmer [employer] Man 07/19/2024 ADDENDUM STATUS: COMPLETED VistA Imaging Scanned Document - Addendum. ED DC 07-19-2024 to 07-20-2024 [facility] SCANNED DOCUMENT SIGNATURE NOT REQUIRED Electronically Filed: 07/25/2024 by: MEERA MERCEDES ADVANCED CLAIM ADMINISTRATOR 07/25/2024 ADDENDUM STATUS: COMPLETED Records including DC summary uploaded via [employer] for review. /MEERA Cook ADVANCED CLAIM ADMINISTRATOR Signed: 07/25/2024 09:05 Receipt Acknowledged By: 07/25/2024 16:02 /jony Roldan HL7 DEVELOPER worm farmer [employer] Man 07/25/2024 ADDENDUM STATUS: COMPLETED NOTIFICATION ID: [id number] STATUS: Closed - Submit for /gregorio/ URIEL CERDA Lead Systems Developer(AOD) Signed: 07/25/2024 10:15 YUE ROLDAN [facility] Jul 25, 2024 09:05 AM ADDENDUM: LOCAL TITLE: Addendum STANDARD TITLE: ADDENDUM DATE OF NOTE: JUL 25, 2024@09:05:29 ENTRY DATE: JUL 25, 2024@09:05:30 AUTHOR: ELFEGO STRONG COSIGNER: URGENCY: STATUS: COMPLETED Records including DC summary uploaded via [employer] for review. /gregorio/ MEERA MERCEDES ADVANCED CLAIM ADMINISTRATOR Signed: 07/25/2024 09:05 Receipt Acknowledged By: 07/25/2024 16:02 /gregorio/ Yue Roldan HL7 DEVELOPER worm farmer Fuller Brush Man --- Original Document --- 07/19/24 [facility] PRESENTING CARE COORD PLAN NOTE: Emergency Notification Intake Date Presenting to the Facility: Jul Method of Contact: Fax Centralized Call Center Notified [facility] Name: Hospital: [facility] Address: [address] [place] [address] City: [place] State: [place] Zip Code: [address] Phone : Community Facility Point of Contact: Name: Phone: Chief complaint: FALL WITH KNEE PAIN Primary Diagnosis: Disposition Unknown at time of intake note entry /gregorio/ MEERA MERCEDES ADVANCED CLAIM ADMINISTRATOR Signed: 07/25/2024 08:56 Receipt Acknowledged By: 07/25/2024 15:57 /jony Roldan HL7 DEVELOPER worm farmer [employer] Man 07/19/2024 ADDENDUM STATUS: COMPLETED VistA Imaging Scanned Document - Addendum. ED HP DC 07-19-2024 to 07-20-2024 [facility] SCANNED DOCUMENT SIGNATURE NOT REQUIRED Electronically Filed: 07/25/2024 by: MEERA MERCEDES ADVANCED CLAIM ADMINISTRATOR 07/25/2024 ADDENDUM STATUS: COMPLETED NOTIFICATION ID: [id number] STATUS: Closed - Submit for /gregorio/ URIEL CERDA Lead Systems Developer(AOD) Signed: 07/25/2024 10:15 ELFEGO STRONG [facility] Jul 19, 2024 06:00 AM NONVA NOTE: [...] Call Center Notified Community Hospital Name: Hospital: [facility] Address: [address] [place] [address] City: [place] State: [place] Zip Code: [address] Phone : Community Facility Point of Contact: Name: Phone: Chief complaint: FALL WITH KNEE PAIN Primary Diagnosis: Disposition Unknown at time of intake note entry /gregorio/ MEERA MERCEDES ADVANCED CLAIM ADMINISTRATOR Signed: 07/25/2024 08:56 Receipt Acknowledged By: 07/25/2024 15:57 /gregorio/ Yue Roldan HL7 DEVELOPER worm farmer Fuller Brush Man 07/19/2024 ADDENDUM STATUS: COMPLETED VistA Imaging Scanned Document - Addendum. ED HP DC 07-19-2024 to 07-20-2024 [facility] SCANNED DOCUMENT SIGNATURE NOT REQUIRED Electronically Filed: 07/25/2024 by: MEERA MERCEDES ADVANCED CLAIM ADMINISTRATOR 07/25/2024 ADDENDUM STATUS: COMPLETED Records including DC summary uploaded via [employer] for review. /MEERA Cook ADVANCED CLAIM ADMINISTRATOR Signed: 07/25/2024 09:05 Receipt Acknowledged By: 07/25/2024 16:02 /jony Roldan HL7 DEVELOPER worm farmer Fuller [employer] Man 07/25/2024 ADDENDUM STATUS: COMPLETED NOTIFICATION ID: [id number] STATUS: Closed - Submit for /es/ URIEL CERDA Lead Systems Developer(AOD) Signed: 07/25/2024 10:15 07/26/2024 ADDENDUM STATUS: COMPLETED Clinical Care Coordination Information Hospital Discharge note Hospital: [facility] Admit date: 07/19/2024 Discharge date: 07/20/2024 Discharge diagnosis: #Fall from standing height #Right knee hematoma Disposition: Home Follow up:Please review records for any needed follow up. Recommended to follow up with primary care in 2-4 weeks. Medical records have been uploaded to the patient's chart and are available for viewing in [employer]. /gregorio/ Yue Roldan HL7 DEVELOPER worm farmer Fuller Brush Man Signed: 07/26/2024 09:13 Receipt Acknowledged By: * AWAITING SIGNATURE * MARTHA GARCIA * AWAITING SIGNATURE * MARIELLA FRANCO DAWNE M [facility]
--- OUTSIDE RECORDS SUMMARY | 2024-08-03 11:52 | XMS_ITS | Referral Summary ---
Author Organization [facility] Address [address] [place] [address] Phone Care Team Providers Care Irish Moss Bleacher Name Role Phone Unavailable Primary Care Provider Unavailabl e Source Comments [employer] is fully rolled out on [employer]. Last update 03/15/09.[facility] Encounters Date Type Department Care Team Description 07/20/2024 Orders Only Unspecified Department [place] Unknown, Provider 07/19/2024 12:55 PM CDT - 07/20/2024 8:00 PM CDT Hospital Encounter [facility] Surgery/Trauma/Neur o 1 [facility] [address] [place] [address] Jay Patrick MD Lumbard, Chay Purcell MD Fall, initial encounter Discharge Disposition: Discharged to home or self care 07/19/2024 Travel 07/19/2024 Orders Only [facility] Film Room [facility] Radiology Department [facility] [address] [place] [address] Provider, Outside Referral of patient (Primary Dx) [...] POC Glucose 119(H) 70 - 100 mg/dL [facility] Blood 07/20/2024 11:3 0 AM CDT Jay Patrick MD LABORATORY Performing Organization Address City/State/[facility] Co de Phone Number [facility] [address] [place] [address], * CT HEAD NO IV CONTRAST (07/20/2024 [...] CDT) Sodium 140 135 - 148 mmol/L [facility] Potassium 4.7 3.5 - 5.3 mmol/L [facility] Chloride 107 92 - 108 mmol/L [facility] CO2 21(L) 22 - 30 mmol/L [facility] AnGap 12 8 - 16 mmol/L [facility] Glucose 159(H) 70 - 100 mg/dL [facility] BUN 27(H) 8 - 23 mg/dL [facility] Creatinine 2.56(H) 0.70 - 1.25 mg/dL [facility] Calcium 8.7(L) 8.8 - 10.2 mg/dL [facility] eGFR (2020 CKD-EPI) 26(L) >=60 ml/min/1.7 3m2 [facility] Comment: The estimated glomerular filtration rate (eGFR) was calculated using the CKD-EPI 2020 creatinine equation, which does not include race as a factor. This equation is validated in individuals 18 years of age and older, and eGFR is normalized to a body surface area of 1.73m^2. Blood 07/20/2024 5:44 AM CDT 07/20/2024 7:27 AM CDT Jay Patrick MD LABORATORY [facility] [address] [address] * (ABNORMAL) CBC WITH PLATELET (07/20/2024 5:44 AM CDT) WBC 8.23 4.00 - 10.00 k/cmm [facility] RBC 3.28(L) 4.60 - 6.00 m/cmm [facility] Hgb 10.7(L) 13.1 - 17.5 g/dL [facility] Hematocrit 33.9(L) 40.0 - 51.0 % [facility] MCV 103.4(H) 80.0 - 100.0 fL [facility] MCH 32.6(H) 25.0 - 32.0 pg [facility] MCHC 31.6 31.0 - 36.0 g/dL [facility] RDW 13.5 11.5 - 14.5 % [facility] Plt 270 150 - 400 k/cmm [facility] MPV 9.3 6.5 - 12.5 fL [facility] Blood 07/20/2024 5:44 AM CDT 07/20/2024 7:15 AM CDT Jay Patrick MD LABORATORY Performing Organization Address [facility] de Phone Number [facility] [address] [address] * TELEMETRY STRIPS (07/20/2024 2:15 AM CDT) Narrative 07/20/2024 2:15 AM CDT Ordered by an unspecified provider. Provider Unknown RAD ECHO * TROP 2H (07/19/2024 2:51 PM CDT) Pathologist [facility] 2H Trop 4 <=35 ng/L [facility] 2H Delta Not Significant Not Significant [facility] Blood 07/19/2024 2:51 PM CDT 07/19/2024 3:13 PM CDT Jay Patrick MD LABORATORY Performing Organization Address [facility] de Phone Number [facility] [address] [address] * (ABNORMAL) URINALYSIS,TOTAL (07/19/2024 2:51 PM CDT) [facility] Color YELLOW YELLOW [facility] Appearance CLEAR CLEAR [facility] Urine Glucose >=1000(A) NEGATIVE mg/dL [facility] Bili UA NEGATIVE NEGATIVE [facility] Ketones NEGATIVE NEGATIVE [facility] Specific [place] 1.018 1.003 - 1.030 [facility] Blood Ur NEGATIVE Neg-Trace [facility] PH Urine 5.5 5.0 - 7.0 [facility] Protein Ur 30(A) Neg-Trace [facility] Urobilinogen NORMAL NORMAL EU/dL [facility] Nitrite Ur NEGATIVE NEGATIVE [facility] Leuk Est NEGATIVE Neg-Trace [facility] WBC Ur 0-5 0 - 5 perHPF [facility] RBC Ur 0-3 0 - 3 perHPF [facility] Mucus 1+ perLPF [facility] Urinalysis Performed at: [facility] Urine 07/19/2024 2:51 PM CDT 07/19/2024 2:53 PM CDT Jay Patrick MD LABORATORY Performing Organization Address [facility] Co de Phone Number [facility] [address] [address] * CT LOW EXTREMITY - ANGIO - [...] contrast. 3-D reconstructions were created by the generation technologist on the CT scanner and reviewed by the radiologist. Images were archived in PACS. DOSE: ?Total DLP = 2628.5 mGy.cm. ?? Findings: Vasculature: No abdominal aortic aneurysm. Distal abdominal aorta and the bilateral iliac arteries are widely patent. Right common femoral, proximal profunda femoral, and the right superficial femoral arteries are patent. Visualized right popliteal artery is patent. CLIVE, TELETYPE OR VARITYPE KEYBOARD OPERATOR, tibioperoneal trunk, and peroneal arteries are patent [...] intravenous contrast. 3-D reconstructions werecreated by the generation technologist on the CT scanner and reviewed by theradiologist. Images were archived in PACS. DOSE: Total DLP = 2628.5 mGy.cm. Findings: Vasculature: No abdominal aortic aneurysm. Distal abdominal aorta and thebilateral iliac arteries are widely patent. Right common femoral, proximalprofunda femoral, and the right superficial femoral arteries are patent.Visualized right popliteal artery is patent. CLIVE, TELETYPE OR VARITYPE KEYBOARD OPERATOR, tibioperonealtrunk, and peroneal arteries are patent to [...] PM CDT) 07/19/2024 1:17 PM CDT Impressions [facility] CVIS EKG ORDERS - 07/19/2024 1:17 PM CDT SINUS RHYTHM WITH FIRST DEGREE AV BLOCK ABNORMAL ECG P-R Interval 229 ms QRS Interval 84 ms QT Interval 359 ms QTC Interval 393 ms P Tomball 30 QRS Tomball -8 T Wave Tomball 29 Narrative Procedure Note Alfie Santos MD - 07/19/2024 IMPRESSION SINUS RHYTHM WITH FIRST DEGREE AV BLOCK ABNORMAL ECG P-R Interval 229 ms QRS Interval 84 ms QT Interval 359 ms QTC Interval 393 ms P Tomball 30 QRS Tomball -8 T Wave Tomball 29 Jay Patrick MD EKG [facility] CVIS EKG ORDERS * XR CHEST 1 [...] (07/19/2024 1:02 PM CDT) SST TUBE Stored [facility] Comment:SST tubes (Serum Sep arator) are stored in the lab for 3 days from the collection date. Blood 07/19/2024 1:02 PM CDT 07/19/2024 1:54 PM CDT Jay Patrick MD LABORATORY [facility] [address] [address] * ED INR (07/19/2024 12:58 PM CDT) [facility] ED INR 1.1 0.8 - 1.1 [facility] Comment: Warfarin Therapeutic Range: Standard Intensity: 2.0 - 3.0 High Intensity: 2.5 - 3.5 This is a rapid INR screening test which uses whole blood; results may infrequently differ from plasma INR results. If medication adjustments/dosing are required a PT/INR test ([id number]) should be ordered and performed in the main laboratory. Blood 07/19/2024 12:5 8 PM CDT 07/19/2024 1:10 PM CDT Jay Patrick MD LABORATORY Performing Organization Address City/[facility]/ZIP Co de Phone Number [facility] [address] [address] * HS TROPONIN (07/19/2024 12:58 PM CDT) [facility] HS Troponin I 3 <=35 ng/L [facility] Blood 07/19/2024 12:5 8 PM CDT 07/19/2024 1:28 PM CDT Narrative [facility] - 07/19/2024 1:58 PM CDT First Occurrence of the Troponin order is to be drawn Stat by Nursing staff on the unit. Jay Patrick MD LABORATORY Performing Organization Address City/[facility]/ZIP Co de Phone Number [address] [address] * (ABNORMAL) ED CHEMISTRY LABS(NA,K,CL,CO2,GLU,CREAT,CA-IONIZED,ANION GAP) (07/19/2024 12:58 PM CDT) [facility] Sodium 142 135 - 148 mmol/L [facility] Potassium 4.6 3.5 - 5.3 mmol/L [facility] Chloride 108 92 - 108 mmol/L [facility] AnGap 13 8 - 16 mmol/L [facility] Glucose 127(H) 70 - 100 mg/dL [facility] ICA, Actual 4.64 4.40 - 5.20 mg/dL [facility] ICA, pH Corrected 4.58 4.40 - 5.20 mg/dL [facility] Creatinine 2.57(H) 0.70 - 1.25 mg/dL [facility] BICARB 21(L) 22 - 26 mEq/L [facility] eGFR (2020 CKD-EPI) 26(L) >=60 ml/min/1.7 3m2 [facility] Comment: The estimated glomerular filtration rate (eGFR) was calculated using the CKD-EPI 2020 creatinine equation, which does not include race as a factor. This equation is validated in individuals 18 years of age and older, and eGFR is normalized to a body surface area of 1.73m^2. Blood 07/19/2024 12:5 8 PM CDT 07/19/2024 1:12 PM CDT Jay Patrick MD LABORATORY [facility] [address] [address] * (ABNORMAL) CBC WITH PLTS/AUTO DIFF (07/19/2024 12:58 PM CDT) WBC 10.93(H) 4.00 - 10.00 k/cmm [facility] RBC 3.33(L) 4.60 - 6.00 m/cmm [facility] Hgb 11.2(L) 13.1 - 17.5 g/dL [facility] Hematocrit 33.6(L) 40.0 - 51.0 % [facility] MCV 100.9(H) 80.0 - 100.0 fL [facility] MCH 33.6(H) 25.0 - 32.0 pg [facility] MCHC 33.3 31.0 - 36.0 g/dL [facility] RDW 13.4 11.5 - 14.5 % [facility] Plt 252 150 - 400 k/cmm [facility] MPV 8.9 6.5 - 12.5 fL [facility] Automated Abs Neutrophil 8.55(H) 1.70 - 6.50 k/cmm [facility] Comment:Preliminary ANC, Fin al Result to Follow Abs Immature Granulocyte 0.07 0.00 - 0.09 k/cmm [facility] Comment:The Immature Granulo cyte Absolute count contains metamyelocytes and myelocytes. Abs Neutrophil 8.55(H) 1.70 - 6.50 k/cmm [facility] Abs Lymphocyte 1.35 0.80 - 4.00 k/cmm [facility] Abs Monocyte 0.72 0.20 - 1.00 k/cmm [facility] Abs Eosinophil 0.20 0.00 - 0.60 k/cmm [facility] Abs Basophil 0.04 0.00 - 0.20 k/cmm [facility] Blood 07/19/2024 12:5 8 PM CDT 07/19/2024 1:28 PM CDT Jay Patrick MD LABORATORY Performing Organization Address City/[facility] Co de Phone Number [facility] [address] [address] * (ABNORMAL) ED HEMOGLOBIN TOTAL (ED ONLY) (07/19/2024 12:58 PM CDT) Hgb 11.9(L) 13.1 - 17.5 g/dL [facility] Blood 07/19/2024 12:5 8 PM CDT 07/19/2024 1:12 PM CDT Jay Patrick MD LABORATORY Performing Organization Address [facility] de Phone Number [facility] [address] [address] * PROTHROMBIN (PT) & INR (07/19/2024 12:58 PM CDT) PT 10.6 9.0 - 12.5 sec [facility] INR 1.0 0.8 - 1.1 [facility] Comment: Warfarin Therapeutic Range: Standard Intensity: 2.0 - 3.0 High Intensity: 2.5 - 3.5 Blood 07/19/2024 12:5 8 PM CDT 07/19/2024 1:30 PM CDT Jay Patrick MD LABORATORY Performing Organization Address City/[facility] Co de Phone Number [facility] [address] [place] [phone] * PRECAUTIONARY TUBE (07/19/2024 12:58 PM CDT) Prec Tube Precautionary Blood Bank Specimen Received. [facility] Blood 07/19/2024 12:5 8 PM CDT 07/19/2024 1:23 PM CDT Jay Patrick MD LAB TRANSFUSION SERV ICES Performing Organization Address City/[facility] Co de Phone Number [facility] [address] [address] * (ABNORMAL) PANEL HEPATIC FUNCTION (07/19/2024 12:58 PM CDT) [facility] Total Protein 6.2(L) 6.4 - 8.3 g/dL [facility] Albumin 3.7(L) 3.8 - 5.1 g/dL [facility] Bili Total 0.3 <=1.2 mg/dL [facility] Bili Direct <0.2 <=0.3 mg/dL [facility] Alk Phos 113 40 - 129 IU/L [facility] Comment:No reference range e stablished for patients <18 years old. ALT (SGPT) 11 <=41 IU/L [facility] AST(SGOT) 16 5 - 40 IU/L [facility] Blood 07/19/2024 12:5 8 PM CDT 07/19/2024 1:28 PM CDT Jay Patrick MD LABORATORY [facility] [address] [address] * LACTATE (LACTIC ACID) (07/19/2024 12:58 PM CDT) Pathologist [facility] Lactate 1.5 0.7 - 2.1 mmol/L [facility] Blood 07/19/2024 12:5 8 PM CDT 07/19/2024 1:12 PM CDT Narrative [facility] - 07/19/2024 1:15 PM CDT Send specimen on ice! Jay Patrick MD LABORATORY Performing Organization Address [facility] de Phone Number [address] [address] * (ABNORMAL) BLOOD GASES (07/19/2024 12:58 PM CDT) PH Andrew 7.38 7.32 - 7.42 [facility] PCO2 Andrew 37(L) 41 - 51 mmHG [facility] PO2 Andrew 37 25 - 40 mmHG [facility] Bicarb Andrew 21(L) 24 - 28 mEq/L [facility] O2 Sat Andrew 65 % [facility] Base Exc Andrew -3.8 -10.0 - 2.0 mmol/L [facility] Blood Venous 07/19/2024 12:5 8 PM CDT 07/19/2024 1:13 PM CDT Jay Patrick MD LABORATORY Performing Organization Address [facility] Co de Phone Number [address] [address] * FIBRINOGEN (07/19/2024 12:58 PM CDT) Fibrinogen 337 200 - 400 mg/dL [facility] Blood 07/19/2024 12:5 8 PM CDT 07/19/2024 1:30 PM CDT Jay Patrick MD LABORATORY Performing Organization Address [facility] Co de Phone Number [address] [address] * ETHANOL (ETOH) LEVEL, BLOOD (07/19/2024 12:58 PM CDT) Ethanol Negative Negative g/dL [facility] Blood 07/19/2024 12:5 8 PM CDT 07/19/2024 1:28 PM CDT Jay Patrick MD LABORATORY Performing Organization Address City/[facility] Co de Phone Number [address] [place] [address] * PTT (APTT) (07/19/2024 12:58 PM CDT) APTT 31.2 25.0 - 37.0 sec [facility] Blood 07/19/2024 12:5 8 PM CDT 07/19/2024 1:30 PM CDT Jay Patrick MD LABORATORY [facility] [address] [address] * ED US CRITICAL CARE (07/19/2024 12:55 [...] Advance Directives For more information, please contact: [phone] * Full Code (Latest Code Status on File) Date Activated Date Inactivated Comments 07/19/2024 8:35 PM 07/21/2024 4:54 AM Question Answer Comments Does the Patient have prefer ences regarding life sustaining measures (these options only apply when the patient has a pulse): No Discussed Code Status With Whom? Not discussed Care Teams Irish Moss Bleacher Relationship Specialty Start Date End Date Dr Michael GIRALDO at [facility] 10/11/13
--- OUTSIDE RECORDS SUMMARY | 2024-08-03 11:52 | XMS_ITS | Clinical Summary ---
Author Organization [employer] Address Kashif [facility] CenterauraY[facility] [place] [address] Phone Care Team Providers Care Gas Turbine Powerplant Mechanic Name Role Phone Unavailable Primary Care Provider Unavailabl e Source Comments [employer] is fully rolled out on [employer]. Last update 03/15/09.[employer] Allergies Active Allergy Reactions Criticality Noted Date [...] - 07/20/2024 8:00 PM CDT Hospital Encounter [facility] Surgery/Trauma/Neur o 1 [facility] [address] [place] [address] Jay Patrick MD Lumbard, Chay Purcell MD Fall, initial encounter Discharge Disposition: Discharged to home or self care 07/19/2024 Travel 07/19/2024 Orders Only [facility] Film Room [facility] Radiology Department [facility] [address] [place] [address] Provider, Outside Referral of patient (Primary Dx) [...] POC Glucose 119(H) 70 - 100 mg/dL [facility] Blood 07/20/2024 11:3 0 AM CDT Jay Patrick MD LABORATORY [facility] [address] [place] [address], * CT HEAD NO IV CONTRAST (07/20/2024 [...] CDT) Sodium 140 135 - 148 mmol/L [facility] Potassium 4.7 3.5 - 5.3 mmol/L [facility] Chloride 107 92 - 108 mmol/L [facility] CO2 21(L) 22 - 30 mmol/L [facility] AnGap 12 8 - 16 mmol/L [facility] Glucose 159(H) 70 - 100 mg/dL [facility] BUN 27(H) 8 - 23 mg/dL [facility] Creatinine 2.56(H) 0.70 - 1.25 mg/dL [facility] Calcium 8.7(L) 8.8 - 10.2 mg/dL [facility] eGFR (2020 CKD-EPI) 26(L) >=60 ml/min/1.7 3m2 [facility] Comment: The estimated glomerular filtration rate (eGFR) was calculated using the CKD-EPI 2020 creatinine equation, which does not include race as a factor. This equation is validated in individuals 18 years of age and older, and eGFR is normalized to a body surface area of 1.73m^2. Blood 07/20/2024 5:44 AM CDT 07/20/2024 7:27 AM CDT Jay Patrick MD LABORATORY Performing Organization Address City/[facility]/ZIP Co de Phone Number [facility] [address] [address] * (ABNORMAL) CBC WITH PLATELET (07/20/2024 5:44 AM CDT) WBC 8.23 4.00 - 10.00 k/cmm [facility] RBC 3.28(L) 4.60 - 6.00 m/cmm [facility] Hgb 10.7(L) 13.1 - 17.5 g/dL [facility] Hematocrit 33.9(L) 40.0 - 51.0 % [facility] MCV 103.4(H) 80.0 - 100.0 fL [facility] MCH 32.6(H) 25.0 - 32.0 pg [facility] MCHC 31.6 31.0 - 36.0 g/dL [facility] RDW 13.5 11.5 - 14.5 % [facility] Plt 270 150 - 400 k/cmm [facility] MPV 9.3 6.5 - 12.5 fL [facility] Blood 07/20/2024 5:44 AM CDT 07/20/2024 7:15 AM CDT Jay Patrick MD LABORATORY Performing Organization Address City/[facility]/ZIP Co de Phone Number [facility] [address] [address] * TELEMETRY STRIPS (07/20/2024 2:15 AM CDT) Narrative 07/20/2024 2:15 AM CDT Ordered by an unspecified provider. Provider Unknown RAD ECHO * TROP 2H (07/19/2024 2:51 PM CDT) 2H Trop 4 <=35 ng/L [facility] 2H Delta Not Significant Not Significant [facility] Blood 07/19/2024 2:51 PM CDT 07/19/2024 3:13 PM CDT Jay Patrick MD LABORATORY Performing Organization Address [facility] Co de Phone Number [facility] [address] [address] * (ABNORMAL) URINALYSIS,TOTAL (07/19/2024 2:51 PM CDT) Color YELLOW YELLOW [facility] Appearance CLEAR CLEAR [facility] Urine Glucose >=1000(A) NEGATIVE mg/dL [facility] Bili UA NEGATIVE NEGATIVE [facility] Ketones NEGATIVE NEGATIVE [facility] Specific [place] 1.018 1.003 - 1.030 [facility] Blood Ur NEGATIVE Neg-Trace [facility] PH Urine 5.5 5.0 - 7.0 [facility] Protein Ur 30(A) Neg-Trace [facility] Urobilinogen NORMAL NORMAL EU/dL [facility] Nitrite Ur NEGATIVE NEGATIVE [facility] Leuk Est NEGATIVE Neg-Trace [facility] WBC Ur 0-5 0 - 5 perHPF [facility] RBC Ur 0-3 0 - 3 perHPF [facility] Mucus 1+ perLPF [facility] Urinalysis Performed at: [facility] Urine 07/19/2024 2:51 PM CDT 07/19/2024 2:53 PM CDT Jay Patrick MD LABORATORY Performing Organization Address [facility] Co de Phone Number [facility] [address] [address] * CT LOW EXTREMITY - ANGIO - [...] contrast. 3-D reconstructions were created by the invasive cardiovascular technologist on the CT scanner and reviewed by the radiologist. Images were archived in PACS. DOSE: ?Total DLP = 2628.5 mGy.cm. ?? Findings: Vasculature: No abdominal aortic aneurysm. Distal abdominal aorta and the bilateral iliac arteries are widely patent. Right common femoral, proximal profunda femoral, and the right superficial femoral arteries are patent. Visualized right popliteal artery is patent. CLIVE, SUGAR DRIER, tibioperoneal trunk, and peroneal arteries are patent [...] intravenous contrast. 3-D reconstructions werecreated by the invasive cardiovascular technologist on the CT scanner and reviewed by theradiologist. Images were archived in PACS. DOSE: Total DLP = 2628.5 mGy.cm. Findings: Vasculature: No abdominal aortic aneurysm. Distal abdominal aorta and thebilateral iliac arteries are widely patent. Right common femoral, proximalprofunda femoral, and the right superficial femoral arteries are patent.Visualized right popliteal artery is patent. CLIVE, SUGAR DRIER, tibioperonealtrunk, and peroneal arteries are patent to [...] PM CDT) 07/19/2024 1:17 PM CDT Impressions [facility] CVIS EKG ORDERS - 07/19/2024 1:17 PM CDT SINUS RHYTHM WITH FIRST DEGREE AV BLOCK ABNORMAL ECG P-R Interval 229 ms QRS Interval 84 ms QT Interval 359 ms QTC Interval 393 ms P Port Wing 30 QRS Port Wing -8 T Wave Port Wing 29 Narrative Procedure Note Alfie Santos MD - 07/19/2024 IMPRESSION SINUS RHYTHM WITH FIRST DEGREE AV BLOCK ABNORMAL ECG P-R Interval 229 ms QRS Interval 84 ms QT Interval 359 ms QTC Interval 393 ms P Port Wing 30 QRS Port Wing -8 T Wave Port Wing 29 Jay Patrick MD EKG [facility] CVIS EKG ORDERS * XR CHEST 1 [...] (07/19/2024 1:02 PM CDT) SST TUBE Stored [facility] Comment:SST tubes (Serum Sep arator) are stored in the lab for 3 days from the collection date. Blood 07/19/2024 1:02 PM CDT 07/19/2024 1:54 PM CDT Jay Patrick MD LABORATORY [facility] [address] [address] * ED INR (07/19/2024 12:58 PM CDT) [facility] ED INR 1.1 0.8 - 1.1 [facility] Comment: Warfarin Therapeutic Range: Standard Intensity: 2.0 - 3.0 High Intensity: 2.5 - 3.5 This is a rapid INR screening test which uses whole blood; results may infrequently differ from plasma INR results. If medication adjustments/dosing are required a PT/INR test ([id number]) should be ordered and performed in the main laboratory. Blood 07/19/2024 12:5 8 PM CDT 07/19/2024 1:10 PM CDT Jay Patrick MD LABORATORY Performing Organization Address City/[facility]/ZIP Co de Phone Number [address] [address] * HS TROPONIN (07/19/2024 12:58 PM CDT) [facility] HS Troponin I 3 <=35 ng/L [facility] Blood 07/19/2024 12:5 8 PM CDT 07/19/2024 1:28 PM CDT Narrative [facility] - 07/19/2024 1:58 PM CDT First Occurrence of the Troponin order is to be drawn Stat by Nursing staff on the unit. Jay Patrick MD LABORATORY Performing Organization Address City/[facility]/ZIP Co de Phone Number [address] [address] * (ABNORMAL) ED CHEMISTRY LABS(NA,K,CL,CO2,GLU,CREAT,CA-IONIZED,ANION GAP) (07/19/2024 12:58 PM CDT) [facility] Sodium 142 135 - 148 mmol/L [facility] Potassium 4.6 3.5 - 5.3 mmol/L [facility] Chloride 108 92 - 108 mmol/L [facility] AnGap 13 8 - 16 mmol/L [facility] Glucose 127(H) 70 - 100 mg/dL [facility] ICA, Actual 4.64 4.40 - 5.20 mg/dL [facility] ICA, pH Corrected 4.58 4.40 - 5.20 mg/dL [facility] Creatinine 2.57(H) 0.70 - 1.25 mg/dL [facility] BICARB 21(L) 22 - 26 mEq/L [facility] eGFR (2020 CKD-EPI) 26(L) >=60 ml/min/1.7 3m2 [facility] Comment: The estimated glomerular filtration rate (eGFR) was calculated using the CKD-EPI 2020 creatinine equation, which does not include race as a factor. This equation is validated in individuals 18 years of age and older, and eGFR is normalized to a body surface area of 1.73m^2. Blood 07/19/2024 12:5 8 PM CDT 07/19/2024 1:12 PM CDT Jay Patrick MD LABORATORY [facility] [address] [address] * (ABNORMAL) CBC WITH PLTS/AUTO DIFF (07/19/2024 12:58 PM CDT) WBC 10.93(H) 4.00 - 10.00 k/cmm [facility] RBC 3.33(L) 4.60 - 6.00 m/cmm [facility] Hgb 11.2(L) 13.1 - 17.5 g/dL [facility] Hematocrit 33.6(L) 40.0 - 51.0 % [facility] MCV 100.9(H) 80.0 - 100.0 fL [facility] MCH 33.6(H) 25.0 - 32.0 pg [facility] MCHC 33.3 31.0 - 36.0 g/dL [facility] RDW 13.4 11.5 - 14.5 % [facility] Plt 252 150 - 400 k/cmm [facility] MPV 8.9 6.5 - 12.5 fL [facility] Automated Abs Neutrophil 8.55(H) 1.70 - 6.50 k/cmm [facility] Comment:Preliminary ANC, Fin al Result to Follow Abs Immature Granulocyte 0.07 0.00 - 0.09 k/cmm [facility] Comment:The Immature Granulo cyte Absolute count contains metamyelocytes and myelocytes. Abs Neutrophil 8.55(H) 1.70 - 6.50 k/cmm [facility] Abs Lymphocyte 1.35 0.80 - 4.00 k/cmm [facility] Abs Monocyte 0.72 0.20 - 1.00 k/cmm [facility] Abs Eosinophil 0.20 0.00 - 0.60 k/cmm [facility] Abs Basophil 0.04 0.00 - 0.20 k/cmm [facility] Blood 07/19/2024 12:5 8 PM CDT 07/19/2024 1:28 PM CDT Jay Patrick MD LABORATORY Performing Organization Address City/[facility] Co de Phone Number [facility] [address] [address] * (ABNORMAL) ED HEMOGLOBIN TOTAL (ED ONLY) (07/19/2024 12:58 PM CDT) Hgb 11.9(L) 13.1 - 17.5 g/dL [facility] Blood 07/19/2024 12:5 8 PM CDT 07/19/2024 1:12 PM CDT Jay Patrick MD LABORATORY Performing Organization Address [facility] Co de Phone Number [facility] [address] [address] * PROTHROMBIN (PT) & INR (07/19/2024 12:58 PM CDT) PT 10.6 9.0 - 12.5 sec [facility] INR 1.0 0.8 - 1.1 [facility] Comment: Warfarin Therapeutic Range: Standard Intensity: 2.0 - 3.0 High Intensity: 2.5 - 3.5 Blood 07/19/2024 12:5 8 PM CDT 07/19/2024 1:30 PM CDT Jay Patrick MD LABORATORY Performing Organization Address City/[facility]/ZIP Co de Phone Number [facility] [address] [address] * PRECAUTIONARY TUBE (07/19/2024 12:58 PM CDT) Prec Tube Precautionary Blood Bank Specimen Received. [facility] Blood 07/19/2024 12:5 8 PM CDT 07/19/2024 1:23 PM CDT Jay Patrick MD LAB TRANSFUSION SERV ICES Performing Organization Address [facility] Co de Phone Number [facility] [address] [address] * (ABNORMAL) PANEL HEPATIC FUNCTION (07/19/2024 12:58 PM CDT) Pathologist [facility] Total Protein 6.2(L) 6.4 - 8.3 g/dL [facility] Albumin 3.7(L) 3.8 - 5.1 g/dL [facility] Bili Total 0.3 <=1.2 mg/dL [facility] Bili Direct <0.2 <=0.3 mg/dL [facility] Alk Phos 113 40 - 129 IU/L [facility] Comment:No reference range e stablished for patients <18 years old. ALT (SGPT) 11 <=41 IU/L [facility] AST(SGOT) 16 5 - 40 IU/L [facility] Blood 07/19/2024 12:5 8 PM CDT 07/19/2024 1:28 PM CDT Jay Patrick MD LABORATORY Performing Organization Address City/[facility]/ZIP Co de Phone Number [facility] [address] [address] * LACTATE (LACTIC ACID) (07/19/2024 12:58 PM CDT) Pathologist [facility] Lactate 1.5 0.7 - 2.1 mmol/L [facility] Blood 07/19/2024 12:5 8 PM CDT 07/19/2024 1:12 PM CDT Narrative [facility] - 07/19/2024 1:15 PM CDT Send specimen on ice! Jay Patrick MD LABORATORY Performing Organization Address [facility]/[place] de Phone Number [address] [address] * (ABNORMAL) BLOOD GASES (07/19/2024 12:58 PM CDT) PH Andrew 7.38 7.32 - 7.42 [facility] PCO2 Andrew 37(L) 41 - 51 mmHG [facility] PO2 Andrew 37 25 - 40 mmHG [facility] Bicarb Andrew 21(L) 24 - 28 mEq/L [facility] O2 Sat Andrew 65 % [facility] Base Exc Andrew -3.8 -10.0 - 2.0 mmol/L [facility] Blood Venous 07/19/2024 12:5 8 PM CDT 07/19/2024 1:13 PM CDT Jay Patrick MD LABORATORY Performing Organization Address [facility]/[place] de Phone Number [address] [address] * FIBRINOGEN (07/19/2024 12:58 PM CDT) Fibrinogen 337 200 - 400 mg/dL [facility] Blood 07/19/2024 12:5 8 PM CDT 07/19/2024 1:30 PM CDT Jay Patrick MD LABORATORY Performing Organization Address [facility] Co de Phone Number [address] [address] * ETHANOL (ETOH) LEVEL, BLOOD (07/19/2024 12:58 PM CDT) Ethanol Negative Negative g/dL [facility] Blood 07/19/2024 12:5 8 PM CDT 07/19/2024 1:28 PM CDT Jay Patrick MD LABORATORY Performing Organization Address [facility] Co de Phone Number [address] [address] * PTT (APTT) (07/19/2024 12:58 PM CDT) APTT 31.2 25.0 - 37.0 sec [facility] Blood 07/19/2024 12:5 8 PM CDT 07/19/2024 1:30 PM CDT Jay Patrick MD LABORATORY [facility] [address] [address] * ED US CRITICAL CARE (07/19/2024 12:55 [...] Advance Directives For more information, please contact: [phone] * Full Code (Latest Code Status on File) Date Activated Date Inactivated Comments 07/19/2024 8:35 PM 07/21/2024 4:54 AM Question Answer Comments Does the Patient have prefer ences regarding life sustaining measures (these options only apply when the patient has a pulse): No Discussed Code Status With Whom? Not discussed Care Teams Gas Turbine Powerplant Mechanic Relationship Specialty Start Date End Date Dr Michael GIRALDO at [facility] 10/11/13
--- OUTSIDE RECORDS SUMMARY | 2024-08-03 11:52 | XMS_ITS | Encounter Summary ---
Author Organization [facility] Address [address] [place] [id number] Phone Care Team Providers Care Wool Supplier Name Role Phone Unavailable Primary Care Provider [...] on filedocumented in this encounter Care Teams Wool Supplier Relationship Specialty Start Date End Date Dr Michael GIRALDO at [facility] 10/11/13 documented as of this encounter
--- OUTSIDE RECORDS SUMMARY | 2024-08-03 11:52 | XMS_ITS | Encounter Summary ---
Author Name [facility] Organization [facility] Address [address] [place] [id number] Care Team Providers Care Torts Law Professor Name Role Phone MARTHA GARCIA Primary Care [...] Relationship to Policy [place] [facility] ([place] [facility]ICARE [facility] (WNR) Oct 11, 2019 [id number] [phone] FLYNN ESPINOZA PATIENT [facility] [place] [facility] [place] [facility] (WNR) Oct 11, 2016 [id number] FLYNN ESPINOZA PATIENT [facility] (WNR) MEDICARE ADVANTAGE [facility] (WNR) Oct 11, 2019 [id number] [phone] FLYNN ESPINOZA PATIENT Selected Encounter This section includes the information on record at [place] for the Encounter. Date/Time Encounter Type Encounter Description Reason Provider Source Jul 20, 2024 06:14 PM Outpatient Encounter ADMIN PAT ACTIVTIES (MASNONCT) YUE ROLDAN Encounter Template Text not used by [place] Plan of Treatment: Future Appointments (+ 6 [...] 20 appointments. The data comes from all [place] treatment facilities. Appointment Date/Time Appointment Type Appointme nt Facility Name Jul 27, 2024 08:30 AM AMBULATORY - NONE [facility] Jul 28, 2024 10:45 AM AMBULATORY - MEDICINE [facility] Lab Results: +/- 30 days of the encounter This section includes the Chemistry and Hematology Lab Results on record with [place] for the patient. Radiology Reports and Pathology Reports are provided separately, in subsequent sections. Lab Results This section contains the Chemistry/Hematology Results that were resulted 30 days before or 30 daysafter the date of the Encounter. Date/Time Source Result Type Result - Unit Interpretation Reference Range Comment Jul 06, 2024 09:59 AM [facility] ALBUMIN/CREATININE RATIO URINE Specimen Type: URINE No comment entered. Ordering Provider: BRINA GARCIA Report Released Date/Time: Mar 23, 2024 09:08 AM Reporting Lab: [facility] [id number] Performing Lab: [facility] [id number] CREATININE ,UR RANDOM 117.3 mg/dL 58.0-161.0 ALB/CREAT [...] COSIGNER: URGENCY: STATUS: COMPLETED ED Records uploaded. [place] was seen in a Community ED and transferred to [facility] for admission. Records uploaded to chart. Please review and follow up as appropriate. /gregorio/ MEERA MERCEDES ADVANCED PAUNCH TRIMMER Signed: 07/25/2024 08:37 Receipt Acknowledged By: 07/25/2024 08:40 /gregorio/ MARTHA GARCIA PHYSICIAN 07/25/2024 10:03 /es/ MARIELLA FRANCO RN REGISTERED NURSE 07/25/2024 08:53 /gregorio/ Yue Roldan SALES REPRESENTATIVE SALES MANAGER manager sales Production Supervisor --- Original Document --- 07/19/24 [facility] PRESENTING CARE COORD PLAN NOTE: Emergency Notification Intake Date Presenting to the Facility: Jul Method of Contact: Notified from [employer] worklist Notification ID: [id number] [facility] Referral #: [facility] Name: Hospital: [facility] Address: City: [place] State: [place] Zip Code: Phone : [facility] Facility Point of Contact: Name: Phone: Chief complaint: Fall with Knee injury, Hematoma of Right knee and Contusion of forehead Primary Diagnosis: Disposition Unknown at time of intake note entry /gregorio/ ABDULAZIZ CAMPBELL INSTRUMENTATION CONTROLS ENGINEER Signed: 07/20/2024 18:16 Receipt Acknowledged By: 07/21/2024 07:55 /gregorio/ Yue Roldan SALES REPRESENTATIVE SALES MANAGER manager sales Production Supervisor 07/21/2024 ADDENDUM STATUS: COMPLETED Notification acknowledged by RN. Medical and clinical information not reviewed. /gregorio/ ABIMBOLA RandallN manager sales Production Supervisor Signed: 07/21/2024 07:55 07/21/2024 ADDENDUM STATUS: COMPLETED Records requested and will be uploaded via Epsi when received. /gregorio/ FAHAD LARSON ..EdieAdvanced Design Drafter Signed: 07/21/2024 15:03 Receipt Acknowledged By: * AWAITING SIGNATURE * MARIELLA FRANCO [facility] Jul 21, 2024 03:02 PM ADDENDUM: LOCAL TITLE: Addendum STANDARD TITLE: ADDENDUM DATE OF NOTE: JUL 21, 2024@15:02:52 ENTRY DATE: JUL 21, 2024@15:02:53 AUTHOR: FAHAD LARSON EXP COSIGNER: URGENCY: STATUS: COMPLETED Records requested and will be uploaded via Epsi when received. /gregorio/ FAHAD LARSON .AshokAdvanced Design Drafter Signed: 07/21/2024 15:03 Receipt Acknowledged By: 07/28/2024 10:52 /gregorio/ MARIELLA FRANCO RN REGISTERED NURSE --- Original Document --- 07/19/24 [facility] PRESENTING CARE COORD PLAN NOTE: Emergency Notification Intake Date Presenting to the Facility: Jul Method of Contact: Notified from [employer] worklist Notification ID: [id number] [facility] Name: Hospital: [facility] Address: City: [place] State: [place] Zip Code: Phone : Critical [facility] Hospital Facility Point of Contact: Name: Phone: Chief complaint: Fall with Knee injury, Hematoma of Right knee and Contusion of forehead Primary Diagnosis: Disposition Unknown at time of intake note entry /es/ ABDULAZIZ CAMPBELL INSTRUMENTATION CONTROLS ENGINEER Signed: 07/20/2024 18:16 Receipt Acknowledged By: 07/21/2024 07:55 /gregorio/ Yue Roldan SALES REPRESENTATIVE SALES MANAGER manager sales Production Supervisor 07/21/2024 ADDENDUM STATUS: COMPLETED Notification acknowledged by RN. Medical and clinical information not reviewed. /gregorio/ Yue Roldan SALES REPRESENTATIVE SALES MANAGER manager sales Production Supervisor Signed: 07/21/2024 07:55 07/25/2024 ADDENDUM STATUS: COMPLETED ED Records uploaded. [place] was seen in a Community ED and transferred to [facility] for admission. Records uploaded to chart. Please review and follow up as appropriate. /gregorio/ MEERA MERCEDES ADVANCED PAUNCH TRIMMER Signed: 07/25/2024 08:37 Receipt Acknowledged By: 07/25/2024 08:40 /gregorio/ MARTHA GARCIA PHYSICIAN 07/25/2024 10:03 /gregorio/ MARIELLA FRANCORN REGISTERED NURSE 07/25/2024 08:53 /gregorio/ Yue Roldan SALES REPRESENTATIVE SALES MANAGER manager sales Production Supervisor FAHAD LARSON [facility] Jul 19, 2024 06:14 PM NONVA NOTE: LOCAL TITLE: [facility] PRESENTING CARE COORD PLAN STANDARD TITLE: NONVA NOTE DATE OF NOTE: JUL 19, 2024@18:14 ENTRY DATE: JUL 20, 2024@18:14:27 AUTHOR: ABDULAZIZ CAMPBELL EXP COSIGNER: URGENCY: STATUS: COMPLETED [facility]F PRESENTING CARE COORD PLAN NOTE Has ADDENDA Emergency Notification Intake Date Presenting to the Facility: Jul Method of Contact: Notified from [employer] worklist Notification ID: [id number] [facility] Referral #: [facility] Name: Hospital: [facility] Address: City: [place] State: [place] Zip Code: Phone : Community Facility Point of Contact: Name: Phone: Chief complaint: Fall with Knee injury, Hematoma of Right knee and Contusion of forehead Primary Diagnosis: Disposition Unknown at time of intake note entry /gregorio/ ABDULAZIZ CAMPBELL INSTRUMENTATION CONTROLS ENGINEER Signed: 07/20/2024 18:16 Receipt Acknowledged By: 07/21/2024 07:55 /gregorio/ Yue Roldan SALES REPRESENTATIVE SALES MANAGER manager sales Production Supervisor 07/21/2024 ADDENDUM STATUS: COMPLETED Notification acknowledged by RN. Medical and clinical information not reviewed. /gregorio/ Yue Roldan SALES REPRESENTATIVE SALES MANAGER manager sales Production Supervisor Signed: 07/21/2024 07:55 07/21/2024 ADDENDUM STATUS: COMPLETED Records requested and will be uploaded via Epsi when received. /gregorio/ FAHAD LARSON .AshokAdvanced Design Drafter Signed: 07/21/2024 15:03 Receipt Acknowledged By: 07/28/2024 10:52 /gregorio/ MARIELLA FRANCORN REGISTERED NURSE 07/25/2024 ADDENDUM STATUS: COMPLETED ED Records uploaded. [place] was seen in a Community ED and transferred to [facility] for admission. Records uploaded to chart. Please review and follow up as appropriate. /es/ MEERA MERCEDES ADVANCED PAUNCH TRIMMER Signed: 07/25/2024 08:37 Receipt Acknowledged By: 07/25/2024 08:40 /es/ MARTHA GARCIA PHYSICIAN 07/25/2024 10:03 /gregorio/ MARIELLA FRANCORN REGISTERED NURSE 07/25/2024 08:53 /es/ Yue Roldan SALES REPRESENTATIVE SALES MANAGER manager sales Production Supervisor 07/28/2024 ADDENDUM STATUS: COMPLETED Alerting PACT [facility] to please contact and offer hosp follow up with PCP. Please schedule an appt at pt's convenience for any follow up needs or continued concerns. Please note if pt declines need for appt or has already coordinated follow up care with a community/private provider. Thank you! /gregorio/ MARIELLA FRANCORN REGISTERED NURSE Signed: 07/28/2024 10:53 ABDULAZIZ CAMPBELL [facility]
--- OUTSIDE RECORDS SUMMARY | 2024-08-03 11:52 | XMS_ITS | Encounter Summary ---
Author Name [facility] Organization [facility] [place] Address [address] [place] [id number] Care Team Providers Care Passenger Conductor Name Role Phone MARTHA GARCIA Primary Care [...] Patient's Relationship to Policy [place] [facility] (WNR) MEDICARE [facility] ([facility]) Oct 11, 2019 [id number] FLYNN ESPINOZA PATIENT [facility] (WNR) MEDICARE [facility] (WN) Oct 11, 2016 [id number] FLYNN ESPINOZA PATIENT [facility] (WNR) MEDICARE [facility] ([facility]) Oct 11, 2019 [id number] FLYNN ESPINOZA PATIENT Selected Encounter This section includes the information on record at [place] for the Encounter. Date/Time Encounter Type Encounter Description Reason Provider Source Jul 28, 2024 10:45 AM HC PRO PHONE CALL 5-10 MIN TELEPHONE PRIMARY CARE ICD-10-CM E11.8 Type 2 diabetes mellitus with unspecified complications MARIELLA FRANCO Encounter Template Text not used by [place] Assessments - Encounter Diagnoses This section includes the primary and secondary diagnoses documented for the Encounter. Date/Time Primary/Secondary Diagnosis Diagnosis Name Provider Source Jul 28, 2024 10:45 AM PRIMARY Type 2 diabetes mellitus with unspecified complications [facility] Lab Results: +/- 30 days of the encounter This section includes the Chemistry and Hematology Lab Results on record with [place] for the patient. Radiology Reports and Pathology Reports are provided separately, in subsequent sections. Lab Results This section contains the Chemistry/Hematology Results that were resulted 30 days before or 30 daysafter the date of the Encounter. Date/Time Source Result Type Result - Unit Interpretation Reference Range Comment Jul 06, 2024 09:59 AM [facility] ALBUMIN/CREATININE RATIO URINE Specimen Type: URINE No comment entered. Ordering Provider: BRINA GARCIA Report Released Date/Time: Mar 23, 2024 09:08 AM Reporting Lab: [facility] [id number] Performing Lab: [facility] [id number] CREATININE ,UR RANDOM 117.3 mg/dL 58.0-161.0 ALB/CREAT RATIO,UR 643.3 mg/g{creat} H <29.9 ALBUMIN,UR 754.6 mg/L H <29.9 Social History: Smoking Status (Most current) and Tobacco Use (All prior to encounter date) This section includes the most current, and the historical, smoking and tobacco- related health factors from the [place] facility where the Encounter took place. Current Smoking Status This section includes the most current smoking, or tobacco-related health factor, from the [place] facility where the Encounter took place. Date/Time Current Smoking Status Comment Betty ity Mar 23, 2024 08:30 AM VA-TOBACCO QUIT 15 YRS OR MORE [facility] Tobacco Use History This section includes a history of the smoking, or tobacco-related health factors, that were collected on or before the date of the Encounter. The data comes from the [place] facility where the Encounter took place. Date/Time Smoking Status/Tobacco Use Comment F acility Mar 23, 2024 08:30 AM VA-TOBACCO QUIT 15 YRS OR MORE [facility] Mar 18, 2023 09:30 AM VA-TOBACCO FORMER USER [facility] Mar 18, 2023 09:30 AM VA-TOBACCO QUIT 15 YRS OR MORE [facility] Mar 16, 2022 02:00 PM VA-TOBACCO FORMER USER [facility] Mar 16, 2022 02:00 PM VA-TOBACCO QUIT 15 YRS OR MORE [facility] February 23, 2019 11:14 AM VA-TOBACCO FORMER USER [facility] February 23, 2019 11:14 AM VA-TOBACCO QUIT 15 YRS OR MORE [facility] February 24, 2018 11:40 AM VA-TOBACCO FORMER USER [facility] February 24, 2018 11:40 AM VA-TOBACCO QUIT 15 YRS OR MORE [facility] February 24, 2018 10:44 AM FORMER TOBACCO USER 7Y OR GREATE R [facility] February 22, 2017 02:44 PM FORMER TOBACCO USER 7Y OR GREATE R [facility] Jan 13, 2016 04:54 AM FORMER TOBACCO USER 7Y OR GREATE R [facility] Mar 21, 2014 10:14 AM FORMER TOBACCO USER 7Y OR GREATE R [facility] Encounter Notes: All associated encounter notes This section contains the clinical notes associated to the Encounter. Date/Time Encounter Note(s) Provider Source Aug 02, 2024 01:26 PM ADDENDUM: LOCAL TITLE: Addendum STANDARD TITLE: ADDENDUM DATE OF NOTE: AUG 02, 2024@13:26:34 ENTRY DATE: AUG 02, 2024@13:26:35 AUTHOR: GURU CENTENO EXP COSIGNER: URGENCY: STATUS: COMPLETED Appears empagliflozin therapy was renewed in April 2024 by PCP and had consistent refills prior to that time. Please discuss with when, why and who discontinued empagliflozin therapy. He would benefit from empagliflozin therapy and discontinuing glipizide. If has been off empagliflozin and is agreeable to restarting, he would need repeat BMP in ~4 weeks. /gregorio/ GURU CENTENO [employer] SESSIONS DIRECTOR Signed: 08/02/2024 13:27 Receipt Acknowledged By: 08/02/2024 13:30 /gregorio/ MARIELLA FRANCO RN REGISTERED NURSE --- Original Document --- 07/28/24 [facility] NURSING RN NOTE: TYPE OF VISIT: Telephone REASON FOR VISIT: [facility] contacted per alert from PharmD as noted below: Alerting RN: please have discontinue glipizide therapy at this time. Continue with empagliflozin. If is able, have him check his BGs at home daily for the next 2 weeks. He should take some in the morning before he eats and some 2 hours after a meal. Given his regimen, he'd be appropriate follow-up for RN and service writer advisor will assist. Unable to utilize metformin given eGFR; eGFR is adequate to continue empagliflozin at this time. DISCONTINUE glipizide CONTINUE empagliflozin 12.5 mg daily Assessment: ALLERGIES: FACILITY ALLERGY/ADR -------- No Remote Allergy/ADR Data available for this patient [facility] was informed of PharmD recommendations. Pt stated he is not taking Empagliflozin, the only DM medication he is currently taking is Glipizide. Pt was at home, we reviewed all medications. Appears medication list in CPRS is accurate with the exception of Empagliflozin. Pt confirmed taking the following meds: ~~~~~~~~~~~~~~~~~~~~~~~~~~~~~~~ ~~~~~~~~~~~~~~~~~~~~~~~~~~~~~~~~ ~~~~~~~~~~ ALLOPURINOL 100MG TAB TAKE ONE TABLET BY MOUTH EVERY DAY FOR GOUT PREVENTION 3 refill(s) remaining prior to Mar 24, 2025 (Rx #[id number]) UNITS PER DOSE: ~~~~~~~~~~~~~~~~~~~~~~~~~~~~~~~ ~~~~~~~~~~~~~~~~~~~~~~~~~~~~~~~~ ~~~~~~~~~~ AMLODIPINE BESYLATE 10MG TAB TAKE ONE-HALF TABLET BY MOUTH EVERY DAY FOR BLOOD PRESSURE 3 refill(s) remaining prior to Mar 24, 2025 (Rx #[id number]) UNITS PER DOSE: ~~~~~~~~~~~~~~~~~~~~~~~~~~~~~~~ ~~~~~~~~~~~~~~~~~~~~~~~~~~~~~~~~ ~~~~~~~~~~ ~~~~~~~~~~~~~~ GLIPIZIDE 5MG TAB TAKE ONE-HALF TABLET BY MOUTH EVERY DAY FOR DIABETES 30 MINUTES BEFORE MEAL 3 refill(s) remaining prior to Mar 24, 2025 (Rx #[id number]) UNITS PER DOSE: ~~~~~~~~~~~~~~~~~~~~~~~~~~~~~~~ ~~~~~~~~~~~~~~~~~~~~~~~~~~~~~~~~ ~~~~~~~~~~ LOSARTAN 25MG TAB TAKE ONE TABLET BY MOUTH EVERY DAY FOR KIDNEY PROTECTION 3 refill(s) remaining prior to Mar 24, 2025 (Rx #[id number]) UNITS PER DOSE: ~~~~~~~~~~~~~~~~~~~~~~~~~~~~~~~ ~~~~~~~~~~~~~~~~~~~~~~~~~~~~~~~~ ~~~~~~~~~~ --------- ~~~~~~~~~~~~~~~~~~~~~~~~~~~~~~~ ~~~~~~~~~~~~~~~~~~~~~~~~~~~~~~~~ ~~~~~~~~~~ METOPROLOL TARTRATE 50MG TAB TAKE ONE-HALF TABLET BY MOUTH TWICE A DAY FOR HEART RHYTHM 2 refill(s) remaining prior to Mar 24, 2025 (Rx #[id number]) UNITS PER DOSE: ~~~~~~~~~~~~~~~~~~~~~~~~~~~~~~~ ~~~~~~~~~~~~~~~~~~~~~~~~~~~~~~~~ ~~~~~~~~~~ OMEPRAZOLE 20MG EC CAP TAKE ONE CAPSULE BY MOUTH TWICE A DAY ON AN EMPTY STOMACH, AT LEAST 30 MINUTES PRIOR TO A MEAL 3 refill(s) remaining prior to Mar 24, 2025 (Rx #[id number]) UNITS PER DOSE: ~~~~~~~~~~~~~~~~~~~~~~~~~~~~~~~ ~~~~~~~~~~~~~~~~~~~~~~~~~~~~~~~~ ~~~~~~~~~~ SIMVASTATIN 20MG TAB TAKE ONE-HALF TABLET BY MOUTH AT BEDTIME FOR CHOLESTEROL 3 refill(s) remaining prior to Mar 24, 2025 (Rx #[id number]) UNITS PER DOSE: ~~~~~~~~~~~~~~~~~~~~~~~~~~~~~~~ ~~~~~~~~~~~~~~~~~~~~~~~~~~~~~~~~ ~~~~~~~~~~ NON-VA ACETAMINOPHEN 500MG TAB TAKE TWO TABLETS BY MOUTH DAILY UNITS PER DOSE: ~~~~~~~~~~~~~~~~~~~~~~~~~~~~~~~ ~~~~~~~~~~~~~~~~~~~~~~~~~~~~~~~~ ~~~~~~~~~~ NON-VA ASPIRIN 325MG TAB TAKE ONE TABLET BY MOUTH EVERY DAY --------- UNITS PER DOSE: ~~~~~~~~~~~~~~~~~~~~~~~~~~~~~~~ ~~~~~~~~~~~~~~~~~~~~~~~~~~~~~~~~ ~~~~~~~~~~ NON-VA MARINE LIPID (FISH OIL) CAP,ORAL TAKE BY MOUTH pt checking on dose --------- UNITS PER DOSE: ~~~~~~~~~~~~~~~~~~~~~~~~~~~~~~~ ~~~~~~~~~~~~~~~~~~~~~~~~~~~~~~~~ ~~~~~~~~~~ NON-VA MELATONIN CAP/TAB TAKE BY MOUTH AT BEDTIME UNITS PER DOSE: ~~~~~~~~~~~~~~~~~~~~~~~~~~~~~~~ ~~~~~~~~~~~~~~~~~~~~~~~~~~~~~~~~ ~~~~~~~~~~ NON-VA MULTIVITAMIN CAP/TAB TAKE ONE TABLET BY MOUTH EVERY DAY Pt does have a glucometer at home, he stated he checked his BG yesterday and this morning--- results 07/27 101--- AM fasting reading 07/28 244 --- 2 hours after supper Pt was advised to check BG level daily (am fasting readings) or PRN if dizzy or not feeling well. Pt denies any acute concerns or complaints. Pt is agreeable with checking home readings daily and keeping a log until furhter advised. PLAN: Pt will not make any changes to current regimen as of now, as it appears glipizide is the only DM medication pt is taking. Pt was informed I will alert PharmD of above and contact him once recommendations are received. Ceramic Capacitor Processor will contact pt to update on further recommendations and DM management once received from PharmD. Ceramic Capacitor Processor will remain available to assist as needed. /gregorio/ MARIELLA FRANCO,ABIMBOLA REGISTERED NURSE Signed: 07/31/2024 10:50 Receipt Acknowledged By: 08/02/2024 13:26 /gregorio/ GURU CENTENO CLINICAL SUMMER SESSIONS DIRECTOR 08/02/2024 ADDENDUM STATUS: UNSIGNED You may not VIEW this UNSIGNED Addendum. GURU CENTENO [facility] Jul 28, 2024 11:07 AM NURSING OUTPATIENT NOTE: LOCAL TITLE: [facility] MEDICINE CLINIC NURSING RN NOTE STANDARD TITLE: NURSING OUTPATIENT NOTE DATE OF NOTE: JUL 28, 2024@11:07 ENTRY DATE: JUL 28, 2024@11:08:05 AUTHOR: MARIELLA FRANCOIGNER: URGENCY: STATUS: COMPLETED [facility] NURSING RN NOTE Has ADDENDA TYPE OF VISIT: Telephone REASON FOR VISIT: contacted per alert from PharmD as noted below: Alerting RN: please have [facility] discontinue glipizide therapy at this time. Continue with empagliflozin. If is able, have him check his BGs at home daily for the next 2 weeks. He should take some in the morning before he eats and some 2 hours after a meal. Given his regimen, he'd be appropriate follow-up for RN and service writer advisor will assist. Unable to utilize metformin given eGFR; eGFR is adequate to continue empagliflozin at this time. DISCONTINUE glipizide CONTINUE empagliflozin 12.5 mg daily Assessment: ALLERGIES: FACILITY ALLERGY/ADR -------- No Remote Allergy/ADR Data available for this patient [facility] was informed of PharmD recommendations. Pt stated he is not taking Empagliflozin, the only DM medication he is currently taking is Glipizide. Pt was at home, we reviewed all medications. Appears medication list in CPRS is accurate with the exception of Empagliflozin. Pt confirmed taking the following meds: ~~~~~~~~~~~~~~~~~~~~~~~~~~~~~~~ ~~~~~~~~~~~~~~~~~~~~~~~~~~~~~~~~ ~~~~~~~~~~ ALLOPURINOL 100MG TAB TAKE ONE TABLET BY MOUTH EVERY DAY FOR GOUT PREVENTION 3 refill(s) remaining prior to Mar 24, 2025 (Rx #[id number]) UNITS PER DOSE: ~~~~~~~~~~~~~~~~~~~~~~~~~~~~~~~ ~~~~~~~~~~~~~~~~~~~~~~~~~~~~~~~~ ~~~~~~~~~~ AMLODIPINE BESYLATE 10MG TAB TAKE ONE-HALF TABLET BY MOUTH EVERY DAY FOR BLOOD PRESSURE 3 refill(s) remaining prior to Mar 24, 2025 (Rx #[id number]) UNITS PER DOSE: ~~~~~~~~~~~~~~~~~~~~~~~~~~~~~~~ ~~~~~~~~~~~~~~~~~~~~~~~~~~~~~~~~ ~~~~~~~~~~ ~~~~~~~~~~~~~~ GLIPIZIDE 5MG TAB TAKE ONE-HALF TABLET BY MOUTH EVERY DAY FOR DIABETES 30 MINUTES BEFORE MEAL 3 refill(s) remaining prior to Mar 24, 2025 (Rx #[id number]) UNITS PER DOSE: ~~~~~~~~~~~~~~~~~~~~~~~~~~~~~~~ ~~~~~~~~~~~~~~~~~~~~~~~~~~~~~~~~ ~~~~~~~~~~ LOSARTAN 25MG TAB TAKE ONE TABLET BY MOUTH EVERY DAY FOR KIDNEY PROTECTION 3 refill(s) remaining prior to Mar 24, 2025 (Rx #[id number]) UNITS PER DOSE: ~~~~~~~~~~~~~~~~~~~~~~~~~~~~~~~ ~~~~~~~~~~~~~~~~~~~~~~~~~~~~~~~~ ~~~~~~~~~~ --------- ~~~~~~~~~~~~~~~~~~~~~~~~~~~~~~~ ~~~~~~~~~~~~~~~~~~~~~~~~~~~~~~~~ ~~~~~~~~~~ METOPROLOL TARTRATE 50MG TAB TAKE ONE-HALF TABLET BY MOUTH TWICE A DAY FOR HEART RHYTHM 2 refill(s) remaining prior to Mar 24, 2025 (Rx #[id number]) UNITS PER DOSE: ~~~~~~~~~~~~~~~~~~~~~~~~~~~~~~~ ~~~~~~~~~~~~~~~~~~~~~~~~~~~~~~~~ ~~~~~~~~~~ OMEPRAZOLE 20MG EC CAP TAKE ONE CAPSULE BY MOUTH TWICE A DAY ON AN EMPTY STOMACH, AT LEAST 30 MINUTES PRIOR TO A MEAL 3 refill(s) remaining prior to Mar 24, 2025 (Rx #[id number]) UNITS PER DOSE: ~~~~~~~~~~~~~~~~~~~~~~~~~~~~~~~ ~~~~~~~~~~~~~~~~~~~~~~~~~~~~~~~~ ~~~~~~~~~~ SIMVASTATIN 20MG TAB TAKE ONE-HALF TABLET BY MOUTH AT BEDTIME FOR CHOLESTEROL 3 refill(s) remaining prior to Mar 24, 2025 (Rx #[id number]) UNITS PER DOSE: ~~~~~~~~~~~~~~~~~~~~~~~~~~~~~~~ ~~~~~~~~~~~~~~~~~~~~~~~~~~~~~~~~ ~~~~~~~~~~ NON-VA ACETAMINOPHEN 500MG TAB TAKE TWO TABLETS BY MOUTH DAILY -------- UNITS PER DOSE: ~~~~~~~~~~~~~~~~~~~~~~~~~~~~~~~ ~~~~~~~~~~~~~~~~~~~~~~~~~~~~~~~~ ~~~~~~~~~~ NON-VA ASPIRIN 325MG TAB TAKE ONE TABLET BY MOUTH EVERY DAY UNITS PER DOSE: ~~~~~~~~~~~~~~~~~~~~~~~~~~~~~~~ ~~~~~~~~~~~~~~~~~~~~~~~~~~~~~~~~ ~~~~~~~~~~ NON-VA MARINE LIPID (FISH OIL) CAP,ORAL TAKE BY MOUTH pt checking on dose UNITS PER DOSE: ~~~~~~~~~~~~~~~~~~~~~~~~~~~~~~~ ~~~~~~~~~~~~~~~~~~~~~~~~~~~~~~~~ ~~~~~~~~~~ NON-VA MELATONIN CAP/TAB TAKE BY MOUTH AT BEDTIME UNITS PER DOSE: ~~~~~~~~~~~~~~~~~~~~~~~~~~~~~~~ ~~~~~~~~~~~~~~~~~~~~~~~~~~~~~~~~ ~~~~~~~~~~ NON-VA MULTIVITAMIN CAP/TAB TAKE ONE TABLET BY MOUTH EVERY DAY Pt does have a glucometer at home, he stated he checked his BG yesterday and this morning--- results 07/27 101--- AM fasting reading 07/28 244 --- 2 hours after supper Pt was advised to check BG level daily (am fasting readings) or PRN if dizzy or not feeling well. Pt denies any acute concerns or complaints. Pt is agreeable with checking home readings daily and keeping a log until furhter advised. PLAN: Pt will not make any changes to current regimen as of now, as it appears glipizide is the only DM medication pt is taking. Pt was informed I will alert PharmD of above and contact him once recommendations are received. Cer[employer]acitor Processor will contact pt to update on further recommendations and DM management once received from PharmD. Ceramic Capacitor Processor will remain available to assist as needed. /gregorio/ MARIELLA FRANCO RN REGISTERED NURSE Signed: 07/31/2024 10:50 Receipt Acknowledged By: 08/02/2024 13:26 /gregorio/ GURU CENTENO CLINICAL [employer]MER SESSIONS DIRECTOR 08/02/2024 ADDENDUM STATUS: COMPLETED Appears empagliflozin therapy was renewed in April 2024 by PCP and [facility] had consistent refills prior to that time. Please discuss with [facility] when, why and who discontinued empagliflozin therapy. He would benefit from empagliflozin therapy and discontinuing glipizide. If [facility] has been off empagliflozin and is agreeable to restarting, he would need repeat BMP in ~4 weeks. /gregorio/ GURU CENTENO CLINICAL SUMMER SESSIONS DIRECTOR Signed: 08/02/2024 13:27 Receipt Acknowledged By: 08/02/2024 13:30 /gregorio/ MARIELLA FRANCO,RN REGISTERED NURSE 08/02/2024 ADDENDUM STATUS: UNSIGNED You may not VIEW this UNSIGNED Addendum. MARIELLA FRANCO OC
--- OUTSIDE RECORDS SUMMARY | 2024-08-03 11:52 | XMS_ITS | Encounter Summary ---
Author Name [facility] [place] [facility] [place] Address [address] [place] [id number] Care Team Providers Care Executive Administrative Asst Name Role Phone MARTHA GARCIA Primary Care [...] Relationship to Policy Br[place] [facility] (WNR) MEDICARE ADVANTAGE [facility] ([facility]) Oct 11, 2019 [id number] FLYNN ESPINOZA PATIENT [facility] [place] [facility] ([place]) MEDICARE ADVANTAGE [facility] (WNR) Oct 11, 2016 [id number] [phone] FLYNN ESPINOZA PATIENT [facility] (WNR) MEDICARE ADVANTAGE [facility] ([facility]) Oct 11, 2019 [id number] [phone] FLYNN ESPINOZA PATIENT Selected Encounter This section includes the information on record at [place] for the Encounter. Date/Time Encounter Type Encounter Description Reason Provider Source Jul 27, 2024 08:30 AM SELF-MGMT EDUC/TRAIN 2-4 PT ENDOCRINOLOGY ICD-10-CM E11.9 Type 2 diabetes mellitus without complications INESSA CENTENO Encounter Template Text not used by [facility] Assessments - Encounter Diagnoses This section includes the primary and secondary diagnoses documented for the Encounter. Date/Time Primary/Secondary Diagnosis Diagnosis Name Provider Source Jul 27, 2024 01:13 PM PRIMARY Type 2 diabetes mellitus without complications REMY STEPHENS Plan of Treatment: Future Appointments (+ 6 months) and Future Tests (+/- 45 days) The Plan of Treatment section includes future care activities for the patient from all [place] [facility]. This section includes future appointments and future orders which are active, pending or scheduled. Future Appointments This section includes appointments that were scheduled to occur 6 months from the date of the Encounter, up to a maximum of 20 appointments. The data comes from all [place] treatment facilities. Appointment Date/Time Appointment Type Appointme nt Facility Name Jul 28, 2024 10:45 AM AMBULATORY - MEDICINE [facility]ELENE [facility] Lab Results: +/- 30 days of the encounter This section includes the Chemistry and Hematology Lab Results on record with [place] for the patient. Radiology Reports and Pathology Reports are provided separately, in subsequent sections. Lab Results This section contains the Chemistry/Hematology Results that were resulted 30 days before or 30 daysafter the date of the Encounter. Date/Time Source Result Type Result - Unit Interpretation Reference Range Comment Jul 06, 2024 09:59 AM [facility] ALBUMIN/CREATININE RATIO URINE Specimen Type: URINE No comment entered. Ordering Provider: BRINA GARCIA Report Released Date/Time: Mar 23, 2024 09:08 AM Reporting Lab: [facility] [id number] Performing Lab: [facility] [id number] CREATININE ,UR RANDOM 117.3 mg/dL 58.0-161.0 ALB/CREAT RATIO,UR 643.3 mg/g{creat} H <29.9 ALBUMIN,UR 754.6 mg/L H <29.9 Social History: Smoking Status (Most current) and Tobacco Use (All prior to encounter date) This section includes the most current, and the historical, smoking and tobacco- related health factors from the [place] facility where the Encounter took place. Current Smoking Status This section includes the most current smoking, or tobacco-related health factor, from the [place] facility where the Encounter took place. Date/Time Current Smoking Status Comment Betty orona Mar 23, 2024 08:30 AM [place] FORMER USER [facility] Tobacco Use History This section includes a history of the smoking, or tobacco-related health factors, that were collected on or before the date of the Encounter. The data comes from the [place] facility where the Encounter took place. Date/Time Smoking Status/Tobacco Use Comment F acility Mar 23, 2024 08:30 AM VA-TOBACCO QUIT 15 YRS OR MORE [facility] Mar 18, 2023 09:30 AM [place]-TOBACCO FORMER USER [facility] Mar 18, 2023 09:30 AM VA-TOBACCO QUIT 15 YRS OR MORE [facility] Mar 16, 2022 02:00 PM VA-TOBACCO FORMER USER [facility] Mar 16, 2022 02:00 PM VA-TOBACCO QUIT 15 YRS OR MORE [facility] February 23, 2019 11:14 AM [place]-TOBACCO FORMER USER [facility] February 23, 2019 11:14 AM VA-TOBACCO QUIT 15 YRS OR MORE [facility] February 24, 2018 11:40 AM VA-TOBACCO FORMER USER [facility] February 24, 2018 11:40 AM VA-TOBACCO QUIT 15 YRS OR MORE [facility] February 24, 2018 10:44 AM FORMER TOBACCO USER 7Y OR GREATE R [facility] February 22, 2017 02:44 PM FORMER TOBACCO USER 7Y OR GREATE R [facility] Jan 13, 2016 04:54 AM FORMER TOBACCO USER 7Y OR GREATE R [facility] Mar 21, 2014 10:14 AM FORMER TOBACCO USER 7Y OR GREATE R [facility] Encounter Notes: All associated encounter notes This section contains the clinical notes associated to the Encounter. Date/Time Encounter Note(s) Provider Source Jul 27, 2024 02:37 PM ADDENDUM: LOCAL TITLE: Addendum STANDARD TITLE: ADDENDUM DATE OF NOTE: JUL 27, 2024@14:37:54 ENTRY DATE: JUL 27, 2024@14:37:54 AUTHOR: GURU CENTENO COSIGNER: URGENCY: STATUS: COMPLETED Alerting RN: please have discontinue glipizide therapy at this time. Continue with empagliflozin. If is able, have him check his BGs at home daily for the next 2 weeks. He should take some in the morning before he eats and some 2 hours after a meal. Given his regimen, he'd be appropriate follow-up for RN and keno writer/runner will assist. Unable to utilize metformin given eGFR; eGFR is adequate to continue empagliflozin at this time. DISCONTINUE glipizide CONTINUE empagliflozin 12.5 mg daily /gregorio/ GURU CENTENO CLINICAL SHOE LACER Signed: 07/27/2024 14:39 Receipt Acknowledged By: 07/28/2024 10:55 /gregorio/ MARIELLA FRANCO RN REGISTERED NURSE --- Original Document --- 07/27/24 EDUCATION PT HEALTH : Diabetes Education Group Education: Class Information CLASS TIME/SIZE: On site class 3 hours of education time spent with participant(s) at this visit. 3 participants were seen at this group visit. READINESS TO LEARN: Participants were attentive, indicated readiness to learn and attended Group Diabetes Class. IDENTIFIED LEARNING NEEDS: Self Management for Diabetes TEACHING STRATEGY: Class/Group Written Materials: Self Care Skills for The Person with Diabetes Meal planning/Mediterranean Diet Plan your plate/Diabetes grocery list Diabetes Snack Ideas/Label Reading Hypoglycemia and Hyperglycemia My Diabetes Emergency Plan Medications Used to Treat Diabetes Diabetes Distress Resources for People Who have Diabetes Personal Goal Setting Sheet Support Plan of Your Choice Target Values for Diabetes Diabetes Care Record Participant Evaluation CLASS CONTENT/PATICIPANTS LEARNING OBJECTIVES: Participants will gain understanding of: a. Diabetes disease process and treatments options. b. Incorporating nutritional management into lifestyle. c. Incorporating physical activity into lifestyle. d. Taking medications safely. e. Monitoring blood glucose and other parameters, and interpreting and using the results for self-management decisions making. f. Preventing, detecting and treating acute complications. g. Preventing, detecting and treating chronic complications. h. Developing personal strategies to address psychosocial issues and concerns. i. Developing personal strategies to promote health and behavior changes, including Personal Goal Setting. PATIENT/FAMILY RESPONSE Participants took part in: 1. class discussion; participants response indicated comprehension of critical information about the topic of diabetes self management. 2. Goal Setting/Action Plan process. 3. developing a Diabetes Self-Management Support (DSMS) Plan. FOLLOW UP INSTRUCTIONS FOR PARTICIPANTS 1. Instructed to re-evaluate Goals and Action Plans every 2-4 weeks. 2. Encouraged to follow up and share progress of Goals with primary provider. 3. Encouraged to participate in Diabetes Self Care Management Skills. Class Instructors: Malinda HERNÁNDEZ BARRIERS/SPECIAL NEEDS: No barriers identified IDENTIFIED LEARNING NEEDS: Low blood sugar PREFERRED STYLE OF LEARNING attend a small class EFFORT TO CONTROL THEIR DIABETES: Average effort PSYCHOSOCIAL: Feel good about my general health: Yes Diabetes interferes with other parts of my life: No Opinion Struggle with making changes to care for my diabetes: No PARTICIPANT(S) Patient PATIENT DATA: Type of Diabetes Mellitus: Type 2 Length of diagnosis: Over 10 years Family History: Yes Family Support: No Most recent weight: 275.6 lb [125.01 kg] (07/06/2024 10:38) Most recent AIC: POC HGB A1C____ HEMOGLOBIN A1C 5.5 (06/15/24) No data available Most current Hemoglobin A1c, Glucose, Cholesterol panel, Urine albumin/creatinine ratio were reviewed with the patient in class Education self-assessment completed prior to class: Yes Class Test Score: 5 wrong Pre-class Knowledge Deficits: Nutrition, Mcc Complications, Sick day Management Frequency of foot exam: monthly Smoking Status: No Changed eating habits since diagnosed with diabetes: Yes Counts Carbohydrates: No Exercise: Yes 5 times a week TREATMENT: Medications: Empagliflozin (Jardiance) /day. Glipizide (Glucotrol) /day. PATIENT/FAMILY RESPONSE (OUTCOME) Demonstrates skill(s) safely and effectively FOLLOW-UP RECOMMENDED None needed DIABETES MANAGEMENT GOALS/PLAN Personal goals for change identified at initial class: lose weight decrease risk for diabetes mcc complications Action Plan: Exercise action plan: Patient states they will swim 5 x week Nutrition action plan: Patient states they will count the carbohydrates they eat at lunch and dinner and aim for 30-45 gms of carbohydrates at each meal 4 days per week The Diabetes Self-Management Support (DSMS) Plan was developed following Self-Management education, by the and educator. Resource options identified: use/revise goal setting process use foot inspection mirror participate in community: diabetes support group weight management program /gregorio/ REMY STEPHENS MA, TCT TCT [facility] Signed: 07/27/2024 13:12 Receipt Acknowledged By: 07/27/2024 13:40 /jony CARRILLO RN REGISTERED NURSE 07/27/2024 ADDENDUM STATUS: COMPLETED is taking empagliflozin and glipizide, recent A1c result 5.5%, along with a recent fall requiring ED visit. Per CPRS, hx metformin HCL, but no record of trial of metformin SA. Recommended follow up with PACT PharmD to discuss DM medications, agreed. /gregorio/ MALINDA CARRILLO RN REGISTERED NURSE Signed: 07/27/2024 13:50 Receipt Acknowledged By: 07/27/2024 14:37 /gregorio/ GURU CENTENO CLINICAL SHOE LACER GURU CENTENO [facility] Jul 27, 2024 01:44 PM ADDENDUM: LOCAL TITLE: Addendum STANDARD TITLE: ADDENDUM DATE OF NOTE: JUL 27, 2024@13:44:52 ENTRY DATE: JUL 27, 2024@13:44:53 AUTHOR: MALINDA CARRILLO EXP COSIGNER: URGENCY: STATUS: COMPLETED [place] is taking empagliflozin and glipizide, recent A1c result 5.5%, along with a recent fall requiring ED visit. Per CPRS, hx metformin HCL, but no record of trial of metformin SA. Recommended follow up with PACT PharmD to discuss DM medications, agreed. /jony CARRILLO RN REGISTERED NURSE Signed: 07/27/2024 13:50 Receipt Acknowledged By: 07/27/2024 14:37 /gregorio/ GURU CENTENO CLINICAL SHOE LACER --- Original Document --- 07/27/24 EDUCATION PT HEALTH : Diabetes Education Group Education: Class Information CLASS TIME/SIZE: On site class 3 hours of education time spent with participant(s) at this visit. 3 participants were seen at this group visit. READINESS TO LEARN: Participants were attentive, indicated readiness to learn and attended Group Diabetes Class. IDENTIFIED LEARNING NEEDS: Self Management for Diabetes TEACHING STRATEGY: Class/Group Written Materials: Self Care Skills for The Person with Diabetes Meal planning/Mediterranean Diet Plan your plate/Diabetes grocery list Diabetes Snack Ideas/Label Reading Hypoglycemia and Hyperglycemia My Diabetes Emergency Plan Medications Used to Treat Diabetes Diabetes Distress Resources for People Who have Diabetes Personal Goal Setting Sheet Support Plan of Your Choice Target Values for Diabetes Diabetes Care Record Participant Evaluation CLASS CONTENT/PATICIPANTS LEARNING OBJECTIVES: Participants will gain understanding of: a. Diabetes disease process and treatments options. b. Incorporating nutritional management into lifestyle. c. Incorporating physical activity into lifestyle. d. Taking medications safely. e. Monitoring blood glucose and other parameters, and interpreting and using the results for self-management decisions making. f. Preventing, detecting and treating acute complications. g. Preventing, detecting and treating chronic complications. h. Developing personal strategies to address psychosocial issues and concerns. i. Developing personal strategies to promote health and behavior changes, including Personal Goal Setting. PATIENT/FAMILY RESPONSE Participants took part in: 1. class discussion; participants response indicated comprehension of critical information about the topic of diabetes self management. 2. Goal Setting/Action Plan process. 3. developing a Diabetes Self-Management Support (DSMS) Plan. FOLLOW UP INSTRUCTIONS FOR PARTICIPANTS 1. Instructed to re-evaluate Goals and Action Plans every 2-4 weeks. 2. Encouraged to follow up and share progress of Goals with primary provider. 3. Encouraged to participate in Diabetes Self Care Management Skills. Class Instructors: Malinda HERNÁNDEZ BARRIERS/SPECIAL NEEDS: No barriers identified IDENTIFIED LEARNING NEEDS: Low blood sugar PREFERRED STYLE OF LEARNING attend a small class EFFORT TO CONTROL THEIR DIABETES: Average effort PSYCHOSOCIAL: Feel good about my general health: Yes Diabetes interferes with other parts of my life: No Opinion Struggle with making changes to care for my diabetes: No PARTICIPANT(S) Patient PATIENT DATA: Type of Diabetes Mellitus: Type 2 Length of diagnosis: Over 10 years Family History: Yes Family Support: No Most recent weight: 275.6 lb [125.01 kg] (07/06/2024 10:38) Most recent AIC: POC HGB A1C____ HEMOGLOBIN A1C 5.5 (06/15/24) No data available Most current Hemoglobin A1c, Glucose, Cholesterol panel, Urine albumin/creatinine ratio were reviewed with the patient in class Education self-assessment completed prior to class: Yes Class Test Score: 5 wrong Pre-class Knowledge Deficits: Nutrition, Mcc Complications, Sick day Management Frequency of foot exam: monthly Smoking Status: No Changed eating habits since diagnosed with diabetes: Yes Counts Carbohydrates: No Exercise: Yes 5 times a week TREATMENT: Medications: Empagliflozin (Jardiance) /day. Glipizide (Glucotrol) /day. PATIENT/FAMILY RESPONSE (OUTCOME) Demonstrates skill(s) safely and effectively FOLLOW-UP RECOMMENDED None needed DIABETES MANAGEMENT GOALS/PLAN Personal goals for change identified at initial class: lose weight decrease risk for diabetes buttermaker helper complications Action Plan: Exercise action plan: Patient states they will swim 5 x week Nutrition action plan: Patient states they will count the carbohydrates they eat at lunch and dinner and aim for 30-45 gms of carbohydrates at each meal 4 days per week The Diabetes Self-Management Support (DSMS) Plan was developed following Self-Management education, by the and educator. Resource options identified: use/revise goal setting process use foot inspection mirror participate in community: diabetes support group weight management program /gregorio/ REMY STEPHENS MA, TCT TCT [facility] Signed: 07/27/2024 13:12 Receipt Acknowledged By: 07/27/2024 13:40 /gregorio/ MALINDA CARRILLO RN REGISTERED NURSE 07/27/2024 ADDENDUM STATUS: UNSIGNED You may not VIEW this UNSIGNED Addendum. MALINDA CARRILLO [facility] Jul 27, 2024 01:04 PM EDUCATION NOTE: LOCAL TITLE: EDUCATION PT HEALTH STANDARD TITLE: EDUCATION NOTE DATE OF NOTE: JUL 27, 2024@13:04 ENTRY DATE: JUL 27, 2024@13:04:54 AUTHOR: REMY STEPHENS EXP COSIGNER: URGENCY: STATUS: COMPLETED EDUCATION PT HEALTH Has ADDENDA Diabetes Education Group Education: Class Information CLASS TIME/SIZE: On site class 3 hours of education time spent with participant(s) at this visit. 3 participants were seen at this group visit. READINESS TO LEARN: Participants were attentive, indicated readiness to learn and attended Group Diabetes Class. IDENTIFIED LEARNING NEEDS: Self Management for Diabetes TEACHING STRATEGY: Class/Group Written Materials: Self Care Skills for The Person with Diabetes Meal planning/Mediterranean Diet Plan your plate/Diabetes grocery list Diabetes Snack Ideas/Label Reading Hypoglycemia and Hyperglycemia My Diabetes Emergency Plan Medications Used to Treat Diabetes Diabetes Distress Resources for People Who have Diabetes Personal Goal Setting Sheet Support Plan of Your Choice Target Values for Diabetes Diabetes Care Record Participant Evaluation CLASS CONTENT/PATICIPANTS LEARNING OBJECTIVES: Participants will gain understanding of: a. Diabetes disease process and treatments options. b. Incorporating nutritional management into lifestyle. c. Incorporating physical activity into lifestyle. d. Taking medications safely. e. Monitoring blood glucose and other parameters, and interpreting and using the results for self-management decisions making. f. Preventing, detecting and treating acute complications. g. Preventing, detecting and treating chronic complications. h. Developing personal strategies to address psychosocial issues and concerns. i. Developing personal strategies to promote health and behavior changes, including Personal Goal Setting. PATIENT/FAMILY RESPONSE Participants took part in: 1. class discussion; participants response indicated comprehension of critical information about the topic of diabetes self management. 2. Goal Setting/Action Plan process. 3. developing a Diabetes Self-Management Support (DSMS) Plan. FOLLOW UP INSTRUCTIONS FOR PARTICIPANTS 1. Instructed to re-evaluate Goals and Action Plans every 2-4 weeks. 2. Encouraged to follow up and share progress of Goals with primary provider. 3. Encouraged to participate in Diabetes Self Care Management Skills. Class Instructors: Malinda HERNÁNDEZ BARRIERS/SPECIAL NEEDS: No barriers identified IDENTIFIED LEARNING NEEDS: Low blood sugar PREFERRED STYLE OF LEARNING attend a small class EFFORT TO CONTROL THEIR DIABETES: Average effort PSYCHOSOCIAL: Feel good about my general health: Yes Diabetes interferes with other parts of my life: No Opinion Struggle with making changes to care for my diabetes: No PARTICIPANT(S) Patient PATIENT DATA: Type of Diabetes Mellitus: Type 2 Length of diagnosis: Over 10 years Family History: Yes Family Support: No Most recent weight: 275.6 lb [125.01 kg] (07/06/2024 10:38) Most recent AIC: POC HGB A1C____ HEMOGLOBIN A1C 5.5 (06/15/24) No data available Most current Hemoglobin A1c, Glucose, Cholesterol panel, Urine albumin/creatinine ratio were reviewed with the patient in class Education self-assessment completed prior to class: Yes Class Test Score: 5 wrong Pre-class Knowledge Deficits: Nutrition, Mcc Complications, Sick day Management Frequency of foot exam: monthly Smoking Status: No Changed eating habits since diagnosed with diabetes: Yes Counts Carbohydrates: No Exercise: Yes 5 times a week TREATMENT: Medications: Empagliflozin (Jardiance) /day. Glipizide (Glucotrol) /day. PATIENT/FAMILY RESPONSE (OUTCOME) Demonstrates skill(s) safely and effectively FOLLOW-UP RECOMMENDED None needed DIABETES MANAGEMENT GOALS/PLAN Personal goals for change identified at initial class: lose weight decrease risk for diabetes buttermaker helper complications Action Plan: Exercise action plan: Patient states they will swim 5 x week Nutrition action plan: Patient states they will count the carbohydrates they eat at lunch and dinner and aim for 30-45 gms of carbohydrates at each meal 4 days per week The Diabetes Self-Management Support (DSMS) Plan was developed following Self-Management education, by the and educator. Resource options identified: use/revise goal setting process use foot inspection mirror participate in community: diabetes support group weight management program /gregorio/ REMY STEPHENS MA, TCT TCT [facility] Signed: 07/27/2024 13:12 Receipt Acknowledged By: 07/27/2024 13:40 /jony CARRILLO RN REGISTERED NURSE 07/27/2024 ADDENDUM STATUS: COMPLETED is taking empagliflozin and glipizide, recent A1c result 5.5%, along with a recent fall requiring ED visit. Per CPRS, hx metformin HCL, but no record of trial of metformin SA. Recommended follow up with PACT PharmD to discuss DM medications, agreed. /jony CARRILLO RN REGISTERED NURSE Signed: 07/27/2024 13:50 Receipt Acknowledged By: 07/27/2024 14:37 /gregorio/ GURU CENTENO CLINICAL SHOE LACER 07/27/2024 ADDENDUM STATUS: COMPLETED Alerting RN: please have [place] discontinue glipizide therapy at this time. Continue with empagliflozin. If is able, have him check his BGs at home daily for the next 2 weeks. He should take some in the morning before he eats and some 2 hours after a meal. Given his regimen, he'd be appropriate follow-up for RN and keno writer/runner will assist. Unable to utilize metformin given eGFR; eGFR is adequate to continue empagliflozin at this time. DISCONTINUE glipizide CONTINUE empagliflozin 12.5 mg daily /gregorio/ GURU CENTENO CLINICAL SHOE LACER Signed: 07/27/2024 14:39 Receipt Acknowledged By: * AWAITING SIGNATURE * MARIELLA FRANCO,REMY COYLE OC
--- OUTSIDE RECORDS SUMMARY | 2024-08-03 11:53 | XMS_ITS | Encounter Summary ---
Author Organization [facility] Address [address] [place] [address] Phone Care Team Providers Care Porcelain Buildup Assistant Name Role Phone Unavailable Primary Care Provider Unavailabl e Reason for Visit * Reason Comments Fall * Auth/Cert (Routine) Specialty Diagnoses / Procedures Referred By Carlin mullen Referred To Contact SURGERY Diagnoses Fall, initial encounter Injury of right knee, initial encounter Jay Patrick MD [address] [facility] [address] [place] [address] [address] Inpt [facility] [address] [facility] [address] [place] [address] Referral ID Status Reason Start Date Expiration Date Visits Re quested Visits Authorized [id number] 1 1 Encounter Details Date Type Department Care Team (Latest Contact Info) Description 07/19/2024 12:55 PM CDT - 07/20/2024 8:00 PM CDT Hospital Encounter [facility] Surgery/Trauma/Neur o 1 [facility] [address] [facility] [address] [place], [place] [id number] Jay Patrick MD [address] [facility] [address] [place] [address] Chay Estrada MD [address] [facility] [address] [place], [place] [phone] Fall, initial encounter Discharge Disposition: Discharged to [...] documented in this encounter Discharge Summaries * hCay Estrada MD - 07/20/2024 2:24 PM CDT TRAUMA DISCHARGE SUMMARY - PRODUCT TEST ENGINEER Shaggy Gould : 1950 Sex: male Date [...] 2-4 weeks of hospital stay Referrals: None BIOCHEMISTRY PROFESSOR DISCHARGE RECOMMENDATIONS AND FOLLOW UP: >>Vascular Surgery -No acute vascular surgery intervention -Compression with RU wrap with breaks for skin integrity -Up with assist OK from vascular perspective -No indication for clinic follow up PLANNED DISCHARGE ORDERS: Suture/Bridgette: None Wound Care Plan: Location: right knee; Dressing: ru wrap Drains Present: None Lines: None Activity Limitations: up ad jennifer, WBAT RLE Anticoagulation Plan: resume DISHWASHER PREPARER aspirin READMISSION PLANNED WITHIN 30 DAYS OF [...] and dry. Right knee ecchymosis and swelling. Moss Gatherer Needed: no DISCHARGE ORDERS Why you were [...] 4:30PM, M-F): Call the Surgery Clinic at [phone] After hours or on Holidays: Call the [facility] cone machine operator . Ask the cone machine operator to page the general surgery resident denial resolution specialist. IF: -- you feel you are getting [...] -- Read all labels for prescription and Uaid-gla-zirjpkw medicines. Ask the pharmacist if your prescription [...] Your Medications These medications were sent to [facility] Discharge Pharmacy - [place] [id number] Hours: 03/05 oxyCODONE 5 mg tablet Discussed diagnosis and treatment plan with the patient. Patient verbalized understanding of condition and treatment plan. Patient seen by and discussed with Surgery Chief Resident and Staff Physician. Kimberly Perez APRN, LEDY, 07/20/2024 2:31 PM MEDICAL ONCOLOGY PHYSICIAN- Trauma/General Surgery Pager: via telemediq I have [...] at all times. Sometimes the use of Discera monitoring service like ???Lifelink?? is recommended. Floors [...] toilet and in the shower. Use a ???durability engineer?? to help you reach things, and avoid [...] you might need to talk to your green building architect orhomeowners??? association about them. Have loose boards [...] uneven and cut-out sections of curbs. Don???t abez when crossing the street. Watch for changes [...] Assessment Expected DC Date: TBD Social Information Moss Gatherer Used: None needed Decision Maker at Admission: Not known Living Situation: Home (Lives alone in a first- floor apartment. No stairs) Patient Identified Support System: Eliana and Dima Matthews, good friends who live nearby Services Receiving: DME (see comment) (4WW at home) Complex Medical Needs: Other (see comment) (TBD) Transportation Used for Discharge: Friends will flower buncher or picker Safety Concerns: None Behavioral Health Concerns: [...] Risks for Readmission: Access to f/u appointments marketing effectiveness manager will continue to follow until DC [...] his/her PCP is: Dr Laboy from the [facility] in [place]. * Evan Yost MD - 07/20/2024 6:36 [...] needed Evan Yost MD, 07/20/2024 1:14 PM [facility] Vascular Surgery Staff Dictated with voice recognition software. Please excuse any planimeter operator errors. * Jaja Chavez RN - 07/19/2024 10:51 PM CDT Upon admission, a Four Eyes Skin Inspection was completed with ABIMBOLA Gates (tank charger on duty). Skin injuries were present, and skin breakdown needing further assessment will be added to Avatar. Will implement interventions from Skin INJURY Bundle as appropriate. x1 hematoma/abrasion to RLE (knee) noted upon 4 eyes skin inspection. This injury has already been noted in chart for pt., but was NOT added to LDA, so this technical report writer added skin injury to LDA. No other skin injuries noted. Jaja Chavez RN, 07/19/2024 10:54 PM * Jaja Chavez RN - 07/19/2024 8:40 PM CDT NURSING ADMISSION NOTE Shaggy Gould : 1950 SEX: male D: Shaggy Gould was admitted to [facility] 1 from [facility] ED at 2034 for Fall, initial encounter [...] informed of Patient Valuables and Belongings Policy (#[id number]): Policy reviewed - patient/family/designee has indicated that [...] patient and family as needed via number [phone]. Burton Lacy MDIV, 07/19/2024 7:40 PM Number: [phone] * Violet Agustin MDIV - 07/19/2024 2:46 PM CDT Technology Strategist Stabilization Room Note Shaggy Gould : 1950 Sex: male LOS: 0 days Initial Description: Shaggy Gould arrived in STAB 4, as a transfer from [place]. Concern of a fall from standing, with significant swelling (arterial bleeding suspected). Patient and Family Context: Shaggy is awake and able to express needs. He has his own cell phone, and appreciated knowing there are more supports if desired. Shaggy indicates that he lives alone. No one is aware of his arrival at [facility]. Plan: Spiritual Care Team is available to support patient and family as needed via number [phone]. Violet Agustin MDIV, 07/19/2024 2:46 PM Number: [phone] documented in this encounter H&P Notes * [...] fell forward while vacuuming. [facility] concerns for extravasation. He hit his [...] hx of DMII, HTN, and diffuse TIA [id number] Past Surgical History: Bilateral knee replacements, but [...] Temp: 36.5 ??C (97.7 ??F) (07/19/24 1303) [place] Coma Scale: Motor 6=Obeys commands Verbal 5=Oriented [...] procedures and surgery) Admit to [facility] Trauma Surgery Service Vascular Surgery Consult paged out at unknown time. Vascular Surgery resident arrived at unknown time,prior to trauma team. Was IR Team activated for emergent hemorrhage control? No Incentive Spirometer NPO until final reads on radiography Consult FILTER PLANT SUPERVISOR and keep strict NPO if FILTER PLANT SUPERVISOR consult not indicated at this time Aspiration [...] pharmacist on service at PharmD [facility] ([employer]) [phone]. If no response within needed timeframe, please contact central pharmacy via phone at [phone]. Planned discharge medications are: Medication List Medications [...] Difficulty in Walking R 26.2 PRECAUTIONS Falls Moss Gatherer Used: None needed ACTIVITY Up with Assist [...] & Bed Mobility: Supine to Sit: Complete [place] Sit to Supine: Complete [place] Sit to Stand: Modified [place] Stand to Sit: Modified [place] Gait Evaluation: Distance: 50 meters Assistive Device: Front - wheeled walker Assistance (Level): Modified [place]- Patient requires brace or prosthesis,special adaptive shoes, [...] Jennifer Wagner PT License #[id number] 07/20/2024 Pager: [facility] PT Department * Evan Yost MD - [...] tingling, coolness to RLE. Patient presented [facility], showing large pre-patellar hematoma with adjacent artery. [...] point. Evan Yost MD, 07/19/2024 5:41 PM [facility] Vascular Surgery Staff Dictated with voice recognition software. Please excuse any planimeter operator errors. documented in this encounter ED Notes [...] Neg head CT - Pt transferred to [facility] for eval of possible R arterial bleed [...] 07/19/2024 12:33 PM CDT Pt transferring from [place]. Per report, pt fell onto his knee [...] Cardiac Assessment Within Defined Limits except for: Planner/Scheduler - remote telemetry Comments: Sinus tachycardia Respiratory [...] 1:23 PM CDT TRAUMA TERTIARY EXAM - PRODUCT TEST ENGINEER First Exam Shaggy Gould : 1950 Sex: male Subjective: He reports mild pain to right knee. Denies LOC. Denies H/A, dizziness/lightheadedness, change in vision, chest pain, difficulty breathing, N/V, abdominal pain. Reports chronic BLE neuropathy. Admit Date & Time: 07/19/2024 12:55 PM No past medical history on file. Mental Status Adequate for Exam: Yes Examiner: Kimberly Perez APRN, MEDICAL ONCOLOGY PHYSICIAN, 07/20/2024 1:23 PM Primary Team: Purple Surgery [...] CFS >/= 7, consult Palliative Care Consult FILTER PLANT SUPERVISOR for: FILTER PLANT SUPERVISOR consult not indicated at this time *If patient meets criteria for an FILTER PLANT SUPERVISOR consult, please order aspiration precautions Mental Health [...] on guard, watchful, or easily startled? no [place] numb or detached from others, activities, or [...] plans(s): Location: right knee; Dressing: ru wrap Suture/[place]: None Antibiotics: None Drains Present: None Bourgeois: [...] Kimberly Perez APRN, LEDY, 07/20/2024 1:40 PM MEDICAL ONCOLOGY PHYSICIAN- Trauma/General Surgery Pager: via telemediq I have [...] home this afternoon. Jose Euceda RN, 07/20/2024 11:00 AM Neurologic/Cognitive Within Defined Limits Frequent Neuro Assessments have been documented in the flowsheets HEENT Assessment Within Defined Limits except for: Comments: Wears glasses Cardiac Assessment Within Defined Limits except for: Planner/Scheduler - remote telemetry Comments: Sinus tachycardia Respiratory [...] Cardiac Assessment Within Defined Limits except for: Planner/Scheduler - remote telemetry Comments: Sinus tachycardia Respiratory [...] 3:31 AM CDT SURGERY PROVIDER NOTE Shaggy oGuld : 1950 Sex: male S: Evaluated patient [...] 07/20/2024 12:01 AM CDT SURGERY PROVIDER NOTE Shaggy Gould [...] PM CDT Emergency Medicine Stabilization Room Note Shagyg Gould 1950 Sex: male Patient Arrival Date [...] limited initial read. Patient was transferred to [facility] given clinical stability and reassuring imaging. [...] POC Glucose 119(H) 70 - 100 mg/dL [facility] Blood 07/20/2024 11:3 0 AM CDT Jay Patrick MD LABORATORY [facility] [address] [place] [address], * CT HEAD NO IV CONTRAST (07/20/2024 [...] CDT) Sodium 140 135 - 148 mmol/L [facility] Potassium 4.7 3.5 - 5.3 mmol/L [facility] Chloride 107 92 - 108 mmol/L [facility] CO2 21(L) 22 - 30 mmol/L [facility] AnGap 12 8 - 16 mmol/L [facility] Glucose 159(H) 70 - 100 mg/dL [facility] BUN 27(H) 8 - 23 mg/dL [facility] Creatinine 2.56(H) 0.70 - 1.25 mg/dL [facility] Calcium 8.7(L) 8.8 - 10.2 mg/dL [facility] eGFR (2020 CKD-EPI) 26(L) >=60 ml/min/1.7 3m2 [facility] Comment: The estimated glomerular filtration rate (eGFR) was calculated using the CKD-EPI 2020 creatinine equation, which does not include race as a factor. This equation is validated in individuals 18 years of age and older, and eGFR is normalized to a body surface area of 1.73m^2. Blood 07/20/2024 5:44 AM CDT 07/20/2024 7:27 AM CDT Jay Patrick MD LABORATORY Performing Organization Address [facility] Co de Phone Number [facility] [address] [address] * (ABNORMAL) CBC WITH PLATELET (07/20/2024 5:44 AM CDT) WBC 8.23 4.00 - 10.00 k/cmm [facility] RBC 3.28(L) 4.60 - 6.00 m/cmm [facility] Hgb 10.7(L) 13.1 - 17.5 g/dL [facility] Hematocrit 33.9(L) 40.0 - 51.0 % [facility] MCV 103.4(H) 80.0 - 100.0 fL [facility] MCH 32.6(H) 25.0 - 32.0 pg [facility] MCHC 31.6 31.0 - 36.0 g/dL [facility] RDW 13.5 11.5 - 14.5 % [facility] Plt 270 150 - 400 k/cmm [facility] MPV 9.3 6.5 - 12.5 fL [facility] Blood 07/20/2024 5:44 AM CDT 07/20/2024 7:15 AM CDT Jay Patrick MD LABORATORY Performing Organization Address [facility] Co de Phone Number [facility] [address] [address] * TROP 2H (07/19/2024 2:51 PM CDT) 2H Trop 4 <=35 ng/L [facility] 2H Delta Not Significant Not Significant [facility] Blood 07/19/2024 2:51 PM CDT 07/19/2024 3:13 PM CDT Jay Patrick MD LABORATORY Performing Organization Address [facility]/ZIP Co de Phone Number [facility] [address] [address] * (ABNORMAL) URINALYSIS,TOTAL (07/19/2024 2:51 PM CDT) Color YELLOW YELLOW [facility] Appearance CLEAR CLEAR [facility] Urine Glucose >=1000(A) NEGATIVE mg/dL [facility] Bili UA NEGATIVE NEGATIVE [facility] Ketones NEGATIVE NEGATIVE [facility] Specific Sunset 1.018 1.003 - 1.030 [facility] Blood Ur NEGATIVE Neg-Trace [facility] PH Urine 5.5 5.0 - 7.0 [facility] Protein Ur 30(A) Neg-Trace [facility] Urobilinogen NORMAL NORMAL EU/dL [facility] Nitrite Ur NEGATIVE NEGATIVE [facility] Leuk Est NEGATIVE Neg-Trace [facility] WBC Ur 0-5 0 - 5 perHPF [facility] RBC Ur 0-3 0 - 3 perHPF [facility] Mucus 1+ perLPF [facility] Urinalysis [facility]formed at[facility] Urine 07/19/2024 2:51 PM CDT 07/19/2024 2:53 PM CDT Jay Patrick MD LABORATORY Performing Organization Address [facility] Co de Phone Number [facility] [address] [address] * CT LOW EXTREMITY - ANGIO - [...] contrast. 3-D reconstructions were created by the chemistry technologist on the CT scanner and reviewed by the radiologist. Images were archived in PACS. DOSE: ?Total DLP = 2628.5 mGy.cm. ?? Findings: Vasculature: No abdominal aortic aneurysm. Distal abdominal aorta and the bilateral iliac arteries are widely patent. Right common femoral, proximal profunda femoral, and the right superficial femoral arteries are patent. Visualized right popliteal artery is patent. CLIVE, DISHWASHER PREPARER, tibioperoneal trunk, and peroneal arteries are patent [...] intravenous contrast. 3-D reconstructions werecreated by the chemistry technologist on the CT scanner and reviewed by theradiologist. Images were archived in PACS. DOSE: Total DLP = 2628.5 mGy.cm. Findings: Vasculature: No abdominal aortic aneurysm. Distal abdominal aorta and thebilateral iliac arteries are widely patent. Right common femoral, proximalprofunda femoral, and the right superficial femoral arteries are patent.Visualized right popliteal artery is patent. CLIVE, DISHWASHER PREPARER, tibioperonealtrunk, and peroneal arteries are patent to [...] PM CDT) 07/19/2024 1:17 PM CDT Impressions [facility] CVIS EKG ORDERS - 07/19/2024 1:17 PM CDT SINUS RHYTHM WITH FIRST DEGREE AV BLOCK ABNORMAL ECG P-R Interval 229 ms QRS Interval 84 ms QT Interval 359 ms QTC Interval 393 ms P [place] 30 QRS [place] -8 T Wave [place] 29 Narrative Procedure Note Alfie Santos MD - 07/19/2024 IMPRESSION SINUS RHYTHM WITH FIRST DEGREE AV BLOCK ABNORMAL ECG P-R Interval 229 ms QRS Interval 84 ms QT Interval 359 ms QTC Interval 393 ms P [place] 30 QRS [place] -8 T Wave [place] 29 Jay Patrick MD EKG [facility] CVIS EKG ORDERS * XR CHEST 1 [...] (07/19/2024 1:02 PM CDT) SST TUBE Stored [facility] Comment:SST tubes (Serum Sep arator) are stored in the lab for 3 days from the collection date. Blood 07/19/2024 1:02 PM CDT 07/19/2024 1:54 PM CDT Jay Patrick MD LABORATORY Performing Organization Address City/[facility]/ZIP Co de Phone Number [facility] [address] [address] * HS TROPONIN (07/19/2024 12:58 PM CDT) HS Troponin I 3 <=35 ng/L [facility] Blood 07/19/2024 12:5 8 PM CDT 07/19/2024 1:28 PM CDT Narrative [facility] - 07/19/2024 1:58 PM CDT First Occurrence of the Troponin order is to be drawn Stat by Nursing staff on the unit. Jay Patrick MD LABORATORY Performing Organization Address City/[facility]/ZIP Co de Phone Number [facility] [address] [address] * ETHANOL (ETOH) LEVEL, BLOOD (07/19/2024 12:58 PM CDT) Ethanol Negative Negative g/dL [facility] Blood 07/19/2024 12:5 8 PM CDT 07/19/2024 1:28 PM CDT Jay Patrick MD LABORATORY Performing Organization Address [facility] Co de Phone Number [facility] [address] [address] * PTT (APTT) (07/19/2024 12:58 PM CDT) Pathologist [facility] APTT 31.2 25.0 - 37.0 sec [facility] Blood 07/19/2024 12:5 8 PM CDT 07/19/2024 1:30 PM CDT Jay Patrick MD LABORATORY Performing Organization Address [facility] Co de Phone Number [facility] [address] [address] * PROTHROMBIN (PT) & INR (07/19/2024 12:58 PM CDT) [facility] PT 10.6 9.0 - 12.5 sec [facility] INR 1.0 0.8 - 1.1 [facility] Comment: Warfarin Therapeutic Range: Standard Intensity: 2.0 - 3.0 High Intensity: 2.5 - 3.5 Blood 07/19/2024 12:5 8 PM CDT 07/19/2024 1:30 PM CDT Jay Patrick MD LABORATORY Performing Organization Address [facility] Co de Phone Number [facility] [address] [address] * ED INR (07/19/2024 12:58 PM CDT) Pathologist [facility] ED INR 1.1 0.8 - 1.1 [facility] Comment: Warfarin Therapeutic Range: Standard Intensity: 2.0 - 3.0 High Intensity: 2.5 - 3.5 This is a rapid INR screening test which uses whole blood; results may infrequently differ from plasma INR results. If medication adjustments/dosing are required a PT/INR test ([id number]) should be ordered and performed in the main laboratory. Blood 07/19/2024 12:5 8 PM CDT 07/19/2024 1:10 PM CDT Jay Patrick MD LABORATORY Performing Organization Address [facility] Co de Phone Number [facility] [address] [address] * PRECAUTIONARY TUBE (07/19/2024 12:58 PM CDT) Prec Tube Precautionary Blood Bank Specimen Received. [facility] Blood 07/19/2024 12:5 8 PM CDT 07/19/2024 1:23 PM CDT Jay Patrick MD LAB TRANSFUSION SERV ICES Performing Organization Address [facility] de Phone Number [address] [address] * LACTATE (LACTIC ACID) (07/19/2024 12:58 PM CDT) Lactate 1.5 0.7 - 2.1 mmol/L [facility] Blood 07/19/2024 12:5 8 PM CDT 07/19/2024 1:12 PM CDT Narrative [facility] - 07/19/2024 1:15 PM CDT Send specimen on ice! Jay Patrick MD LABORATORY Performing Organization Address City/[facility] Co de Phone Number [facility] [address] [address] * FIBRINOGEN (07/19/2024 12:58 PM CDT) Fibrinogen 337 200 - 400 mg/dL [facility] Blood 07/19/2024 12:5 8 PM CDT 07/19/2024 1:30 PM CDT Jay Patrick MD LABORATORY Performing Organization Address City/[facility] Co de Phone Number [facility] [address] [address] * (ABNORMAL) PANEL HEPATIC FUNCTION (07/19/2024 12:58 PM CDT) Pathologist [facility] Total Protein 6.2(L) 6.4 - 8.3 g/dL [facility] Albumin 3.7(L) 3.8 - 5.1 g/dL [facility] Bili Total 0.3 <=1.2 mg/dL [facility] Bili Direct <0.2 <=0.3 mg/dL [facility] Alk Phos 113 40 - 129 IU/L [facility] Comment:No reference range e stablished for patients <18 years old. ALT (SGPT) 11 <=41 IU/L [facility] AST(SGOT) 16 5 - 40 IU/L [facility] Blood 07/19/2024 12:5 8 PM CDT 07/19/2024 1:28 PM CDT Jay Patrick MD LABORATORY Performing Organization Address City/[facility] Co de Phone Number [facility] [address] [address] * (ABNORMAL) ED HEMOGLOBIN TOTAL (ED ONLY) (07/19/2024 12:58 PM CDT) [facility] Hgb 11.9(L) 13.1 - 17.5 g/dL [facility] Blood 07/19/2024 12:5 8 PM CDT 07/19/2024 1:12 PM CDT Jay Patrick MD LABORATORY [facility] [address] [address] * (ABNORMAL) ED CHEMISTRY LABS(NA,K,CL,CO2,GLU,CREAT,CA-IONIZED,ANION GAP) (07/19/2024 12:58 PM CDT) [facility] Sodium 142 135 - 148 mmol/L [facility] Potassium 4.6 3.5 - 5.3 mmol/L [facility] Chloride 108 92 - 108 mmol/L [facility] AnGap 13 8 - 16 mmol/L [facility] Glucose 127(H) 70 - 100 mg/dL [facility] ICA, Actual 4.64 4.40 - 5.20 mg/dL [facility] ICA, pH Corrected 4.58 4.40 - 5.20 mg/dL [facility] Creatinine 2.57(H) 0.70 - 1.25 mg/dL [facility] BICARB 21(L) 22 - 26 mEq/L [facility] eGFR (2020 CKD-EPI) 26(L) >=60 ml/min/1.7 3m2 [facility] Comment: The estimated glomerular filtration rate (eGFR) was calculated using the CKD-EPI 2020 creatinine equation, which does not include race as a factor. This equation is validated in individuals 18 years of age and older, and eGFR is normalized to a body surface area of 1.73m^2. Blood 07/19/2024 12:5 8 PM CDT 07/19/2024 1:12 PM CDT Jay Patrick MD LABORATORY [facility] [address] [address] * (ABNORMAL) CBC WITH PLTS/AUTO DIFF (07/19/2024 12:58 PM CDT) WBC 10.93(H) 4.00 - 10.00 k/cmm [facility] RBC 3.33(L) 4.60 - 6.00 m/cmm [facility] Hgb 11.2(L) 13.1 - 17.5 g/dL [facility] Hematocrit 33.6(L) 40.0 - 51.0 % [facility] MCV 100.9(H) 80.0 - 100.0 fL [facility] MCH 33.6(H) 25.0 - 32.0 pg [facility] MCHC 33.3 31.0 - 36.0 g/dL [facility] RDW 13.4 11.5 - 14.5 % [facility] Plt 252 150 - 400 k/cmm [facility] MPV 8.9 6.5 - 12.5 fL [facility] Automated Abs Neutrophil 8.55(H) 1.70 - 6.50 k/cmm [facility] Comment:Preliminary ANC, Fin al Result to Follow Abs Immature Granulocyte 0.07 0.00 - 0.09 k/cmm [facility] Comment:The Immature Granulo cyte Absolute count contains metamyelocytes and myelocytes. Abs Neutrophil 8.55(H) 1.70 - 6.50 k/cmm [facility] Abs Lymphocyte 1.35 0.80 - 4.00 k/cmm [facility] Abs Monocyte 0.72 0.20 - 1.00 k/cmm [facility] Abs Eosinophil 0.20 0.00 - 0.60 k/cmm [facility] Abs Basophil 0.04 0.00 - 0.20 k/cmm [facility] Blood 07/19/2024 12:5 8 PM CDT 07/19/2024 1:28 PM CDT Jay Patrick MD LABORATORY Performing Organization Address [facility] Co de Phone Number [facility] [address] [address] * (ABNORMAL) BLOOD GASES (07/19/2024 12:58 PM CDT) PH Andrew 7.38 7.32 - 7.42 [facility] PCO2 Andrew 37(L) 41 - 51 mmHG [facility] PO2 Andrew 37 25 - 40 mmHG [facility] Bicarb Andrew 21(L) 24 - 28 mEq/L [facility] O2 Sat Andrew 65 % [facility] Base Exc Andrew -3.8 -10.0 - 2.0 mmol/L [facility] Blood Venous 07/19/2024 12:5 8 PM CDT 07/19/2024 1:13 PM CDT Jay Patrick MD LABORATORY Performing Organization Address [facility] Co de Phone Number [facility] [address] [address] * ED US CRITICAL CARE (07/19/2024 12:55 [...] Given 07/20/2024 8:15 AM CDT 1,[address] [facility] REC REVIEW BY PHARMACY Discharge Date: 07/20/2024, [...] - Provider: Amber Piña, RT - Comment: [phone]) melatonin tablet 3 mg(Linked Group 3) 3 [...] (Given - Provid er: Jose Euceda RN) pantoprazole (PROTONIX) tablet 40 mg 40 [...] Risk documented in this encounter Care Teams Porcelain Buildup Assistant Relationship Specialty Start Date End Date Dr Michael GIRALDO at [facility] 10/11/13 documented as of this encounter
--- OUTSIDE RECORDS SUMMARY | 2024-08-03 11:53 | XMS_ITS | Encounter Summary ---
Author Organization Formerly Named [facility] Address [address] [place] [id number] Phone Care Team Providers Care Stone Splitter Name Role Phone Unavailable Primary Care Provider [...] on filedocumented in this encounter Care Teams Stone Splitter Relationship Specialty Start Date End Date Dr Michael GIRALDO at [facility] 10/11/13 documented as of this encounter
--- OUTSIDE RECORDS SUMMARY | 2024-08-03 11:53 | XMS_ITS | Encounter Summary ---
Author Organization [facility] Address [address] [place] [address] Phone Care Team Providers Care Assembler Musical Instruments Name Role Phone Unavailable Primary Care Provider Unavailabl e Encounter Details Date Type Department Care Team (Late st Contact Info) Description 07/19/2024 Orders Only [facility] Film Room [facility] Radiology Department [facility] [address] [address] Provider, [place] [address] Referral of patient (Primary Dx) Social History [...] FILMS (07/19/2024 11:03 AM CDT) Narrative User, [id number] - 07/19/2024 11:47 AM CDT Outside Film Only Outside Provider RAD OUTSIDE FILMS * [facility]ULAR OUTSIDE FILMS (07/19/2024 10:44 AM CDT) Narrative User [id number] - 07/19/2024 11:47 AM CDT Outside Film Only Outside Provider RAD OUTSIDE FILMS documented in this encounter Visit Diagnoses Diagnosis Referral of patient- Primary Referral of patient without examination or treatment documented in this encounter Care Teams Assembler Musical Instruments Relationship Specialty Start Date End Date Dr Michael GIRALDO at [facility] 10/11/13 documented as of this encounter
== END 2024-07-19 11:37 | disposition home or self-care (01) ==
LOC: AMB 08-03 11:50
PROVIDERS: PCP Internal Medicine; Visit Provider Family Medicine
DX: R58 Hemorrhage, not elsewhere classified (principal); S80.01XA Contusion of right knee, initial encounter; I95.9 Hypotension, unspecified
CPT/HCPCS: A0425; A0427

== ENCOUNTER 2024-12-04 14:30 | Outpatient (RCR) | payer MEDICARE, SELFPAY | END 2024-12-14 13:21 | disposition home or self-care (01) | PROVIDERS: PCP Internal Medicine; Visit Provider Family Medicine | DX: M12.812 Other specific arthropathies, not elsewhere classified, left shoulder (principal); R53.1 Weakness; Z51.89 Encounter for other specified aftercare | CPT/HCPCS: 97110; 97161 ==

== ENCOUNTER 2024-12-19 06:51 | Outpatient (CLI) | payer MEDICARE, SELFPAY ==
--- NOTE | 2024-12-19 07:15 | MR_ITS ---
EXAM: MRI of the LEFT SHOULDER WITHOUT CONTRAST CLINICAL HISTORY: Ongoing left shoulder pain. Evaluate for rotator cuff tear. COMPARISONS: Plain radiographs 12/11/2024 and 01/20/2017. TECHNICAL: MRI sequences of the left shoulder: Axials: PD, T2 Coronals: PD, STIR, T2 Sagittals: PD, T2 SEDATION: None CONTRAST: None FINDINGS: Bones: No fracture or suspicious bone marrow signal abnormality. Coracoacromial arch: Acromion: No os acromiale. Type I-II acromion. Acromiohumeral space: Markedly narrowed in the setting of full-thickness supraspinatus and infraspinatus tendon tears. Acromioclavicular joint: Moderate degenerative changes. Coracoclavicular ligament: The coracoclavicular ligament is intact. Rotator cuff muscles/tendons: Supraspinatus and infraspinatus: Complete full-thickness tears of the supraspinatus and infraspinatus tendons with maximal tendon retraction medial to the level of the glenoid, superior subluxation of the humeral head/marked narrowing of the acromiohumeral bony distance, mild to moderate atrophy of the supraspinatus muscle, and marked atrophy of the infraspinatus muscle. Teres minor: The teres minor tendon and muscle are intact. Subscapularis: Essentially complete essentially full-thickness tear of the subscapularis tendon. Moderate to marked atrophy of the subscapularis muscle. Labrum and glenohumeral joint: Fraying and tearing of most of the labrum. Small glenohumeral joint effusion. 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 No convincing evidence of capsular edema or thickening although evaluation is suboptimal because of lack of joint distention. Proximal biceps tendon, long head and short heads: Rupture of the proximal long head of the biceps tendon with distal tendon retraction distal to the bicipital groove. The short head is intact. IMPRESSION: 1. Complete full-thickness tears of the supraspinatus and infraspinatus tendons with maximal tendon retraction medial to the level of the glenoid, superior subluxation of the humeral head/marked narrowing of the acromiohumeral bony distance, mild to moderate atrophy of the supraspinatus muscle, and marked atrophy of the infraspinatus muscle. 2. Essentially complete essentially full-thickness tear of the subscapularis tendon. Moderate to marked atrophy of the subscapularis muscle. 3. Rupture of the proximal long head of the biceps tendon with distal tendon retraction distal to the bicipital groove. 4. Moderate acromioclavicular joint osteoarthritis. 5. 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 Fraying and tearing of most the labrum. 6. Small glenohumeral joint effusion. RCB Electronically signed on 12/19/2024 11:11:00 AM by Adama Rojas M.D.
== END 2024-12-19 06:52 | disposition home or self-care (01) ==
LOC: MRI 06:51
PROVIDERS: Visit Provider Orthopaedic Surgery
DX: M25.512 Pain in left shoulder (principal); M75.122 Complete rotator cuff tear or rupture of left shoulder, not specified as traumatic; S46.212A Strain of muscle, fascia and tendon of other parts of biceps, left arm, initial encounter; M19.012 Primary osteoarthritis, left shoulder; M94.212 Chondromalacia, left shoulder; M25.412 Effusion, left shoulder
CPT/HCPCS: 73221